=== PATIENT | male | born 1945 | race Caucasian/White ===

== ENCOUNTER 2023-03-17 18:04 | Outpatient (RCR) | payer MEDICARE, OTHER, SELFPAY | END 2023-04-11 23:59 | disposition home or self-care (01) | LOC: MM 18:04 | PROVIDERS: PCP Internal Medicine; Visit Provider Internal Medicine | DX: Z51.81 Encounter for therapeutic drug level monitoring (principal); Z79.01 Long term (current) use of anticoagulants; I48.91 Unspecified atrial fibrillation | CPT/HCPCS: 85610; G0463 ==

== ENCOUNTER 2023-04-17 10:31 | Outpatient (RCR) | payer MEDICARE, OTHER, SELFPAY | END 2023-05-12 16:53 | disposition home or self-care (01) | LOC: MM 10:31 | PROVIDERS: PCP Internal Medicine; Visit Provider Internal Medicine | DX: Z51.81 Encounter for therapeutic drug level monitoring (principal); Z79.01 Long term (current) use of anticoagulants; I48.91 Unspecified atrial fibrillation | CPT/HCPCS: 85610; G0463 ==

== ENCOUNTER 2023-05-13 09:08 | Outpatient (RCR) | payer MEDICARE, OTHER, SELFPAY | END 2023-06-12 17:27 | disposition home or self-care (01) | LOC: MM 09:08 | PROVIDERS: Visit Provider Internal Medicine | DX: Z51.81 Encounter for therapeutic drug level monitoring (principal); Z79.01 Long term (current) use of anticoagulants; I48.91 Unspecified atrial fibrillation | CPT/HCPCS: 85610; G0463 ==

== ENCOUNTER 2023-05-16 08:29 | Outpatient (OUT) | payer MEDICARE, OTHER, SELFPAY ==
--- NOTE | 2023-05-16 08:38 | CT_ITS ---
[address] [address] Patient Name: SIGIFREDO HURTADO MRN: [id number] date: 1945 Sex: M Assigned Patient Location: CT Current Patient Location: CT Accession/Order Number: [id number] Exam Date: 05/16/2023 08:39 Report Date: 05/16/2023 09:42 At the request of: TANI ARGUELLO Procedure: CT abdomen pelvis wo con EXAMINATION: CT abdomen pelvis wo con HISTORY: Aortic Aneurysm Surveillance COMPARISON: CT abdomen pelvis 03/27/2020 TECHNIQUE: Axial, Coronal, and Sagittal images were obtained without and/or with IV contrast as indicated by examination type. Dose reduction techniques were achieved by using automated exposure control and/or adjustment of mA and/or kV according to patient size and/or use of iterative reconstruction technique. FINDINGS: LUNG BASES: No visible pulmonary or pleural disease. LIVER: No enlargement, atrophy, suspicious density, or significant focal lesion. BILIARY: No dilatation or calcification. PANCREAS: No lesion, fluid collection, or abnormal duct dilatation. SPLEEN: No enlargement or focal lesion. ADRENALS: No mass or enlargement. KIDNEYS: Nonobstructing 2 mm stone within right kidney and a few stable small benign-appearing cysts. Moderate atrophy of left kidney. BOWEL/MESENTERY: Numerous diverticula involving descending and sigmoid colon with mild pericolonic inflammatory changes adjacent mid sigmoid colon. AORTA/VASCULAR: Aortobifemoral endovascular stent in stable 4.4 cm fusiform aneurysmal dilation of the aorta just below the renal arteries. Endovascular stents at origins of the right and left renal arteries. RETROPERITONEUM: No mass or adenopathy. LYMPH NODES: No adenopathy. URINARY BLADDER: No visible focal wall thickening, lesion, or calculus. PELVIC ORGANS: No visible mass. Pelvic organs appropriate for patient age. ABDOMINAL WALL: No mass or hernia. BONES: No bony lesion or fracture. OTHER: Negative. CT/CT abdomen pelvis wo con IMPRESSION: 1.Stable 4.4 cm fusiform aneurysmal dilation of the infrarenal aorta with prior aortobifemoral endovascular stenting. 2. Colonic diverticulosis and suspected mild acute diverticulitis of the mid sigmoid colon. 3. Nonobstructing right nephrolithiasis. Electronically authenticated by: YUSUF VAIL Date: 05/16/2023 09:42
== END 2023-05-16 08:30 | disposition home or self-care (01) ==
LOC: CT 08:29
PROVIDERS: PCP Internal Medicine
DX: I71.40 Abdominal aortic aneurysm, without rupture, unspecified (principal); K57.30 Diverticulosis of large intestine without perforation or abscess without bleeding; N20.0 Calculus of kidney
CPT/HCPCS: 74176

== ENCOUNTER 2023-06-13 10:11 | Outpatient (RCR) | payer MEDICARE, OTHER, SELFPAY | END 2023-07-11 16:45 | disposition home or self-care (01) | LOC: MM 10:11 | PROVIDERS: PCP Internal Medicine; Visit Provider Internal Medicine | DX: Z51.81 Encounter for therapeutic drug level monitoring (principal); Z79.01 Long term (current) use of anticoagulants; I48.91 Unspecified atrial fibrillation | CPT/HCPCS: 85610; G0463 ==

== ENCOUNTER 2023-06-25 15:15 | Outpatient (REF) | payer MEDICARE, OTHER, SELFPAY ==
[2023-06-25 16:05] LABS: SARS-CoV-2 Ag NEGATIVE (NEGATIVE)
[2023-06-26 11:42] LABS: SARS-CoV-2 NAA NOT DETECTED (NOT DETECTE)
== END 2023-06-25 15:16 | disposition home or self-care (01) ==
LOC: LAB 15:15
PROVIDERS: PCP Internal Medicine; Visit Provider Internal Medicine
DX: Z20.822 Contact with and (suspected) exposure to COVID-19 (principal)
CPT/HCPCS: 87635; 87811; U0003

== ENCOUNTER 2023-06-25 17:17 | Inpatient (IN) | payer MEDICARE, OTHER, SELFPAY ==
[2023-06-25] VITALS (36 sets, daily range): BP systolic 76–159; BP diastolic 43–81; PULSE 78–126; RESP 16–29; TEMP 37.3–39.4; O2SAT 93–95; BMI 27.3; BMI 27.2
--- NOTE | 2023-06-25 17:37 | ECG_ITS ---
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
--- NOTE | 2023-06-25 17:38 | ED.GENADUL1 ---
HPI - General Adult General Chief complaint: Weakness Stated complaint: General Weakness, Diarrhea, Confusion Time Seen by Provider: 06/25/23 17:33 Source: family Mode of arrival: Wheelchair Limitations: no limitations History of Present Illness HPI narrative: 78-year-old male presents for diarrhea and some weakness. He's been having diarrhea for the past two days, about twice a day. It's been watery but has had no blood in it. He doesn't complain of vomiting and he has not been hospitalized or been on antibiotics recently. He hasn't been around anybody who has been ill. No new medications. His states that he's been slightly slow to answer some questions but he hasn't been confused. Related Data Allergies Allergy/AdvReac Type Severity Reaction Status Date / Time iv contrast Allergy Severe Hives Uncoded 06/25/23 17:32 Review of Systems ROS Narrative A ten point review of systems is negative except as noted above. Exam Narrative Exam Narrative: Nurses note and vital signs reviewed and patient is not hypoxic. General: The patient appears well and in no apparent distress. Patient is resting comfortably on cart. Skin: Warm, dry, no pallor noted. There is no rash noted. Head: Normocephalic, atraumatic Eye: Normal conjunctiva, no drainage Ears, Nose, Mouth, and Throat: oral mucosa is somewhat dry. Nares patent. Cardiovascular: Regular Rate and Rhythm Respiratory: Patient is in no distress, no accessory muscle use, lungs are clear to auscultation, no wheezing, rales or rhonchi Back: non-tender GI: soft and nontender Musculoskeletal: The patient has no evidence of calf tenderness, no pitting edema, symmetrical pulses noted bilaterally Neurological: A&O x4, normal speech Psychiatric: Cooperative Constitutional Vital Signs, click to edit/add: Last Vital Signs Temp 103 F H 06/25/23 17:33 Pulse 112 H 06/25/23 17:33 Resp 24 06/25/23 17:33 BP 159/64 H 06/25/23 17:33 Pulse Ox 95 06/25/23 17:33 Course Vital Signs Vital signs: Vital Signs Temperature 103 F H 06/25/23 17:33 Pulse Rate 112 H 06/25/23 17:33 Respiratory Rate 24 06/25/23 17:33 Blood Pressure 159/64 H 06/25/23 17:33 Pulse Oximetry 95 06/25/23 17:33 Temperature 103 F H 06/25/23 17:33 Pulse Rate 112 H 06/25/23 17:33 Respiratory Rate 24 06/25/23 17:33 Blood Pressure 159/64 H 06/25/23 17:33 Pulse Oximetry 95 06/25/23 17:33 Medical Decision Making MDM Narrative Medical decision making narrative: the patient has had some diarrhea and was noted to have a fever. C. difficile test and stool culture pending as well as blood tests and the patient is signed out to Dr. Castillo at change of shift. Discharge Plan Discharge Chief Complaint: Weakness Clinical Impression: Diarrhea Patient Disposition: Still a Patient Referrals: Cortez Biswas DO [Primary Care Provider] - 1 week
[2023-06-25] MEDS: 0.9 % SODIUM CHLORIDE 500 ML IV (18:15)
[2023-06-25] MEDS: ACETAMINOPHEN 325 MG TABLET 650 MG PO (18:24)
[2023-06-25 18:47] LABS: Hematocrit 34.8 % (42.0-54.0); Hemoglobin 11.3 g/dL (14.0-18.0); Mean Corpuscular HGB Conc 32.5 g/dL (29.9-35.2); Mean Corpuscular Hemoglobin 27.7 pg (25.9-34.0); Mean Corpuscular Volume 85.3 fL (80.0-94.0); Mean Platelet Volume 10.9 fL (9.5-13.5); Platelet Count 88 10^3/uL (150-450); Red Blood Count 4.08 10^6/uL (4.70-6.10); Red Cell Distribution Width 17.1 % (11.0-15.0); White Blood Count 10.2 10^3/uL (4.0-11.0)
[2023-06-25 19:02] LABS: Anion Gap 15.9; BUN Creatinine Ratio 15.4; Calcium 7.8 mg/dL (8.5-10.1); Chloride 103 mmol/L (98-107); Estimated GFR (African America 22 (>=60); Estimated GFR (Non-African Ame 18 (>=60); Glucose 112 mg/dL (74-106); Potassium 3.9 mmol/L (3.5-5.1); Sodium 138 mmol/L (136-145)
--- NOTE | 2023-06-25 19:33 | CT_ITS ---
[address] [address] Patient Name: SIGIFREDO HURTADO MRN: [id number] date: 1945 Sex: M Assigned Patient Location: ER Current Patient Location: ER Accession/Order Number: [id number] Exam Date: 06/25/2023 19:50 Report Date: 06/25/2023 21:04 At the request of: SNOW PAEZ Procedure: CT abdomen pelvis wo con EXAM: CT abdomen pelvis wo con HISTORY: infection and diarrhea COMPARISON: 05/16/2023 TECHNIQUE: CT of abdomen and pelvis without intravenous contrast. Dose reduction techniques were achieved by using automated exposure control and/or adjustment of mA and/or kV according to patient size and/or use of iterative reconstruction technique. FINDINGS: Limited evaluation of the viscera/organs and vasculature without intravenous contrast. TUBES AND IMPLANTS: Aortobiiliac endograft LOWER CHEST: Mild to moderate cardiomegaly. Small hiatal hernia. ABDOMEN and PELVIS ABDOMINAL WALL AND SOFT TISSUES: Unremarkable. BONES: No suspicious lesions. Multilevel degenerative changes of the spine. ARTERIES: Incompletely evaluated. Aortobiiliac endograft in place. Infrarenal aortic aneurysm appears stable in size measuring 4.4 centimeters. VEINS: Incompletely evaluated. LYMPH NODES: Unremarkable. PERITONEUM/ RETROPERITONEUM: Unremarkable. BOWEL: No obstruction. Moderate colonic diverticulosis APPENDIX: Unremarkable LIVER: No suspicious lesions. GALLBLADDER: Unremarkable. BILE DUCTS: Not dilated SPLEEN: Unremarkable. PANCREAS: Unremarkable. ADRENALS: Unremarkable. KIDNEYS/ URETERS: Nonobstructing right renal calculus. Atrophic left kidney. Right renal cysts. REPRODUCTIVE ORGANS: Coarse prostatic calcification without prostatomegaly URINARY BLADDER: Unremarkable. CT/CT abdomen pelvis wo con IMPRESSION: 1. No evidence of acute abdominopelvic process. 2. Nonobstructing right renal calculus. Atrophic left kidney. 3. Moderate diverticulosis. 4. Stable infrarenal aortic aneurysm compared to the 05/16/2023 with aortobiiliac endograft in place. Electronically authenticated by: WILLIS HERRING Date: 06/25/2023 21:04
[2023-06-25] MEDS: 0.9 % SODIUM CHLORIDE 1,000 ML 1000 ML IV (19:40)
[2023-06-25] MEDS: PIPERACILLIN SODIUM/TAZOBACTAM 3.375 GM in 0.9 % SODIUM CHLORIDE 50 ML IV (20:03)
[2023-06-25 20:31] LABS: Lactate/Lactic Acid 0.8 mmol/L (0.4-2.0)
[2023-06-25 20:50] LABS: Lymphocytes Absolute Manual 0.71 10^3/uL (1.20-3.80); Monocytes Absolute Manual 1.02 10^3/uL (0.30-0.80); Segmented Neut Absolute Manual 8.46 10^3/uL (1.4-6.5)
--- NOTE | 2023-06-25 20:50 | XR_ITS ---
The [address] [address] Patient Name: SIGIFREDO HURTADO MRN: [id number] date: 1945 Sex: M Assigned Patient Location: ER Current Patient Location: ER Accession/Order Number: [id number] Exam Date: 06/25/2023 21:00 Report Date: 06/25/2023 22:00 At the request of: SNOW PAEZ Procedure: XR chest 1V ONE-VIEW CHEST RADIOGRAPH, 06/25/2023 9:00 PM EDT COMPARISON: Chest, 12/24/2015. CLINICAL HISTORY: fever/weakness and fatigue with confusion and negative COVID test. Infectious/diarrhea. FINDINGS: No acute pulmonary disease. No pulmonary edema, pneumothorax, or pleural effusion. Mildly enlarged heart size. No acute osseous abnormality. XR/XR chest 1V IMPRESSION: 1. No acute pulmonary disease. 2. Mildly enlarged heart size. Electronically authenticated by: Ralph DORSEY Date: 06/25/2023 22:00
[2023-06-25] MEDS: 0.9 % SODIUM CHLORIDE 2,190 ML 730 ML IV (21:42)
[2023-06-25 21:53] LABS: INR 1.72; Prothrombin Time 17.7 sec (9.0-11.6)
[2023-06-26] VITALS (22 sets, daily range): BP systolic 98–168; BP diastolic 59–73; PULSE 81–120; RESP 16–22; TEMP 36.9–38.8; O2SAT 91–94
[2023-06-26 02:18] LABS: Bilirubin Urine NEGATIVE (NEGATIVE); Blood Urine TRACE-I (NEGATIVE); Clarity Urine CLEAR (CLEAR); Color Urine LT. YELLOW (YELLOW); Glucose Urine UA NEGATIVE (NEGATIVE); Ketones Urine NEGATIVE (NEGATIVE); Leukocyte Esterase Urine NEGATIVE (NEGATIVE); Nitrite Urine NEGATIVE (NEGATIVE); Protein Urine 100 mg/dL (NEG/TRACE); Urobilinogen Urine 0.2 EU/dL (0.2-1.0); pH Urine 5.5 (5.0-9.0)
[2023-06-26] MEDS: LACTATED RINGER'S SOLUTION 1,000 ML 75 ML IV ×2 (02:41→15:41)
[2023-06-26] MEDS: ACETAMINOPHEN 500 MG TABLET 1000 MG PO ×3 (02:41→15:43)
--- NOTE | 2023-06-26 04:13 | W.PM.TELEPN ---
Progress Note: Subjective Subjective Interval history: The patient is a 78-year-old male with a history of atrial fibrillation, hypertension and CAD who presents with 1 week history of diarrhea, and some low-grade fevers. He has had some generalized weakness. His noted him to be a little more confused today. He has been having 4-5 episodes of diarrhea daily. Today he had worsening dizziness and that prompted him to come to the ER. He denies any new medications or any sick contacts. He denies any unusual food intake. When he initially arrived his BP was 76/49. He received 2200 mL of IV fluids in the ED. He does have a temperature noted of 101.5. Lactic acid was 0.8. COVID was negative. CT abdomen was negative. He was noted to have acute kidney injury with a creatinine of 3.3. He was started on empiric Zosyn. he is being admitted for further evaluation. Exam Narrative Exam Narrative: General : Alert and oriented x1 HEENT : Extraocular movements intact, pupils equal round and reactive to light and accommodation Neck: Supple, no JVD Chest: Clear to auscultation bilaterally, no wheezes Heart: Regular rate and rhythm, S1 and S2 heard Abdomen: Soft nontender nondistended. Extremities: No clubbing cyanosis or edema Neurologically: Moving all 4 extremities Skin: No rashes Constitutional Vital Signs, click to edit/add: Last Vital Signs Temp 99.2 F 06/25/23 23:05 Pulse 87 06/26/23 02:41 Resp 22 06/25/23 23:05 BP 147/74 H 06/25/23 23:05 Pulse Ox 95 06/25/23 23:05 O2 Del Method Room Air 06/25/23 23:05 Progress Note: Objective Labs Labs: Short CBC 06/25/23 Range/Units 18:32 WBC 10.2 (4.0-11.0) 10^3/uL Hgb 11.3 L (14.0-18.0) g/dL Hct 34.8 L (42.0-54.0) % Plt Count 88 L (150-450) 10^3/uL BMP 06/25/23 18:32 Sodium 138 Potassium 3.9 Chloride 103 Carbon Dioxide 23.0 BUN 51.0 H Creatinine 3.32 H Glucose 112 H Calcium 7.8 L Urine 09/14/23 Range/Units 01:40 Urine Color Lt. yellow (YELLOW) Urine Clarity Clear (CLEAR) Urine pH 5.5 (5.0-9.0) Ur Specific [place] 1.020 (1.005-1.025) Urine Protein 100 A (NEG/TRACE) mg/dL Urine Glucose (UA) Negative (NEGATIVE) mg/dL Progress Note: A&P Assessment and Plan (1) Diarrhea: (2) Acute hypotension: (3) Acute kidney failure: Plan The patient is a 78-year-old male with above medical problems, presenting with generalized weakness, acute kidney injury and mental status changes. Acute kidney injury -Likely from prerenal azotemia from persistent diarrhea -Provide supportive care with IV fluids -Monitor renal function hold Lasix Diarrhea -Hold scheduled laxatives -Awaiting stool cultures -Give 1 dose of Imodium -Could also be related to viral process with fevers -Patient has been started on Zosyn but can certainly be discontinued if no obvious source of infection. Atrial fibrillation -Continue home medications Generalized weakness -Combination of the above -PT evaluation DVT Prophylaxis -Plavix Medication review -Medication reconciliation form completed Goals of care -Full code Communications -Discussed with the emergency room physician -Discussed with the bedside nurse -Patient updated of plan of care, all questions answered to their satisfaction Disposition -Home when medically stable Telemedicine clause -As the provider of this telehealth evaluation, requested by the patient's evaluating physician, I attest that I introduced myself to the patient, provided my credentials and determined that telemedicine via a real-time, two-way interactive audio and video platform is an appropriate and effective means of providing this service. -I reviewed the patient's chart and had a discussion with the member of the patient's treatment team. -The patient and I mutually agreed with continuation of this evaluation via telemedicine. The patient consented for the telemedicine evaluation. -This virtual encounter was taken place from [place], [place]. The encounter was approximately 35 minutes. The nurse was present during the entire time of the encounter and was able to remove the stethoscope and appropriate directions. The patient was evaluated at [facility] Telemedicine Attestation Telemedicine Attestation I conducted this encounter from [] via secure live, [id number] video conference with the patient, located at [facility] with []. Prior to the interview, the risks and benefits of telemedicine were discussed with the patient and verbal consent was obtained.
[2023-06-26] MEDS: PIPERACILLIN SODIUM/TAZOBACTAM 3.375 GM in 0.9 % SODIUM CHLORIDE 50 ML IV ×2 (06:15→14:39)
[2023-06-26] MEDS: LOPERAMIDE HCL 2 MG CAPSULE 4 MG PO (06:15)
--- NOTE | 2023-06-26 08:29 | CM.NOTE ---
Rounds made with Dr. Rashid, will send stool sample today for testing. Discussed viral illness with pt.
--- NOTE | 2023-06-26 08:31 | P.HP_ITS ---
H&P: HPI History of Present Illness Chief complaint: General Weakness, Diarrhea, Confusion acute kidney Narrative: Patient not the greatest historian presented to the emergency room with increasing diarrhea over the last several days. Also had a fever up to 103. Denies any unusual foods or travel. In ER found to have significant dehydration and tachycardia with significant hypotension. Patient was admitted for work-up and treatment of same. Review of Systems ROS Status of ROS 10 or more systems reviewed and unremarkable except as noted in history and below [facility] Medical History (Updated 06/26/23 @ 01:21 by Miller Moise) Family History (Updated 06/26/23 @ 03:17 by Miller Moise) Father Family history of diabetes mellitus Meds Home Medications and Allergies Home Medications Medication Instructions Recorded Confirmed Type allopurinol 100 mg tablet 100 mg PO BID 06/25/23 06/25/23 History amlodipine 5 mg tablet 5 mg PO DAILY 06/25/23 06/25/23 History clonazepam 0.5 mg tablet 1 mg PO DAILY 06/25/23 06/25/23 History clopidogrel 75 mg tablet 75 mg PO DAILY 06/25/23 06/25/23 History famotidine 20 mg tablet 20 mg PO BID PRN indigestion 06/25/23 06/25/23 History furosemide 40 mg tablet 40 mg PO DAILY 06/25/23 06/25/23 History hydralazine 100 mg tablet 100 mg PO DAILY 06/25/23 06/25/23 History metoprolol tartrate 100 mg tablet 100 mg PO BID 06/25/23 06/25/23 History polysaccharide iron complex 150 mg 150 mg PO DAILY 06/25/23 06/25/23 History iron capsule potassium chloride 10 mEq 10 meq PO DAILY 06/25/23 06/25/23 History tablet,extended release(part/cryst) pravastatin 80 mg tablet 80 mg PO DAILY 06/25/23 06/25/23 History sennosides 8.6 mg-docusate sodium 1 tab-cap PO DAILY 06/25/23 06/25/23 History 50 mg tablet (Senna Plus) tamsulosin 0.4 mg capsule 0.4 mg PO DAILY 06/25/23 06/25/23 History warfarin 4 mg tablet 6 mg PO .mon,thur 06/25/23 06/26/23 History warfarin See Rx Instructions .Route .COMPLEX 06/26/23 06/26/23 History Allergies Allergy/AdvReac Type Severity Reaction Status Date / Time iv contrast Allergy Severe Hives Uncoded 06/25/23 22:54 Exam Constitutional Vital Signs, click to edit/add: Last Vital Signs Temp 99.6 F 06/26/23 06:00 Pulse 120 H 06/26/23 08:06 Resp 22 06/26/23 06:00 BP 154/71 H 06/26/23 06:00 Pulse Ox 94 L 06/26/23 06:00 O2 Del Method Room Air 06/26/23 06:00 Documenting provider has reviewed patient's vital signs: yes Common normals: no apparent distress (A little slow to answer questions but seems appropriate) Chest Common normals: inspection of chest normal and palpation of chest normal Respiratory Common normals: normal respiratory effort and no retractions Cardio Common normals: regular rate and no murmurs; irregular rhythm Rhythm: abnormal rhythm GI Common normals: Normal to inspection, nondistended, normoactive bowel sounds present and soft to palpation Palpation: tender (Mild diffuse tenderness, no rebound tenderness) Results Labs Labs: Short CBC 06/25/23 Range/Units 18:32 WBC 10.2 (4.0-11.0) 10^3/uL Hgb 11.3 L (14.0-18.0) g/dL Hct 34.8 L (42.0-54.0) % Plt Count 88 L (150-450) 10^3/uL BMP 06/25/23 18:32 Sodium 138 Potassium 3.9 Chloride 103 Carbon Dioxide 23.0 BUN 51.0 H Creatinine 3.32 H Glucose 112 H Calcium 7.8 L Urine 06/26/23 Range/Units 01:40 Urine Color Lt. yellow (YELLOW) Urine Clarity Clear (CLEAR) Urine pH 5.5 (5.0-9.0) Ur Specific [place] 1.020 (1.005-1.025) Urine Protein 100 A (NEG/TRACE) mg/dL Urine Glucose (UA) Negative (NEGATIVE) mg/dL Assessment and Plan Assessment and Plan (1) Diarrhea: (2) Acute hypotension: (3) Acute kidney failure: Plan Fever, tachycardia, respiratory distress, significant hypotension, thrombocytopenia resulting in sepsis with multisystem organ dysfunction, lung, heart, kidney-secondary to colitis-IV antibiotics, continue with fluid resuscitation, serial labs, check stool culture we will add oral vancomycin for possible C. difficile colitis Atrial fibrillation with rapid ventricular response-secondary to above-maintain Coumadin, INR somewhat subtherapeutic Anemia-possible acute blood loss anemia we will check stool sample Thrombocytopenia-possibly secondary to above versus chronic, will try to obtain history Acute elevation in BUN and creatinine consistent with acute kidney injury, history of chronic kidney disease but this would appear to be deterioration from that. We will maintain patient as observation, if not improving significantly today we will change to inpatient status starting tomorrow. If sepsis related to viral etiology could resolve quickly otherwise may be here 2 to 3 days
[2023-06-26] MEDS: CLONAZEPAM 0.5 MG TABLET 1 MG PO (09:25)
[2023-06-26] MEDS: ATORVASTATIN CALCIUM 20 MG TABLET PO (09:25)
[2023-06-26] MEDS: ALLOPURINOL 100 MG TABLET PO ×2 (09:26→21:07)
[2023-06-26] MEDS: POTASSIUM CHLORIDE 10 MEQ ER TABLET PO (09:26)
[2023-06-26] MEDS: CLOPIDOGREL BISULFATE 75 MG TABLET PO (09:26)
[2023-06-26] MEDS: METOPROLOL TARTRATE 100 MG TABLET PO ×2 (09:26→21:07)
[2023-06-26] MEDS: TAMSULOSIN HCL 0.4 MG CAPSULE PO (09:26)
[2023-06-26] MEDS: IRON POLYSACCHARIDE COMPLEX 150 MG CAPSULE PO (09:26)
[2023-06-26 10:08] LABS: Anion Gap 12.6; BUN Creatinine Ratio 15.9; Calcium 7.5 mg/dL (8.5-10.1); Carbon Dioxide 23.3 mmol/L (21.0-32.0); Chloride 104 mmol/L (98-107); Estimated GFR (African America 25 (>=60); Estimated GFR (Non-African Ame 20 (>=60); Glucose 151 mg/dL (74-106); Potassium 3.9 mmol/L (3.5-5.1); Sodium 136 mmol/L (136-145)
[2023-06-26 10:20] LABS: Basophils Percent Auto 0.2 % (0.2-2.0); Eosinophils Percent Auto 0.3 % (0.9-7.0); Hematocrit 32.3 % (42.0-54.0); Hemoglobin 10.1 g/dL (14.0-18.0); Immature Granulocytes Abs Auto 0.02 10^3/uL (0.00-0.03); Immature Granulocytes Pct Auto 0.2 % (0.0-0.5); Lymphocytes Absolute Auto 0.8 10^3/uL (1.2-3.8); Lymphocytes Percent Auto 8.4 % (20.5-60.0); Mean Corpuscular HGB Conc 31.3 g/dL (29.9-35.2); Mean Corpuscular Hemoglobin 27.7 pg (25.9-34.0); Mean Corpuscular Volume 88.7 fL (80.0-94.0); Mean Platelet Volume 12.2 fL (9.5-13.5); Monocytes Absolute Auto 0.6 10^3/uL (0.3-0.8); Monocytes Percent Auto 5.8 % (1.7-12.0); Neutrophils Absolute Auto 8.4 10^3/uL (1.4-6.5); Neutrophils Percent Auto 85.1 % (43.0-75.0); Platelet Count 68 10^3/uL (150-450); Red Blood Count 3.64 10^6/uL (4.70-6.10); Red Cell Distribution Width 17.1 % (11.0-15.0); White Blood Count 9.9 10^3/uL (4.0-11.0)
[2023-06-26 10:42] LABS: INR 1.73; Prothrombin Time 17.8 sec (9.0-11.6)
--- NOTE | 2023-06-26 11:35 | SWNOTE1 ---
SW met with pt and in room. Pt is independent at home and does not use any DME. Pt has no concerns about discharge at this time. SW to follow as needed.
[2023-06-26] MEDS: WARFARIN SODIUM 4 MG TABLET 6 MG PO (17:54)
[2023-06-26] MEDS: 0.9 % SODIUM CHLORIDE 1,000 ML 250 ML IV (18:53)
[2023-06-26] MEDS: METRONIDAZOLE/SODIUM CHLORIDE 500 MG/100 ML PREMIX 100 MG IV (21:56)
[2023-06-27] VITALS (14 sets, daily range): BP systolic 123–126; BP diastolic 71–82; PULSE 79–107; RESP 18–181; TEMP 36.5–37.8; O2SAT 92–94
[2023-06-27] MEDS: METRONIDAZOLE/SODIUM CHLORIDE 500 MG/100 ML PREMIX 100 MG IV ×3 (02:40→21:24)
[2023-06-27] MEDS: LORAZEPAM 2 MG/ML 1 ML VIAL 1 MG IV (02:40)
--- NOTE | 2023-06-27 02:49 | PC.NURSE ---
patient has some confusion tonight. He was trying to climb out of bed multiple times. Patient was then moved from room 210 to 216 so he was closer to the nurses station. His efforts to get out of bed were becoming more frequent. Tele-hospitalist was notified and an order of ativan was received. Toileting and fluids offered to the patient. Linens were changed earlier in the shift. Patient is in bed with the bed alarm set, and call light in reach.
[2023-06-27 05:24] LABS: Basophils Percent Auto 0.2 % (0.2-2.0); Eosinophils Absolute Auto 0.1 10^3/uL (0.0-0.7); Eosinophils Percent Auto 0.7 % (0.9-7.0); Hematocrit 30.7 % (42.0-54.0); Hemoglobin 9.1 g/dL (14.0-18.0); Immature Granulocytes Abs Auto 0.02 10^3/uL (0.00-0.03); Immature Granulocytes Pct Auto 0.2 % (0.0-0.5); Lymphocytes Absolute Auto 0.7 10^3/uL (1.2-3.8); Lymphocytes Percent Auto 8.7 % (20.5-60.0); Mean Corpuscular HGB Conc 29.6 g/dL (29.9-35.2); Mean Corpuscular Hemoglobin 26.8 pg (25.9-34.0); Mean Corpuscular Volume 90.6 fL (80.0-94.0); Monocytes Absolute Auto 0.7 10^3/uL (0.3-0.8); Monocytes Percent Auto 7.9 % (1.7-12.0); Neutrophils Absolute Auto 6.9 10^3/uL (1.4-6.5); Neutrophils Percent Auto 82.3 % (43.0-75.0); Platelet Count 75 10^3/uL (150-450); Red Blood Count 3.39 10^6/uL (4.70-6.10); Red Cell Distribution Width 17.1 % (11.0-15.0); White Blood Count 8.4 10^3/uL (4.0-11.0)
[2023-06-27 05:42] LABS: Anion Gap 13.5; Calcium 7.4 mg/dL (8.5-10.1); Carbon Dioxide 21.3 mmol/L (21.0-32.0); Chloride 108 mmol/L (98-107); Estimated GFR (African America 28 (>=60); Estimated GFR (Non-African Ame 23 (>=60); Glucose 100 mg/dL (74-106); Potassium 3.8 mmol/L (3.5-5.1); Sodium 139 mmol/L (136-145)
[2023-06-27 05:44] LABS: INR 1.95; Prothrombin Time 19.9 sec (9.0-11.6)
[2023-06-27] MEDS: LACTATED RINGER'S SOLUTION 1,000 ML 75 ML IV (05:49)
[2023-06-27] MEDS: POTASSIUM CHLORIDE 10 MEQ ER TABLET PO (08:44)
[2023-06-27] MEDS: TAMSULOSIN HCL 0.4 MG CAPSULE PO (08:44)
[2023-06-27] MEDS: CLOPIDOGREL BISULFATE 75 MG TABLET PO (08:44)
[2023-06-27] MEDS: ATORVASTATIN CALCIUM 20 MG TABLET PO (08:45)
[2023-06-27] MEDS: CLONAZEPAM 0.5 MG TABLET 1 MG PO (08:45)
[2023-06-27] MEDS: ALLOPURINOL 100 MG TABLET PO ×2 (08:45→20:37)
[2023-06-27] MEDS: IRON POLYSACCHARIDE COMPLEX 150 MG CAPSULE PO (08:52)
--- NOTE | 2023-06-27 09:21 | CM.NOTE ---
Rounds made with Dr. Rashid, no discharge today. Pt continues to have fevers and some underlying confusion.
--- NOTE | 2023-06-27 10:03 | P.PN_ITS ---
Progress Note: Subjective Subjective Interval history: Patient had some increasing confusion overnight. He does appear to be oriented but he is very hard to redirect. He is disoriented to place. Lack of insight into current condition. Exam Constitutional Vital Signs, click to edit/add: Last Vital Signs Temp 98.6 F 06/27/23 08:44 Pulse 93 H 06/27/23 08:57 Resp 18 06/27/23 08:57 BP 126/74 06/27/23 05:45 Pulse Ox 92 L 06/27/23 05:45 O2 Del Method Room Air 06/27/23 05:45 Documenting provider has reviewed patient's vital signs: yes Common normals: no apparent distress (A little slow to answer questions but seems appropriate) Chest Common normals: inspection of chest normal and palpation of chest normal Respiratory Common normals: normal respiratory effort and no retractions Cardio Common normals: regular rate and no murmurs; irregular rhythm Rhythm: abnormal rhythm GI Common normals: Normal to inspection, nondistended, normoactive bowel sounds present and soft to palpation Palpation: tender (minimal diffuse tenderness, no rebound tenderness) Progress Note: Objective Labs Labs: Short CBC 06/26/23 06/27/23 Range/Units 09:45 04:40 WBC 9.9 8.4 (4.0-11.0) 10^3/uL Hgb 10.1 L 9.1 L (14.0-18.0) g/dL Hct 32.3 L 30.7 L (42.0-54.0) % Plt Count 68 L 75 L (150-450) 10^3/uL BMP 06/26/23 06/27/23 09:45 04:40 Sodium 136 139 Potassium 3.9 3.8 Chloride 104 108 H Carbon Dioxide 23.3 21.3 BUN 48.0 H 41.0 H Creatinine 3.02 H 2.74 H Glucose 151 H 100 Calcium 7.5 L 7.4 L Progress Note: A&P Assessment and Plan (1) Diarrhea: (2) Acute hypotension: (3) Acute kidney failure: Plan Fever, tachycardia, respiratory distress, altered mental status, significant hypotension, thrombocytopenia resulting in sepsis with multisystem organ dysfunction, lung, heart, kidney-secondary to colitis-the fevers persisting last night, antibiotics were changed, held off on treating C. difficile as his diarrhea has improved. Still try to obtain sample if possible. Acute renal failure-baseline creatinine is about 1.8. This significant change from baseline. Continue with fluid resuscitation Atrial fibrillation with rapid ventricular response-secondary to above-maintain Coumadin, INR somewhat subtherapeutic-improved Anemia-possible acute blood loss anemia we will check stool sample Thrombocytopenia-possibly secondary to above versus chronic, appears to be more chronic than thrombocytopenia is improved today. Acute elevation in BUN and creatinine consistent with acute kidney injury, history of chronic kidney disease but this would appear to be deterioration from that. The persistence of his altered mental status, persistence and fever, just change antibiotics yesterday, cultures are still pending, will change patient to inpatient status due to need for prolonged medical therapies ?
--- NOTE | 2023-06-27 10:57 | PT.DAILY ---
Physical Therapy Daily Note PT Daily Note/Assess Start: 06/27/23 10:44 Freq: Status: Active Protocol: Document 06/27/23 10:44 CHELSEA (Rec: 06/27/23 10:57 CHELSEA [id number]) Physical Therapy Daily Note/Assessment Time In/Time Out Time In 09:50 Time Out 10:15 Pain In Pain N/A Pain Out Pain N/A Subjective Subjective Pt supine upon arrival. Agrees to PT at this time. present. Seems confused today - slow to answer simple questions. Therapeutic Exercise Time Therapeutic Exercise Minutes (minutes) 8 Therapeutic Exercise Units 1 Therapeutic Exercise Treatment Therapeutic Exercise Treatment Pt performs standing ther ex performs at sink 10x ea with bilat UE support. HR, marches, hip abd, hip flexion, hip extension and mini squats with short standing rest break between ex. Therapeutic Activity Time Therapeutic Activity Minutes (minutes) 15 Therapeutic Activity Units 1 Therapeutic Activity Treatment Bed Mobility Ability Standby Assistance Therapeutic Activity Comments Pt performs supine>sit transfer SBA with increased time needed. Sits EOB unsupported without LOB. Sit> stand CGA. Amb 10' to sink in room for standing ex. Dynamic standing balance Fair- requiring CGA. Performs standing ex then walks into restroom CGA without AD. Pt stands at sink with mirror to shave face with electric razor without LOB. Pt amb short distance to toilet to urinate - again without LOB. Short/ choppy step length is noticed with gait when returning to bed. Sit>supine IND with increased time needed. Remains supine with call light in reach and needs met. Total Physical Therapy Time Total Therapy Minutes 23 Total Physical Therapy Units 2 Summary Daily Note Summary Increased confusion today. Very slow with transfers and requires CGA for gait though he does not need AD. Pt's cognition is not at baseline- would recommend SNF vs Home if this does not resolve throughout course of stay as it is affecting his physical abilities as well.
--- NOTE | 2023-06-27 14:30 | CM.NOTE ---
Important Message From Medicare discussed with pt, pt verbalizes understanding and signs paper. Original given to pt and copy placed on pt's chart.
--- NOTE | 2023-06-27 14:34 | SWNOTE1 ---
SW to re-assess Friday if pt is still here.
[2023-06-27] MEDS: ACETAMINOPHEN 500 MG TABLET 1000 MG PO (17:56)
[2023-06-27] MEDS: WARFARIN SODIUM 4 MG TABLET PO (17:57)
[2023-06-27] MEDS: CEFTAZIDIME 2,000 MG in 0.9 % SODIUM CHLORIDE 100 ML 200 MG IV (20:37)
[2023-06-28] VITALS (11 sets, daily range): BP systolic 146–165; BP diastolic 67–75; PULSE 85–108; RESP 18; TEMP 36.7–36.9; O2SAT 94–96
[2023-06-28] MEDS: LACTATED RINGER'S SOLUTION 1,000 ML 75 ML IV (01:55)
[2023-06-28] MEDS: METRONIDAZOLE/SODIUM CHLORIDE 500 MG/100 ML PREMIX 100 MG IV ×3 (02:00→14:11)
[2023-06-28 04:34] LABS: Basophils Percent Auto 0.3 % (0.2-2.0); Eosinophils Absolute Auto 0.1 10^3/uL (0.0-0.7); Eosinophils Percent Auto 1.9 % (0.9-7.0); Immature Granulocytes Abs Auto 0.03 10^3/uL (0.00-0.03); Immature Granulocytes Pct Auto 0.4 % (0.0-0.5); Lymphocytes Absolute Auto 0.6 10^3/uL (1.2-3.8); Lymphocytes Percent Auto 8.1 % (20.5-60.0); Mean Corpuscular Hemoglobin 27.4 pg (25.9-34.0); Mean Corpuscular Volume 88.4 fL (80.0-94.0); Mean Platelet Volume 11.5 fL (9.5-13.5); Monocytes Absolute Auto 0.5 10^3/uL (0.3-0.8); Monocytes Percent Auto 7.9 % (1.7-12.0); Neutrophils Absolute Auto 5.5 10^3/uL (1.4-6.5); Neutrophils Percent Auto 81.4 % (43.0-75.0); Platelet Count 65 10^3/uL (150-450); Red Blood Count 3.28 10^6/uL (4.70-6.10); White Blood Count 6.8 10^3/uL (4.0-11.0)
[2023-06-28 04:53] LABS: INR 2.16; Prothrombin Time 21.9 sec (9.0-11.6)
[2023-06-28 04:56] LABS: Anion Gap 9.2; BUN Creatinine Ratio 16.4; Calcium 7.3 mg/dL (8.5-10.1); Carbon Dioxide 25.2 mmol/L (21.0-32.0); Chloride 107 mmol/L (98-107); Estimated GFR (African America 41 (>=60); Estimated GFR (Non-African Ame 34 (>=60); Glucose 112 mg/dL (74-106); Potassium 3.4 mmol/L (3.5-5.1); Sodium 138 mmol/L (136-145)
[2023-06-28] MEDS: CLONAZEPAM 0.5 MG TABLET 1 MG PO (10:00)
[2023-06-28] MEDS: CLOPIDOGREL BISULFATE 75 MG TABLET PO (10:00)
[2023-06-28] MEDS: ATORVASTATIN CALCIUM 20 MG TABLET PO (10:00)
[2023-06-28] MEDS: POTASSIUM CHLORIDE 10 MEQ ER TABLET PO (10:00)
[2023-06-28] MEDS: IRON POLYSACCHARIDE COMPLEX 150 MG CAPSULE PO (10:00)
[2023-06-28] MEDS: TAMSULOSIN HCL 0.4 MG CAPSULE PO (10:00)
[2023-06-28] MEDS: ALLOPURINOL 100 MG TABLET PO (10:00)
--- NOTE | 2023-06-28 11:25 | P.DS_ITS ---
DS: Providers Provider Date of admission: 06/27/23 06:55 Primary care physician: Cortez Sauceda DO Consults: 06/26/23 04:06 Physical Therapy Eval and Treat Routine Reason for consultation: weakness DS: Diagnosis Discharge Diagnosis (1) Diarrhea: (2) Acute hypotension: (3) Acute kidney failure: Plan Fever, tachycardia, respiratory distress, altered mental status, significant hypotension, thrombocytopenia resulting in sepsis with multisystem organ dysfunction, lung, heart, kidney-secondary to colitis Acute renal failure-baseline creatinine is about 1.8. Atrial fibrillation with rapid ventricular response-secondary to above Anemia-possible acute blood loss anemia Thrombocytopenia-possibly secondary to above versus chronic, Acute elevation in BUN and creatinine consistent with acute kidney injury, history of chronic kidney disease but this would appear to be deterioration from that. DS: Summary Hospital Course Hospital Course: Patient was admitted to the hospital with altered mental status, significant fever up to over 103, diarrhea prior to admission, mild to moderate abdominal pain. Once here in the first 24 hours his fevers persisted. Antibiotics were changed and he defervesced. Cultures alternatives negative. CT scan did not show colitis but based on initial exam and laboratory findings and the fever be consistent with colitis. He been fever free now for over 24 hours since the change in antibiotics, his altered mental status is resolved and he is at baseline. He is ambulating well, discussed with family and they also feel that he is back to baseline. Patient will be discharged home in improving condition. Medications see list. Follow-up with his PCP at discharge Time Spent with Patient Time attestation: Total time spent providing and/or coordinating discharge services: Exam Constitutional Vital Signs, click to edit/add: Last Vital Signs Temp 98.1 F 06/28/23 04:54 Pulse 104 H 06/28/23 09:55 Resp 18 06/28/23 04:54 BP 154/67 H 06/28/23 05:08 Pulse Ox 96 06/28/23 04:54 O2 Del Method Room Air 06/28/23 04:54 Documenting provider has reviewed patient's vital signs: yes Common normals: no apparent distress (A little slow to answer questions but seems appropriate) Chest Common normals: inspection of chest normal and palpation of chest normal Respiratory Common normals: normal respiratory effort and no retractions Cardio Common normals: regular rate and no murmurs; irregular rhythm Rhythm: abnormal rhythm GI Common normals: Normal to inspection, nondistended, normoactive bowel sounds present and soft to palpation Palpation: tender (minimal diffuse tenderness, no rebound tenderness) DS: Data Data Completed and Pending Labs on day of discharge: Labs from last 24 hours 06/28/23 04:00 WBC 6.8 RBC 3.28 L Hgb 9.0 L Hct 29.0 L MCV 88.4 MCH 27.4 MCHC 31.0 RDW 17.0 H Plt Count 65 L MPV 11.5 Neut % (Auto) 81.4 H Lymph % (Auto) 8.1 L [place] % (Auto) 7.9 Eos % (Auto) 1.9 Baso % (Auto) 0.3 Neut # (Auto) 5.5 Lymph # (Auto) 0.6 L [place] # (Auto) 0.5 Eos # (Auto) 0.1 Baso # (Auto) 0.0 Abs Immat Gran (auto) 0.03 Imm/Tot Granulo (auto) 0.4 PT 21.9 H INR 2.16 Sodium 138 Potassium 3.4 L Chloride 107 Carbon Dioxide 25.2 Anion Gap 9.2 BUN 32.0 H Creatinine 1.95 H Est GFR ( Amer) 41 L Est GFR (Non-Af Amer) 34 L BUN/Creatinine Ratio 16.4 Glucose 112 H Calcium 7.3 L Preliminary micro results at discharge 06/25/23 19:38 - Preliminary Blood NO GROWTH AT 36-48 HOURS. FINAL TO FOLLOW. 06/25/23 19:30 Blood Culture Result 1 - Preliminary Blood NO GROWTH AT 36-48 HOURS. FINAL TO FOLLOW. Discharge Plan Discharge Disposition: Home, Self-Care Condition: Good Discharge Medications: New ciprofloxacin HCl [Cipro] 500 mg tablet 500 mg PO Q12H Qty: 14 0RF metronidazole 500 mg tablet 500 mg PO Q8H 7 Days Qty: 21 0RF Continued furosemide 40 mg tablet 40 mg PO DAILY metoprolol tartrate 100 mg tablet 100 mg PO BID polysaccharide iron complex 150 mg iron capsule 150 mg PO DAILY clonazepam 0.5 mg tablet 1 mg PO DAILY sennosides-docusate sodium [Senna Plus] 8.6-50 mg tablet 1 tab-cap PO DAILY clopidogrel 75 mg tablet 75 mg PO DAILY amlodipine 5 mg tablet 5 mg PO DAILY allopurinol 100 mg tablet 100 mg PO BID warfarin 4 mg tablet 6 mg PO .fri, Rx Instructions: 6 mg orally 6mg Mon, ; famotidine 20 mg tablet 20 mg PO BID PRN (Reason: indigestion) pravastatin 80 mg tablet 80 mg PO DAILY tamsulosin 0.4 mg capsule 0.4 mg PO DAILY hydralazine 100 mg tablet 100 mg PO DAILY potassium chloride 10 mEq tablet,ER particles/crystals 10 meq PO DAILY warfarin 4 mg tablet See Rx Instructions .ROUTE .COMPLEX Rx Instructions: 4mg every day except Fri and ; Activity: ambulate only with your walker Diet: advance to your usual diet Patient Instructions: Ciprofloxacin (By mouth), Metronidazole (By mouth), Acute Kidney Injury (DC) Forms: Portal Instructions Follow Up Appointments: please schedule follow ups with dr sauceda [phone], and dr lutz industrial specialist [phone] on friday for within one week
--- NOTE | 2023-06-30 14:05 | CM.DCFOLLOWU ---
Person spoke with: patient and pt's How are you feeling? alright, trying to build himself back up. How is your pain? no pain Did you understand your discharge instructions? yes Do you have any questions about your discharge instructions? no Were you given any prescriptions at discharge? yes Were you able to get your prescriptions filled? yes Do you understand how to take your medications as ordered? yes Do you have any questions about your follow up appointment and do you plan to keep your follow up appointment? no questions, has appointment with Dr. Biswas today Is there anything else that you would like to discuss? no Questions/Comments/Concerns/Other:
== END 2023-06-28 16:25 | disposition home or self-care (01) | DRG 872 ==
LOC: ER 21:19 → MS 06-26 03:56
PROVIDERS: Emergency Medicine; Admitting Provider Internal Medicine; Emergency Provider Emergency Medicine; PCP Internal Medicine; Visit Provider Family Medicine
DX: A41.9 Sepsis, unspecified organism (principal); N17.9 Acute kidney failure, unspecified; D62 Acute posthemorrhagic anemia; K52.9 Noninfective gastroenteritis and colitis, unspecified; R65.20 Severe sepsis without septic shock; I12.9 Hypertensive chronic kidney disease with stage 1 through stage 4 chronic kidney disease, or unspecified chronic kidney disease; N18.9 Chronic kidney disease, unspecified; D69.6 Thrombocytopenia, unspecified; E86.0 Dehydration; I48.91 Unspecified atrial fibrillation; I25.10 Atherosclerotic heart disease of native coronary artery without angina pectoris; Z20.822 Contact with and (suspected) exposure to COVID-19; Z83.3 Family history of diabetes mellitus; Z79.01 Long term (current) use of anticoagulants; Z79.899 Other long term (current) drug therapy
CPT/HCPCS: 36415; 36569; 36592; 71045; 74176; 80048; 81003; 83605; 85025; 85027; 85610; 87040; 87045; 87493; 87507; 87635; 87811; 93005; 96361; 96365; 96366; 96367; 96375; 97110; 97161; 97530; 99285; C1887; G0328; G0378; Q3014; U0003

== ENCOUNTER 2023-07-01 10:31 | Outpatient (OUT) | payer MEDICARE, OTHER, SELFPAY ==
--- NOTE | 2023-07-01 10:58 | XR_ITS ---
The [address] [address] Patient Name: SIGIFREDO HURTADO MRN: [id number] date: 1945 Sex: M Assigned Patient Location: LAB Current Patient Location: LAB Accession/Order Number: [id number] Exam Date: 07/01/2023 11:38 Report Date: 07/01/2023 12:02 At the request of: SHAN LUGO Procedure: XR chest 2V EXAM: XR chest 2V HISTORY: Severe Sepsis Without Septic Shock R65.20 COMPARISON: None. TECHNIQUE: PA and lateral views of the chest. FINDINGS: The cardiomediastinal silhouette is normal. Lingula airspace disease. There is no pneumothorax. No pleural effusion is noted. The osseous structures are intact. XR/XR chest 2V IMPRESSION: Lingula airspace disease. Electronically authenticated by: LIGIA RODRIGUEZ Date: 07/01/2023 12:02
[2023-07-01 11:20] LABS: Basophils Percent Auto 0.4 % (0.2-2.0); Eosinophils Absolute Auto 0.1 10^3/uL (0.0-0.7); Eosinophils Percent Auto 1.4 % (0.9-7.0); Hematocrit 30.3 % (42.0-54.0); Hemoglobin 9.6 g/dL (14.0-18.0); INR 2.55; Immature Granulocytes Abs Auto 0.04 10^3/uL (0.00-0.03); Immature Granulocytes Pct Auto 0.7 % (0.0-0.5); Lymphocytes Absolute Auto 0.4 10^3/uL (1.2-3.8); Lymphocytes Percent Auto 6.8 % (20.5-60.0); Mean Corpuscular HGB Conc 31.7 g/dL (29.9-35.2); Mean Corpuscular Hemoglobin 27.6 pg (25.9-34.0); Mean Corpuscular Volume 87.1 fL (80.0-94.0); Mean Platelet Volume 11.2 fL (9.5-13.5); Monocytes Absolute Auto 0.6 10^3/uL (0.3-0.8); Monocytes Percent Auto 10.3 % (1.7-12.0); Neutrophils Absolute Auto 4.5 10^3/uL (1.4-6.5); Neutrophils Percent Auto 80.4 % (43.0-75.0); Platelet Count 123 10^3/uL (150-450); Prothrombin Time 25.6 sec (9.0-11.6); Red Blood Count 3.48 10^6/uL (4.70-6.10); Red Cell Distribution Width 17.3 % (11.0-15.0); White Blood Count 5.6 10^3/uL (4.0-11.0)
[2023-07-01 11:32] LABS: Alanine Aminotransferase 34 U/L (16-63); Albumin Globulin Ratio 0.7; Albumin Level 2.5 g/dL (3.4-5.0); Alkaline Phosphatase 57 U/L (46-116); Aspartate Amino Transferase 35 U/L (15-37); BUN Creatinine Ratio 15.3; Bilirubin Total 0.3 mg/dL (0.2-1.0); Calcium 8.1 mg/dL (8.5-10.1); Chloride 104 mmol/L (98-107); Estimated GFR (African America 39 (>=60); Estimated GFR (Non-African Ame 32 (>=60); Globulin 3.6 g/dL; Glucose 110 mg/dL (74-106); Magnesium 1.8 mg/dL (1.8-2.4); Sodium 137 mmol/L (136-145); Thyroid Stimulating Hormone 1.904 uIU/mL (0.358-3.740); Total Protein 6.1 g/dL (6.4-8.2)
[2023-07-01 11:34] LABS: C Reactive Protein <0.2 mg/dL (<=1.0)
== END 2023-07-01 10:32 | disposition home or self-care (01) ==
LOC: LAB 10:35
PROVIDERS: PCP Internal Medicine; Visit Provider Internal Medicine
DX: I12.9 Hypertensive chronic kidney disease with stage 1 through stage 4 chronic kidney disease, or unspecified chronic kidney disease (principal); R65.20 Severe sepsis without septic shock; N18.4 Chronic kidney disease, stage 4 (severe); I48.0 Paroxysmal atrial fibrillation; R53.83 Other fatigue
CPT/HCPCS: 36415; 71046; 80053; 83735; 84443; 85025; 85610; 86140

== ENCOUNTER 2023-07-14 01:43 | Outpatient (RCR) | payer MEDICARE, OTHER, SELFPAY | END 2023-08-12 17:19 | disposition home or self-care (01) | LOC: MM 01:43 | PROVIDERS: PCP Internal Medicine; Visit Provider Internal Medicine | DX: Z51.81 Encounter for therapeutic drug level monitoring (principal); Z79.01 Long term (current) use of anticoagulants; I48.91 Unspecified atrial fibrillation | CPT/HCPCS: 85610; G0463 ==

== ENCOUNTER 2023-08-13 00:43 | Outpatient (RCR) | payer MEDICARE, OTHER, SELFPAY | END 2023-09-11 16:38 | disposition home or self-care (01) | LOC: MM 00:43 | PROVIDERS: PCP Internal Medicine; Visit Provider Internal Medicine | DX: Z51.81 Encounter for therapeutic drug level monitoring (principal); Z79.01 Long term (current) use of anticoagulants; I48.91 Unspecified atrial fibrillation | CPT/HCPCS: 85610; G0463 ==

== ENCOUNTER 2023-09-12 09:52 | Outpatient (RCR) | payer MEDICARE, OTHER, SELFPAY | END 2023-10-10 15:38 | disposition home or self-care (01) | LOC: MM 09:52 | PROVIDERS: PCP Internal Medicine; Visit Provider Internal Medicine | DX: Z51.81 Encounter for therapeutic drug level monitoring (principal); Z79.01 Long term (current) use of anticoagulants; I48.91 Unspecified atrial fibrillation | CPT/HCPCS: 85610; G0463 ==

== ENCOUNTER 2023-10-13 01:11 | Outpatient (RCR) | payer MEDICARE, SELFPAY | END 2023-11-12 17:10 | disposition home or self-care (01) | LOC: MM 01:11 | PROVIDERS: PCP Internal Medicine; Visit Provider Internal Medicine | DX: Z51.81 Encounter for therapeutic drug level monitoring (principal); Z79.01 Long term (current) use of anticoagulants | CPT/HCPCS: 85610; G0463 ==

== ENCOUNTER 2023-11-13 01:46 | Outpatient (RCR) | payer MEDICARE, SELFPAY | END 2023-12-11 17:18 | disposition home or self-care (01) | LOC: MM 01:46 | PROVIDERS: PCP Internal Medicine; Visit Provider Internal Medicine | DX: Z51.81 Encounter for therapeutic drug level monitoring (principal); Z79.01 Long term (current) use of anticoagulants | CPT/HCPCS: 85610; G0463 ==

== ENCOUNTER 2023-12-12 01:12 | Outpatient (RCR) | payer MEDICARE, SELFPAY | END 2024-01-09 13:16 | disposition home or self-care (01) | LOC: MM 01:12 | PROVIDERS: PCP Internal Medicine; Visit Provider Internal Medicine | DX: Z51.81 Encounter for therapeutic drug level monitoring (principal); Z79.01 Long term (current) use of anticoagulants | CPT/HCPCS: 85610; G0463 ==

== ENCOUNTER 2024-01-12 00:08 | Outpatient (RCR) | payer MEDICARE, SELFPAY | END 2024-02-10 17:52 | disposition home or self-care (01) | LOC: MM 00:08 | PROVIDERS: PCP Internal Medicine; Visit Provider Internal Medicine | DX: Z51.81 Encounter for therapeutic drug level monitoring (principal); Z79.01 Long term (current) use of anticoagulants | CPT/HCPCS: 85610; G0463 ==

== ENCOUNTER 2024-02-11 00:18 | Outpatient (RCR) | payer MEDICARE, SELFPAY | END 2024-03-12 11:14 | disposition home or self-care (01) | LOC: MM 00:18 | PROVIDERS: PCP Internal Medicine; Visit Provider Internal Medicine | DX: Z51.81 Encounter for therapeutic drug level monitoring (principal); Z79.01 Long term (current) use of anticoagulants | CPT/HCPCS: 85610; G0463 ==

== ENCOUNTER 2024-03-15 00:26 | Outpatient (RCR) | payer MEDICARE, SELFPAY | END 2024-04-09 09:59 | disposition home or self-care (01) | LOC: MM 00:26 | PROVIDERS: PCP Internal Medicine; Visit Provider Internal Medicine | DX: Z51.81 Encounter for therapeutic drug level monitoring (principal); Z79.01 Long term (current) use of anticoagulants | CPT/HCPCS: 85610; G0463 ==

== ENCOUNTER 2024-04-12 00:51 | Outpatient (RCR) | payer MEDICARE, SELFPAY | END 2024-05-12 09:45 | disposition home or self-care (01) | LOC: MM 00:51 | PROVIDERS: PCP Internal Medicine; Visit Provider Internal Medicine | DX: Z51.81 Encounter for therapeutic drug level monitoring (principal); Z79.01 Long term (current) use of anticoagulants | CPT/HCPCS: 85610; G0463 ==

== ENCOUNTER 2024-04-14 08:29 | Outpatient (OUT) | payer MEDICARE, SELFPAY ==
--- NOTE | 2024-04-14 | PCN_ITS ---
CARDIAC STRESS TEST Requesting Physician: Procedure Date: 04/14/2024 DIAGNOSIS: Atrial fibrillation. METHOD: After risks, benefits and alternatives were explained, the patient was brought to the stress lab in a resting and fasting state. He was connected to the appropriate electrocardiographic and hemodynamic monitoring. He underwent a Lexiscan pharmacological stress test. At the conclusion of the test, he was transferred to the Radiology Department for nuclear imaging. He tolerated the procedure well. There were no complications. STRESS TEST INFORMATION: 0.4 mg of IV Lexiscan was administered. The patient received Technetium Cardiolite for rest and stress imaging on 04/14/2024. His rest heart rate was 54 beats per minute, increasing to a maximum of 79 beats per minute. Resting blood pressure was 122/68, increasing to a maximum of 132/54. ELECTROCARDIOGRAPHY: Rest EKG: Sinus bradycardia, 54 beats per minute, poor R-wave progression, abnormal resting EKG. During infection and recovery: No significant ST-T wave changes noted, no significant arrhythmia seen. Infrequent premature atrial contractions are noted. FINAL IMPRESSIONS: 1. No ischemic EKG changes seen on Lexiscan pharmacological stress test. 2. Nuclear images are to be read, interpreted, and reported in a separate dictation. [facility]
--- NOTE | 2024-04-14 08:05 | NM_ITS ---
Patient Name: SIGIFREDO HURTADO MR#: [id number] : 1945 Exam Date: 04/14/2024 Ordering Doctor: DR Eyad Christine M.D. RADIOLOGY REPORT PROCEDURE: NM JERMAN PERF SPECT REST STR COMPARISON: None. INDICATIONS: ATRIAL FIBRILLATION TECHNIQUE: Exam Description: Stress/Rest one day protocol gated SPECT Rest Imagin.2 mCi Tc-99m Cardiolite IV on 04/14/2024 Stress Imaging 30.4 mCi Tc-99m Cardiolite IV on 04/14/2024 Exercise Protocol: 0.4 mg Lexiscan given IV Heart Rate (bpm): Rest: 54 Max: 69 PMHR: 48 Blood Pressure: Rest: 122/68 Max: 132/54 Symptoms: Rest and peak stress ECG findings were pending and the exercise portion of the study was pending per attending physician Dr. ALEXANDER . For more details please see separate cardiac stress test report. FINDINGS: QUALITY OF STUDY: Excellent. PERFUSION DEFECT: LOCATION: Basal inferior. Mid-inferior. Apical inferior. [place]. SIZE: Medium (3-4 segments). SEVERITY: Mild to moderate. TYPE: Persistent. WALL MOTION: Normal. LV SIZE: Enlarged; EDV 143 mL. TID / TCD: None; 0.9 LVEF: Normal. Calculated EF 63%. SUMMARY: Myocardial perfusion imaging study has ABNORMAL findings. CONCLUSION: 1. No acute or reversible ischemia 2. [id number] fixed ischemia versus diaphragm attenuation artifact involving the inferior wall and apex. Fixed ischemia is favored. 3. Mild ventriculomegaly. 4. Normal wall motion and ejection fraction. Dictated by: Timoteo Crocker M.D. on 04/14/2024 at 14:48 Approved by: Timoteo Crocker M.D. on 04/14/2024 at 14:52
--- OUTSIDE RECORDS SUMMARY | 2024-04-14 08:37 | XMS_ITS | CCD ---
Author Organization [facility] Care Team Providers Care Drapery Head Former Name Role Phone Cotrez Biswas Unavailable FAWWAD, KAISER H Attending Unavailable FAWWAD, KAISER H Admitting Unavailable BALL, DR TORREZ Primary Care Unavailable FAWWAD, KAISER H Attending Unavailable FAWWAD, KAISER H Admitting Unavailable BALL, DR TORREZ Primary Care Unavailable FAWWAD, KAISER H Attending Unavailable FAWWAD, KAISER H Admitting Unavailable BALL, DR TORREZ Primary Care Unavailable FAWWAD, KAISER H Attending Unavailable FAWWAD, KAISER H Admitting Unavailable BALL, DR TORREZ Primary Care Unavailable FAWWAD, KAISER H Attending Unavailable FAWWAD, KAISER H Admitting Unavailable BALL, DR TORREZ Primary Care Unavailable FAWWAD, KAISER H Attending Unavailable FAWWAD, KAISER H Admitting Unavailable BALL, DR TORREZ Primary Care Unavailable FAWWAD, KAISER H Attending Unavailable FAWWAD, KAISER H Admitting Unavailable BALL, DR TORREZ Primary Care Unavailable FAWWAD, KAISER H Attending Unavailable FAWWAD, KAISER H Admitting Unavailable BALL, DR TORREZ Primary Care Unavailable BALL, DR TORREZ Primary Care Unavailable BALL, DR TORREZ Consulting Unavailable BALL, DR TORREZ Attending Unavailable BALL, DR TORREZ Admitting Unavailable BALL, DR TORREZ Primary Care Unavailable BALL, DR TORREZ Consulting Unavailable BALL, DR TORREZ Attending Unavailable BALL, DR TORREZ Admitting Unavailable SUKHDEEP REYES MD Consulting Unavailab Yefri MORAN, SUKHDEEP Mendieta Attending Unavailab le TRUE, DR TORREZ Primary Care Unavailable SUKHDEEP REYES MD Admitting Unavailab christina ARGUELLO, DR FREIRE Consulting Unavailable SAUNDRA, DR FREIRE Attending Unavailable TRUE, DR TORREZ Primary Care Unavailable ABBSHERYL, DR FREIRE Admitting Unavailable WEST, DR SHANNAN Mckeon Consulting Unavailable FAWWAD, KAISER H Attending Unavailable DR CORTEZ BISWAS Primary Care Unavailable FAWWAD, KAISER H Admitting Unavailable FAWWAD, KAISER H Attending Unavailable FAWWAD, KAISER H Admitting Unavailable BALL, DR TORREZ Primary Care Unavailable FAWWAD, H Attending Unavailable FAWWAD, KAISER H Admitting Unavailable BALL, DR TORREZ Primary Care Unavailable Supriya Gardner Unavailable [phone] Cortez Biswas DO Primary Care Provider HERMELINDA HERNANDEZ Attending Unavailable SKYLER AGUILAR Attending Unavailable CORTEZ BISWAS Referring Unavailable TRUE, CORTEZ Erickson Primary Care Unavailable HERMELINDA HERNANDEZ A Referring Unavailable CORTEZ BISWAS Primary Care Unavailable YUSUF ENGLE Attending Unavailable RUSHER, YUSUF A Attending Unavailable PETITTI, PIEDAD A Attending Unavailable PETITTI, PIEDAD A Attending Unavailable Allergies Allergy Classification Reported Allergen(s) Allergy Type Date of Onset Reaction(s) Facility (20 sources) cefdinir; Translations: [CEFDINIR] Drug Allergy 01-26-20 22 Unknown, Unknown Reaction [facility] (20 sources) Ciprofloxacin Drug Allergy 04-09-20 24 Unknown, Unknown Reaction [facility] (11 sources) Contrast media Propensity to adverse reactions Unknown [facility] Other (11 sources) Sulfonamides (Antibiotic) Propensity to adverse reactions Unknown [facility] Other (1 source) Iodine (And Iodine Containting Drugs) Drug allergy (disorder) 04-05-20 13 [facility] Repository (20 sources) Substance with sulfonamide structure and antibacterial mechanism of action (substance) Drug allergy 09-30-20 14 Rash [facility] (1 source) patient allergy list reviewed by nurse or physicia Propensity to adverse reactions 01-28-20 18 Comment:Done [facility] Other (19 sources) Dye [facility] ([place] [facility]) *PHARMACEUTICAL ADJUV Propensity to adverse reactions Comment:IVP Dye [facility] Other (3 sources) Iodinated Contrast Media; Translations: [IODINATED CONTRAST MEDIA] Propensity to adverse reactions to drug 09-30-20 14 [facility] (3 sources) Ragweed; Translations: [RAGWEED] Propensity to adverse reactions to drug 03-04-20 22 [email or web address] (1 source) Contrast media; Translations: [DYE] Propensity to adverse reactions to drug (disorder) 08-26-20 16 [facility] Repository (3 sources) Sulfonamides (Antibiotic); Translations: [SULFA (SULFONAMIDE ANTIBIOTICS)] Propensity to adverse reactions to drug (disorder) 09-30-20 14 Unknown Reaction [facility] Repository (1 source) Contrast media Allergy to substance 04-09-20 24 Comment:IVP Dye [facility] Medications Current Medications Medication Drug Class(es) Dates Sig (Normalized) Sig (Original) acetaminophen 325 mg oral tablet (1 source) take 2 tablets by mouth every six hours as needed for pain acetaminophen (TYLENOL) 325 mg tablet Take 2 tablets (650 mg total) by mouth every 6 (six) hours as needed for pain. 0 Active allopurinol 100 mg oral tablet (20 sources) Xanthine Oxidase Inhibitor Start: 12-09-2023 take 200 mg by mouth once daily Allopurinol Active 200 MG PO Daily December 09, 2023 1:00am Start: 02-18-2022 take 2 tablets by mo uth in the morning allopurinoL (ZYLOPRIM) 100 mg tablet Take 2 tablets (200 mg total) by mouth in the morning. 0 02/18/2022 Active take 1 tablet by fransico th every twenty-four hours Allopurinol 100 MG 1 tablet Orally Once a day Active amLODIPine 5 mg oral tablet (20 sources) Dihydropyridine Calcium Channel Viktor Start: 01-05-2024 Amlodipine Active 0 .ROUTE .COMPLEX 90 January 05, 2024 1:38pm TAKE 1 TABLET DAILY Start: 11-07-2017 End: 01-05-2024 take 5 mg by mouth once daily Amlodipine Discontinued 5 MG PO Daily December 09, 2023 1:00am January 05, 2024 1:39pm clonazePAM 0.5 mg oral tablet (20 sources) Benzodiazepine Start: 12-09-2023 take 0.5 mg by mouth twice daily Clonazepam Active 0.5 MG PO Twice daily December 09, 2023 1:00am Start: 10-27-2023 take 1 tablet by fransico th twice daily clonazePAM 0.5 MG 1 tablet Orally Twice daily for 90 days Oct, Active Start: 11-19-2022 take 1 tablet by fransico th twice daily clonazePAM 0.5 MG 1 tablet Orally Twice daily for 90 days Jul, Active clopidogrel 75 mg oral tablet (20 sources) P2Y12 Platelet Inhibitor Start: 12-09-2023 take 75 mg by mouth once daily Clopidogrel Active 75 MG PO Daily December 09, 2023 1:00am docusate sodium 50 mg / sennosides, fci 8.6 mg oral tablet (20 sources) Start: 12-09-2023 take 1 tablet by mouth once daily Sennosides-Docusat e Sodium Active 1 TAB-CAP PO Daily December 09, 2023 1:00am take 1 tablet by fransico th every twenty-four hours Senna Plus 8.6-50 MG 1 tablet as needed Orally Once a day for 90 days Active take 1 tablet by mouth every twe lve hours Senna Plus 8.6-50 MG 1 tablet as needed Orally Twice a day Active famotidine 20 mg oral tablet (20 sources) Histamine-2 Receptor Antagonist Start: 12-09-2023 take 20 mg by mouth twice daily Famotidine Active 20 MG PO Twice daily December 09, 2023 1:00am take 1 tablet by fransico th every twenty-four hours Famotidine 20 MG 1 tablet at bedtime as needed Orally Once a day for 90 days Active furosemide 40 mg oral tablet (20 sources) Loop Diuretic Start: 03-01-2024 take 1 tablet by mouth once daily Furosemide Active 0 .ROUTE .COMPLEX 90 March 01, 2024 1:03pm TAKE 1 TABLET BY MOUTH EVERY DAY Start: 12-21-2021 End: 03-01-2024 take 40 mg by mouth once daily Furosemide Discontinued 40 MG PO Daily December 09, 2023 1:00am March 01, 2024 1:03pm hydrALAZINE hydrochloride 100 mg oral tablet (20 sources) Arteriolar Vasodilator Start: 12-09-2023 take 100 mg by mouth four times daily Hydralazine Active 100 MG PO Four times daily December 09, 2023 1:00am hydrALAZINE (APR ESOLINE) 50 mg tablet Take 1 tablet (50 mg total) by mouth in the morning and 1 tablet (50 mg total) at noon and 1 tablet (50 mg total) in the evening and 1 tablet (50 mg total) before bedtime. 0 Active take 1 tablet by mouth every six hours hydrALAZINE HCl 100 MG 1 tablet Orally qid for 90 days Active metoprolol tartrate 50 mg oral tablet (20 sources) beta-Adrenergic Viktor Start: 03-22-2024 End: 03-22-2024 take 100 mg by mouth once daily Metoprolol Tartrate Discontinued 100 MG PO Daily 90 March 22, 2024 12:00am March 22, 2024 12:24pm Start: 12-09-2023 End: 03-22-2024 take 50 mg by mouth twice daily Metoprolol Tartrate Ac tive 50 MG PO Twice daily 180 March 22, 2024 2:25pm Start: 02-05-2022 take 1 tablet by fransico th at bedtime metoprolol tartrate (LOPRESSOR) 100 mg tablet Take 1 tablet (100 mg total) by mouth in the morning and at bedtime. 0 02/05/2022 Active take 1 tablet by fransico th every twelve hours Metoprolol Tartrate 50 MG 1 tablet with food Orally Twice a day for 90 days Active Polyethylene Glycols (1 source) take 17 g by mouth once daily as needed polyethylene glycol 3350 (MIRALAX ORAL) Take 17 g by mouth daily as needed. 0 Active polysaccharide iron complex 150 mg oral capsule (20 sources) Start: 12-09-19 End: 02-05-20 take 150 mg by mouth once daily Polysaccharide Iron Complex Active 150 MG PO Daily February 05, 2024 3:45pm Pravastatin (20 sources) HMG-CoA Reductase Inhibitor Start: 01-05-20 Pravastatin Active 0 .ROUTE .COMPLEX January 05, 2024 1:38pm TAKE 1 TABLET DAILY Start: 12-09-2023 End: 01-05-2024 take 80 mg by mouth once daily Pravastatin Discontinue d 80 MG PO Daily December 09, 2023 1:00am January 05, 2024 1:39pm sennosides (SENNA ORAL) (1 source) take 1 tablet by mouth once daily sennosides (SENNA ORAL) Take 1 tablet by mouth nightly. 0 Active tamsulosin hydrochloride 0.4 mg oral capsule (20 sources) alpha-Adrenergic Viktor Start: 03-31-2024 Tamsulosin Active 0 .ROUTE .COMPLEX March 31, 2024 6:06pm TAKE 1 CAPSULE DAILY Start: 12-09-2023 End: 03-31-2024 take 0.4 mg by mouth once daily Tamsulosin Discontinued 0.4 MG PO Daily December 09, 2023 1:00am March 31, 2024 6:06pm warfarin sodium 4 mg oral tablet (20 sources) Vitamin K Antagonist Start: 12-09-2023 End: 02-02-2024 take 6 mg by mouth once daily Warfarin Active 6 MG PO Daily 135 90 February 02, 2024 1:45pm take 4 mg by mouth in the evenin g warfarin (COUMADIN) 5 mg tablet Take 4 mg by mouth in the evening. Dose is adjusted due to PT/INR . 0 Active take 1 tablet by mouth once mikel y Warfarin Sodium 4 MG 1 1/2 tablets Orally Once a day Active Completed/Discontinued Medications Medication Drug Class(es) Dates Sig (Normalized) Sig (Original) doxycycline hyclate 100 mg oral capsule (14 sources) Tetracycline-cla ss Drug Start: 12-09-2023 End: 12-15-2023 take 100 mg by mouth twice daily Doxycycline Hyclate Discontinued 100 MG PO Twice daily 10 5 December 09, 2023 1:00am December 15, 2023 3:02pm Start: 07-01-2023 take 1 capsule by [facility] twice daily Doxycycline Hyclate 100 MG 1 capsule Orally twice daily for 5 days Jun, Active microencapsulated potassium chloride 10 meq extended release oral tablet (20 sources) Start: 12-09-2023 End: 04-09-2024 take 10 mEq by mouth once daily Potassium Chloride Discontinued 10 MEQ PO Daily December 09, 2023 1:00am April 09, 2024 2:41pm take 1 tablet by mouth every twe lve hours Klor-Con M10 10 MEQ 1 tablet with food Orally Twice a day Active Suprep Bowel Prep . (12 sources) Start: 11-30-2014 Suprep Bowel P rep . as directed Orally as directed for 1 dose(s) Nov, Not-Taking Problems Active Problems Problem Classification Problem Date Documented Da te Episodic/Chronic Acute and unspecified renal failure (1 source) Acute kidney failure, unspecified Episodic Acute bronchitis (20 sources) Acute bronchitis; Translations: [Acute bronchitis due to other specified organisms] Onset: 10-12-2014 Episodic Anxiety disorders (20 sources) Generalized anxiety disorder; Translations: [Generalized anxiety disorder] Chronic Cardiac dysrhythmias (20 sources) Paroxysmal atrial fibrillation; Translations: [Paroxysmal atrial fibrillation] Onset: 06-29-2014 Chronic Cardiac dysrhythmias (20 sources) Palpitations; Translations: [Palpitations] Resolved: 09-14-2021 Episodic Chronic kidney disease (20 sources) Chronic kidney disease stage 4; Translations: [Chronic kidney disease, stage 4 (severe)] Onset: 10-13-1959 Chronic Chronic kidney disease (5 sources) Chronic kidney disease; Translations: [CHRONIC KIDNEY DISEASE STAGE 3B] Onset: 01-24-2023 Conditions associated with dizziness or vertigo (1 source) Dizziness and giddiness Episodic Coronary atherosclerosis and other heart disease (20 sources) Coronary arteriosclerosis; Translations: [Atherosclerotic heart disease of lummi coronary artery without angina pectoris] Onset: 04-07-2023 Chronic Deficiency and other anemia (10 sources) Chronic anemia; Translations: [Anemia in other chronic diseases classified elsewhere] Onset: 01-15-2016 Chronic Deficiency and other anemia (9 sources) Iron deficiency anemia due to blood loss; Translations: [Iron deficiency anemia secondary to blood loss (chronic)] Chronic Deficiency and other anemia (2 sources) 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 Disorders of lipid metabolism (20 sources) Pure hypercholesterolemia; Translations: [Familial hypercholesterolemia] Onset: 11-09-2014 Chronic Diverticulosis and diverticulitis (11 sources) Diverticulosis of sigmoid colon; Translations: [Sigmoid diverticulosis] Chronic Esophageal disorders (10 sources) Gastro-esophageal reflux disease with esophagitis; Translations: [Gastroesophageal reflux disease with esophagitis without hemorrhage] 12-09-2023 Chronic Esophageal disorders (20 sources) Esophageal disorders; Translations: [Gastroesophageal reflux disease with esophagitis without hemorrhage] Essential hypertension (20 sources) Hypertensive disorder; Translations: [Essential (primary) hypertension] Chronic Fluid and electrolyte disorders (1 source) Hypokalemia Episodic Genitourinary symptoms and ill-defined conditions (10 sources) Dysuria; Translations: [Dysuria] Episodic Gout and other crystal arthropathies (20 sources) Chronic gouty nephropathy; Translations: [Gout due to renal impairment, left wrist] Onset: 08-28-2015 12-09-2023 Chronic Hyperplasia of prostate (20 sources) Benign prostatic hypertrophy without outflow obstruction; Translations: [Benign prostatic hyperplasia without lower urinary tract symptoms] Onset: 05-18-2015 Resolved: 04-30-2021 Chronic Hypertension with complications and secondary hypertension (20 sources) Chronic kidney disease due to hypertension; Translations: [Hypertensive chronic kidney disease with stage 1 through stage 4 chronic kidney disease, or unspecified chronic kidney disease] Onset: 10-13-1959 12-09-2023 Chronic Immunizations and screening for infectious disease (20 sources) Contact with and (suspected) exposure to other viral communicable diseases; Translations: [Vaccination given] Episodic Malaise and fatigue (1 source) Other fatigue Episodic Occlusion or stenosis of precerebral arteries (10 sources) Left carotid artery stenosis; Translations: [Occlusion and stenosis of left carotid artery] Onset: 08-25-2022 Chronic Other aftercare (5 sources) Encounter for therapeutic drug level monitoring; Translations: [ENC THERAPEUTC DRUG LEVL MONITORING] Onset: 02-08-2023 Episodic Other aftercare (1 source) terminal carman (current) use of anticoagulants; Translations: [LONGTERM CURRNT USE ANTICOAGULANTS] Onset: 03-12-2023 Episodic Other circulatory disease (20 sources) Cardiovascular symptoms; Translations: [Other specified symptoms and signs involving the circulatory and respiratory systems] Onset: 03-24-2019 Episodic Other diseases of veins and lymphatics (20 sources) Peripheral venous insufficiency; Translations: [Venous insufficiency (chronic) (peripheral)] Onset: 05-22-2016 12-09-2023 Episodic Other diseases of veins and lymphatics (3 sources) Venous insufficiency (chronic) (peripheral) Episodic Other diseases of veins and lymphatics (1 source) Venous insufficiency of leg; Translations: [Venous insufficiency (chronic) (peripheral)] 12-15-2023 Episodic Other endocrine disorders (1 source) Secondary hyperparathyroidism; Translations: [Secondary hyperparathyroidism] Onset: 01-06-2018 Chronic Other gastrointestinal disorders (20 sources) Irritable bowel syndrome characterized by constipation; Translations: [Irritable bowel syndrome with constipation] 12-09-2023 Chronic Other gastrointestinal disorders (11 sources) Occult blood in stools; Translations: [Occult blood positive stool] Episodic Other gastrointestinal disorders (1 source) Diarrhea, unspecified Episodic Other injuries and conditions due to external causes (10 sources) History of fall; Translations: [History of falling] Episodic Other nervous system disorders (16 sources) Abnormal gait; Translations: [Unspecified abnormalities of gait and mobility] Episodic Other nervous system disorders (1 source) Unspecified abnormalities of gait and mobility Episodic Other nutritional; endocrine; and metabolic disorders (1 source) Abnormal weight loss Episodic Other upper respiratory disease (10 sources) Allergic rhinitis; Translations: [Allergic rhinitis, unspecified] Chronic Other upper respiratory infections (20 sources) Acute maxillary sinusitis; Translations: [Acute maxillary sinusitis, unspecified] Episodic Peripheral and visceral atherosclerosis (10 sources) Atherosclerosis of renal artery; Translations: [Atherosclerosis of renal artery] Chronic Pneumonia (except that caused by tuberculosis or sexually transmitted disease) (3 sources) Pneumonia, unspecified organism Episodic Residual codes; unclassified (10 sources) Postprocedural state finding; Translations: [Other specified postprocedural states] Episodic Residual codes; unclassified (1 source) Disorientation, unspecified Episodic Residual codes; unclassified (1 source) Other general symptoms and signs; Translations: [Other general symptoms and signs] Onset: 03-26-2024 Episodic Respiratory failure; insufficiency; arrest (adult) (1 source) Respiratory failure; insufficiency; arrest (adult); Translations: [Chronic ulcer of other specified site] Onset: 05-22-2016 Rheumatoid arthritis and related disease (9 sources) Inflammatory polyarthropathy; Translations: [Inflammatory polyarthropathy] 12-09-2023 Chronic Septicemia (except in labor) (2 sources) Severe sepsis without septic shock; Translations: [Sepsis, unspecified organism] Episodic Spondylosis; intervertebral disc disorders; other back problems (10 sources) Cervical spondylosis without myelopathy; Translations: [Spondylosis without myelopathy or radiculopathy, cervical region] Onset: 05-13-2017 Chronic Unclassified (2 sources) CONTACT W/AND (SUSP) EXPOS COVID-19; Translations: [CONTACT W/AND (SUSP) EXPOS COVID-19] Onset: 09-21-2022 Unclassified (1 source) Long-term current use of drug therapy; Translations: [Long-term (current) use of other medications] Onset: 02-20-2017 Unclassified (1 source) Other and unspecified superficial injury of hip, thigh, leg, and ankle, infected; Translations: [Other and unspecified superficial injury of hip, thigh, leg, and ankle, infected] Onset: 03-15-2016 Viral infection (1 source) COVID-19; Translations: [COVID-19] Onset: 09-21-2022 Past or Other Problems Problem Classification Problem Date Documented Da te Episodic/Chronic Abdominal pain (20 sources) Epigastric pain; Translations: [Epigastric pain] Onset: 10-19-2014 Episodic Bacterial infection; unspecified site (1 source) Bacterial infectious disease; Translations: [Bacterial infection, unspecified, in conditions classified elsewhere and of unspecified site] Onset: 12-05-2016 Episodic Deficiency and other anemia (20 sources) Iron deficiency anemia; Translations: [Iron deficiency anemia] Onset: 01-22-2016 Episodic Deficiency and other anemia (18 sources) Anemia; Translations: [Anemia, unspecified] Onset: 01-15-2016 Episodic Intestinal infection (10 sources) Clostridial gastroenteritis; Translations: [Enterocolitis due to Clostridium difficile, not specified as recurrent] Onset: 05-08-2018 Episodic Nausea and vomiting (10 sources) Nausea; Translations: [Nausea] Onset: 06-21-2014 Episodic Nonspecific chest pain (11 sources) Chest pain; Translations: [Chest pain, unspecified] Onset: 06-02-2014 Episodic Other circulatory disease (7 sources) Other specified symptoms and signs involving the circulatory and respiratory systems; Translations: [OTH SPEC SX SIGNS INVLV CIRC RS] Onset: 08-20-2022 Episodic Other connective tissue disease (1 source) Spasm; Translations: [Spasm of muscle] Onset: 05-13-2017 Episodic Other connective tissue disease (1 source) Olecranon bursitis; Translations: [Olecranon bursitis] Onset: 03-05-2018 Episodic Other connective tissue disease (1 source) Bursitis; Translations: [Other bursitis disorders] Onset: 03-06-2018 Episodic Other ear and sense organ disorders (1 source) Disorder of both middle ear and mastoid; Translations: [Other disorders of middle ear and mastoid] Onset: 08-28-2015 Episodic Other gastrointestinal disorders (10 sources) Irritable bowel syndrome with diarrhea; Translations: [Irritable bowel syndrome with diarrhea] Resolved: 04-27-2020 Chronic Other gastrointestinal disorders (1 source) Diarrhea; Translations: [Diarrhea] Onset: 05-06-2018 Episodic Other gastrointestinal disorders (10 sources) Flatulence, eructation and gas pain; Translations: [Abdominal distension (gaseous)] Onset: 11-20-2015 Episodic Other injuries and conditions due to external causes (1 source) Open wound without complication; Translations: [Open wound(s) (multiple) of unspecified site(s), without mention of complication] Onset: 05-22-2016 Episodic Other injuries and conditions due to external causes (10 sources) Traumatic AND/OR non-traumatic injury; Translations: [Other injury of unspecified body region, initial encounter] Onset: 06-12-2015 Episodic Other liver diseases (10 sources) Elevated levels of transaminase & lactic acid dehydrogenase; Translations: [Nonspecific elevation of levels of transaminase and lactic acid dehydrogenase [LDH]] Resolved: 05-07-2022 Episodic Other lower respiratory disease (10 sources) Cough; Translations: [Cough] Onset: 12-25-2015 Episodic Other nervous system disorders (10 sources) Paresthesia; Translations: [Paresthesia of skin] Onset: 03-27-2015 Episodic Other nutritional; endocrine; and metabolic disorders (10 sources) Disorder of lipoprotein storage and metabolism; Translations: [Disorder of lipoprotein metabolism, unspecified] Resolved: 05-07-2022 Chronic Other nutritional; endocrine; and metabolic disorders (10 sources) Overweight; Translations: [Overweight] Onset: 08-08-2022 Episodic Other nutritional; endocrine; and metabolic disorders (2 sources) Body mass index 25-29 - overweight; Translations: [Body mass index 28.0-28.9, adult] Onset: 05-13-2017 Episodic Other screening for suspected conditions (not mental disorders or infectious disease) (1 source) Encounter for screening for malignant neoplasm of prostate; Translations: [ENC SCREEN MALIG NEOPLASM PROSTATE] Onset: 05-16-2022 Episodic Other skin disorders (1 source) Disorder of skin and/or subcutaneous tissue; Translations: [Unspecified disorder of skin and subcutaneous tissue] Onset: 04-18-2015 Episodic Other skin disorders (1 source) Actinic keratosis; Translations: [Actinic keratosis] Onset: 02-06-2016 Episodic Other skin disorders (1 source) Blister; Translations: [Other, multiple, and unspecified sites, blister, without mention of infection] Onset: 07-03-2016 Episodic Other upper respiratory disease (10 sources) Hypertrophy of nasal turbinates; Translations: [Hypertrophy of nasal turbinates] Onset: 11-17-2014 Episodic Other upper respiratory disease (10 sources) Bleeding from nose; Translations: [Epistaxis] Onset: 11-17-2014 Episodic Otitis media and related conditions (20 sources) Acute eustachian tube salpingitis; Translations: [Acute Eustachian salpingitis, unspecified ear] Onset: 09-06-2014 Episodic Residual codes; unclassified (1 source) Edema; Translations: [Edema] Onset: 11-17-2014 Episodic Residual codes; unclassified (1 source) Requires influenza virus vaccination; Translations: [Need for prophylactic vaccination and inoculation, Influenza] Onset: 07-03-2017 Episodic Residual codes; unclassified (10 sources) Localized edema; Translations: [Localized edema] Resolved: 05-07-2022 Episodic Screening and history of mental health and substance abuse codes (1 source) History of tobacco use; Translations: [Personal history of tobacco use, presenting hazards to health] Onset: 09-26-2016 Episodic Skin and subcutaneous tissue infections (2 sources) Cellulitis and abscess of lower leg; Translations: [Cellulitis and abscess of leg, except foot] Onset: 08-28-2015 Episodic Superficial injury; contusion (20 sources) Contusion of lower leg; Translations: [Contusion of right lower leg, initial encounter] Onset: 05-02-2016 Episodic Unclassified (1 source) CONTACT W/AND (SUSP) EXPOS COVID-19; Translations: [CONTACT W/AND (SUSP) EXPOS COVID-19] Onset: 09-16-2022 Unclassified (10 sources) Elevation of levels of liver transaminase levels; Translations: [Elevation of levels of liver transaminase levels] Resolved: 05-07-2022 Unclassified (10 sources) Post-acute COVID-19 (disorder); Translations: [Post COVID-19 condition, unspecified] Resolved: 05-07-2022 Results Test Name Value Interpretation Reference Range Facility Office Visiton 03-15-2024 Follow-up visit [id number] Nicolas Kelly 1945 M Date Provider Department Center 03/15/2024 Ramírez-HERMELINDA HERNANDEZ CARD [facility] No family history on file Level of Service:24775 SD OFFICE/OUTPATIENT ESTABLISHED MOD MDM 30 MIN Normal [facility] BASIC METABOLIC PANLon 03-09 Anion gap [Moles/Vol] 12 mmol/L Normal 5-15 [facility] Comment on above: Performed By: #### U PCR, BMP, 63339-6, 2777-1, 2731-8, 31989- 6, CBC #### [facility] ([id number]) [address], [address] [place] [address] Calcium [Mass/Vol] 8.6 mg/dL Normal 8.5-10.5 [facility] Comment on above: Performed By: #### U PCR, BMP, 00885-6, 2777-1, 2731-8, 74801- 6, CBC #### [facility] ([id number]) [address], [address] [place] [address] Chloride [Moles/Vol] 108 mmol/L Normal 98-109 [facility] Comment on above: Performed By: #### U PCR, BMP, 54429-4, 2777-1, 2731-8, 95688- 6, CBC #### [facility] ([id number]) [address], [address] [place] [address] CO2 [Moles/Vol] 22 mmol/L Normal 22-32 [facility] Comment on above: Performed By: #### U PCR, BMP, 35435-1, 2777-1, 2731-8, 18581- 6, CBC #### [facility] ([id number]) [address], [address] [place] [address] Creatinine [Mass/Vol] 2.35 mg/dL High 0.60-1.30 [facility] Comment on above: Result Comment: METH OD TRACEABLE TO IDMS STANDARD Performed By: #### U PCR, BMP, 24645-3, 2777-1, 2731-8, 94818-8, CBC #### [facility] ([id number]) [address], [address] [place] [address] GFR/1.73 sq M.predicted among non-blacks MDRD (S/P/Bld) [Vol rate/Area] 28 mL/min/{1.73_m2} Low >59 [facility] Comment on above: Result Comment: Reported eGFR is based on the CKD-EPI 2020 equation that does not use a race coefficient. Performed By: #### U PCR, BMP, 83430-8, 2777-1, 2731-8, 90911-0, CBC #### [facility] ([id number]) [address], [address] [place] [address] Glucose [Mass/Vol] 110 mg/dL High 65-99 [facility] Comment on above: Performed By: #### U PCR, BMP, 03470-6, 2777-1, 2731-8, 57816- 6, CBC #### [facility] ([id number]) [address], [address] [place] [address] Potassium [Moles/Vol] 5.0 mmol/L Normal 3.5-5.0 [facility] Comment on above: Result Comment: SPEC IMEN HEMOLYZED, RESULTS INCREASED MODERATELY HEMOLYZED Performed By: #### U PCR, BMP, 89449-3, 2777-1, 2731-8, 95959-4, CBC #### [facility] ([id number]) [address] [place] [address] Sodium [Moles/Vol] 142 mmol/L Normal 134-146 [facility] Comment on above: Performed By: #### U PCR, BMP, 81308-6, 2777-1, 2731-8, 63072- 6, CBC #### [facility] ([id number]) [address], [address] [place] [address] Urea nitrogen [Mass/Vol] 43 mg/dL High 5-27 [facility] Comment on above: Performed By: #### U PCR, BMP, 80192-7, 2777-1, 2731-8, 54579- 6, CBC #### [facility] ([id number]) [address], [address] [place] [address] COMPLETE BLOOD COUNTon 03-09 Erythrocyte distribution width (RBC) [Ratio] 18.3 % High 11.5-15.0 [facility] Comment on above: Performed By: #### U PCR, BMP, 29332-1, 2777-1, 2731-8, 70240- 6, CBC #### [facility] ([id number]) [address], [address] [place] [address] Hematocrit (Bld) [Volume fraction] 35.2 % Low 39-49 [facility] Comment on above: Performed By: #### U PCR, BMP, 19558-1, 2777-1, 2731-8, 96063- 6, CBC #### [facility] ([id number]) [address], [address] [place] [address] Hemoglobin (Bld) [Mass/Vol] 11.7 g/dL Low 13.0-17.0 [facility] Comment on above: Performed By: #### U PCR, BMP, 31778-7, 2777-1, 2731-8, 08234- 6, CBC #### [facility] ([id number]) [address], [address] [place] [address] MCH (RBC) [Entitic mass] 28.6 pg Normal 27-34 [facility] Comment on above: Performed By: #### U PCR, BMP, 48580-4, 2777-1, 2731-8, 17329- 6, CBC #### [facility] ([id number]) [address], [address] [place] [address] MCHC (RBC) [Mass/Vol] 33.4 g/dL Normal 32-36 [facility] Comment on above: Performed By: #### U PCR, BMP, 26056-5, 2777-1, 2731-8, 04385- 6, CBC #### [facility] ([id number]) [address], [address] [place] [address] MCV (RBC) [Entitic vol] 86 fL Normal 80-100 [facility] Comment on above: Performed By: #### U PCR, BMP, 90710-7, 2777-1, 2731-8, 26433- 6, CBC #### [facility] ([id number]) [address], [address] [place] [address] Platelet mean volume (Bld) [Entitic vol] 8.1 fL Normal 7-12 [facility] Comment on above: Performed By: #### U PCR, BMP, 98163-9, 2777-1, 2731-8, 50453- 6, CBC #### [facility] ([id number]) [address], [address] [place] [address] Platelets (Bld) [#/Vol] 122 10*3/uL Low 150-450 [facility] Comment on above: Performed By: #### U PCR, BMP, 56866-2, 2777-1, 2731-8, 85017- 6, CBC #### [facility] ([id number]) [address], [facility] [address] [place] [address] RBC COUNT 4.10 X10E12/L Normal 4.10-5.70 [facility] Comment on above: Performed By: #### U PCR, BMP, 62193-5, 2777-1, 2731-8, 43555- 6, CBC #### [facility] ([id number]) [address], [address] [place] [address] WBC (Bld) [#/Vol] 7.1 10*3/uL Normal 4.0-11.0 [facility] Comment on above: Performed By: #### U PCR, BMP, 97507-0, 2777-1, 2731-8, 31409- 6, CBC #### [facility] ([id number]) [address], [address] [place] [address] MAGNESIUMon 03-09-2024 Magnesium [Mass/Vol] 2.3 mg/dL Normal 1.8-2.6 [facility] Comment on above: Performed By: #### U PCR, BMP, 25727-8, 2777-1, 2731-8, 97050- 6, CBC #### [facility] ([id number]) [address], [address] [place] [address] PHOSPHORUSon 03-09-2024 Phosphate [Mass/Vol] 3.4 mg/dL Normal 2.4-4.9 [facility] Comment on above: Result Comment: SPEC IMEN HEMOLYZED, RESULTS INCREASED MODERATELY HEMOLYZED Performed By: #### U PCR, BMP, 38379-5, 2777-1, 2731-8, 27041-2, CBC #### [facility] ([id number]) [address], [address] [place] [address] PROTEIN CREAT RATIOon 2023 RANDOM URINE PROTEIN 270 mg/L High <120 [facility] Comment on above: Performed By: #### U PCR, BMP, 34304-4, 2777-1, 2731-8, 81035- 6, CBC #### [facility] ([id number]) [address] [place] [address] U/PRO/MIXING AND MOLDING MACHINE OPERATOR RATIO CALC 0.88 High <0.2 [facility] Comment on above: Result Comment: Neph rotic Syndrome is associated with ratios >3.5 Performed By: #### U PCR, BMP, 88789-5, 2777-1, 2731-8, 18571-7, CBC #### [facility] ([id number]) [address], [address] [place] [address] URINE CREATININE,RDM 30.55 mg/dL Normal [facility] Comment on above: Performed By: #### U PCR, BMP, 20708-7, 2777-1, 2731-8, 44014- 6, CBC #### [facility] ([id number]) [address] [facility], [address] [place] [address] Parathyrin.intact [Mass/Vol] on 03-09-2024 PTH INTACT 241 pg/mL High 12-88 [facility] Comment on above: Performed By: #### U PCR, BMP, 78989-5, 2777-1, 2731-8, 81157- 6, CBC #### [facility] ([id number]) [address] [facility], [address] [place] [address] Vitamin D+Metabolites [Mass/ Vol]on 03-09-2024 VITAMIN D 25 HYD TOT 24.5 ng/mL Low 30-100 [facility] Comment on above: Result Comment: Vitamin D status 25 [place] Vitamin D Deficiency <20 ng/mL Insufficiency 20-29 ng/mL Sufficiency 30-100 ng/mL Toxicity >100 ng/mL NOTE: A pediatric reference range has not been established by the thread machine operator of this kit. The [place] [employer] recommends a Vitamin D level of = or >20ng/mL in infants and children. Performed By: #### U PCR, BMP, 91678-3, 2777-1, 2731-8, 60723-6, CBC #### [facility] ([id number]) [address] [facility], [address] [place] [address] Office Visiton 04-07-2023 Follow-up visit [id number] RobinNicolas Maya 1945 M Date Provider Department Center 04/07/[address] [facility] No family history on file Level of Service:64880 SD OFFICE/OUTPATIENT ESTABLISHED LOW MDM 20-29 MIN Normal [facility] PTH INTACTon 01-25-2023 PTH, Intact 151 pg/mL Critically high 15-65 [facility] Comment on above: Performed By: #### P THINT ####[facility] [address] [place], [place] [address]LpDr. Jessica Delgadillo HEMOGRAM AND PLATELon 2022 Hematocrit (Bld) [Volume fraction] 32.2 % Critically low 42.0-54.0 [facility] Comment on above: Performed By: #### H H #### [facility] [address] [address] [address] Jessica Delgadillo Hemoglobin (Bld) [Mass/Vol] 10.2 g/dL Critically low 14.0-18.0 [facility] Comment on above: Performed By: #### H H #### [facility] [address] [address] [address] Jessica Delgadillo MCH (RBC) [Entitic mass] 27.7 pg Normal 25.9-34.0 [facility] Comment on above: Performed By: #### H H #### [facility] [address] [place] [address] Dr. Jessica Delgadillo MCHC (RBC) [Mass/Vol] 31.7 g/dL Normal 29.9-35.2 [facility] Comment on above: Performed By: #### H H #### [facility] [address] [address] [address] Jessica Delgadillo MCV (RBC) [Entitic vol] 87.5 fL Normal 80.0-94.0 [facility] Comment on above: Performed By: #### H H #### [facility] [address] [address] [address] Jessica Delgadillo PLT 121 103/ul Critically low 150-450 [facility] Comment on above: Performed By: #### H H #### [facility] [address] [address] [address] Jessica Delgadillo RBC 3.68 106/ul Critically low 4.70-6.10 [facility] Comment on above: Performed By: #### H H #### [facility] [address] [address] [address] Jessica Delgadillo WBC 5.2 103/ul Normal 4.0-11.0 [facility] Comment on above: Performed By: #### H H #### [facility] [address] [address] [address] Jessica Delgadillo MAGNESIUMon 01-24-2023 Magnesium [Mass/Vol] 2.1 mg/dL Normal 1.8-2.4 [facility] Comment on above: Performed By: #### B MP, PHOS, MG #### [facility] [address] [address] [address] Jessica Delgadillo PHOSPHORUSon 01-24-2023 Phosphate [Mass/Vol] 3.3 mg/dL Normal 2.6-4.7 [facility] Comment on above: Performed By: #### B MP, PHOS, MG #### [facility] [address] [address] [address] Jessica Delgadillo PROF CHEM 8 (BAS METB)on Anion gap [Moles/Vol] 13.1 mmol/L Normal [facility] Comment on above: Performed By: #### B MP, PHOS, MG ####[facility] [address] [address]Dr. Jessica Delgadillo Calcium [Mass/Vol] 8.3 mg/dL Critically low 8.5-10.1 [facility] Comment on above: Performed By: #### B MP, PHOS, MG ####[facility] [address] [address]Dr. Jessica Delgadillo Chloride [Moles/Vol] 106 mmol/L Normal 98-107 [facility] Comment on above: Performed By: #### B MP, PHOS, MG ####[facility] [address] [address]Dr. Jessica Delgadillo CO2 [Moles/Vol] 25.1 mmol/L Normal 21.0-32.0 [facility] Comment on above: Performed By: #### B MP, PHOS, MG ####[facility] [address] [address]Dr. Jessica Delgadillo Creatinine [Mass/Vol] 2.25 mg/dL Critically high 0.70-1.30 [facility] Comment on above: Performed By: #### B MP, PHOS, MG ####[facility] [address] [address]Dr. Jessica Delgadillo EGFR-AF CYMRO 35 mL/min/1.73m2 Critically low >=60 [facility] Comment on above: Performed By: #### B MP, PHOS, MG ####[facility] [address] [address]Dr. Jessica Delgadillo EGFR-NON AF CYMRO 29 mL/min/1.73m2 Critically low >=60 [facility] Comment on above: Performed By: #### B MP, PHOS, MG ####[facility] [address] [address]Dr. Jessica Delgadillo Glucose [Mass/Vol] 111 mg/dL Critically high 74-106 [facility] Comment on above: Performed By: #### B MP, PHOS, MG ####[facility] [address] [address]Dr. Chandrikabrendan Delgadillo Potassium [Moles/Vol] 4.2 mmol/L Normal 3.5-5.1 [facility] Comment on above: Performed By: #### B MP, PHOS, MG ####[facility] [address] [place], [place] [address]Dr. Jessica Delgadillo Sodium [Moles/Vol] 140 mmol/L Normal 136-145 [facility] Comment on above: Performed By: #### B MP, PHOS, MG ####[facility] [address] [address]Dr. Chandrikabrendan Delgadillo Urea nitrogen [Mass/Vol] 47.0 mg/dL Critically high 7.0-18.0 [facility] Comment on above: Performed By: #### B MP, PHOS, MG ####[facility] [address] [place], [place] [address]Dr. Chandrikabrendan Delgadillo Urea nitrogen/Creatini ne [Mass ratio] 20.9 mg/mg Normal [facility] Comment on above: Performed By: #### B MP, PHOS, MG ####[facility] [address] [address]Dr. Jessica Delgadillo URINE T PROTEIN CREAT RATIOo n 01-24-2023 Protein (U) [Mass/Vol] 10.2 mg/dL Normal <=12.0 [facility] Comment on above: Performed By: #### U RTPCR #### [facility] [address] [place] [address] Dr. Jessica Delgadillo UR PROT CREAT RAT 0.49 Normal [facility] Comment on above: Performed By: #### U RTPCR #### [facility] [address] [address] [address] Jessica Delgadillo URINE CREAT 20.93 mg/dL Normal 20.00-300.00 [facility] Comment on above: Performed By: #### U RTPCR #### [facility] [address] [place] [address] Dr. Jessica Delgadillo VITAMIN D 25 OHon 01-24-2023 VIT D 25-OH 34.8 ng/mL Normal [facility] Comment on above: Performed By: #### V ITAD #### [facility] [address] [place] [address] Dr. Jessica Delgadillo VIT D RANGES SEE BELOW Normal [facility] Comment on above: Result Comment: <20 ng/mL Vit D deficient 20 - <30 ng/mL Vit D insufficient 30 - 100 ng/mL Vit D sufficient >100 ng/mL Potential Toxicity Performed By: #### V ITAD #### [facility] [address] [place] [address] Dr. Jessica Delgadillo [facility]on SARS-CoV-2 (COVID-19) RNA VANESSA+probe Ql (Unsp spec) Detected Critically abnormal NOT DETECTED [facility] Comment on above: Result Comment: This test is not yet approved or cleared by the [place] FDA. When there are no FDA-approved or cleared tests available, and other criteria are met, FDA can make tests available under an emergency access mechanism called an Emergency Use Authorization (EUA). The EUA for this test is supported by the [place] of Health and Human Service's declaration that circumstances exist to justify the emergency use of in vitro diagnostics for the detection and/or diagnosis of the virus that causes COVID-19. This EUA will remain in effect for the duration of the COVID-19 declaration justifying emergency of IVDs, unless it is terminated or revoked by the FDA (after which the test may no longer be used). Performed By: #### C VDTB #### [facility] [address] [address] [address] Jessica Delgadillo CAROTID ART BILon 08-20- 022 CAROTID ART MOODY EXAMINATION: US CAROTID ART MOODY HISTORY: Bilateral stenosis of carotid arteries COMPARISON: No relevant comparison available. TECHNIQUE: Duplex Doppler ultrasound analysis of carotid and vertebral arteries. . Bilateral carotid arterial duplex examination was performed using B-mode, color flow and spectral analysis. Carotid stenosis is reported according to validated velocity parameters, similar to NASCET criteria. FINDINGS: RIGHT CAROTID ARTERY Moderate atherosclerotic plaque. 78% area narrowing in the proximal ECA Subclavian: PSV: 181.0 cm/s cm/s EDV: 0.0 cm/s cm/s CCA: Prox: PSV: 120.5 cm/s cm/s EDV: 25.3 cm/s cm/s Mid: PSV: 94.9 cm/s cm/s EDV: 18.3 cm/s cm/s Distal: PSV: 78.7 cm/s cm/s EDV: 13.7 cm/s cm/s BULB: PSV: 81.0 cm/s cm/s EDV: 16.0 cm/s cm/s ICA: Prox: PSV: 97.2 cm/s cm/s EDV: 20.7 cm/s cm/s Mid: PSV: 127.3 cm/s cm/s EDV: 27.6 cm/s cm/s Distal: PSV: 113.4 cm/s cm/s EDV: 32.2 cm/s cm/s ECA: PSV: 231.1 cm/s cm/s EDV: 17.7 cm/s cm/s VERTEBRAL: PSV: 69.5 cm/s cm/s EDV: 13.7 cm/s cm/s ICA/CCA ratio: PSV: 1.1 EDV: 1.1 LEFT CAROTID ARTERY Moderate atherosclerotic plaque. 78% area narrowing proximal ICA Subclavian: PSV: 219.9 cm/s cm/s EDV: 10.9 cm/s CCA: Prox: PSV: 105.6 cm/s cm/s EDV: 22.0 cm/s Mid: PSV: 97.4 cm/s cm/s EDV: 20.7 cm/s Distal: PSV: 88.1 cm/s cm/s EDV: 13.7 cm/s BULB: PSV: 90.4 cm/s cm/s EDV: 13.7 cm/s ICA: Prox: PSV: 118.3 cm/s cm/s EDV: 30.0 cm/s Mid: PSV: 118.3 cm/s cm/s EDV: 27.6 cm/s Distal: PSV: 92.7 cm/s cm/s EDV: 27.6 cm/s ECA: PSV: 182.9 cm/s cm/s EDV: 0.0 cm/s VERTEBRAL: PSV: 82.5 cm/s cm/s EDV: 21.2 cm/s ICA/CCA ratio: PSV: 1.1 EDV: 1.4 IMPRESSION: 0-49% flow stenosis bilateral internal carotid arteries but flow velocities 78% narrowing observed in the left proximal internal carotid artery Spectral Doppler US Thresholds (Reference: Taz EG, et al. Radiology 2000; 214:247-252) Stenosis (%) PSV (cm/sec) VICA/VCCA 0-49 <150 <2.5 50-69 150-225 2.5-4.0 >70 >225 >4.0 Electronically authenticated by: SHANNAN SUAREZ Date: 2022-08-20 19:17 Normal [facility] LIPID PROFILEon 05-09-2022 CHOL-HDL RATIO NORM SEE BELOW Normal [facility] Comment on above: Result Comment: 3.3 - 4.4 LOW RISK 4.4 - 7.1 AVERAGE RISK 7.1 - 11.0 MODERATE RISK >11.0 HIGH RISK Performed By: #### A LT, LIPID #### [facility] [address] [place] [address] Dr. Jessica Delgadillo Cholesterol [Mass/Vol] 135 mg/dL Normal <=200 [facility] Comment on above: Performed By: #### A LT, LIPID #### [facility] [address] [address] [address] Jsesica Delgadillo Cholesterol in HDL [Mass/Vol] 47 mg/dL Normal 40-60 [facility] Comment on above: Performed By: #### A LT, LIPID #### [facility] [address] [address] [address] Jessica Delgadillo Cholesterol in LDL [Mass/Vol] 69.8 mg/dL Normal [facility] Comment on above: Performed By: #### A LT, LIPID #### [facility] [address] [place] [address] Dr. Jessica Delgadillo Cholesterol.total /Cholesterol in HDL [Mass ratio] 2.9 {ratio} Normal [facility] Comment on above: Performed By: #### A LT, LIPID #### [facility] [address] [place] [address] Dr. Jessica Delgadillo HDL NORMAL > or = 60 mg/dl - LOW CARDIOVASCULAR RISK <40 mg/dl - HIGH CARDIOVASCULAR RISK Normal [facility] Comment on above: Performed By: #### A LT, LIPID #### [facility] [address] [address] [address] Jessica Delgadillo LDL CALC NORMAL SEE BELOW Normal [facility] Comment on above: Result Comment: <100 mg/dl OPTIMAL 100 - 129 mg/dl NEAR OR ABOVE OPTIMAL 130 - 159 mg/dl BORDERLINE HIGH 160 - 189 mg/dl HIGH >190 mg/dl VERY HIGH Performed By: #### A LT, LIPID #### [facility] [address] [address] [address] Jessica Delgadillo Triglyceride [Mass/Vol] 91 mg/dL Normal <=150 [facility] Comment on above: Performed By: #### A LT, LIPID #### [facility] [address] [address] [address] Jessica Delgadillo VLDL CALC 18.2 mg/dL Normal [facility] Comment on above: Performed By: #### A LT, LIPID #### [facility] [address] [place] [address] Dr. Jessica Delgadillo [facility] 05-09-2022 ALT [Catalytic activity/Vol] 9 U/L Critically low 16-63 [facility] Comment on above: Performed By: #### A LT, LIPID #### [facility] [address] [address] [address] Jessica Delgadillo Vital Signs Date Time Vital Sign Value Performing Clinician Facility 04-09-2024 14:01-0400 Body height 180.[address] [facility] 04-09-2024 14:01-0400 Body mass index (BMI) [Ratio] 26.2 kg/m2 [facility] 04-09-2024 14:01-0400 Body weight 85.[address] [facility] 04-09-2024 14:01-0400 Diastolic blood pressure 64 mm[Hg] [facility] 04-09-2024 14:01-0400 Heart rate 98 /min [facility] 04-09-2024 14:01-0400 Respiratory rate 12 /min [facility] 04-09-2024 14:01-0400 Systolic blood pressure 130 mm[Hg] [facility] 08-11-2023 11:30-0400 Body height 180.34 cm Cortez Ball Other [facility] Other 08-11-2023 11:30-0400 Body mass index (BMI) [Ratio] 25.46 kg/m2 Cortez Ball Other [facility] Other 08-11-2023 11:30-0400 Body weight 82.83 kg Cortez Ball Other [facility] Other 08-11-2023 11:30-0400 Diastolic blood pressure 78 mm[Hg] Cortez Ball Other [facility] Other 08-11-2023 11:30-0400 Respiratory rate 12 /min Cortez Ball Other [facility] Other 08-11-2023 11:30-0400 Systolic blood pressure 156 mm[Hg] Cortez Ball Other [facility] Other 07-11-2023 11:00-0400 Body height 180.34 cm Cortez Ball Other [facility] Other 07-11-2023 11:00-0400 Body mass index (BMI) [Ratio] 24.66 kg/m2 Cortez Ball Other [facility] Other 07-11-2023 11:00-0400 Body weight 80.2 kg Cortez Ball Other [facility] Other 07-11-2023 11:00-0400 Diastolic blood pressure 72 mm[Hg] Cortez Ball Other [facility] Other 07-11-2023 11:00-0400 Respiratory rate 12 /min Cortez Ball Other [facility] Other 07-11-2023 11:00-0400 Systolic blood pressure 123 mm[Hg] Cortez Ball Other [facility] Other 06-30-2023 14:30-0400 Body height 180.34 cm Cortez Ball Other [facility] Other 06-30-2023 14:30-0400 Body mass index (BMI) [Ratio] 27.7 kg/m2 Cortez Ball Other [facility] Other 06-30-2023 14:30-0400 Body weight 90.08 kg Cortez Ball Other [facility] Other 06-30-2023 14:30-0400 Diastolic blood pressure 69 mm[Hg] Cortez Ball Other [facility] Other 06-30-2023 14:30-0400 Respiratory rate 12 /min Cortez Ball Other [facility] Other 06-30-2023 14:30-0400 Systolic blood pressure 129 mm[Hg] Cortez Ball Other [facility] Other 06-25-2023 14:30-0400 Body height 180.34 cm Supriya Kendra Other [facility] Other 06-25-2023 14:30-0400 Body mass index (BMI) [Ratio] 27.05 kg/m2 Supriya Kendra Other [facility] Other 06-25-2023 14:30-0400 Body weight 88 kg Supriya Kendra Other [facility] Other 06-25-2023 14:30-0400 Diastolic blood pressure 62 mm[Hg] Supriya Gardner Other [facility] Other 06-25-2023 14:30-0400 SaO2% (BldA) [Mass fraction] 97 % Supriya Kendra Other [facility] Other 06-25-2023 14:30-0400 Systolic blood pressure 98 mm[Hg] Supriya Gardner Other [facility] Other 11-19-2022 10:00-0500 Body height 180.34 cm Cortez Ball Other [facility] Other 11-19-2022 10:00-0500 Body mass index (BMI) [Ratio] 27.89 kg/m2 Cortez Ball Other [facility] Other 11-19-2022 10:00-0500 Body weight 90.72 kg Cortez Ball Other [facility] Other 11-19-2022 10:00-0500 Diastolic blood pressure 70 mm[Hg] Cortez Biswas Other [facility] Other 11-19-2022 10:00-0500 Respiratory rate 12 /min Cortez Biswas Other [facility] Other 11-19-2022 10:00-0500 Systolic blood pressure 124 mm[Hg] Cortez Biswas Other [facility] Other Encounters Encounter Date Encounter Type Care Provider Facility Start: 04-09-2024 End: 04-09-2024 ambulatory [facility] Work Phone: Start: 04-09-2024 End: 04-09-2024 Patient encounter procedure [facility] Work Phone: Start: 04-01-2024 End: 04-01-2024 ambulatory PIEDAD Adela LOWE Not Available Start: 03-26-2024 End: 03-26-2024 ambulatory [facility] Start: 03-15-2024 End: 03-15-2024 ambulatory [facility] Start: 03-09-2024 End: 03-09-2024 ambulatory CORTEZ BISW[facility] Start: 02-02-2024 Non-patient / Non-visit [facility]ician [facility] Work Phone: Start: 12-30-2023 Telephone encounter Ta Escalante CMA [facility] Start: 12-30-2023 End: 12-30-2023 ambulatory YUSUF ENGLE Not Available Start: 11-17-2023 End: 11-17-2023 ambulatory Cortez Biswas Other [facility] Other Start: 11-17-2023 Telephone encounter Cortez Ball [facility] Start: 11-10-2023 End: 11-10-2023 ambulatory Cortez Ball Other [facility] Other Start: 11-10-2023 Telephone encounter Cortez Biswas [facility] Start: 10-27-2023 End: 10-27-2023 ambulatory Cortez Ball Other [facility] Other Start: 10-27-2023 Telephone encounter Cortez Biswas [facility] Start: 09-23-2023 End: 09-23-2023 ambulatory PIEDAD LOWE Not Available Start: 09-11-2023 End: 09-11-2023 ambulatory YUSUF ENLGE Not Available Start: 08-25-2023 End: 08-25-2023 ambulatory Cortez Biswas Other [facility] Other Start: 08-25-2023 Telephone encounter Cortez Biswas [facility] Start: 08-11-2023 End: 08-11-2023 ambulatory Cortez True Other [facility] Other Start: 08-11-2023 Office outpatient vi sit 25 minutes Cortez Ball [facility] Start: 07-31-2023 End: 07-31-2023 ambulatory Cortez Ball Other [facility] Other Start: 07-31-2023 Telephone encounter Cortez Biswas [facility] Start: 07-21-2023 End: 07-21-2023 ambulatory Cortez Ball Other [facility] Other Start: 07-21-2023 Telephone encounter Cortez Biswas [facility] Start: 07-11-2023 End: 07-11-2023 ambulatory Cortez Ball Other [facility] Other Start: 07-11-2023 Office outpatient vi sit 25 minutes Cortez Ball [facility] Start: 07-01-2023 End: 07-01-2023 ambulatory Cortez Ball Other [facility] Other Start: 07-01-2023 Telephone encounter Cortez Ball [facility] Start: 06-30-2023 End: 06-30-2023 ambulatory Cortez Ball Other [facility] Other Start: 06-30-2023 Telephone encounter Cortez Ball [facility] Start: 06-30-2023 Transitional care manage srvc 7 day discharge Cortez Ball [facility] Start: 06-25-2023 End: 06-25-2023 ambulatory Cortez Ball Other [facility] Other Start: 06-25-2023 Office outpatient vi sit 15 minutes Supriya Gardner [facility] Start: 06-25-2023 Telephone encounter Cortez Ball [facility] Start: 06-09-2023 End: 06-09-2023 ambulatory Cortez Ball Other [facility] Other Start: 06-09-2023 Telephone encounter Cortez Ball [facility] Start: 05-16-2023 End: 05-16-2023 ambulatory Cortez Biswas Other [facility] Other Start: 05-16-2023 Telephone encounter Cortez Ball [facility] Start: 04-21-2023 End: 04-21-2023 ambulatory Cortez Ball Other [facility] Other Start: 04-21-2023 Telephone encounter Cortez Ball [facility] Start: 04-07-2023 End: 04-07-2023 ambulatory [facility] Start: 03-18-2023 End: 03-18-2023 ambulatory Cortez Ball Other [facility] Other Start: 03-18-2023 Telephone encounter Cortez Ball [facility] Start: 02-10-2023 End: 03-12-2023 ambulatory [facility] H FAWWAD Facility:[facility] Start: 02-05-2023 End: 02-05-2023 ambulatory Cortez Ball Other [facility] Other Start: 02-05-2023 Telephone encounter Cortez Ball [facility] Start: 01-27-2023 End: 01-27-2023 ambulatory Cortez Ball Other [facility] Other Start: 01-27-2023 Telephone encounter Cortez Ball [facility] Start: 01-24-2023 End: 01-25-2023 ambulatory SUKHDEEP REYES MD Facility:[facility] Start: 01-13-2023 End: 02-07-2023 ambulatory SHAIKH Maury GRAYSON Facility:[facility] Start: 12-11-2022 End: 01-10-2023 ambulatory [facility] H ROBWAD Facility:[facility] Start: 12-09-2022 End: 12-09-2022 ambulatory Cortez Ball Other [facility] Other Start: 12-09-2022 Telephone encounter Cortez Ball [facility] Start: 11-22-2022 End: 11-22-2022 ambulatory Cortez Ball Other [facility] Other Start: 11-22-2022 Telephone encounter Cortez Ball [facility] Start: 11-19-2022 End: 11-19-2022 ambulatory Cortez Ball Other [facility] Other Start: 11-19-2022 Office outpatient vi sit 25 minutes Cortez Ball [facility] Start: 11-13-2022 End: 12-11-2022 ambulatory KASIER H FAWWAD Facility:[facility] Start: 10-21-2022 End: 10-21-2022 ambulatory Cortez Ball Other [facility] Other Start: 10-21-2022 Telephone encounter Cortez Ball [facility] Start: 10-14-2022 End: 11-13-2022 ambulatory K[facility]ISER H NELSOND Facility:[facility] Start: 09-16-2022 End: 09-16-[address] CORTEZ BISWAS Facility:[facility] Start: 09-12-2022 End: 10-13-2022 ambulatory SHAIKH Maury GRAYSON Facility:[facility] Start: 08-20-2022 End: 08-21-[address] TANI ARGUELLO Facility:[facility] Start: 08-13-2022 End: 09-11-2022 ambulatory SHAIKH Maury GRAYSON Facility:[facility] Start: 07-15-2022 End: 08-12-2022 ambulatory SHAIKH Maury GRAYSON Facility:[facility] Start: 06-13-2022 End: 07-13-2022 ambulatory SHAIKH Maury GRAYSON Facility:[facility] Start: 05-13-2022 End: 06-12-2022 ambulatory SHAIKH Maury GRAYSON Facility:[facility] Start: 05-09-2022 End: 05-10-[address] CORTEZ BISWAS Facility:[facility] Start: 05-05-2022 Adult health examination Cortez Biswas Other [facility] Other Start: 04-12-2022 End: 05-10-2022 ambulatory SHAIKH Maury GRAYSON Facility:[facility] Procedures Date Procedure Procedure Detail Performing Clinician Start: 05-09-2022 PSA screening SHAIKH LETY WEST Comment on above: Performed By: #### P [facility] #### [facility] [address] [place] [address] Dr. Jessica Delgadillo Start: 05-05-2022 Depression screening Be gay True Other Start: 02-20-2017 Screening for malign ant neoplasm of colon Cortez Biswas Other Start: 02-20-2017 Screening for malign ant neoplasm of prostate Cortez Biswas Other Screening for malign ant neoplasm of prostate Cortez Biswas Other Plan of Treatment Date Care Activity Detail Author Start: 07-31-2024 Adult BMI Screening Adult BMI Screening [facility] Start: 06-03-2024 End: 06-03-2024 Patient encounter procedure 06/03/2024 11:10 AM EDT Office Visit [facility] [address] [place] [address] Sara Renteria MD [address] [place] [address] [facility] Start: 05-20-2024 End: 05-20-2024 Patient encounter procedure [facility] Start: 03-18-2024 End: 03-18-2024 Patient encounter procedure 03/18/2024 10:00 AM EDT Office Visit [facility] [address] [place] [address] Sukhdeep Reyes MD [address] [facility] [address] [place] [id number] N [facility] Start: 11-21-2023 Tobacco Screening Tobacco Screening [facility] Start: 06-13-2023 COVID-19 Vaccine ( season) COVID-19 Vaccine ( season) [facility] Start: 06-13-2023 Influenza vaccination Influenza Vaccine [facility] Start: 10-09-2019 DTaP,Tdap and Td Vaccines (2 - Td or Tdap) DTaP,Tdap and Td Vaccines (2 - Td or Tdap) [facility] Start: 2012 Fall Risk Screening Fall Risk Screening [facility] Start: 10-26-2008 Administration of varicella zoster vaccine Zoster (Shingles) Vaccine (2 of 3) [facility] Start: 1965 Adult BMI Follow Up Plan Adult BMI Follow Up Plan [facility] Start: 1959 Depression Screening Depression Screening [facility] Start: 1945 Medicare Annual Wellness Visit Medicare Annual Wellness Visit [facility] Immunizations Immunization Date Immunization Notes Care Provider Fa cility 08-11-2023 influenza virus vaccine, unspecified formulation [facility] 08-11-2023 influenza, high dose seasonal, preservative-free Cortez Ball Other [facility] Other 08-11-2023 Prevnar 20 Cortez Biswas Other [facility] 08-26-2022 COVID-19 Pfizer (Pediatric) Cortez Biswas Other [facility] 08-08-2022 influenza virus vaccine, split virus (incl. purified surface antigen) Cortez Biswas Other [facility] Other 08-08-2022 influenza virus vaccine, unspecified formulation [facility] 08-27-2021 COVID-19 Vaccine Pfi zer - Documentation Purposes Only Cortez Biswas Other [facility] 08-02-2021 influenza virus vaccine, split virus (incl. purified surface antigen) Cortez Biswas Other [facility] Other 08-02-2021 influenza virus vaccine, unspecified formulation [facility] 07-09-2021 influenza virus vaccine, unspecified formulation Tamaciej Antonioalexandria [facility] 12-14-2020 COVID-19 Vaccine Pfi zer - Documentation Purposes Only Cortez Biswas Other [facility] 11-23-2020 COVID-19 Vaccine Pfi zer - Documentation Purposes Only Cortez Biswas Other [facility] 07-11-2020 influenza virus vaccine, split virus (incl. purified surface antigen) Cortez Biswas Other [facility] Other 07-11-2020 influenza virus vaccine, unspecified formulation [facility] 07-27-2019 influenza virus vaccine, split virus (incl. purified surface antigen) Cortez Biswas Other [facility] Other 07-27-2019 influenza virus vaccine, unspecified formulation [facility] 07-24-2018 influenza virus vaccine, split virus (incl. purified surface antigen) Cortez Biswas Other [facility] Other 07-24-2018 influenza virus vaccine, unspecified formulation [facility] 07-03-2017 influenza virus vaccine, split virus (incl. purified surface antigen) Cortez True Other [facility] Other 07-03-2017 influenza virus vaccine, unspecified formulation [facility] 07-09-2016 influenza virus vaccine, split virus (incl. purified surface antigen) Cortez Biswas Other [facility] Other 07-09-2016 influenza virus vaccine, unspecified formulation [facility] 08-18-2015 pneumococcal conjuga te vaccine, 13 valent Cortez Biswas Other [facility] 06-02-2014 pneumococcal Conjuga te, unspecified formulation; Translations: [Need for prophylactic vaccination against Streptococcus pneumoniae (pneumococcus)] Cortez Biswas Other [facility] Other 06-02-2014 pneumococcal polysaccharide vaccine, 23 valent Cortez Biswas Other [facility] 07-21-2013 tetanus and diphther ia toxoids, adsorbed, preservative free, for adult use (5 Lf of tetanus toxoid and 2 Lf of diphtheria toxoid) Cortez Biswas Other [facility] 08-31-2008 zoster vaccine, unspecified formulation Ta Escalante [facility] Payers Date Payer Category Payer Medicare [id number] 2016 Unknown [employer] [id number] 2016-Present [phone] [address] [place] [address] [id number] 2012 Medicare MEDICARE MEDICAR E PART A & B [id number] 2012-Present [phone] [address] [place] [address] [id number] 1959 Medicare [id number] 1959 Unknown [id number] [id number] 1947 Unknown [id number] 2.16.840.1.639504.3.579.2.59 1947 Unknown [id number] 2.16.840.1.515264.3.579.2.59 1947 Unknown [id number] 2.16.840.1.198551.3.579.2.59 1947 Unknown [id number] 2.16.840.1.737444.3.579.2.59 1947 Unknown [id number] 2.16.840.1.054845.3.579.2.59 1947 Unknown [id number] 2.16.840.1.788852.3.579.2.593 1947 Unknown [id number] 2.16.840.1.818140.3.579.2.59 1947 Unknown [id number] 2.16.840.1.067268.3.579.2.593 1947 Unknown [id number] 2.16.840.1.873820.3.579.2.59 1947 Unknown [id number] 2.16.840.1.150281.3.579.2.593 1947 Unknown [id number] 2.16.840.1.525497.3.579.2.593 1947 Unknown [id number] 2.16.840.1.265035.3.579.2.593 1947 Unknown [id number] 2.16.840.1.817818.3.579.2.59 1947 Unknown [id number] 2.16.840.1.558300.3.579.2.593 1947 Unknown [id number] 2.16.840.1.205948.3.579.2.593 1947 Unknown [id number] 2.16.840.1.084839.3.579.2.1286 1947 Unknown [id number] 2.16.840.1.745648.3.579.2.1286 1947 Unknown [id number] 2.16.840.1.450584.3.579.2.1259 1947 Unknown [id number] 2.16.840.1.240965.3.579.2.1259 1947 Unknown [id number] 2.16.840.1.400391.3.579.2.1259 1947 Unknown [id number] 2.16.840.1.596448.3.579.2.1259 Social History Date Type Detail Facility Start: 11-23-2020 End: 01-30-2023 Sex Assigned At [facility] Other Start: 08-28-2022 Tobacco smoking stat [facility] Ex-smoker [facility] History of tobacco use Current smoker [facility] Start: 08-28-2022 Tobacco use and exposure Smokeless tobacco non-user [facility] Start: 07-31-2023 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) [facility] Start: 11-23-2020 End: 01-30-2023 History of Social function [facility] Childcare Unknown [facility] Start: 1945 Sex Assigned At Not on file P [facility] Start: 1945 Sex Assigned At Male F [facility] Clinical Notes 11-19-2022 to 03-15-2024 Telephone Encounter - Ta Escalante [facility] - 12/30/2023 8:53 AM EDTTelephone Encounter - Ta Escalante [facility] - 12/30/2023 8:53 AM EDT Note Date & Type Note Facility 03-15-2024 Note [facility] Card[facility] Clinic Note Chief Complaint: Patient here for 1 year follow up CAD, PAF, and hypertension. He was admitted to [facility] in Jun 2023 for KIKE. Sometimes feels palpitations, usually with anxiety. He states it does not last long and doesn't bother him. Denies chest pain, SOB, and LE edema. Denies lightheadedness/syncope and bleeding on warfarin. HPI: Nicolas Kelly is a 79 y.o. male with history of coronary artery disease, abdominal aortic aneurysm following up with vascular surgery, hypertension, dyslipidemia, paroxysmal atrial fibrillation, kidney disease and carotid stenosis Cardiac catheterization in 2012 showed severe multivessel disease which has been managed medically He has been doing fairly well from a cardiac standpoint. He has infrequent palpitations without significant shortness of breath or lightheadedness or dizziness He denies chest pain No new cardiovascular symptoms Cardiology ROS: Review of Systems Cardiovascular: Positive for palpitations (intermittent). All other systems reviewed and are negative. Past Medical History He has no past medical history on file. Surgical History He has no past surgical history on file. Social History He reports that he quit smoking about 31 years ago. His smoking use included cigarettes. He has never used smokeless tobacco. He reports that he does not drink alcohol. No history on file for drug use. Family History No family history on file. Allergies Cefdinir, Dye, Iodinated contrast media, Ragweed, and Sulfa (sulfonamide antibiotics) Medications Current Outpatient Medications: allopurinol (Zyloprim) 100 mg tablet, allopurinol 100 mg tablet TAKE 2 TABLETS BY MOUTH EVERY DAY, Disp: , Rfl: amLODIPine (Norvasc) 5 mg tablet, amlodipine 5 mg tablet, Disp: , Rfl: clonazePAM (KlonoPIN) 0.5 mg tablet, clonazepam 0.5 mg tablet, Disp: , Rfl: clopidogrel (Plavix) 75 mg tablet, clopidogrel 75 mg tablet, Disp: , Rfl: famotidine (Pepcid) 20 mg tablet, famotidine 20 mg tablet, Disp: , Rfl: furosemide (Lasix) 40 mg tablet, furosemide 40 mg tablet TAKE 1 TABLET BY MOUTH EVERY DAY, Disp: , Rfl: hydrALAZINE (Apresoline) 100 mg tablet, hydralazine 100 mg tablet, Disp: , Rfl: iron polysaccharides (Nu-Iron,Niferex) 150 mg iron capsule, Take 150 mg by mouth in the morning., Disp: , Rfl: metoprolol tartrate (Lopressor) 100 mg tablet, metoprolol tartrate 100 mg tablet, Disp: , Rfl: potassium chloride ER (Micro-K) 10 mEq ER capsule, Take 1 capsule every day by oral route for 90 days., Disp: , Rfl: pravastatin (Pravachol) 80 mg tablet, pravastatin 80 mg tablet, Disp: , Rfl: tamsulosin (Flomax) 0.4 mg 24 hr capsule, tamsulosin 0.4 mg capsule, Disp: , Rfl: warfarin (Coumadin) 4 mg tablet, warfarin 4 mg tablet, Disp: , Rfl: Last Recorded Vitals BP 164/82 (BP Location: Left arm, Patient Position: Sitting) Pulse 51 Ht 1.778 m (5' 10 ) Wt 84.4 kg (186 lb) SpO2 99% BMI 26.69 kg/m??? Physical Examination: GENERAL: alert and oriented x3, well developed, in no acute distress. HEAD: atraumatic, normocephalic. EYES: PRACHI, EOMI. NECK: trachea midline, no JVD present, no carotid bruits present. CARDIAC: S1, S2 present. RRR. No murmur, rubs, or gallops. RESPIRATORY: CTAB, no increased effort of breathing, no rales, rhonchi, or wheezing. ABDOMEN: soft, nontender, nondistended. EXTREMITIES: no lower extremity edema, peripheral pulses are 2+ bilaterally. No rash/skin discoloration present. NEURO: strength/sensation equal and symmetric in bilateral upper and lower extremities. PSYCH: appropriate mood, affect, and judgement. INVESTIGATIONS: LABS: s.cr 203 CV Testing: Physician: Jarett Figueroa, Department of M.D. Medicine Service Date: 12/03/2012 Cardiovascular Laboratory Report Final Impression: 1. Severe 3 vessel coronary artery disease. 2. Severe bilateral renal artery stenosis successfully treated with 6 mm stents. Procedure: Coronary arteriography, bilateral renal artery angiography, angioplasty and stent placement. Angiography/Coronary Arteriography: 1. Left main coronary artery: This segment was normal. 2. Left anterior descending coronary artery: This vessel was diffusely diseased including a 60% proximal stenosis, a 99% second diagonal stenosis and 50% stenosis in the distal vessel. 3. Circumflex coronary artery: This vessel also had diffuse disease including a 60% proximal stenosis and a 90% stenosis at the origin of an obtuse marginal branch. A previously placed stent was patent. 4. Right coronary artery: This vessel was dominant. There were multiple 60% stenoses throughout its course. A previously placed stent was patent. 5. Left renal artery: This vessel had a 95% stenosis at the onset of the procedure and a 0% residual with no pressure gradient at the conclusion. 6. Right renal artery: This vessel had a 90% ostial stenosis at the onset of the procedure, associat (more content not included)... [facility] 12-30-2023 Miscellaneous Notes Pt called requesting to schedule an established patient appt with our office. Patient stated they prefer to see Dr. Reeys. After reviewing the pt's last progress note with our office, the pt was scheduled for 03/18/24 @ 10:00 with Sukhdeep Reyes MD [email or web address] Telephone encounter Note Pt called requesting to schedule an established patient appt with our office. Patient stated they prefer to see Dr. Reyes. After reviewing the pt's last progress note with our office, the pt was scheduled for 03/18/24 @ 10:00 with [facility]hdeep [facility] 11-17-2023 Evaluation note Encounter Date Diagnosis Assessment Notes Nov, Primary hypertension (ICD-10 - I10) [facility] Other 01-15-2024 Evaluation note* Encounter Date Diagnosis Assessment Notes Treatment Notes Treatment Clinical Notes Oct, MARY (generalized anxiety disorder) (ICD-10 - F41.1) [facility] Other 10-30-2023 Evaluation note* Encounter Date Diagnosis Assessment Notes Treatment Notes Treatment Clinical Notes Jul, ASHD (arteriosclerotic heart disease) (ICD-10 - I25.10) This patient is stable without activity related CP, dyspnea or lightheadedness. They are instructed to continue exercise and AHA diet plan. Continue secondary prevention measures. Jul, Stage 4 chronic kidney disease (ICD-10 - N18.4) The patient is instructed on adequate control of hypertension and diabetes, if appropriate. They are also educated on the associated risks of NSAIDs and PPI use with kidney disease. They were instructed on adequate fluid balance and to avoid dehydration. Jul, Paroxysmal atrial fibrillation (ICD-10 - I48.0) This patient is in NSR or rate controlled. This patient is anticoagulated to prevent thromboembolic events. They are maintaining regular scheduled appts with their ophthalmic tech. No bleeding complications Jul, Primary hypertension (ICD-10 - I10) This patient is instructed to consume a healthy, low-fat, low-salt diet. They are also encouraged to continue exercise to achieve/maintain a normal BMI. Patient is instructed on home BP measurements: - rest for 5 minutes w/o talking- positioned w/ feet on floor and arm supported- average best 2/3 readings w/ goal < 135/85 Jul, Pneumonia of left lower lobe due to infectious organism (ICD-10 - J18.9) Completed antibiotics He denies persistent cough or dyspnea. No further treatment or imaging necessary Jul, Iron deficiency anemia due to chronic blood loss (ICD-10 - D50.0) Hgb increased to 12.6gm, which is above his baseline due to CKD. No further testing necessary [facility] Other 10-09-2023 Evaluation note* Encounter Date Diagnosis Assessment Notes Treatment Notes Treatment Clinical Notes Jul, MARY (generalized anxiety disorder) (ICD-10 - F41.1) Jul, ASHD (arteriosclerotic heart disease) (ICD-10 - I25.10) [facility] Other 09-29-2023 Evaluation note* Encounter Date Diagnosis Assessment Notes Treatment Notes Treatment Clinical Notes Jun, ASHD (arteriosclerotic heart disease) (ICD-10 - I25.10) This patient is stable without activity related CP, dyspnea or lightheadedness. They are instructed to continue exercise and AHA diet plan. Continue secondary prevention measures. Jun, Stage 4 chronic kidney disease (ICD-10 - N18.4) The patient is instructed on adequate control of hypertension and diabetes, if appropriate. They are also educated on the associated risks of NSAIDs and PPI use with kidney disease. They were instructed on adequate fluid balance and to avoid dehydration. Jun, Paroxysmal atrial fibrillation (ICD-10 - I48.0) This patient is in NSR or rate controlled. This patient is anticoagulated to prevent thromboembolic events. They are maintaining regular scheduled appts with their ophthalmic tech. No obvious bleeding complication Jun, Pneumonia of left lower lobe due to infectious organism (ICD-10 - J18.9) Completed course of Doxycycline for CAP Denies cough or dyspnea Denies fever or chills CXR in month to confirm resolution of infiltrate Jun, Primary hypertension (ICD-10 - I10) This patient is instructed to consume a healthy, low-fat, low-salt diet. They are also encouraged to continue exercise to achieve/maintain a normal BMI. Jun, Chronic venous insufficiency (ICD-10 - I87.2) Avoid salt and elevate lower extremities, support stockings, inspect legs and feet daily for blisters and ulcerations. Jun, Weight loss, abnormal (ICD-10 - R63.4) Encouraged smaller, more frequent feedings. Need weight gain over next couple weeks. Recovering from pneumonia, sepsis and episode of delerium Jun, Iron deficiency anemia due to chronic blood loss (ICD-10 - D50.0) No obvious s/s bleeding. Continue Fe supplement. Await Dr. Reyes's labs: - check Fe, Ferritin, B12, FA, TIBC [facility] Other 09-19-2023 Evaluation note* Encounter Date Diagnosis Assessment Notes Treatment Notes Treatment Clinical Notes Jun, Pneumonia of left upper lobe due to infectious organism (ICD-10 - J18.9) [facility] Other 09-18-2023 Evaluation note* Encounter Date Diagnosis Assessment Notes Treatment Notes Treatment Clinical Notes Jun, Severe sepsis without septic shock (ICD-10 - R65.20) Push fluids, healthy diet. Up walking in home every hour. Call w/ N/V/D, sedation, confusion, weakness. d/c Antibiotic coverage as no bacterial etiology was identified. Jun, ASHD (arteriosclerotic heart disease) (ICD-10 - I25.10) This patient is stable without activity related CP, dyspnea or lightheadedness. They are instructed to continue exercise and AHA diet plan. Continue secondary prevention measures. Jun, Stage 4 chronic kidney disease (ICD-10 - N18.4) The patient is instructed on adequate control of hypertension and diabetes, if appropriate. They are also educated on the associated risks of NSAIDs and PPI use with kidney disease. They were instructed on adequate fluid balance and to avoid dehydration. Superimposed KIKE resolved w/ IV fluids and rest Jun, Paroxysmal atrial fibrillation (ICD-10 - I48.0) Spontaneously converted to NSR. This patient is in NSR or rate controlled. This patient is anticoagulated to prevent thromboembolic events. They are maintaining regular scheduled appts with their ophthalmic tech. No obvious bleeding Jun, Primary hypertension (ICD-10 - I10) This patient is instructed to consume a healthy, low-fat, low-salt diet. They are also encouraged to continue exercise to achieve/maintain a normal BMI. Jun, Chronic venous insufficiency (ICD-10 - I87.2) Avoid salt and elevate lower extremities, support stockings, inspect legs and feet daily for blisters and ulcerations. Jun, Hypokalemia (ICD-10 - E87.6) Replace potassium Jun, Sepsis, unspecified organism (ICD-10 - A41.9) Fever, hypotension, tachycardia, KIKE and dyspnea resulted in admission to [facility]. IV fluids resulted in improved perfusion and resolution end organ dysfunction. Continue to monitor Jun, Acute kidney failure, unspecified (ICD-10 - N17.9) Acute on Chronic kidney disease. Hydrate, Avoid NSIADs and monitor GFR. Jun, Fatigue, unspecified type (ICD-10 - R53.83) [facility] Other 09-13-2023 Evaluation note* Encounter Date Diagnosis Assessment Notes Treatment Notes Treatment Clinical Notes Jun, Dizziness (ICD-10 - R42) Discussed symptoms with pt and regarding symptoms will test for COVID to rule this out. Discussed that if this was not COVID that would send him to the ER for further evaluation of his symptoms. and pt agree to this and will call with results and further recommendations. COVID test did come back negative and pt and his was called for them to immediately go to the ER for evalaution due to concerning symptoms. stated that she would take him to the ER for complete work-up. Jun, Abnormal gait (ICD-10 - R26.9) Jun, Confusion (ICD-10 - R41.0) Jun, Diarrhea, unspecified type (ICD-10 - R19.7) [facility] Other 08-28-2023 Evaluation note* Encounter Date Diagnosis Assessment Notes Treatment Notes Treatment Clinical Notes May, Gastroesophageal ref lux disease with esophagitis without hemorrhage (ICD-10 - K21.00) [facility] Other 06-26-2023 NoteContinue pravastatin [facility] Note Hypertension is elevated in office- most likely r/t white coat syndrome. Pt will take b/p 1-2 times a week at home and to call office if > 130/80 and he voiced understanding [facility]23 NoteContinue warfarin anticoagulation and metoprolol tartrate.[facility]06-26-2023 NoteCoronary artery disease is stable Continue GDMT- plavix, pravastatin, and metoprolol continue risk factor modifications- heart healthy diet, regular exercise as tolerated and continue all medications.[facility] 04-07-2023 NoteUTP CARDIOLOGY PROGRESS NOTE HPI: Nicolas Kelly is a 78 y.o. male here for CAD, AAA- f/U with vascular surgery, HTN, HPL, paroxysmal a fib, CKD, carotid stenosis Overall pt is doing quite well, no concerning symptoms. Denied chest pain, shortness of breath, orthopnea. Reports occasional palpitations and states stress/anxiety precipitates paroxysmal a fib- and says he feels it and it only lasts a short amount of time. Denied any bleeding tendencies. s/p PCI/stents to RCA and LCx; noted severe MVD on cardiac cath in 2012 which has been managed with medical therapy Repeat b/p 153/72 Review of Systems Constitutional: Negative. Respiratory: Negative. Cardiovascular: Negative. Neurological: Negative. All other systems reviewed and are negative. Visit Vitals BP (!) 183/65 (BP Location: Left arm, Patient Position: Sitting, BP Cuff Size: Adult) Pulse (!) 47 Wt 88.3 kg (194 lb 9.6 oz) SpO2 98% BMI 27.92 kg/m??? Smoking Status Former BSA 2.09 m??? Allergies Allergen Reactions Cefdinir Dye Hives Iodinated Contrast Media Other Other reaction(s): Unknown Ragweed Other reaction(s): Unknown Sulfa (Sulfonamide Antibiotics) Rash Medications: Current Outpatient Medications on File Prior to Visit Medication Sig Dispense Refill allopurinol (Zyloprim) 100 mg tablet allopurinol 100 mg tablet TAKE 2 TABLETS BY MOUTH EVERY DAY amLODIPine (Norvasc) 5 mg tablet amlodipine 5 mg tablet furosemide (Lasix) 40 mg tablet furosemide 40 mg tablet TAKE 1 TABLET BY MOUTH EVERY DAY metoprolol tartrate (Lopressor) 100 mg tablet metoprolol tartrate 100 mg tablet clonazePAM (KlonoPIN) 0.5 mg tablet clonazepam 0.5 mg tablet clopidogrel (Plavix) 75 mg tablet clopidogrel 75 mg tablet famotidine (Pepcid) 20 mg tablet famotidine 20 mg tablet hydrALAZINE (Apresoline) 100 mg tablet hydralazine 100 mg tablet iron polysaccharides (Nu-Iron,Niferex) 150 mg iron capsule Take 150 mg by mouth in the morning. potassium chloride ER (Micro-K) 10 mEq ER capsule Take 1 capsule every day by oral route for 90 days. pravastatin (Pravachol) 80 mg tablet pravastatin 80 mg tablet tamsulosin (Flomax) 0.4 mg 24 hr capsule tamsulosin 0.4 mg capsule warfarin (Coumadin) 4 mg tablet warfarin 4 mg tablet No current facility-administered medications on file prior to visit. Physical Exam: Constitutional: Appearance: Normal appearance. Without apparent distress HENT: Head: Normocephalic and atraumatic. Nose: Nose normal. Mouth/Throat: Mouth: Mucous membranes are moist. Eyes: Extraocular Movements: Extraocular movements intact. Conjunctiva/sclera: Conjunctivae normal. Neck: Vascular: No JVD. Cardiovascular: Rate and Rhythm: Normal rate and regular rhythm. Pulses: Dorsalis pedis pulses are 3 on the right side and 3on the left side. Posterior tibial pulses are 3 on the right side and 3 on the left side. Heart sounds: Normal heart sounds, S1 normal and S2 normal. Pulmonary: Effort: Pulmonary effort is normal. Breath sounds: Normal breath sounds. Abdominal: General: Bowel sounds are normal. Palpations: Abdomen is soft. Musculoskeletal: General: Normal range of motion. Cervical back: Normal range of motion. Right lower leg: No edema. Left lower leg: No edema. Skin: General: Skin is warm and dry. Capillary Refill: Capillary refill takes less than 2 seconds. Neurological: General: No focal deficit present. Mental Status: alert and oriented to person, place, and time. Psychiatric: Mood and Affect: Mood normal. Behavior: Behavior normal. Thought Content: Thought content normal. Judgment: Judgment normal. Labs: CBC stable Renal function elevated Lipids well controlled Last lab values have been reviewed CV Testing: Echo 11/11/2019 Global left ventricular systolic function is normal (Visually estimated EF 60-65%). The left ventricle is normal size. Left ventricular wall thickness is mildly increased. No regional wall motion abnormality. Grade 1, mild diastolic dysfunction (abnormal relaxation). Normal right ventricular systolic function. The right ventricle is normal in size. The left atrium is severely enlarged. The right atrium is severely enlarged. Doppler studies suggest normal right sided pressures. No echocardiogram results found for the past 12 months Assessment/Plan: Coronary artery disease involving lummi coronary artery of lummi heart without angina pectoris Coronary artery disease is stable Continue GDMT- plavix, pravastatin, and metoprolol continue risk factor modifications- heart healthy diet, regular exercise as tolerated and continue all medications. Paroxysmal atrial fibrillation (CMS/HCC) Continue warfarin anticoagulation and metoprolol tartrate. Benign essential HTN Hypertension is elevated in office- most likely r/t white coat syndrome. Pt will take b/p 1-2 times a week at home and to call office if > 130/80 and he voiced und (more content not included)...[facility] 03-18-2023 Evaluation note* Encounter Date Diagnosis Assessment Notes Treatment Notes Treatment Clinical Notes Mar, Gastroesophageal ref lux disease with esophagitis without hemorrhage (ICD-10 - K21.00) [facility] Other 04-17-2023 Evaluation note* Encounter Date Diagnosis Assessment Notes Treatment Notes Treatment Clinical Notes Jan, Hypertension (ICD-10 - I10) Jan, Hyperlipidemia type II (ICD-10 - E78.01) Jan, ASHD (arteriosclerotic heart disease) (ICD-10 - I25.10) [facility] Other 04-17-2023 Evaluation note* Encounter Date Diagnosis Assessment Notes Treatment Notes Treatment Clinical Notes Jan, Paroxysmal atrial fibrillation (ICD-10 - I48.0) [facility] Other 02-27-2023 Evaluation note* Encounter Date Diagnosis Assessment Notes Treatment Notes Treatment Clinical Notes Nov, Left carotid bruit (ICD-10 - R09.89) Carotid US: < 50% B/L - 11/2022 [facility] Other 02-10-2023 Evaluation note* Encounter Date Diagnosis Assessment Notes Treatment Notes Treatment Clinical Notes Nov, Left carotid bruit (ICD-10 - R09.89) Carotid US: < 50% B/L - 11/2022 [facility] Other 02-07-2023 Evaluation note* Encounter Date Diagnosis Assessment Notes Treatment Notes Treatment Clinical Notes Nov, Paroxysmal atrial fibrillation (ICD-10 - I48.0) This patient is in NSR or rate controlled. This patient is anticoagulated to prevent thromboembolic events. They are maintaining regular scheduled appts with their ophthalmic tech. Nov, ASHD (arteriosclerot ic heart disease) (ICD-10 - I25.10) This patient is stable without activity related CP, dyspnea or lightheadedness. They are instructed to continue exercise and AHA diet plan. Nov, Hypertension (ICD-10 - I10) This patient is instructed to consume a healthy, low-fat, low-salt diet. They are also encouraged to continue exercise to achieve/maintain a normal BMI. Nov, Stage 4 chronic kidn ey disease (ICD-10 - N18.4) Nov, Chronic venous insufficiency (ICD-10 - I87.2) Avoid salt and elevate lower extremities, support stockings, inspect legs and feet daily for blisters and ulcerations. Nov, Hyperlipidemia type II (ICD-10 - E78.01) Diet and exercise with continued statin therapy. Nov, Gastroesophageal reflux disease with esophagitis without hemorrhage (ICD-10 - K21.00) Diet instructions: Smaller portions, avoid eating and laying flat, avoid eating or drinking prior to bedtime. Weight loss. PPI continue Nov, MARY (generalized anxiety disorder) (ICD-10 - F41.1) Healthy diet and exercise. No change in medication. Nov, Stenosis of left carotid artery (ICD-10 - I65.22) Continue yearly surveillance US. Continue primary prevention w/ AC, antiplatelet and statin therapy. f/u Vascular surgery Nov, Other Diet instructio ns reviewed. Continue Bentyl as needed Multifactorial - CKD - vitamin deficiency - monitor for now, trending down may require additional labs and endoscopy [facility] Other Evaluation noteNo InformationNort Apptera Other Evaluation noteNo assessment information available [facility] Work Phone: History general Narrative - Reported* Type Description Date Medical History ASHD (arteriosclerotic heart dis ease) Medical History Acute maxillary sinusitis Medical History Inflammatory polyarthropathy Medical History Benign hypertension with chronic kidney disease Medical History Benign localized pro static hyperplasia without lower urinary tract symptoms (LUTS) Medical History Hypertension Medical History Gout due to renal impairment, le ft wrist Medical History MARY (generalized anxiety disorde r) Medical History Gastroesophageal ref lux disease with esophagitis without hemorrhage Medical History Irritable bowel syndrome with co nstipation Medical History Left carotid bruit Medical History Paroxysmal atrial fibrillation Medical History Hyperlipidemia type II Medical History Chronic gout due to renal impairment, left wrist, without tophus (tophi) Medical History Chronic venous insufficiency Surgical History REPAIR AAA 2008 Surgical History RENAL ARTERY STENT 2012 Surgical History LHC 2013 Surgical History RCA 2008 Surgical History [facility] PTCA STNT Hospitalization History SEE SURGICAL HX [facility]NG Other InstructionsNot on filedocumented in this encounter [facility] [employer] Summary Purpose Family History Relationship Condition Age at Onset Recorded Date/T gely father Diabetes mellitus Unknown mother Family history of mental disorder Unknown Advance Directives Advance Directive Response Recorded Date/ Time Advance Directives No November 01, 2023 5:31pm Chief Complaint and Reason for Visit Chief Complaint Amb Documentation Afib Additional Source Comments REASON FOR VISIT (unrecogniz ed section and content) prescription refill3 month F yuridia upNo InformationNo InformationNo InformationrefillsrefillrefillrefillrefillCT resultsrefillCOVID resultsnot feeling wellWants in TodayTBHNo InformationNo InformationLab ResultsVitamin K1 week follow uprefillLab resultsMedication Clarification1 month Follow uprefillrefillrefillrefill (unrecognized sect ion and content) No Status Records FoundNo Status Records FoundNo Status Records FoundNo Status Records Found INFORMATION SOURCE (unrecogn ized section and content) DATE CREATED AUTHOR 03/21/2023 [facility] DATE CREATED AUTHOR AUTHOR'S ORGANIZ ATION 03/15/2024 [facility] DATE CREATED AUTHOR AUTHOR'S ORGANIZ ATION 03/27/2024 [facility] DATE CREATED AUTHOR AUTHOR'S ORGANIZ ATION 04/03/2024 [facility] [employer] Care Teams (unrecognized sec tion and content) Drapery Head Former Relationship Specialty [place] [address] [place] [id number] PCP - General 03/06/17 Team Status: Active Member Role Status Dates Cortez Biswas DO Primary Care Provider Active Team Status: Active Member Role Status Dates Cortez Biswas DO Primary Care Provider Active Start: February 02, 2024 JESS Corbin Attending Provider Active Start : February 02, 2024 Team Status: Inactive Member Role Status Dates Cortez Biswas DO Primary Care Provide r, Attending Provider Active Start: April 09, 2024 End: April 09, 2024 Goals (unrecognized section and content) Goals may be documented in a n alternate section FOR RECORDS PERTAINING TO PATIENTS WHO ARE OR HAVE BEEN ENROLLED IN A CHEMICAL DEPENDENCY/SUBSTANCEABUSE PROGRAM, SOME INFORMATION MAY BE OMITTED. This clinical summary was aggregated from multiple sources. Caution should be exercised in using it in the provision of clinical care. This summary normalizes information from multiple sources, and as a consequence, information in this document may materially change the coding, format and clinical context of patient data. In addition, data may be omitted in some cases. CLINICAL DECISIONS SHOULD BE BASED ON THE PRIMARY CLINICAL RECORDS. [facility] [employer] [facility] provides no warranty or guarantee of the accuracy or completeness of information in this document.
[2024-04-14] MEDS: REGADENOSON 0.4 MG/5 ML SYRINGE 0.400000000000000022 MG IV (14:08)
== END 2024-04-14 08:30 | disposition home or self-care (01) ==
LOC: NM 08:29
PROVIDERS: PCP Internal Medicine; Visit Provider Internal Medicine Interventional Cardiology
DX: R93.1 Abnormal findings on diagnostic imaging of heart and coronary circulation (principal); I50.22 Chronic systolic (congestive) heart failure
CPT/HCPCS: 78452; 93017; A9500; J2785

== ENCOUNTER 2024-05-13 00:18 | Outpatient (RCR) | payer MEDICARE, SELFPAY | END 2024-06-11 09:36 | disposition home or self-care (01) | LOC: MM 00:18 | PROVIDERS: PCP Internal Medicine; Visit Provider Internal Medicine | DX: Z51.81 Encounter for therapeutic drug level monitoring (principal); Z79.01 Long term (current) use of anticoagulants | CPT/HCPCS: 85610; G0463 ==

== ENCOUNTER 2024-06-03 09:44 | Outpatient (OUT) | payer MEDICARE, SELFPAY ==
--- NOTE | 2024-06-03 09:51 | US_ITS ---
The [address] [address] Patient Name: SIGIFREDO HURTADO MRN: [id number] date: 1945 Sex: M Assigned Patient Location: [place] Current Patient Location: Accession/Order Number: [id number] Exam Date: 06/03/2024 09:52 Report Date: 06/04/2024 07:31 At the request of: AMINA LOAIZA Procedure: US carotid duplex BI DUPLEX ULTRASOUND EXAMINATION OF THE CAROTID ARTERIES. COMPARISON: 08/20/2022. HISTORY / INDICATIONS: Evaluate carotid stenosis. Follow up. TECHNIQUE: Bilateral common carotid arteries, extracranial internal and external carotid arteries are evaluated with negrete-scale imaging, color Doppler, and spectral analysis according to a standard protocol. ICA/CCA ratios are calculated with outside medical sales representative peak-systolic velocities and recorded. Vertebral arteries are evaluated in one segment to evaluate for patency and character of flow. Comparison with previous evaluation is performed when available. Unless otherwise specified, all velocities are measured in cm/sec. Carotid stenosis is reported according to validated velocity parameters, similar to NASCET criteria. FINDINGS: Right Carotid: Plaque was noted. Velocity measurements as follows: Internal Carotid Artery 85/23, 101/24, 93/21. ICA/CCA ratio: 1.8. Left Carotid: Plaque was noted. Velocity measurements as follows: Internal Carotid Artery 114/27, 109/28, and 95/22. ICA/CCA ratio: 1.6. Antegrade flow was seen in both vertebral arteries. CONCLUSION: 1. Less than 50% stenosis of the right ICA. 2. Less than 50% stenosis of the left ICA. 3. Vertebral arteries are patent and demonstrate antegrade flow. Electronically authenticated by: Terrell PENA Date: 06/04/2024 07:31
--- OUTSIDE RECORDS SUMMARY | 2024-06-03 10:06 | XMS_ITS | CCD ---
Author Organization [facility] Care Team Providers Care Senior User Experience Architect Name Role Phone Cortez Biswas Unavailable FAWWAD, KAISER H Attending Unavailable [...] Attending Unavailable BALL, DR TORREZ Admitting Unavailable AMY MORAN, SUKHDEEP Mendieta Consulting Unavailab Yefri MORAN, SUKHDEEP Mendieta Attending Unavailab le TRUE, DR TORREZ Primary Care Unavailable AMY MORAN, SUKHDEEP Mendieta Admitting Unavailab christina ARGUELLO, DR FREIRE Consulting Unavailable SAUNDRA, DR FREIRE Attending Unavailable TRUE, DR TORREZ Primary Care Unavailable SAUNDRA, DR FREIRE Admitting Unavailable WEST, DR SHANNAN Mckeon Consulting Unavailable FAWWAD, KAISER H Attending Unavailable BALL, DR TORREZ Primary Care Unavailable FAWWAD, KAISER H Admitting Unavailable FAWWAD, KAISER H Attending Unavailable FAWWAD, KAISER H Admitting Unavailable BALL, DR TORREZ Primary Care Unavailable FAWWAD, KAISER H Attending Unavailable FAWWAD, KAISER H Admitting Unavailable BALL, DR TORREZ Primary Care Unavailable Supriya Gardner Unavailable True DOCortez Primary Care Provider HERMELINDA CHRISTINE Attending Unavailable RUSHER, YUSUF Chapman Attending Unavailable RUSHER, YUSUF A Attending Unavailable PETITTI, PIEDAD A Attending Unavailable RUSHER, YUSUF A Attending Unavailable PETITTI, PIEDAD A Attending Unavailable CORTEZ BISWAS Referring Unavailable TRUE, CORTEZ Erickson Primary Care Unavailable JOSE CHRISTINEAB A Referring Unavailable CORTEZ BISWAS Primary Care Unavailable ABBAS, JIHAD T Referring Unavailable TRUE, CORTEZ Erickson Primary Care Unavailable ABBAS, JIHAD T Referring Unavailable CORTEZ BISWAS Primary Care Unavailable Allergies Allergy Classification Reported Allergen(s) Allergy Type Date of Onset Reaction(s) Facility (20 sources) cefdinir; Translations: [CEFDINIR] Drug Allergy 01-26-20 22 Unknown, Unknown Reaction [facility] (20 sources) Ciprofloxacin Drug Allergy 04-09-20 24 Unknown, Unknown Reaction [facility] (11 sources) Contrast media Propensity to adverse reactions Unknown [email or web address] Other (11 sources) Sulfonamides (Antibiotic) Propensity to adverse reactions Unknown [email or web address] Other (1 source) Iodine (And Iodine Containting Drugs) Drug allergy (disorder) 04-05-20 13 [facility] Repository (20 sources) Substance with sulfonamide structure and antibacterial mechanism of action (substance) Drug allergy 09-30-20 14 Rash [facility] (1 source) patient allergy list reviewed by nurse or physicia Propensity to adverse reactions 01-28-20 18 Comment:Done [email or web address] Other (19 sources) Dye INTERMEDIATE Red 40 ([place] Red) *PHARMACEUTICAL ADJUV Propensity to adverse reactions Comment:IVP Dye [email or web address] Other (3 sources) Iodinated [facility]; Translations: [IODINATED CONTRAST MEDIA] Propensity to adverse reactions to drug 09-30-20 14 [facility] (3 sources) Ragweed; Translations: [RAGWEED] Propensity to adverse reactions to drug 03-04-20 22 [facility] (1 source) Contrast media Allergy to substance 04-09-20 24 Comment:IVP Dye [facility] (3 sources) Sulfonamides (Antibiotic); Translations: [SULFA (SULFONAMIDE ANTIBIOTICS)] Allergy to substance 09-30-20 14 Unknown Reaction [facility] (1 source) Contrast media; Translations: [DYE] Propensity to adverse reactions to drug (disorder) 08-26-20 16 [facility] Repository Medications Current Medications Medication Drug Class(es) Dates [...] Start: 02-18-2022 take 2 tablets by mo [facility]ett in the morning allopurinoL (ZYLOPRIM) 100 mg tablet Take 2 tablets (200 mg total) by mouth in the morning. 0 02/18/2022 Active take 1 tablet by fransico every twenty-four hours Allopurinol 100 MG 1 [...] Start: 10-27-2023 take 1 tablet by fransico twice daily clonazePAM 0.5 MG 1 tablet Orally Twice daily for 90 days Oct, Active Start: 11-19-2022 take 1 tablet by fransico twice daily clonazePAM 0.5 MG 1 tablet Orally Twice daily for 90 days Jul, Active clopidogrel 75 mg oral tablet (20 sources) P2Y12 Platelet Inhibitor Start: 12-09-2023 take 75 mg by mouth once daily Clopidogrel Active 75 MG PO Daily December 09, 2023 1:00am docusate sodium 50 mg / sennosides, long-term 8.6 mg oral tablet (20 sources) Start: 12-09-2023 take 1 tablet by mouth once daily Sennosides-Docusat e Sodium Active 1 TAB-CAP PO Daily December 09, 2023 1:00am take 1 tablet by fransico every twenty-four hours Senna Plus 8.6-50 MG [...] 2023 1:00am take 1 tablet by fransico every twenty-four hours Famotidine 20 MG 1 [...] Metoprolol Tartrate Discontinued 100 MG PO Daily March 22, 2024 12:00am March 22, 2024 [...] Start: 03-31-2024 Tamsulosin Active 0 .ROUTE .COMPLEX 90 March 31, 2024 6:06pm TAKE 1 CAPSULE [...] 3:02pm Start: 07-01-2023 take 1 capsule by [facility] twice daily Doxycycline Hyclate 100 MG 1 [...] Coronary arteriosclerosis; Translations: [Atherosclerotic heart disease of mechoopda coronary artery without angina pectoris] Onset: 04-07-2023 [...] Episodic Occlusion or stenosis of precerebral arteries (11 sources) Left carotid artery stenosis; Translations: [Occlusion and stenosis of left carotid artery] Onset: 08-25-2022 Chronic Other aftercare (5 sources) Encounter for therapeutic drug level monitoring; Translations: [ENC THERAPEUTC DRUG LEVL MONITORING] Onset: 02-08-2023 Episodic Other aftercare (1 source) [employer] (current) use of anticoagulants; Translations: [SENIOR CARE CURRNT USE ANTICOAGULANTS] Onset: 03-12-2023 Episodic Other circulatory disease (20 sources) Cardiovascular symptoms; Translations: [Other specified symptoms and signs involving the circulatory and respiratory systems] Onset: 03-24-2019 Episodic Other circulatory disease (8 sources) Other specified symptoms and signs involving the circulatory and respiratory systems; Translations: [OTH SPEC SX SIGNS INVLV CIRC RS] Onset: 08-20-2022 Episodic Other diseases of veins and lymphatics [...] thigh, leg, and ankle, infected] Onset: 03-15-2016 Unclassified (1 source) Infrarenal abdominal aortic aneurysm, without rupture; Translations: [Infrarenal abdominal aortic aneurysm, without rupture] Onset: 05-20-2024 Unclassified (1 source) Abdominal aortic aneurysm, without rupture, unspecified; Translations: [Abdominal aortic aneurysm, without rupture, unspecified] Onset: 05-20-2024 Viral infection (1 source) COVID-19; Translations: [COVID-19] [...] [Chest pain, unspecified] Onset: 06-02-2014 Episodic Other connective tissue disease (1 source) [...] Test Name Value Interpretation Reference Range Facility CT ABDOMEN AND PELVIS WO CON Ton 05-22-2024 CT ABDOMEN AND PELVIS WO CONT CT ABDOMEN AND PELVIS WO CONT CLINICAL INFORMATION: Abdominal aortic aneurysm (AAA) without rupture, unspecified part (CMS-HCC). TECHNIQUE: CT Abdomen and Pelvis without intravenous contrast. All CT scans at this facility use dose modulation, iterative reconstruction, and/or weight based dosing when appropriate to reduce radiation dose to as low as reasonably achievable. COMPARISON: No relevant prior studies available. FINDINGS: Visualized lung bases are unremarkable. Cardiomegaly. The liver, adrenal glands, pancreas, gallbladder, and spleen are unremarkable. Atrophic kidneys, left worse than right. Small right renal cysts. Punctate nonobstructing right renal stone. Status post endograft repair of abdominal aortic aneurysm. Excluded aneurysm sac measures 3.2 x 3.5 cm in greatest diameter (axial image 50). No enlarged abdominal or pelvic lymph nodes. The bladder is unremarkable. The small and large bowel are of normal caliber with no evidence of bowel wall thickening. Colonic diverticulosis without acute inflammation. Normal appendix. No free fluid in the abdomen or pelvis. No free intraperitoneal air. No acute osseous abnormalities or aggressive osseous lesions. IMPRESSION: * Status post endograft repair of abdominal aortic aneurysm. Excluded aneurysm sac measures 3.2 x 3.5 cm. * Punctate right renal stone. Atrophic kidneys, left worse than right. Finalized by Francisco Chopra MD on 05/22/2024 7:29 AM [facility] 36on 04-22-2024 36 LM on patient's VM letting him know results of stress test and echo. Normal [facility] 36on 04-21-2024 36 Regarding stress test performed on 04/14/2024: MD Karmen Logan MA Please let the patient know that his stress test shows no ischemia. Dr. Christine, were you able to review his echo that was done at [facility]? Normal [facility] Office Visiton 03-15-2024 Follow-up visit [id number] Sigifredo Kelly 1945 M Date Provider Department Center 03/15/2024 Ramírez-HERMELINDA CHRISTINE CARD [facility] No family history on file Level of Service:21728 [facility] OFFICE/OUTPATIENT ESTABLISHED MOD MDM 30 MIN Normal [facility] BASIC METABOLIC PANLon 03-09 Anion gap [Moles/Vol] 12 mmol/L Normal 5-15 [facility] Comment on above: Performed By: #### U PCR, BMP, 37419-8, 2777-1, 2731-8, 58138- 6, CBC #### [facility] ([id number]) [address], [address] [place] [address] Calcium [Mass/Vol] 8.6 mg/dL Normal 8.5-10.5 [facility] Comment on above: Performed By: #### U PCR, BMP, 59685-7, 2777-1, 2731-8, 34768- 6, CBC #### [facility] ([id number]) [address], [address] [place] [address] Chloride [Moles/Vol] 108 mmol/L Normal 98-109 [facility] Comment on above: Performed By: #### U PCR, BMP, 14149-3, 2777-1, 2731-8, 85640- 6, CBC #### [facility] ([id number]) [address], [address] [place] [address] CO2 [Moles/Vol] 22 mmol/L Normal 22-32 [facility] Comment on above: Performed By: #### U PCR, BMP, 42731-8, 2777-1, 2731-8, 28755- 6, CBC #### [facility] ([id number]) [address], [address] [place] [address] Creatinine [Mass/Vol] 2.35 mg/dL High 0.60-1.30 [facility] Comment on above: Result Comment: METH OD TRACEABLE TO IDMS STANDARD Performed By: #### U PCR, BMP, 88535-4, 2777-1, 2731-8, 52922-3, CBC #### [facility] ([id number]) [address], [address] [place] [address] GFR/1.73 sq M.predicted among non-blacks MDRD (S/P/Bld) [Vol rate/Area] 28 mL/min/{1.73_m2} Low >59 [facility] Comment on above: Result Comment: Reported eGFR is based on the CKD-EPI 2020 equation that does not use a race coefficient. Performed By: #### U PCR, BMP, 96101-9, 7-1, 2731-8, 72509-0, CBC #### [facility] ([id number]) [address], [address] [place] [address] Glucose [Mass/Vol] 110 mg/dL High 65-99 [facility] Comment on above: Performed By: #### U PCR, BMP, 84318-8, 7-1, 2731-8, 67798- 6, CBC #### [facility] ([id number]) [address], [address] [place] [address] Potassium [Moles/Vol] 5.0 mmol/L Normal 3.5-5.0 [facility] Comment on above: Result Comment: SPEC IMEN HEMOLYZED, RESULTS INCREASED MODERATELY HEMOLYZED Performed By: #### U PCR, BMP, 10950-8, 7-1, 2731-8, 77967-1, CBC #### [facility] ([id number]) [address], [address] [place] [address] Sodium [Moles/Vol] 142 mmol/L Normal 134-146 [facility] Comment on above: Performed By: #### U PCR, BMP, 89382-1, 2777-1, 2731-8, 17529- 6, CBC #### [facility] ([id number]) [address], [address] [place] [address] Urea nitrogen [Mass/Vol] 43 mg/dL High 5-27 [facility] Comment on above: Performed By: #### U PCR, BMP, 49045-2, 2777-1, 2731-8, 99961- 6, CBC #### [facility] ([id number]) [address], [address] [place] [address] COMPLETE BLOOD COUNTon 03-09 Erythrocyte distribution width (RBC) [Ratio] 18.3 % High 11.5-15.0 [facility] Comment on above: Performed By: #### U PCR, BMP, 19917-4, 2777-1, 2731-8, 32361- 6, CBC #### [facility] ([id number]) [address], [facility] [address] [place] [address] Hematocrit (Bld) [Volume fraction] 35.2 % Low 39-49 [facility] Comment on above: Performed By: #### U PCR, BMP, 61242-9, 2777-1, 2731-8, 87947- 6, CBC #### [facility] ([id number]) [address], [address] [place] [address] Hemoglobin (Bld) [Mass/Vol] 11.7 g/dL Low 13.0-17.0 [facility] Comment on above: Performed By: #### U PCR, BMP, 34264-7, 2777-1, 2731-8, 85451- 6, CBC #### [facility] ([id number]) [address], [address] [place] [address] MCH (RBC) [Entitic mass] 28.6 pg Normal 27-34 [facility] Comment on above: Performed By: #### U PCR, BMP, 56369-0, 2777-1, 2731-8, 88419- 6, CBC #### [facility] ([id number]) [address], [address] [place] [address] MCHC (RBC) [Mass/Vol] 33.4 g/dL Normal 32-36 [facility] Comment on above: Performed By: #### U PCR, BMP, 25301-8, 2777-1, 2731-8, 34553- 6, CBC #### [facility] ([id number]) [address], [facility] [address] [place] [address] MCV (RBC) [Entitic vol] 86 fL Normal 80-100 [facility] Comment on above: Performed By: #### U PCR, BMP, 58320-1, 2777-1, 2731-8, 45404- 6, CBC #### [facility] ([id number]) [address], [facility] [address] [place] [address] Platelet mean volume (Bld) [Entitic vol] 8.1 fL Normal 7-12 [facility] Comment on above: Performed By: #### U PCR, BMP, 50589-2, 2777-1, 2731-8, 30276- 6, CBC #### [facility] ([id number]) [address], [facility] [address] [place] [address] Platelets (Bld) [#/Vol] 122 10*3/uL Low 150-450 [facility] Comment on above: Performed By: #### U PCR, BMP, 10110-6, 2777-1, 2731-8, 51033- 6, CBC #### [facility] ([id number]) [address], [facility] [address] [place] [address] RBC COUNT 4.10 X10E12/L Normal 4.10-5.70 [facility] Comment on above: Performed By: #### U PCR, BMP, 24196-1, 2777-1, 2731-8, 19898- 6, CBC #### [facility] ([id number]) [address], [facility] [address] [place] [address] WBC (Bld) [#/Vol] 7.1 10*3/uL Normal 4.0-11.0 [facility] Comment on above: Performed By: #### U PCR, BMP, 22205-9, 2777-1, 2731-8, 18348- 6, CBC #### [facility] ([id number]) [address], [address] [place] [address] MAGNESIUMon 03-09-2024 Magnesium [Mass/Vol] 2.3 mg/dL Normal 1.8-2.6 [facility] Comment on above: Performed By: #### U PCR, BMP, 55680-4, 2777-1, 2731-8, 35289- 6, CBC #### [facility] ([id number]) [address], [address] [place] [address] PHOSPHORUSon 03-09-2024 Phosphate [Mass/Vol] 3.4 mg/dL Normal 2.4-4.9 [facility] Comment on above: Result Comment: SPEC IMEN HEMOLYZED, RESULTS INCREASED MODERATELY HEMOLYZED Performed By: #### U PCR, BMP, 53615-4, 7-1, 2731-8, 44969-1, CBC #### [facility] ([id number]) [address], [address] [place] [address] PROTEIN CREAT RATIOon 2023 RANDOM URINE PROTEIN 270 mg/L High <120 [facility] Comment on above: Performed By: #### U PCR, BMP, 50533-8, 2777-1, 2731-8, 13841- 6, CBC #### [facility] ([id number]) [address], [address] [place] [address] U/PRO/BISCUIT PACKER RATIO CALC 0.88 High <0.2 [facility] Comment on above: Result Comment: Neph rotic Syndrome is associated with ratios >3.5 Performed By: #### U PCR, BMP, 90282-9, 2777-1, 2731-8, 67367-1, CBC #### [facility] ([id number]) [address], [address] [place] [address] URINE CREATININE,RDM 30.55 mg/dL Normal [facility] Comment on above: Performed By: #### U PCR, BMP, 35163-7, 2777-1, 2731-8, 87218- 6, CBC #### [facility] ([id number]) [address], [address] [place] [address] Parathyrin.intact [Mass/Vol] on 03-09-2024 PTH INTACT 241 pg/mL High 12-88 [facility] Comment on above: Performed By: #### U PCR, BMP, 00288-2, 2777-1, 2731-8, 46900- 6, CBC #### [facility] ([id number]) [address] [place] [address] Vitamin D+Metabolites [Mass/ Vol]on 03-09-2024 VITAMIN D 25 HYD TOT 24.5 ng/mL Low 30-100 [facility] Comment on above: Result Comment: Vitamin D status 25 [place] Vitamin D Deficiency <20 ng/mL Insufficiency 20-29 ng/mL Sufficiency 30-100 ng/mL Toxicity >100 ng/mL NOTE: A pediatric reference range has not been established by the photographer lithographic of this kit. The [place] [employer] recommends a Vitamin D level of = or >20ng/mL in infants and children. Performed By: #### U PCR, BMP, 20913-9, 7-1, 2731-8, 64906-0, CBC #### [facility] ([id number]) [address], [address] [place] [address] PTH INTACTon 01-25-2023 PTH, Intact 151 pg/mL Critically high 15-65 [facility] Comment on above: Performed By: #### P THINT ####[facility] [address] [place], [place] [address]RgJens Delgadillo HEMOGRAM AND PLATELon 2022 Hematocrit (Bld) [Volume fraction] 32.2 % Critically low 42.0-54.0 [facility] Comment on above: Performed By: #### H H #### [facility] Laboratory [address] [place] [address] Dr. Jessica Delgadillo Hemoglobin (Bld) [Mass/Vol] 10.2 g/dL Critically low 14.0-18.0 [facility] Comment on above: Performed By: #### H H #### [facility] [address] [place] [address] Dr. Jessica Delgadillo MCH (RBC) [Entitic mass] 27.7 pg Normal 25.9-34.0 [facility] Comment on above: Performed By: #### H H #### [facility] [address] [place] [address] Dr. Jessica Delgadillo MCHC (RBC) [Mass/Vol] 31.7 g/dL Normal 29.9-35.2 [facility] Comment on above: Performed By: #### H H #### [facility] [address] [place] [address] Dr. Jessica Delgadillo MCV (RBC) [Entitic vol] 87.5 fL Normal 80.0-94.0 [facility] Comment on above: Performed By: #### H H #### [facility] [address] [place] [address] Dr. Jessica Delgadillo PLT 121 103/ul Critically low 150-450 [facility] Comment on above: Performed By: #### H H #### [facility] [address] [place] [address] Dr. Jessica Delgadillo RBC 3.68 106/ul Critically low 4.70-6.[address] [facility] Comment on above: Performed By: #### H H #### [facility] [address] [place] [address] Dr. Jessica Delgadillo WBC 5.2 103/ul Normal 4.0-11.0 [facility] Comment on above: Performed By: #### H H #### [facility] [address] [place] [address] Dr. Jessica Delgadillo MAGNESIUMon 01-24-2023 Magnesium [Mass/Vol] 2.1 mg/dL Normal 1.8-2.4 [facility] Comment on above: Performed By: #### B MP, PHOS, MG #### [facility] [address] [address] [address] Jessica Delgadillo PHOSPHORUSon 01-24-2023 Phosphate [Mass/Vol] 3.3 mg/dL Normal 2.6-4.7 [facility] Comment on above: Performed By: #### B MP, PHOS, MG #### [facility] [address] [address] [address] Jessica Delgadillo PROF CHEM 8 (BAS METB)on Anion gap [Moles/Vol] 13.1 mmol/L Normal [facility] Comment on above: Performed By: #### B MP, PHOS, MG ####[facility] [address] [address]Dr. Jessica Delgadillo Calcium [Mass/Vol] 8.3 mg/dL Critically low 8.5-10.1 [facility] Comment on above: Performed By: #### B MP, PHOS, MG ####[facility] [address] [address]Dr. Jessica Delgadillo Chloride [Moles/Vol] 106 mmol/L Normal 98-107 [facility] Comment on above: Performed By: #### B MP, PHOS, MG ####[facility] [address] [id number]. Jessica Delgadillo CO2 [Moles/Vol] 25.1 mmol/L Normal 21.0-32.0 [facility] Comment on above: Performed By: #### B MP, PHOS, MG ####[facility] [address] [address]Dr. Jessica Delgadillo Creatinine [Mass/Vol] 2.25 mg/dL Critically high 0.70-1.30 [facility] Comment on above: Performed By: #### B MP, PHOS, MG ####[facility] [address] [address]Dr. Jessica Delgadillo EGFR-AF [place]IZ[place] 35 mL/min/1.73m2 Critically low >=60 [facility] Comment on above: Performed By: #### B MP PHOS, MG ####[facility] [address] [address]Dr. Jessica Delgadillo EGFR-NON AF CITIZEN [place] 29 mL/min/1.73m2 Critically low >=60 [facility] Comment on above: Performed By: #### B MP PHOS, MG ####[facility] [address] [place] [address]Dr. Jessica Delgadillo Glucose [Mass/Vol] 111 mg/dL Critically high 74-106 [facility] Comment on above: Performed By: #### B MP PHOS, MG ####[facility] [address] [address]Dr. Jessica Delgadillo Potassium [Moles/Vol] 4.2 mmol/L Normal 3.5-5.1 [facility] Comment on above: Performed By: #### B BRAD PHOS, MG ####[facility] [id number] [place], [place] [address]Dr. Jessica Delgadillo Sodium [Moles/Vol] 140 mmol/L Normal 136-145 [facility] Comment on above: Performed By: #### B MP PHOS, MG ####[facility] [address] [address]Dr. Jessica Delgadillo Urea nitrogen [Mass/Vol] 47.0 mg/dL Critically high 7.0-18.0 [facility] Comment on above: Performed By: #### B MP PHOS, MG ####[facility] [address] [address]Dr. Jessica Delgadillo Urea nitrogen/Creatini ne [Mass ratio] 20.9 mg/mg Normal [facility] Comment on above: Performed By: #### B MP PHOS, MG ####[facility] [address] [address]Dr. Jessica Delgadillo URINE T PROTEIN CREAT RATIOo n 01-24-2023 Protein (U) [Mass/Vol] 10.2 mg/dL Normal <=12.0 [facility] Comment on above: Performed By: #### U RTPCR #### [facility] Laboratory [address] [place] [address] Dr. Jessica Delgadillo UR PROT CREAT RAT 0.[address] [facility] Comment on above: Performed By: #### U RTPCR #### [facility] [address] [place] [address] Dr. Jessica Delgadillo URINE CREAT 20.93 mg/dL Normal 20.00-300.[address] [facility] Comment on above: Performed By: #### U RTPCR #### [facility] [address] [place] [address] Dr. Jessica Delgadillo VITAMIN D 25 OHon 01-24-2023 VIT D 25-OH 34.8 ng/mL Normal [facility] [facility] Comment on above: Performed By: #### V ITAD #### [facility] [address] [place] [address] Dr. Jessica Delgadillo VIT D RANGES SEE BELOW Normal [facility] Comment on above: Result Comment: <20 ng/mL Vit D deficient 20 - <30 ng/mL Vit D insufficient 30 - 100 ng/mL Vit D sufficient >100 ng/mL Potential Toxicity Performed By: #### V ITAD #### [facility] [address] [place] [address] Dr. Jessica Delgadillo [facility]on SARS-CoV-2 (COVID-19) RNA VANESSA+probe Ql (Unsp spec) Detected Critically abnormal NOT DETECTED The [facility] Comment on above: Result Comment: This test is not yet approved or cleared by the [place] FDA. When there are no FDA-approved or cleared tests available, and other criteria are met, FDA can make tests available under an emergency access mechanism called an Emergency Use Authorization (EUA). The EUA for this test is supported by the [employer] of Health and Human Service's declaration that [...] longer be used). Performed By: #### C VDTBH #### [facility] [address] [place] [address] Dr. Jessica Delgadillo CAROTID ART BILon 022 US CAROTID ART MOODY EXAMINATION: US CAROTID ART [...] SHANNAN SUAREZ Date: 2022-08-20 19:17 Normal The [facility] LIPID PROFILEon 05-09-2022 CHOL-HDL RATIO NORM SEE BELOW Normal [facility] Comment on above: Result Comment: 3.3 - 4.4 LOW RISK 4.4 - 7.1 AVERAGE RISK 7.1 - 11.0 MODERATE RISK >11.0 HIGH RISK Performed By: #### A LT, LIPID #### [facility] [address] [address] [address] Jessica Delgadillo Cholesterol [Mass/Vol] 135 mg/dL Normal <=200 [facility] Comment on above: Performed By: #### A LT, LIPID #### [facility] [address] [place], [place] [address] Dr. Jessica Delgadillo Cholesterol in HDL [Mass/Vol] 47 mg/dL Normal 40-60 [facility] Comment on above: Performed By: #### A LT, LIPID #### [facility] [address] [address] [address] Jessica Delgadillo Cholesterol in LDL [Mass/Vol] 69.8 mg/dL Normal [facility] Comment on above: Performed By: #### A LT, LIPID #### [facility] [address] [address] [address] Jessica Delgadillo Cholesterol.total /Cholesterol in HDL [Mass ratio] 2.9 {ratio} Normal [facility] Comment on above: Performed By: #### A LT, LIPID #### [facility] [address] [place] [address] Dr. Jessica Delgadillo HDL NORMAL > or = 60 mg/dl - LOW CARDIOVASCULAR RISK <40 mg/dl - HIGH CARDIOVASCULAR RISK Normal [facility] Comment on above: Performed By: #### A LT, LIPID #### [facility] [address] [place] [address] Dr. Jessica Delgadillo LDL CALC NORMAL SEE BELOW Normal [facility] Comment on above: Result Comment: <100 mg/dl OPTIMAL 100 - 129 mg/dl NEAR OR ABOVE OPTIMAL 130 - 159 mg/dl BORDERLINE HIGH 160 - 189 mg/dl HIGH >190 mg/dl VERY HIGH Performed By: #### A LT, LIPID #### [facility] [address] [place] [address] Dr. Jessica Delgadillo Triglyceride [Mass/Vol] 91 mg/dL Normal <=150 [facility] Comment on above: Performed By: #### A LT, LIPID #### [facility] [address] [place] [address] Dr. Jessica Delgadillo VLDL CALC 18.2 mg/dL Normal [facility] Comment on above: Performed By: #### A LT, LIPID #### [facility] [address] [place] [address] Dr. Jessica Delgadillo SGPTon 05-09-2022 ALT [Catalytic activity/Vol] 9 U/L Critically low 16-63 [facility] Comment on above: Performed By: #### A LT, LIPID #### [facility] [address] [place] [address] Dr. Jessica Delgadillo Vital Signs Date Time Vital Sign Value Performing Clinician Facility 04-09-2024 14:01-0400 Body height 180.[address] [facility] 04-09-2024 14:01-0400 Body mass index (BMI) [Ratio] 26.2 kg/m2 [facility] 04-09-2024 14:01-0400 Body weight 85.[address] [facility] 04-09-2024 14:01-0400 Diastolic blood pressure 64 mm[Hg] [facility] 04-09-2024 14:01-0400 Heart rate 98 /min [facility] 04-09-2024 14:01-0400 Respiratory rate 12 /min [facility] 04-09-2024 14:01-0400 Systolic blood pressure 130 mm[Hg] [facility] 08-11-2023 11:30-0400 Body height 180.34 cm Cortez Ball Other [facility] [employer] Other 08-11-2023 11:30-0400 Body mass index (BMI) [Ratio] 25.46 kg/m2 Cortez Ball Other [facility] [employer] Other 08-11-2023 11:30-0400 Body weight 82.83 kg Cortez Ball Other [facility] [employer] Other 08-11-2023 11:30-0400 Diastolic blood pressure 78 mm[Hg] Cortez Ball Other [facility] [employer] Other 08-11-2023 11:30-0400 Respiratory rate 12 /min Cortez Ball Other [facility] [employer] Other 08-11-2023 11:30-0400 Systolic blood pressure 156 mm[Hg] Cortez Ball Other [facility] [employer] Other 07-11-2023 11:00-0400 Body height 180.34 cm Cortez Ball Other [facility] [employer] Other 07-11-2023 11:00-0400 Body mass index (BMI) [Ratio] 24.66 kg/m2 Cortez Ball Other [employer] Other 07-11-2023 11:00-0400 Body weight 80.2 kg Cortez Ball Other [employer] Other 07-11-2023 11:00-0400 Diastolic blood pressure 72 mm[Hg] Cortez Ball Other [employer] Other 07-11-2023 11:00-0400 Respiratory rate 12 /min Cortez Ball Other [employer] Other 07-11-2023 11:00-0400 Systolic blood pressure 123 mm[Hg] Cortez Ball Other [employer] Other 06-30-2023 14:30-0400 Body height 180.34 cm Cortez Ball Other [employer] Other 06-30-2023 14:30-0400 Body mass index (BMI) [Ratio] 27.7 kg/m2 Cortez Ball Other [employer] Other 06-30-2023 14:30-0400 Body weight 90.08 kg Cortez Ball Other [employer] Other 06-30-2023 14:30-0400 Diastolic blood pressure 69 mm[Hg] Cortez Ball Other [employer] Other 06-30-2023 14:30-0400 Respiratory rate 12 /min Cortez Ball Other [employer] Other 06-30-2023 14:30-0400 Systolic blood pressure 129 mm[Hg] Cortez Ball Other [employer] Other 06-25-2023 14:30-0400 Body height 180.34 cm Supriya Encinasdevorakvngalanis Other [employer] Other 06-25-2023 14:30-0400 Body mass index (BMI) [Ratio] 27.05 kg/m2 Supriya Kendra Other [employer] Other 06-25-2023 14:30-0400 Body weight 88 kg Supriya Encinasdevorakvngalanis Other [employer] Other 06-25-2023 14:30-0400 Diastolic blood pressure 62 mm[Hg] Supriya Kendra Other [employer] Other 06-25-2023 14:30-0400 SaO2% (BldA) [Mass fraction] 97 % Supriya Kendra Other [employer] Other 06-25-2023 14:30-0400 Systolic blood pressure 98 mm[Hg] Supriya Encinasmarianne Other [employer] Other 11-19-2022 10:00-0500 Body height 180.34 cm Cortez Ball Other [employer] Other 11-19-2022 10:00-0500 Body mass index (BMI) [Ratio] 27.89 kg/m2 Cortez Ball Other [employer] Other 11-19-2022 10:00-0500 Body weight 90.72 kg Cortez Ball Other [employer] Other 11-19-2022 10:00-0500 Diastolic blood pressure 70 mm[Hg] Cortez Ball Other [employer] [facility] [employer] Other 11-19-2022 10:00-0500 Respiratory rate 12 /min Cortze Biswas Other [employer] Other 11-19-2022 10:00-0500 Systolic blood pressure 124 mm[Hg] Cortez Biswas Other [employer] Other Encounters Encounter Date Encounter Type Care Provider Facility Start: 05-20-2024 End: 05-20-2024 ambulatory TANI Arrieta [facility] Start: 04-22-2024 End: 04-22-2024 ambulatory YUSUF ENGLE Not Available Start: 04-09-2024 End: 04-09-2024 ambulatory [facility] Work Phone: Start: 04-09-2024 End: 04-09-2024 Patient encounter procedure [facility] Physician [facility] Work Phone: Start: 04-01-2024 End: 04-01-2024 ambulatory PIEDAD Adela LOWE Not Available Start: 03-26-2024 End: 03-26-2024 ambulatory [facility] Start: 03-15-2024 End: 03-15-2024 ambulatory [facility] Start: 03-09-2024 End: 03-09-2024 [address] Dre BISWAS [facility] Start: 02-02-2024 Non-patient / Non-visit [facility] Physician [facility] Work Phone: Start: 12-30-2023 Telephone encounter Ta JUAREZ [facility] Start: 12-30-2023 End: 12-30-2023 ambulatory YUSUF ENGLE Not Available Start: 11-17-2023 End: 11-17-2023 ambulatory Cortez Biswas Other [employer] Other Start: 11-17-2023 Telephone encounter Cortez Ball [facility] Start: 11-10-2023 End: 11-10-2023 ambulatory Cortez Ball Other [employer] Other Start: 11-10-2023 Telephone encounter Cortez Ball [facility] Start: 10-27-2023 End: 10-27-2023 ambulatory Cortez Ball Other [employer] Other Start: 10-27-2023 Telephone encounter Cortez Ball [facility] Start: 09-23-2023 End: 09-23-2023 ambulatory PIEDAD MAZARIEGOSSue Not Available Start: 09-11-2023 End: 09-11-2023 ambulatory YUSUF ENGLE Not Available Start: 08-25-2023 End: 08-25-2023 ambulatory Cortez Ball Other [employer] Other Start: 08-25-2023 Telephone encounter Cortez Ball [facility] Start: 08-11-2023 End: 08-11-2023 ambulatory Cortez Ball Other [employer] Other Start: 08-11-2023 Office outpatient vi sit 25 minutes Cortez Ball [facility] Start: 07-31-2023 End: 07-31-2023 ambulatory Cortez Ball Other [employer] Other Start: 07-31-2023 Telephone encounter Cortez Ball [facility] Start: 07-21-2023 End: 07-21-2023 ambulatory Cortez Ball Other [employer] Other Start: 07-21-2023 Telephone encounter Cortez Ball [facility] Start: 07-11-2023 End: 07-11-2023 ambulatory Cortez Ball Other [employer] Other Start: 07-11-2023 Office outpatient vi sit 25 minutes Cortez Ball [facility] Start: 07-01-2023 End: 07-01-2023 ambulatory Cortez Ball Other [employer] Other Start: 07-01-2023 Telephone encounter Cortez Ball [facility] Start: 06-30-2023 End: 06-30-2023 ambulatory Cortez Ball Other [employer] Other Start: 06-30-2023 Telephone encounter Cortez Ball [facility] Start: 06-30-2023 Transitional care manage srvc 7 day discharge Cortez Ball [facility] Start: 06-25-2023 End: 06-25-2023 ambulatory Cortez Ball Other [employer] Other Start: 06-25-2023 Office outpatient vi sit 15 minutes Supriya Gardner [facility] Start: 06-25-2023 Telephone encounter Cortez Ball [facility] Start: 06-09-2023 End: 06-09-2023 ambulatory Cortez Ball Other [employer] Other Start: 06-09-2023 Telephone encounter Cortez Ball [facility] Start: 05-16-2023 End: 05-16-2023 ambulatory Cortez Ball Other [employer] Other Start: 05-16-2023 Telephone encounter Cortez Ball [facility] Start: 04-21-2023 End: 04-21-2023 ambulatory Cortez Ball Other [employer] Other Start: 04-21-2023 Telephone encounter Cortez Ball [facility] Start: 03-18-2023 End: 03-18-2023 ambulatory Cortez Ball Other [employer] Other Start: 03-18-2023 Telephone encounter Cortez Ball [facility] Start: 02-10-2023 End: 03-12-2023 ambulatory SHAIKH Maury GRAYSON Facility: Start: 02-05-2023 End: 02-05-2023 ambulatory Cortez Ball Other [employer] Other Start: 02-05-2023 Telephone encounter Cortez Biswas [facility] Start: 01-27-2023 End: 01-27-2023 ambulatory Cortez Biswas Other [employer] Other Start: 01-27-2023 Telephone encounter Cortez Biswas [facility] Start: 01-24-2023 End: 01-25-2023 ambulatory SUKHDEEP REYES MD Facility:[facility] Start: 01-13-2023 End: 02-07-2023 ambulatory SHAIKH Maury GRAYSON Facility:[facility] Start: 12-11-2022 End: 01-10-2023 ambulatory SHAIKH Maury GRAYSON Facility:[facility] Start: 12-09-2022 End: 12-09-2022 ambulatory Cortez True Other [employer] Other Start: 12-09-2022 Telephone encounter Cortez Biswas [facility] Start: 11-22-2022 End: 11-22-2022 ambulatory Cortez Biswas Other [employer] Other Start: 11-22-2022 Telephone encounter Cortez Biswas [facility] Start: 11-19-2022 End: 11-19-2022 ambulatory Cortez Biswas Other [employer] Other Start: 11-19-2022 Office outpatient vi sit 25 minutes Cortez True [facility] Start: 11-13-2022 End: 12-11-2022 ambulatory KAISER H FAWLIONELD Facility:[facility] Start: 10-21-2022 End: 10-21-2022 ambulatory Cortez Biswas Other [employer] Other Start: 10-21-2022 Telephone encounter Cortez Biswas [facility] Start: 10-14-2022 End: 11-13-2022 ambulatory H NELSOND Facility:[facility] Start: 09-16-2022 End: 09-16-2022 [...] 05-05-2022 Adult health examination Cortez Biswas Other [email or web address] Other Start: 04-12-2022 End: 05-10-2022 ambulatory SHAIKH Maury GRAYSON Facility:[facility] Procedures Date Procedure Procedure Detail Performing Clinician Start: 05-09-2022 PSA screening SHAIKH LETY WEST Comment on above: Performed By: #### P [facility] #### [facility] [address] [place] [id number] Jessica Delgadillo Start: 05-05-2022 Depression screening Be njjessi Biswas Other Start: 02-20-2017 Screening for malign ant neoplasm of colon Cortez Biswas Other Start: 02-20-2017 Screening for malign ant neoplasm of prostate Cortez Biswas Other Screening for malign ant neoplasm of prostate Cortez Biswas Other Plan of Treatment Date Care Activity Detail Author Start: 07-31-2024 Adult BMI Screening Adult BMI Screening [facility] Start: 06-03-2024 End: 06-03-2024 Patient encounter procedure 06/03/2024 11:10 AM EDT Office Visit [facility] [address] [place] [id number] Sara Renteria MD [address] [place] [address] [facility] Start: 05-20-2024 End: 05-20-2024 Patient encounter procedure [facility] Start: 03-18-2024 End: 03-18-2024 Patient encounter procedure 03/18/2024 10:00 AM EDT Office Visit [facility] [address] [place] [address] Sukhdeep Reyes MD [address] [facility] [address] [place] [id number] [facility] Start: 11-21-2023 Tobacco Screening Tobacco Screening [facility] Start: 06-13-2023 COVID-19 Vaccine ( season) COVID-19 Vaccine ( season) [facility] Start: 06-13-2023 Influenza vaccination Influenza Vaccine [facility] Start: 10-09-2019 DTaP,Tdap and Td Vaccines (2 - Td or Tdap) DTaP,Tdap and Td Vaccines (2 - Td or Tdap) [facility] Start: 2012 Fall Risk Screening Fall Risk Screening [facility] Start: 10-26-2008 Administration of varicella zoster vaccine Zoster (Shingles) Vaccine (2 of 3) [facility] Start: 1965 Adult BMI Follow Up Plan Adult BMI Follow Up Plan [facility] Start: 1959 Depression Screening Depression Screening [facility] Start: 1945 Medicare Annual Wellness Visit Medicare Annual Wellness Visit [facility] Immunizations Immunization Date Immunization Notes Care Provider Fa cility 08-11-2023 influenza virus vaccine, unspecified formulation [facility] 08-11-2023 influenza, high dose seasonal, preservative-free Cortez Biswas Other [email or web address] Other 08-11-2023 Prevnar 20 Cortez Biswas Other [facility] 08-26-2022 COVID-19 Pfizer (Pediatric) Cortez Biswas Other [facility] 08-08-2022 influenza virus vaccine, split virus (incl. purified surface antigen) Cortez Biswas Other [facility] [employer] Other 08-08-2022 influenza virus vaccine, unspecified formulation [facility] 08-27-2021 COVID-19 Vaccine Pfi zer - Documentation Purposes Only Cortez Biswas Other [facility] 08-02-2021 influenza virus vaccine, split virus (incl. purified surface antigen) Cortez Biswas Other [facility] [employer] Other 08-02-2021 influenza virus vaccine, unspecified formulation [facility] 07-09-2021 influenza virus vaccine, unspecified formulation Ta Escalante [facility] 12-14-2020 COVID-19 Vaccine Pfi zer - Documentation Purposes Only Cortez Biswas Other [facility] 11-23-2020 COVID-19 Vaccine Pfi zer - Documentation Purposes Only Cortez Biswas Other [facility] 07-11-2020 influenza virus vaccine, split virus (incl. purified surface antigen) Cortez Biswas Other [facility] [employer] Other 07-11-2020 influenza virus vaccine, unspecified formulation [facility] 07-27-2019 influenza virus vaccine, split virus (incl. purified surface antigen) Cortez True Other [facility] [employer] Other 07-27-2019 influenza virus vaccine, unspecified formulation [facility] 07-24-2018 influenza virus vaccine, split virus (incl. purified surface antigen) Cortez True Other [email or web address] Other 07-24-2018 influenza virus vaccine, unspecified formulation [facility] 07-03-2017 influenza virus vaccine, split virus (incl. purified surface antigen) Cortez Biswas Other [facility] [employer] Other 07-03-2017 influenza virus vaccine, unspecified formulation [facility] 07-09-2016 influenza virus vaccine, split virus (incl. purified surface antigen) Cortez Biswas Other [facility] [employer] Other 07-09-2016 influenza virus vaccine, unspecified formulation [facility] 08-18-2015 pneumococcal conjuga te vaccine, 13 valent Crotez Biswas Other [facility] 06-02-2014 pneumococcal Conjuga te, unspecified formulation; Translations: [Need for prophylactic vaccination against Streptococcus pneumoniae (pneumococcus)] Cortez Biswas Other [facility] [employer] Other 06-02-2014 pneumococcal polysaccharide vaccine, 23 valent Cortez Biswas Other [facility] 07-21-2013 tetanus and diphther ia toxoids, adsorbed, preservative free, for adult use (5 Lf of tetanus toxoid and 2 Lf of diphtheria toxoid) Cortez Biswas Other [facility] 08-31-2008 zoster vaccine, unspecified formulation Ta Escalante [facility] Payers Date Payer Category Payer Medicare [id number] 2016 Unknown [employer] M MO [employer]MED [id number] 2016-Present [phone] [address] [place] [address] [id number] 2012 Medicare MEDICARE MEDICAR E PART A & B [id number] 2012-Present [phone] [address] [place] [address] [id number] 1959 Medicare [id number] 1959 Unknown [id number] [id number] 1947 Unknown [id number] 2.16.840.1.497041.3.579.2.593 1947 Unknown [id number] 2.16.840.1.194692.3.579.2.59 1947 Unknown [id number] 2.16.840.1.300759.3.579.2.593 1947 Unknown [id number] 2.16.840.1.190191.3.579.2.59 1947 Unknown [id number] 2.16.840.1.211827.3.579.2.593 1947 Unknown [id number] 2.16.840.1.329908.3.579.2.59 1947 Unknown [id number] 2.16.840.1.533826.3.579.2.593 1947 Unknown [id number] 2.16.840.1.897897.3.579.2.593 1947 Unknown [id number] 2.16.840.1.127135.3.579.2.593 1947 Unknown [id number] 2.16.840.1.730580.3.579.2.593 1947 Unknown [id number] 2.16.840.1.544677.3.579.2.593 1947 Unknown [id number] 2.16.840.1.988571.3.579.2.59 1947 Unknown [id number] 2.16.840.1.281563.3.579.2.593 1947 Unknown [id number] 2.16.840.1.428745.3.579.2.59 1947 Unknown [id number] 2.16.840.1.568453.3.579.2.593 1947 Unknown [id number] 2.16.840.1.035666.3.579.2.1259 1947 Unknown [id number] 2.16.840.1.853254.3.579.2.1259 1947 Unknown [id number] 2.16.840.1.869440.3.579.2.1259 1947 Unknown [id number] 2.16.840.1.770829.3.579.2.1259 1947 Unknown [id number] 2.16.840.1.824137.3.579.2.1259 1947 Unknown [id number] 2.16.840.1.144151.3.579.2.1286 1947 Unknown [id number] 2.16.840.1.704676.3.579.2.1286 1947 Unknown [id number] 2.16.840.1.817314.3.579.2.1286 1947 Unknown [id number] 2.16.840.1.393947.3.579.2.1286 Social History Date Type Detail Facility Start: 11-23-2020 End: 01-30-2023 Sex Assigned At [facility] [employer] Other Start: 08-28-2022 Tobacco smoking stat [facility] Ex-smoker 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 (finding) [facility] Start: 11-23-2020 End: 01-30-2023 History of Social function [facility] Childcare Unknown [facility] Start: 1945 [facility]: 1945 Sex Assigned At Male F [facility] Clinical Notes 11-19-2022 to 03-15-2024 Telephone Encounter - Ta Escalante, [facility] - 12/30/2023 8:53 AM EDTTelephone Encounter - Ta Escalante, [facility] - 12/30/2023 8:53 AM EDT Note Date & Type Note Facility 03-15-[address] [facility] Cardiology Clinic Note Chief Complaint: Patient here for 1 year follow up CAD, PAF, and hypertension. He was admitted to [facility] in Jun 2023 for KIKE. Sometimes feels palpitations, usually with anxiety. He states it does not last long and doesn't bother him. Denies chest pain, SOB, and LE edema. Denies lightheadedness/syncope and bleeding on warfarin. HPI: Sigifredo Kelly is a 79 y.o. male with [...] the procedure, associat (more content not included)... [facility] 12-30-2023 Miscellaneous Notes Pt called requesting to schedule an established patient appt with our office. Patient stated they prefer to see Dr. Reyes. After reviewing the pt's last progress note with our office, the pt was scheduled for 03/18/24 @ 10:00 with Sukhdeep Reyes MD [facility]23 Telephone encounter Note Pt called requesting to schedule an established patient appt with our office. Patient stated they prefer to see Dr. Reyes. After reviewing the pt's last progress note with our office, the pt was scheduled for 03/18/24 @ 10:00 with [facility] 11-17-2023 Evaluation note Encounter Date Diagnosis Assessment Notes Nov, Primary hypertension (ICD-10 - I10) [email or web address] Other 01-15-2024 Evaluation note* Encounter Date Diagnosis Assessment Notes Treatment Notes Treatment Clinical Notes Oct, MARY (generalized anxiety disorder) (ICD-10 - F41.1) [email or web address] Other 10-30-2023 Evaluation note* Encounter Date Diagnosis [...] are maintaining regular scheduled appts with their house admin. No bleeding complications Jul, Primary hypertension (ICD-10 [...] due to CKD. No further testing necessary [email or web address] Other 10-09-2023 Evaluation note* Encounter Date Diagnosis Assessment Notes Treatment Notes Treatment Clinical Notes Jul, MARY (generalized anxiety disorder) (ICD-10 - F41.1) Jul, ASHD (arteriosclerotic heart disease) (ICD-10 - I25.10) [email or web address] Other 09-29-2023 Evaluation note* Encounter Date Diagnosis [...] are maintaining regular scheduled appts with their house admin. No obvious bleeding complication Jun, Pneumonia of [...] - check Fe, Ferritin, B12, FA, TIBC [email or web address] Other 09-19-2023 Evaluation note* Encounter Date Diagnosis Assessment Notes Treatment Notes Treatment Clinical Notes Jun, Pneumonia of left upper lobe due to infectious organism (ICD-10 - J18.9) [email or web address] Other 09-18-2023 Evaluation note* Encounter Date Diagnosis [...] are maintaining regular scheduled appts with their house admin. No obvious bleeding Jun, Primary hypertension (ICD-10 [...] KIKE and dyspnea resulted in admission to [facility]. IV fluids resulted in improved perfusion and resolution end organ dysfunction. Continue to monitor Jun, Acute kidney failure, unspecified (ICD-10 - N17.9) Acute on Chronic kidney disease. Hydrate, Avoid NSIADs and monitor GFR. Jun, Fatigue, unspecified type (ICD-10 - R53.83) [email or web address] Other 09-13-2023 Evaluation note* Encounter Date Diagnosis [...] Jun, Diarrhea, unspecified type (ICD-10 - R19.7) [email or web address] Other 08-28-2023 Evaluation note* Encounter Date Diagnosis Assessment Notes Treatment Notes Treatment Clinical Notes May, Gastroesophageal ref lux disease with esophagitis without hemorrhage (ICD-10 - K21.00) [email or web address] Other 06-06-2023 Evaluation note* Encounter Date Diagnosis Assessment Notes Treatment Notes Treatment Clinical Notes Mar, Gastroesophageal ref lux disease with esophagitis without hemorrhage (ICD-10 - K21.00) [email or web address] Other 04-17-2023 Evaluation note* Encounter Date Diagnosis Assessment Notes Treatment Notes Treatment Clinical Notes Jan, Hypertension (ICD-10 - I10) Jan, Hyperlipidemia type II (ICD-10 - E78.01) Jan, ASHD (arteriosclerotic heart disease) (ICD-10 - I25.10) [email or web address] Other 04-17-2023 Evaluation note* Encounter Date Diagnosis Assessment Notes Treatment Notes Treatment Clinical Notes Jan, Paroxysmal atrial fibrillation (ICD-10 - I48.0) [email or web address] Other 02-27-2023 Evaluation note* Encounter Date Diagnosis Assessment Notes Treatment Notes Treatment Clinical Notes Nov, Left carotid bruit (ICD-10 - R09.89) Carotid US: < 50% B/L - 11/2022 [email or web address] Other 02-10-2023 Evaluation note* Encounter Date Diagnosis Assessment Notes Treatment Notes Treatment Clinical Notes Nov, Left carotid bruit (ICD-10 - R09.89) Carotid US: < 50% B/L - 11/2022 [email or web address] Other 02-07-2023 Evaluation note* Encounter Date Diagnosis Assessment Notes Treatment Notes Treatment Clinical Notes Nov, Paroxysmal atrial fibrillation (ICD-10 - I48.0) This patient is in NSR or rate controlled. This patient is anticoagulated to prevent thromboembolic events. They are maintaining regular scheduled appts with their house admin. Nov, ASHD (arteriosclerot ic heart disease) (ICD-10 [...] down may require additional labs and endoscopy [email or web address] Other Evaluation noteNo InformationNort [employer] Other Evaluation noteNo assessment information available [facility] Work Phone: History general Narrative [...] AAA 2008 Surgical History RENAL ARTERY STENT 2013 Surgical History LHC 2013 Surgical History RCA 2008 Surgical History [facility] PTCA STNT Hospitalization History SEE SURGICAL HX [email or web address] Other InstructionsNot on filedocumented in this encounter [facility] Summary Purpose Family History No Family History Records Found Relationship Condition Age at Onset Recorded Date/T gely father Diabetes mellitus Unknown mother Family history of mental disorder Unknown Advance Directives No Advanced Directives Records Found Advance Directive Response Recorded Date/ Time Advance Directives No November 01, 2023 5:31pm Chief Complaint and Reason for Visit Chief Complaint Amb Documentation Afib Additional Source Comments REASON FOR VISIT (unrecogniz ed section and content) prescription refill3 month F ollow upNo InformationNo InformationNo InformationrefillsrefillrefillrefillrefillCT resultsrefillCOVID resultsnot feeling wellWants in TodayTBHNo InformationNo InformationLab ResultsVitamin K1 week follow uprefillLab resultsMedication Clarification1 month Follow uprefillrefillrefillrefill (unrecognized sect ion and content) No Status Records FoundNo Status Records FoundNo Status Records FoundNo Status Records Found INFORMATION SOURCE (unrecogn ized section and content) DATE CREATED AUTHOR 03/21/2023 [facility] DATE CREATED AUTHOR AUTHOR'S ORGANIZ ATION 04/28/2024 [facility] DATE CREATED AUTHOR AUTHOR'S ORGANIZ ATION 04/28/2024 [facility] EPIC DATE CREATED AUTHOR AUTHOR'S ORGANIZ ATION 05/22/2024 [facility] Care Teams (unrecognized sec tion and content) Senior User Experience Architect Relationship Specialty Start Date End Date Cortez Biswas DO [address] [place] [address] PCP - General 03/06/17 Team Status: Active [...] BE BASED ON THE PRIMARY CLINICAL RECORDS. [employer] [facility]. provides no warranty or guarantee of the accuracy or completeness of information in this document.
== END 2024-06-03 09:45 | disposition home or self-care (01) ==
LOC: US 09:44
PROVIDERS: PCP Internal Medicine; Visit Provider Student in an Organized Health Care Education/Training Program
DX: I65.23 Occlusion and stenosis of bilateral carotid arteries (principal)
CPT/HCPCS: 93880

== ENCOUNTER 2024-06-14 01:00 | Outpatient (RCR) | payer MEDICARE, SELFPAY | END 2024-07-12 23:37 | disposition home or self-care (01) | LOC: MM 01:00 | PROVIDERS: PCP Internal Medicine; Visit Provider Internal Medicine | DX: Z79.01 Long term (current) use of anticoagulants (principal) | CPT/HCPCS: 85610; G0463 ==

== ENCOUNTER 2024-06-21 06:46 | Outpatient (OUT) | payer MEDICARE, SELFPAY ==
--- OUTSIDE RECORDS SUMMARY | 2024-06-21 06:50 | XMS_ITS | CCD ---
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 Role Phone Cortez Biswas Unavailable FAWWAD, KAISER H Attending Unavailable FAWWAD, KAISER H Admitting Unavailable BALL, DR TORREZ Primary Care Unavailable FAWWAD, KAISER H Attending Unavailable FAWWAD, KAISER H Admitting Unavailable BALL, DR TORREZ Primary Care Unavailable FAWWAD, KAISER H Attending Unavailable FAWWAD, KAISER H Admitting Unavailable BALL, DR TORRZE Primary Care Unavailable FAWWAD, KAISER H Attending [...] DR FREIRE Admitting Unavailable WEST, DR SHANNAN V Consulting Unavailable FAWWAD, KAISER H Attending Unavailable BALL, DR TORREZ Primary Care Unavailable FAWWAD, KAISER H Admitting Unavailable FAWWAD, KAISER H Attending Unavailable FAWWAD, KAISER H Admitting Unavailable BALL, DR TORREZ Primary Care Unavailable FAWWAD, H Attending Unavailable FAWWAD, KAISER H Admitting Unavailable BALL, DR TORREZ Primary Care Unavailable Supriya Gardner Unavailable [phone] True DOCortez Primary Care Provider HERMELINDA CHRISTINE Attending Unavailable RUSHER, YUSUF Chapman Attending Unavailable RUSHER, YUSUF Chapman Attending Unavailable PETITTI, PIEDAD A Attending Unavailable RUSHER, YUSUF A Attending Unavailable PETITTI, PIEDAD A Attending Unavailable BALLCORTEZ Referring Unavailable TRUE, CORTEZ Erickson Primary Care Unavailable LARSTAZAK, EHAB A Referring Unavailable TRUE, CORTEZ Erickson Primary Care Unavailable ABBAS, JIHAD T Referring Unavailable TRUE, CORTEZ Erickson Primary Care Unavailable ABBAS, JIHAD T Referring Unavailable TRUE, CORTEZ Erickson Primary Care Unavailable Allergies Allergy Classification Reported Allergen(s) Allergy Type Date of Onset Reaction(s) Facility (20 sources) cefdinir; Translations: [CEFDINIR] Drug Allergy 01-26-20 22 Unknown, Unknown Reaction [facility] (20 sources) Ciprofloxacin Drug Allergy 04-09-20 24 Unknown, Unknown Reaction [facility] (11 sources) Contrast media Propensity to adverse reactions Unknown [facility] Other (11 sources) Sulfonamides (Antibiotic) Propensity to adverse reactions Unknown [facility] Other (1 source) Iodine (And Iodine Containting Drugs) Drug allergy (disorder) 04-05-20 13 [facility] Repository (20 sources) Substance with sulfonamide structure and antibacterial mechanism of action (substance) Drug allergy 09-30-20 14 Rash [facility] (1 source) patient allergy list reviewed by nurse or physicia Propensity to adverse reactions 01-28-20 18 Comment:Done [facility] Other (19 sources) Dye RETIREMENT Red 40 ([place] Red) *PHARMACEUTICAL ADJUV Propensity to adverse reactions Comment:IVP Dye [facility] Other (3 sources) Iodinated Contrast Media; Translations: [IODINATED CONTRAST MEDIA] Propensity to adverse reactions to drug 09-30-20 14 [facility] (3 sources) Ragweed; Translations: [RAGWEED] Propensity to adverse reactions to drug 03-04-20 22 [facility] (2 sources) Contrast media Allergy to substance 04-09-20 24 Comment:IVP Dye [facility] (4 sources) Sulfonamides (Antibiotic); Translations: [SULFA (SULFONAMIDE ANTIBIOTICS)] Allergy to substance 09-30-20 14 Unknown Reaction [facility] (1 source) Contrast media; Translations: [DYE] Propensity to adverse reactions to drug (disorder) 08-26-20 16 [facility] Repository Medications Current Medications Medication Drug [...] Start: 02-18-2022 take 2 tablets by mo ut in the morning allopurinoL (ZYLOPRIM) 100 mg [...] 09, 2023 1:00am January 05, 2024 1:39pm cholecalciferol 1.25 mg oral tablet (1 source) Vitamin D Start: 06-16-2024 take 1250 ug by mouth every week Cholecalciferol (Vitamin D3) Active 1250 MCG PO every week June 16, 2024 12:00am clonazePAM 0.5 mg oral tablet (20 sources) Benzodiazepine Start: 11-19-2022 End: 05-04-2024 take 0.5 mg by mouth twice daily Clonazepam Active 0.5 MG PO Twice daily 60 30 May 04, 2024 6:16pm clopidogrel 75 mg oral tablet (20 sources) P2Y12 Platelet Inhibitor Start: 12-09-2023 take 75 mg by mouth once daily Clopidogrel Active 75 MG PO Daily December 09, 2023 1:00am docusate sodium 50 mg / sennosides, detention 8.6 mg oral tablet (20 sources) Start: 12-09-2023 take 1 tablet by mouth once daily Sennosides-Docusate Sodium Active 1 TAB-CAP PO Daily December [...] tablet Orally qid for 90 days Active Polyethylene Glycols (1 [...] daily Warfarin Active 6 MG PO Daily February 02, 2024 1:45pm take 4 mg [...] (Original) doxycycline hyclate 100 mg oral capsule (15 sources) Tetracycline-cla ss Drug Start: 12-09-2023 End: 12-15-2023 take 100 mg by mouth twice daily Doxycycline Hyclate Discontinued 100 MG PO Twice daily 10 5 December 09, 2023 1:00am December 15, 2023 3:02pm Start: 07-01-2023 take 1 capsule by mo ut twice daily Doxycycline Hyclate 100 MG 1 capsule Orally twice daily for 5 days Jun, Active metoprolol tartrate 50 mg oral tablet (20 sources) beta-Adrenergic Viktor Start: 03-22-2024 End: 03-22-2024 take 100 mg by mouth once daily Metoprolol Tartrate Discontinued 100 MG PO Daily 90 March 22, 2024 12:00am March 22, 2024 12:24pm Start: 12-09-2023 End: 03-22-2024 take 50 mg by mouth twice daily Metoprolol Tartrate Di scontinued 50 MG PO Twice daily 180 90 March 22, 2024 12:23pm March 22, 2024 2:25pm Start: 02-05-2022 take 1 tablet by fransico th at bedtime metoprolol tartrate (LOPRESSOR) 100 mg tablet Take 1 tablet (100 mg total) by mouth in the morning and at bedtime. 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; 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] Onset: 03-12-2023 Episodic Other aftercare (1 source) Drug therapy finding; Translations: [Other longterm (current) drug therapy] 06-16-2024 Episodic Other circulatory disease (20 sources) Cardiovascular [...] Episodic Other diseases of veins and lymphatics (5 sources) Venous insufficiency (chronic) (peripheral); Translations: [Venous (peripheral) insufficiency, unspecified] Episodic Other diseases of veins and lymphatics (2 sources) Venous insufficiency of leg; Translations: [Venous insufficiency [...] (1 source) Abnormal weight loss Episodic Other screening for suspected conditions (not mental disorders or infectious disease) (3 sources) Encounter for screening for malignant neoplasm of prostate; Translations: [Patient encounter status] Onset: 05-16-2022 06-16-2024 Episodic Other upper respiratory disease (10 sources) [...] Onset: 05-22-2016 Rheumatoid arthritis and related disease (10 sources) Inflammatory polyarthropathy; Translations: [Inflammatory polyarthropathy] 12-09-2023 [...] index 28.0-28.9, adult] Onset: 05-13-2017 Episodic Other skin disorders (1 source) Disorder [...] Francisco Chopra MD on 05/22/2024 7:29 AM [facility] 36on 04-22-2024 36 LM on patient's VM letting him know results of stress test and echo. Normal [facility] 36on 04-21-2024 36 Regarding stress test performed on 04/14/2024: MD Karmen Logan MA Please let the patient know that his stress test shows no ischemia. Dr. Christine, were you able to review his echo that was done at [facility]? Normal [facility] Office Visiton 03-15-2024 Follow-up visit [id number] Nicolas Kelly 1945 M Date Provider Department Center 03/15/2024 [id number], EHAB CARD [facility] No family history on file Level of Service:[address] [place] OFFICE/OUTPATIENT ESTABLISHED MOD MDM 30 MIN Normal [facility] BASIC METABOLIC PANLon 03-09 Anion gap [Moles/Vol] 12 mmol/L Normal 5-15 [facility] Comment on above: Performed By: #### U PCR, BMP, 24565-0, 2777-1, 2731-8, 90816- 6, CBC #### [facility] ([id number]) [address], [address] [place] [address] Calcium [Mass/Vol] 8.6 mg/dL Normal 8.5-10.5 [facility] Comment on above: Performed By: #### U PCR, BMP, 31136-5, 2777-1, 2731-8, 95271- 6, CBC #### [facility] ([id number]) [address], [address] [place] [address] Chloride [Moles/Vol] 108 mmol/L Normal 98-109 [facility] Comment on above: Performed By: #### U PCR, BMP, 12496-5, 2777-1, 2731-8, 11374- 6, CBC #### [facility] ([id number]) [address], [address] [place] [address] CO2 [Moles/Vol] 22 mmol/L Normal 22-32 [facility] Comment on above: Performed By: #### U PCR, BMP, 25796-5, 2777-1, 2731-8, 95028- 6, CBC #### [facility] ([id number]) [address], [address] [place] [address] Creatinine [Mass/Vol] 2.35 mg/dL High 0.60-1.30 [facility] Comment on above: Result Comment: METH OD TRACEABLE TO IDMS STANDARD Performed By: #### U PCR, BMP, 85799-5, 2777-1, 2731-8, 78434-1, CBC #### [facility] ([id number]) [address], [facility] [address] [place] [address] GFR/1.73 sq M.predicted among non-blacks MDRD (S/P/Bld) [Vol rate/Area] 28 mL/min/{1.73_m2} Low >59 [facility] Comment on above: Result Comment: Reported eGFR is based on the CKD-EPI 2020 equation that does not use a race coefficient. Performed By: #### U PCR, BMP, 48372-5, 2777-1, 2731-8, 40261-5, CBC #### [facility] ([id number]) [address], [address] [place] [address] Glucose [Mass/Vol] 110 mg/dL High 65-99 [facility] Comment on above: Performed By: #### U PCR, BMP, 55034-2, 2777-1, 2731-8, 21986- 6, CBC #### [facility] ([id number]) [address], [facility] [address] [place] [address] Potassium [Moles/Vol] 5.0 mmol/L Normal 3.5-5.0 [facility] Comment on above: Result Comment: SPEC IMEN HEMOLYZED, RESULTS INCREASED MODERATELY HEMOLYZED Performed By: #### U PCR, BMP, 71360-6, 2777-1, 2731-8, 13985-6, CBC #### [facility] ([id number]) [address], [address] [place] [address] Sodium [Moles/Vol] 142 mmol/L Normal 134-146 [facility] Comment on above: Performed By: #### U PCR, BMP, 63757-9, 2777-1, 2731-8, 63058- 6, CBC #### [facility] ([id number]) [address], [facility] [address] [place] [address] Urea nitrogen [Mass/Vol] 43 mg/dL High 5-27 [facility] Comment on above: Performed By: #### U PCR, BMP, 12969-1, 2777-1, 2731-8, 76985- 6, CBC #### [facility] ([id number]) [address] [address] [place] [address] COMPLETE BLOOD COUNTon 03-09 Erythrocyte distribution width (RBC) [Ratio] 18.3 % High 11.5-15.0 [facility] Comment on above: Performed By: #### U PCR, BMP, 74536-4, 7-1, 2731-8, 03569- 6, CBC #### [facility] ([id number]) [address] [address] [place] [address] Hematocrit (Bld) [Volume fraction] 35.2 % Low 39-49 [facility] Comment on above: Performed By: #### U PCR, BMP, 89432-2, 2776-1, 2731-8, 69450- 6, CBC #### [facility] ([id number]) [address] [address] [place] [address] Hemoglobin (Bld) [Mass/Vol] 11.7 g/dL Low 13.0-17.0 [facility] Comment on above: Performed By: #### U PCR, BMP, 97082-6, 2776-, 273-8, 67628- 6, CBC #### [facility] ([id number]) [address] [address] [place] [address] MCH (RBC) [Entitic mass] 28.6 pg Normal 27-34 [facility] Comment on above: Performed By: #### U PCR, BMP, 89931-3, 2777-1, 2731-8, 45213- 6, CBC #### [facility] ([id number]) [address] [address] MCHC (RBC) [Mass/Vol] 33.4 g/dL Normal 32-36 [facility] Comment on above: Performed By: #### U PCR, BMP, 32203-5, 2777-1, 2731-8, 33084- 6, CBC #### [facility] ([id number]) [address], [facility] [address] [place] [address] MCV (RBC) [Entitic vol] 86 fL Normal 80-100 [facility] Comment on above: Performed By: #### U PCR, BMP, 40341-9, 2777-1, 2731-8, 60104- 6, CBC #### [facility] ([id number]) [address], [facility] [address] [place] [address] Platelet mean volume (Bld) [Entitic vol] 8.1 fL Normal 7-12 [facility] Comment on above: Performed By: #### U PCR, BMP, 75271-9, 2777-1, 2731-8, 47135- 6, CBC #### [facility] ([id number]) [address] [address] [place] [address] Platelets (Bld) [#/Vol] 122 10*3/uL Low 150-450 [facility] Comment on above: Performed By: #### U PCR, BMP, 98007-1, 7-1, 2731-8, 08207- 6, CBC #### [facility] ([id number]) [address], [facility] [address] [place] [address] RBC COUNT 4.10 X10E12/L Normal 4.10-5.70 [facility] Comment on above: Performed By: #### U PCR, BMP, 08897-2, 2777-1, 2731-8, 90560- 6, CBC #### [facility] ([id number]) [address] [address] [place] [address] WBC (Bld) [#/Vol] 7.1 10*3/uL Normal 4.0-11.0 [facility] Comment on above: Performed By: #### U PCR, BMP, 07993-8, 2777-1, 2731-8, 23219- 6, CBC #### [facility] ([id number]) [address], [address] [place] [address] MAGNESIUMon 03-09-2024 Magnesium [Mass/Vol] 2.3 mg/dL Normal 1.8-2.6 [facility] Comment on above: Performed By: #### U PCR, BMP, 86352-5, 2777-1, 2731-8, 45574- 6, CBC #### [facility] ([id number]) [address], [address] [place] [address] PHOSPHORUSon 03-09-2024 Phosphate [Mass/Vol] 3.4 mg/dL Normal 2.4-4.9 [facility] Comment on above: Result Comment: SPEC IMEN HEMOLYZED, RESULTS INCREASED MODERATELY HEMOLYZED Performed By: #### U PCR, BMP, 30198-9, 2777-1, 2731-8, 25820-7, CBC #### [facility] ([id number]) [address], [address] [place] [address] PROTEIN CREAT RATIOon 2023 RANDOM URINE PROTEIN 270 mg/L High <120 [facility] Comment on above: Performed By: #### U PCR, BMP, 52907-6, 2777-1, 2731-8, 38576- 6, CBC #### [facility] ([id number]) [address], [address] [place] [address] U/PRO/TAKER OFF DRYING KILN RATIO CALC 0.88 High <0.2 [facility] Comment on above: Result Comment: Neph rotic Syndrome is associated with ratios >3.5 Performed By: #### U PCR, BMP, 48026-0, 2777-1, 2731-8, 75088-9, CBC #### [facility] ([id number]) [address] [place] [address] URINE CREATININE,RDM 30.55 mg/dL Normal [facility] Comment on above: Performed By: #### U PCR, BMP, 47093-0, 2777-1, 2731-8, 93897- 6, CBC #### [facility] ([id number]) [address] [facility], [address] [place] [address] Parathyrin.intact [Mass/Vol] on 03-09-2024 PTH INTACT 241 pg/mL High 12-88 [facility] Comment on above: Performed By: #### U PCR, BMP, 68503-8, 2777-1, 2731-8, 08967- 6, CBC #### [facility] ([id number]) [address] [facility], [address] [place] [address] Vitamin D+Metabolites [Mass/ Vol]on 03-09-2024 VITAMIN D 25 HYD TOT 24.5 ng/mL Low 30-100 [facility] Comment on above: Result Comment: Vitamin D status 25 [place] Vitamin D Deficiency <20 ng/mL Insufficiency 20-29 ng/mL Sufficiency 30-100 ng/mL Toxicity >100 ng/mL NOTE: A pediatric reference range has not been established by the wardrobe assistant of this kit. The [place] [employer] recommends a Vitamin D level of = or >20ng/mL in infants and children. Performed By: #### U PCR, BMP, 84661-6, 2777-1, 2731-8, 91542-2, CBC #### [facility] ([id number]) [address], [address] [place] [address] PTH INTACTon 01-25-2023 PTH, Intact 151 pg/mL Critically high 15-65 [facility] Comment on above: Performed By: #### P THINT ####[facility] [address] [address]Dr. Jessica Delgadillo HEMOGRAM AND PLATELon 2022 Hematocrit (Bld) [Volume fraction] 32.2 % Critically low 42.0-54.0 [facility] Comment on above: Performed By: #### H H #### [facility] [address] [address] [address] Jessica Delgadillo Hemoglobin (Bld) [Mass/Vol] 10.2 g/dL Critically low 14.0-18.0 [facility] Comment on above: Performed By: #### H H #### [facility] [address] [address] [address] Jessica Delgadillo MCH (RBC) [Entitic mass] 27.7 pg Normal 25.9-34.0 [facility] Comment on above: Performed By: #### H H #### [facility] [address] [place] [address] Dr. Jessica Delgadillo MCHC (RBC) [Mass/Vol] 31.7 g/dL Normal 29.9-35.2 [facility] Comment on above: Performed By: #### H H #### [facility] [address] [address] [address] Jessica Delgadillo MCV (RBC) [Entitic vol] 87.5 fL Normal 80.0-94.0 [facility] Comment on above: Performed By: #### H H #### [facility] [address] [address] [address] Jessica Delgadillo PLT 121 103/ul Critically low 150-450 [facility] Comment on above: Performed By: #### H H #### [facility] [address] [address] [address] Jessica Delgadillo RBC 3.68 106/ul Critically low 4.70-6.10 [facility] Comment on above: Performed By: #### H H #### [facility] [address] [address] [address] Jessica Delgadillo WBC 5.2 103/ul Normal 4.0-11.0 [facility] Comment on above: Performed By: #### H H #### [facility] [address] [address] [address] Jessica Delgadillo MAGNESIUMon 01-24-2023 Magnesium [Mass/Vol] 2.1 mg/dL Normal 1.8-2.4 [facility] Comment on above: Performed By: #### B MP, PHOS, MG #### [facility] [address] [address] [address] Jessica Delgadillo PHOSPHORUSon 01-24-2023 Phosphate [Mass/Vol] 3.3 mg/dL Normal 2.6-4.7 [facility] Comment on above: Performed By: #### B MP, PHOS, MG #### [facility] [address] [address] [address] Jessica Delgadillo PROF CHEM 8 (BAS METB)on Anion gap [Moles/Vol] 13.1 mmol/L Normal [facility] Comment on above: Performed By: #### B MP, PHOS, MG ####[facility] [address] [address]Dr. Jessica Delgadillo Calcium [Mass/Vol] 8.3 mg/dL Critically low 8.5-10.1 [facility] Comment on above: Performed By: #### B MP, PHOS, MG ####[facility] [address] [address]Dr. Jessica Delgadillo Chloride [Moles/Vol] 106 mmol/L Normal 98-107 [facility] Comment on above: Performed By: #### B MP, PHOS, MG ####[facility] [address] [address]Dr. Jessica Delgadillo CO2 [Moles/Vol] 25.1 mmol/L Normal 21.0-32.0 [facility] Comment on above: Performed By: #### B MP, PHOS, MG ####[facility] [address] [address]Dr. Jessica Delgadillo Creatinine [Mass/Vol] 2.25 mg/dL Critically high 0.70-1.30 [facility] Comment on above: Performed By: #### B MP, PHOS, MG ####[facility] [address] [address]Dr. Jessica Delgadillo EGFR-AF MOLDOVAN 35 mL/min/1.73m2 Critically low >=60 [facility] Comment on above: Performed By: #### B MP, PHOS, MG ####[facility] [address] [address]Dr. Jessica Delgadillo EGFR-NON AF MOLDOVAN 29 mL/min/1.73m2 Critically low >=60 [facility] Comment on above: Performed By: #### B MP, PHOS, MG ####[facility] [address] [address]Dr. Jessica Delgadillo Glucose [Mass/Vol] 111 mg/dL Critically high 74-106 [facility] Comment on above: Performed By: #### B MP, PHOS, MG ####[facility] [address] [address]Dr. Jessica Delgadillo Potassium [Moles/Vol] 4.2 mmol/L Normal 3.5-5.1 [facility] Comment on above: Performed By: #### B MP, PHOS, MG ####[facility] [address] [place], [place] [address]Dr. Jessica Delgadillo Sodium [Moles/Vol] 140 mmol/L Normal 136-145 [facility] Comment on above: Performed By: #### B MP, PHOS, MG ####[facility] [address] [address]Dr. Jessica Delgadillo Urea nitrogen [Mass/Vol] 47.0 mg/dL Critically high 7.0-18.0 [facility] Comment on above: Performed By: #### B MP, PHOS, MG ####[facility] [address] [address]Dr. Jessica Delgadillo Urea nitrogen/Creatini ne [Mass ratio] 20.9 mg/mg Normal [facility] Comment on above: Performed By: #### B MP, PHOS, MG ####[facility] [address] [place] [address]Dr. Jessica Delgadillo URINE T PROTEIN CREAT RATIOo n 01-24-2023 Protein (U) [Mass/Vol] 10.2 mg/dL Normal <=12.0 [facility] Comment on above: Performed By: #### U RTPCR #### [facility] [address] [place] [address] Dr. Jessica Delgadillo UR PROT CREAT RAT 0.49 Normal [facility] Comment on above: Performed By: #### U RTPCR #### [facility] [address] [address] [address] Jessica Delgadillo URINE CREAT 20.93 mg/dL Normal 20.00-300.00 [facility] Comment on above: Performed By: #### U RTPCR #### [facility] [address] [place] [address] Dr. Jessica Delgadillo VITAMIN D 25 OHon 01-24-2023 VIT D 25-OH 34.8 ng/mL Normal [facility] Comment on above: Performed By: #### V ITAD #### [facility] [address] [place] [address] Dr. Jessica Delgadillo VIT D RANGES SEE BELOW Normal [facility] Comment on above: Result Comment: <20 ng/mL Vit D deficient 20 - <30 ng/mL Vit D insufficient 30 - 100 ng/mL Vit D sufficient >100 ng/mL Potential Toxicity Performed By: #### V ITAD #### [facility] [address] [place] [address] Dr. Jessica Delgadillo [facility]on SARS-CoV-2 (COVID-19) RNA VANESSA+probe Ql (Unsp [...] for this test is supported by the Filler Room Attendant of Health and Human Service's declaration that [...] [facility] [address] [address] [address] Jessica Delgadillo CAROTID ART BILon 022 CAROTID ART MOODY EXAMINATION: [place] CAROTID [...] 05-09-2022 CHOL-HDL RATIO NORM SEE BELOW Normal [facility] Comment on above: Result Comment: 3.3 - 4.4 LOW RISK 4.4 - 7.1 AVERAGE RISK 7.1 - 11.0 MODERATE RISK >11.0 HIGH RISK Performed By: #### A LT, LIPID #### [facility] [address] [place] [address] Dr. Jessica Delgadillo Cholesterol [Mass/Vol] 135 mg/dL Normal <=200 [facility] Comment on above: Performed By: #### A LT, LIPID #### [facility] [address] [address] [address] Jessica Delgadillo Cholesterol in HDL [Mass/Vol] 47 mg/dL Normal 40-60 [facility] Comment on above: Performed By: #### A LT, LIPID #### [facility] [address] [address] [address] Jessica Delgadillo Cholesterol in LDL [Mass/Vol] 69.8 mg/dL Normal [facility] Comment on above: Performed By: #### A LT, LIPID #### [facility] [address] [place] [address] Dr. Jessica Delgadillo Cholesterol.total /Cholesterol in HDL [Mass ratio] 2.9 {ratio} Normal [facility] Comment on above: Performed By: #### A LT, LIPID #### [facility] [address] [place] [address] Dr. Jessica Delgadillo HDL NORMAL > or = 60 mg/dl - LOW CARDIOVASCULAR RISK <40 mg/dl - HIGH CARDIOVASCULAR RISK Normal [facility] Comment on above: Performed By: #### A LT, LIPID #### [facility] [address] [place] [address] Dr. Jessica Delgadillo LDL CALC NORMAL SEE BELOW Normal [facility] Comment on above: Result Comment: <100 mg/dl OPTIMAL 100 - 129 mg/dl NEAR OR ABOVE OPTIMAL 130 - 159 mg/dl BORDERLINE HIGH 160 - 189 mg/dl HIGH >190 mg/dl VERY HIGH Performed By: #### A LT, LIPID #### [facility] [address] [address] [address] Jessica Delgadillo Triglyceride [Mass/Vol] 91 mg/dL Normal <=150 [facility] Comment on above: Performed By: #### A LT, LIPID #### [facility] [address] [address] [address] Jessica Delgadillo VLDL CALC 18.2 mg/dL Normal [facility] Comment on above: Performed By: #### A LT, LIPID #### [facility] [address] [address] [address] Jessica Delgadillo [facility] 05-09-2022 ALT [Catalytic activity/Vol] 9 U/L Critically low 16-63 [facility] Comment on above: Performed By: #### A LT, LIPID #### [facility] [address] [address] [address] Jessica Delgadillo Vital Signs Date Time Vital Sign Value Performing Clinician Facility 06-16-2024 10:04-0400 Body height 180.34 cm [facility] 06-16-2024 10:04-0400 Body mass index (BMI) [Ratio] 26.6 kg/m2 [facility] 06-16-2024 10:04-0400 Body weight 86.63 kg [facility] 06-16-2024 10:04-0400 Diastolic blood pressure 89 mm[Hg] [facility] 06-16-2024 10:04-0400 Heart rate 48 /min [facility] 06-16-2024 10:04-0400 Respiratory rate 12 /min [facility] 06-16-2024 10:04-0400 Systolic blood pressure 139 mm[Hg] [facility] 04-09-2024 14:01-0400 Body height 180.34 cm [facility] 04-09-2024 14:01-0400 Body mass index (BMI) [Ratio] 26.2 kg/m2 [facility] 04-09-2024 14:01-0400 Body weight 85.5 kg [facility] 04-09-2024 14:01-0400 Diastolic blood pressure 64 mm[Hg] [facility] 04-09-2024 14:01-0400 Heart rate 98 /min [facility] 04-09-2024 14:01-0400 Respiratory rate 12 /min [facility] 04-09-2024 14:01-0400 Systolic blood pressure 130 mm[Hg] [facility] 08-11-2023 11:30-0400 Body height 180.34 cm Cort[facility] Ball Other [facility] Other 08-11-2023 11:30-0400 Body mass index (BMI) [Ratio] 25.46 kg/m2 [facility] Other [facility] Other 08-11-2023 11:30-0400 Body weight 82.83 kg Cortez Ball Other [facility] Other 08-11-2023 11:30-0400 Diastolic blood pressure 78 mm[Hg] [facility] Other [facility] Other 08-11-2023 11:30-0400 Respiratory rate 12 /min Cortez Ball Other [facility] Other 08-11-2023 11:30-0400 Systolic blood pressure 156 mm[Hg] [facility] Ball Other [facility] Other 07-11-2023 11:00-0400 Body height 180.34 cm Cortez Ball Other [facility] Other 07-11-2023 11:00-0400 Body mass index (BMI) [Ratio] 24.66 kg/m2 [facility] Other [facility] Other 07-11-2023 11:00-0400 Body weight 80.2 kg Cortez Ball Other [facility] Other 07-11-2023 11:00-0400 Diastolic blood pressure 72 mm[Hg] [facility] Ball Other [facility] Other 07-11-2023 11:00-0400 Respiratory rate 12 /min Cortez Ball Other [facility] Other 07-11-2023 11:00-0400 Systolic blood pressure 123 mm[Hg] [facility] Ball Other [facility] Other 06-30-2023 14:30-0400 Body height 180.34 cm Cortez Ball Other [facility] Other 06-30-2023 14:30-0400 Body mass index (BMI) [Ratio] 27.7 kg/m2 Cortez Ball Other [facility] Other 06-30-2023 14:30-0400 Body weight 90.08 kg Cortez Ball Other [facility] Other 06-30-2023 14:30-0400 Diastolic blood pressure 69 mm[Hg] Cort[facility] Ball Other [facility] Other 06-30-2023 14:30-0400 Respiratory rate 12 /min Cortez Ball Other [facility] Other 06-30-2023 14:30-0400 Systolic blood pressure 129 mm[Hg] [facility] Other [facility] Other 06-25-2023 14:30-0400 Body height 180.34 cm Supriya Gardner Other [facility] Other 06-25-2023 14:30-0400 Body mass index (BMI) [Ratio] 27.05 kg/m2 Supriya Gardner Other [facility] Other 06-25-2023 14:30-0400 Body weight 88 kg Supriya Gardner Other [facility] Other 06-25-2023 14:30-0400 Diastolic blood pressure 62 mm[Hg] Supriya Gardner Other [facility] Other 06-25-2023 14:30-0400 SaO2% (BldA) [Mass fraction] 97 % Supriya Gardner Other [facility] Other 06-25-2023 14:30-0400 Systolic blood pressure 98 mm[Hg] Supriya Gardner Other [facility] Other 11-19-2022 10:00-0500 Body height 180.34 cm [facility] Other [facility] Other 11-19-2022 10:00-0500 Body mass index (BMI) [Ratio] 27.89 kg/m2 [email or web address] Other [facility] Other 11-19-2022 10:00-0500 Body weight 90.72 kg [employer] Other [facility] Other 11-19-2022 10:00-0500 Diastolic blood pressure 70 mm[Hg] [employer] Other [facility] Other 11-19-2022 10:00-0500 Respiratory rate 12 /min [employer] Other [facility] Other 11-19-2022 10:00-0500 Systolic blood pressure 124 mm[Hg] [employer] Other [facility] Other Encounters Encounter Date Encounter Type Care Provider Facility Start: 06-16-2024 End: 06-16-[address] [facility] Work Phone: Start: 06-16-2024 End: 06-16-2024 Patient encounter procedure [facility] Work Phone: Start: 06-13-2024 Patient encounter procedure [facility] Start: 05-20-2024 End: 05-20-2024 ambulatory TANI ARGUELLO [facility] Start: 04-22-2024 End: 04-22-2024 ambulatory YUSUF ENGLE Not Available Start: 04-09-2024 End: 04-09-[address] [facility] Work Phone: Start: 04-09-2024 End: 04-09-2024 Patient encounter procedure [facility] Work Phone: Start: 04-01-2024 End: 04-01-2024 ambulatory PIEDAD A PETITTI Not Available Start: 03-26-2024 End: 03-26-2024 ambulatory EHAB A [facility] Start: 03-15-2024 End: 03-15-2024 ambulatory AB [facility] Start: 03-09-2024 End: 03-09-2024 ambulatory CORTEZ BISWAS [facility] Start: 02-02-2024 Non-patient / Non-visit [facility] Work Phone: Start: 12-30-2023 Telephone encounter Ta Escalante [facility] Start: 12-30-2023 End: 12-30-2023 ambulatory YUSUF ENGLE Not Available Start: 11-17-2023 End: 11-17-2023 ambulatory Cortez Biswas Other [facility] Other Start: 11-17-2023 Telephone encounter Cortez Biswas [facility] Start: 11-10-2023 End: 11-10-2023 ambulatory Cortez Biswas Other [facility] Other Start: 11-10-2023 Telephone encounter Cortez Biswas SHARATH G [facility] Start: 10-27-2023 End: 10-27-2023 ambulatory Cortez Biswas Other [facility] Other Start: 10-27-2023 Telephone encounter Cortez Biswas SHARATH G [facility] Start: 09-23-2023 End: 09-23-2023 ambulatory PIEDAD A PETITTI Not Available Start: 09-11-2023 End: 09-11-2023 ambulatory YUSUF A RUSHER Not Available Start: 08-25-2023 End: 08-25-2023 ambulatory Cort[facility] Ball Other [facility] Other Start: 08-25-2023 Telephone encounter Cortez Biswas [facility] Start: 08-11-2023 End: 08-11-2023 ambulatory Cortez Ball Other [facility] Other Start: 08-11-2023 Office outpatient vi sit 25 minutes Cortez Ball [facility] Start: 07-31-2023 End: 07-31-2023 ambulatory Cortez Ball Other [facility] Other Start: 07-31-2023 Telephone encounter Cortez Biswas [facility] Start: 07-21-2023 End: 07-21-2023 ambulatory Cortez Ball Other [facility] Other Start: 07-21-2023 Telephone encounter Cortez Ball [facility] Start: 07-11-2023 End: 07-11-2023 ambulatory Cortez Ball Other [facility] Other Start: 07-11-2023 Office outpatient vi sit 25 minutes Cortez Ball [facility] Start: 07-01-2023 End: 07-01-2023 ambulatory Cortez Ball Other [facility] Other Start: 07-01-2023 Telephone encounter Cortez Ball [facility] Start: 06-30-2023 End: 06-30-2023 ambulatory Cortez Ball Other [facility] Other Start: 06-30-2023 Telephone encounter Cortez Ball [facility] Start: 06-30-2023 Transitional care manage srvc 7 day discharge Cortez Ball [facility] Start: 06-25-2023 End: 06-25-2023 ambulatory Cortez Ball Other [facility] Other Start: 06-25-2023 Office outpatient vi sit 15 minutes Supriya Gardner [facility] Start: 06-25-2023 Telephone encounter Cortez Biswas [facility] Start: 06-09-2023 End: 06-09-2023 ambulatory Cortez Biswas Other [facility] Other Start: 06-09-2023 Telephone encounter Cortez Biswas [facility] Start: 05-16-2023 End: 05-16-2023 ambulatory Cortez Biswas Other [facility] Other Start: 05-16-2023 Telephone encounter Cortez Ball [facility] Start: 04-21-2023 End: 04-21-2023 ambulatory Cortez Biswas Other [facility] Other Start: 04-21-2023 Telephone encounter Cortez Biswas [facility] Start: 03-18-2023 End: 03-18-2023 ambulatory Cortez Biswas Other [facility] Other Start: 03-18-2023 Telephone encounter Cortez Biswas [facility] Start: 02-10-2023 End: 03-12-2023 ambulatory KAISER Maury RENUKA Facility:[facility] Start: 02-05-2023 End: 02-05-2023 ambulatory Cortez Biswas Other [facility] Other Start: 02-05-2023 Telephone encounter Cortez Ball [facility] Start: 01-27-2023 End: 01-27-2023 ambulatory Cortez Biswas Other [facility] Other Start: 01-27-2023 Telephone encounter Cortez Ball [facility] Start: 01-24-2023 End: 01-25-2023 ambulatory SUKHDEEP REYES MD Facility:[facility] Start: 01-13-2023 End: 02-07-2023 ambulatory SHAIKH Maury GRAYSON Facility:[facility] Start: 12-11-2022 End: 01-10-2023 ambulatory SHAIKH Maury GRAYSON Facility:[facility] Start: 12-09-2022 End: 12-09-2022 ambulatory Cortez True Other [facility] Other Start: 12-09-2022 Telephone encounter Cortez Biswas [facility] Start: 11-22-2022 End: 11-22-2022 ambulatory Cortez Biswas Other [facility] Other Start: 11-22-2022 Telephone encounter Cortez Biswas FP [facility] Start: 11-19-2022 End: 11-19-2022 ambulatory Cortez Biswas Other [facility] Other Start: 11-19-2022 Office outpatient vi sit 25 minutes Cortez Biswas [facility] Start: 11-13-2022 End: 12-11-2022 ambulatory H RENUKA Facility:[facility] Start: 10-21-2022 End: 10-21-2022 ambulatory Cortez Biswas Other [facility] Other Start: 10-21-2022 Telephone encounter Cortez Biswas [facility] Start: 10-14-2022 End: 11-13-2022 ambulatory SHAIKH Maury GRAYSON Facility:[facility] Start: 09-16-2022 End: 09-16-[address] CORTEZ BISWAS Facility:[facility] Start: 09-12-2022 End: 10-13-2022 ambulatory SHAIKH Maury GRAYSON Facility:[facility] Start: 08-20-2022 End: 08-21-[address] TANI ARGUELLO Facility:[facility] Start: 08-13-2022 End: 09-11-2022 ambulatory KAISER H RENUKA Facility:[facility] Start: 07-15-2022 End: 08-12-2022 ambulatory SHAIKH Maury GRAYSON Facility:[facility] Start: 06-13-2022 End: 07-13-2022 ambulatory SHAIKH Maury GRAYSON Facility:[facility] Start: 05-13-2022 End: 06-12-2022 ambulatory SHAIKH Maury GRAYSON Facility:[facility] Start: 05-09-2022 End: 05-10-[address] CORTEZ BISWAS Facility:[facility] Start: 05-05-2022 Adult health examination Cortez Biswas Other [facility] Other Start: 04-12-2022 End: 05-10-2022 ambulatory SHAIKH Maury GRAYSON Facility:[facility] Procedures Date Procedure Procedure Detail Performing Clinician Start: 05-09-2022 PSA screening SHAIKH LETY WEST Comment on above: Performed By: #### P [facility] #### [facility] [address] [place] [address] Dr. Jessica Delgadillo Start: 05-05-2022 Depression screening Be njjessi Biswas Other Start: 02-20-2017 Screening for malign ant neoplasm of colon Cortez Biswas Other Start: 02-20-2017 Screening for malign ant neoplasm of prostate Cortez Biswas Other Screening for malign ant neoplasm of prostate Cortez Biswas Other Plan of Treatment Date Care Activity Detail Author Start: 07-31-2024 Adult BMI Screening Adult BMI Screening [facility] Start: 06-03-2024 End: 06-03-2024 Patient encounter procedure 06/03/2024 11:10 AM EDT Office Visit [facility] [address] [place] [id number] Sara Renteria MD [address], [facility] [address] [place] [address] [facility] Start: 05-20-2024 End: 05-20-2024 Patient encounter procedure [facility] Start: 03-18-2024 End: 03-18-2024 Patient encounter procedure 03/18/2024 10:00 AM EDT Office Visit [facility] [address] [facility] [address] [place] [address] Sukhdeep Reyes MD [address] [facility] [address] [place] [phone] [facility] Start: 11-21-2023 Tobacco Screening Tobacco Screening [facility] Start: 06-13-2023 COVID-19 Vaccine ( season) COVID-19 Vaccine ( season) [facility] Start: 06-13-2023 Influenza vaccination Influenza Vaccine [facility] Start: 10-09-2019 DTaP,Tdap and Td Vaccines (2 - Td or Tdap) DTaP,Tdap and Td Vaccines (2 - Td or Tdap) [facility] Start: 2012 Fall Risk Screening Fall Risk Screening [facility] Start: 10-26-2008 Administration of varicella zoster vaccine Zoster (Shingles) Vaccine (2 of 3) [facility] Start: 1965 Adult BMI Follow Up Plan Adult BMI Follow Up Plan [facility] Start: 1959 Depression Screening Depression Screening [facility] Start: 1945 Medicare Annual Wellness Visit Medicare Annual Wellness Visit [facility] Comprehensive metabo lic 2000 panel - Serum or Plasma [facility] Immunizations Immunization Date Immunization Notes Care Provider Fa cility 08-11-2023 influenza virus vaccine, unspecified formulation [facility] 08-11-2023 influenza, high dose seasonal, preservative-free Cortez Biswas Other [facility] Other 08-11-2023 Prevnar 20 Cortez Biswas Other [facility] 08-26-2022 COVID-19 Pfizer (Pediatric) Cortez Biswas Other [facility] 08-08-2022 influenza virus vaccine, split virus (incl. purified surface antigen) Cortez Biswas Other [facility] Other 08-08-2022 influenza virus vaccine, unspecified formulation [facility] 08-27-2021 COVID-19 Vaccine Pfi zer - Documentation Purposes Only Cortez Biswas Other [facility] 08-02-2021 influenza virus vaccine, split virus (incl. purified surface antigen) Cortez Biswas Other [facility] Other 08-02-2021 influenza virus vaccine, unspecified formulation [facility] 07-09-2021 influenza virus vaccine, unspecified formulation Ta Escalante [facility] 12-14-2020 COVID-19 Vaccine Pfi zer - Documentation Purposes Only Cortez Biswas Other [facility] 11-23-2020 COVID-19 Vaccine Pfi zer - Documentation Purposes Only Cortez Biswas Other [facility] 07-11-2020 influenza virus vaccine, split virus (incl. purified surface antigen) Cortez Biswas Other [facility] Other 07-11-2020 influenza virus vaccine, unspecified formulation [facility] 07-27-2019 influenza virus vaccine, split virus (incl. purified surface antigen) Cortez Biswas Other [facility] Other 07-27-2019 influenza virus vaccine, unspecified formulation [facility] 07-24-2018 influenza virus vaccine, split virus (incl. purified surface antigen) Cortez Biswas Other [facility] Other 07-24-2018 influenza virus vaccine, unspecified formulation [facility] 07-03-2017 influenza virus vaccine, split virus (incl. purified surface antigen) Cortez Biswas Other [facility] Other 07-03-2017 influenza virus vaccine, unspecified formulation [facility] 07-09-2016 influenza virus vaccine, split virus (incl. purified surface antigen) Cortez Biswas Other [facility] Other 07-09-2016 influenza virus vaccine, unspecified formulation [facility] 08-18-2015 pneumococcal conjuga te vaccine, 13 valent Cortez Biswas Other [facility] 06-02-2014 pneumococcal Conjuga te, unspecified formulation; Translations: [Need for prophylactic vaccination against Streptococcus pneumoniae (pneumococcus)] Cortez Biswas Other [facility] Other 06-02-2014 pneumococcal polysaccharide vaccine, 23 valent Cortez Biswas Other [facility] 07-21-2013 tetanus and diphther ia toxoids, adsorbed, preservative free, for adult use (5 Lf of tetanus toxoid and 2 Lf of diphtheria toxoid) Cortez Biswas Other [facility] 08-31-2008 zoster vaccine, unspecified formulation Ta Escalante [facility] Payers Date Payer Category Payer Medicare [id number] 2016 Unknown [employer] [id number] 2016-Present [phone] [address] [place] [address] [id number] 2012 Medicare MEDICARE MEDICAR E PART A & B [id number] 2012-Present [phone] [address] [place] [address] [id number] 1959 Medicare [id number] 1959 Unknown [id number] 2.16.84 [id number] 1947 Unknown [id number] 2.16.840.1.301479.3.579.2.593 1947 Unknown [id number] 2.16.840.1.271949.3.579.2.593 1947 Unknown [id number] 2.16.840.1.615393.3.579.2.593 1947 Unknown [id number] 2.16.840.1.982601.3.579.2.593 1947 Unknown [id number] 2.16.840.1.655099.3.579.2.593 1947 Unknown [id number] 2.16.840.1.519193.3.579.2.593 1947 Unknown [id number] 2.16.840.1.739765.3.579.2.593 1947 Unknown [id number] 2.16.840.1.581182.3.579.2.593 1947 Unknown [id number] 2.16.840.1.342791.3.579.2.593 1947 Unknown [id number] 2.16.840.1.283050.3.579.2.593 1947 Unknown [id number] 2.16.840.1.557357.3.579.2.593 1947 Unknown [id number] 2.16.840.1.175858.3.579.2.593 1947 Unknown [id number] 2.16.840.1.849832.3.579.2.593 1947 Unknown [id number] 2.16.840.1.308334.3.579.2.593 1947 Unknown [id number] 2.16.840.1.044189.3.579.2.593 1947 Unknown [id number] 2.16.840.1.282613.3.579.2.1259 1947 Unknown [id number] 2.16.840.1.969368.3.579.2.1259 1947 Unknown [id number] 2.16.840.1.085425.3.579.2.1259 1947 Unknown [id number] 2.16.840.1.656405.3.579.2.1259 1947 Unknown [id number] 2.16.840.1.550325.3.579.2.1259 1947 Unknown [id number] 2.16.840.1.957083.3.579.2.1286 1947 Unknown [id number] 2.16.840.1.735656.3.579.2.1286 1947 Unknown [id number] 2.16.840.1.672382.3.579.2.1286 1947 Unknown [id number] 2.16.840.1.005740.3.579.2.1286 Social History Date Type Detail Facility Start: 11-23-2020 End: 01-30-2023 Sex Assigned At [facility] Other Start: 08-28-2022 Tobacco smoking stat [facility] Ex-smoker [facility] History of tobacco use [facility] Start: 08-28-2022 Tobacco use and exposure Smokeless tobacco non-user [facility] Start: 07-31-2023 Alcohol intake 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 (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) [facility] Start: 11-23-2020 End: 01-30-2023 History of Social function [facility] Childcare Unknown [facility] Start: 1945 Sex Assigned At Not on file P [facility] Start: 1945 Sex Assigned At Male F [facility] Clinical Notes 11-19-2022 to 03-15-2024 Telephone Encounter - Ta Escalante, [facility] - 12/30/2023 8:53 AM EDTTelephone Encounter - Ta Escalante, [facility] - 12/30/2023 8:53 AM EDT Note Date & Type Note Facility 03-15-[address] [facility] Cardiology Clinic Note Chief Complaint: Patient here for 1 year follow up CAD, PAF, and hypertension. He was admitted to [facility] in Jun 2023 for KIKE. Sometimes [...] the procedure, associat (more content not included)... [facility] 12-30-2023 Miscellaneous Notes Pt called requesting to schedule an established patient appt with our office. Patient stated they prefer to see Dr. Reyes. After reviewing the pt's last progress note with our office, the pt was scheduled for 03/18/24 @ 10:00 with Sukhdeep Reyes MD documented in this encounter [facility] 12-30-2023 Telephone encounter Note Pt called requesting to schedule an established patient appt with our office. Patient stated they prefer to see Dr. Reyes. After reviewing the pt's last progress note with our office, the pt was scheduled for 03/18/24 @ 10:00 with Sukhdeep Reyes MD [facility] 11-17-2023 Evaluation note Encounter Date Diagnosis Assessment Notes Nov, Primary hypertension (ICD-10 - I10) [facility] Other 01-15-2024 Evaluation note* Encounter Date Diagnosis Assessment Notes Treatment Notes Treatment Clinical Notes Oct, MARY (generalized anxiety disorder) (ICD-10 - F41.1) [facility] Other 10-30-2023 Evaluation note* Encounter Date Diagnosis [...] are maintaining regular scheduled appts with their pta. No bleeding complications Jul, Primary hypertension (ICD-10 [...] due to CKD. No further testing necessary [facility] Other 10-09-2023 Evaluation note* Encounter Date Diagnosis Assessment Notes Treatment Notes Treatment Clinical Notes Jul, MARY (generalized anxiety disorder) (ICD-10 - F41.1) Jul, ASHD (arteriosclerotic heart disease) (ICD-10 - I25.10) [facility] Other 09-29-2023 Evaluation note* Encounter Date Diagnosis [...] are maintaining regular scheduled appts with their pta. No obvious bleeding complication Jun, Pneumonia of [...] - check Fe, Ferritin, B12, FA, TIBC [facility] Other 09-19-2023 Evaluation note* Encounter Date Diagnosis Assessment Notes Treatment Notes Treatment Clinical Notes Jun, Pneumonia of left upper lobe due to infectious organism (ICD-10 - J18.9) [facility] Other 09-18-2023 Evaluation note* Encounter Date Diagnosis [...] are maintaining regular scheduled appts with their pta. No obvious bleeding Jun, Primary hypertension (ICD-10 [...] KIKE and dyspnea resulted in admission to [facility]. IV fluids resulted in improved perfusion and resolution end organ dysfunction. Continue to monitor Jun, Acute kidney failure, unspecified (ICD-10 - N17.9) Acute on Chronic kidney disease. Hydrate, Avoid NSIADs and monitor GFR. Jun, Fatigue, unspecified type (ICD-10 - R53.83) [facility] Other 09-13-2023 Evaluation note* Encounter Date Diagnosis [...] Jun, Diarrhea, unspecified type (ICD-10 - R19.7) [facility] Other 08-28-2023 Evaluation note* Encounter Date Diagnosis Assessment Notes Treatment Notes Treatment Clinical Notes May, Gastroesophageal ref lux disease with esophagitis without hemorrhage (ICD-10 - K21.00) [facility] Other 06-06-2023 Evaluation note* Encounter Date Diagnosis Assessment Notes Treatment Notes Treatment Clinical Notes Mar, Gastroesophageal ref lux disease with esophagitis without hemorrhage (ICD-10 - K21.00) [facility] Other 04-17-2023 Evaluation note* Encounter Date Diagnosis Assessment Notes Treatment Notes Treatment Clinical Notes Jan, Hypertension (ICD-10 - I10) Jan, Hyperlipidemia type II (ICD-10 - E78.01) Jan, ASHD (arteriosclerotic heart disease) (ICD-10 - I25.10) [facility] Other 04-17-2023 Evaluation note* Encounter Date Diagnosis Assessment Notes Treatment Notes Treatment Clinical Notes Jan, Paroxysmal atrial fibrillation (ICD-10 - I48.0) [facility] Other 02-27-2023 Evaluation note* Encounter Date Diagnosis Assessment Notes Treatment Notes Treatment Clinical Notes Nov, Left carotid bruit (ICD-10 - R09.89) Carotid US: < 50% B/L - 11/2022 [facility] Other 02-10-2023 Evaluation note* Encounter Date Diagnosis Assessment Notes Treatment Notes Treatment Clinical Notes Nov, Left carotid bruit (ICD-10 - R09.89) Carotid US: < 50% B/L - 11/2022 [facility] Other 02-07-2023 Evaluation note* Encounter Date Diagnosis Assessment Notes Treatment Notes Treatment Clinical Notes Nov, Paroxysmal atrial fibrillation (ICD-10 - I48.0) This patient is in NSR or rate controlled. This patient is anticoagulated to prevent thromboembolic events. They are maintaining regular scheduled appts with their pta. Nov, ASHD (arteriosclerot ic heart disease) (ICD-10 [...] down may require additional labs and endoscopy [place] [facility] Other Evaluation noteNo InformationN[facility]Select [facility] Other Evaluation noteNo assessment information available [facility] Work Phone: Evaluation note* Diagnosis Onset Date Resolution Status ASHD (arteriosclerotic heart disease) acute Chronic venous insufficiency acute Paroxysmal atrial fibrillation acute Primary hypertension acute ASHD (arteriosclerotic heart disease) acute Chronic kidney disease acute Chronic venous insufficiency acute Hypercholesterolemia acute Medicare annual wellness visit, subsequent acute Paroxysmal atrial fibrillation acute Primary hypertension acute Screening PSA (prostate specific antigen) acute [facility] Work Phone: History general Narrative - [...] 2013 Surgical History RCA 2008 Surgical History [facility] STNT Hospitalization History SEE SURGICAL HX [facility] Other InstructionsNot on filedocumented in this encounter [employer] Summary Purpose Family History Relationship Condition Age at Onset Recorded Date/T gely father Diabetes mellitus Unknown mother Family history of mental disorder Unknown Advance Directives Advance Directive Response Recorded Date/ Time Advance Directives No November 01, 2023 5:31pm Chief Complaint and Reason for Visit Chief Complaint Amb Documentation Afib Chief Complaint Afib wellness Reason for Visit ASHD (arteriosclerot ic heart disease) Chronic venous insufficiency Paroxysmal atrial fibrillation Primary hypertension ASHD (arteriosclerotic heart disease) Chronic kidney disease Chronic venous insufficiency Hypercholesterolemia Medicare annual wellness visit, subsequent Paroxysmal atrial fibrillation Primary hypertension Screening PSA (prostate specific antigen) Additional Source Comments REASON FOR VISIT (unrecogniz [...] and content) DATE CREATED AUTHOR 03/21/2023 [facility] DATE CREATED AUTHOR AUTHOR'S ORGANIZ ATION 04/28/2024 [facility] DATE CREATED AUTHOR AUTHOR'S ORGANIZ ATION 04/28/2024 [facility] DATE CREATED AUTHOR AUTHOR'S ORGANJOE ATION 05/22/2024 [facility] Care Teams (unrecognized sec tion and content) Team Status: Active Member Role Status Dates Cortez Biswas DO Primary Care Provider Active Team Status: Inactive Member Role Status Dates Cortez Biswas DO Primary Care Provide r, Attending Provider Active Start: April 09, 2024 End: April 09, 2024 Team Status: Inactive Member Role Status Dates Cortez Biswas DO Primary Care Provide r, Attending Provider Active Start: June 16, 2024 End: June 16, 2024 [employer] Relationship Specialty Start Date End Date Cortez Biswas DO [address] [place] [address] PCP - General 03/06/17 Team Status: Active [...] April 09, 2024 End: April 09, 2024 Team Status: Inactive Member Role Status Dates Cortez Biswas DO Primary Care Provide r, Attending Provider Active Start: June 16, 2024 End: June 16, 2024 Goals (unrecognized section and content) Goals [...] BE BASED ON THE PRIMARY CLINICAL RECORDS. [employer] [facility]. provides no warranty or guarantee of the accuracy or completeness of information in this document.
[2024-06-21 07:52] LABS: Alanine Aminotransferase 15 U/L (16-63); Albumin Globulin Ratio 1.1; Albumin Level 3.2 g/dL (3.4-5.0); Alkaline Phosphatase 91 U/L (46-116); Anion Gap 10.5; Aspartate Amino Transferase 13 U/L (15-37); BUN Creatinine Ratio 17.2; Bilirubin Total 0.3 mg/dL (0.2-1.0); Calcium 8.8 mg/dL (8.5-10.1); Carbon Dioxide 29.7 mmol/L (21.0-32.0); Chloride 109 mmol/L (98-107); Chol HDL Ratio 2.9; Cholesterol 150 mg/dL (<=200); Estimated GFR (African America 30 (>=60); Estimated GFR (Non-African Ame 24 (>=60); Globulin 2.9 g/dL; Glucose 108 mg/dL (74-106); HDL Cholesterol 51 mg/dL (40-60); LDL Cholesterol Calculated 85.4 mg/dL; Potassium 4.2 mmol/L (3.5-5.1); Sodium 145 mmol/L (136-145); Thyroid Stimulating Hormone 4.208 uIU/mL (0.358-3.740); Total Protein 6.1 g/dL (6.4-8.2); Triglycerides 68 mg/dL (<=150); VLDL CHOLESTEROL 13.6 mg/dL
[2024-06-21 08:54] LABS: Prostate Specific Antigen Scrn 1.04 ng/mL (<=4.00)
== END 2024-06-21 06:47 | disposition home or self-care (01) ==
LOC: LAB 06:48
PROVIDERS: PCP Internal Medicine; Visit Provider Internal Medicine
DX: E78.00 Pure hypercholesterolemia, unspecified (principal); N18.9 Chronic kidney disease, unspecified; I10 Essential (primary) hypertension; Z12.5 Encounter for screening for malignant neoplasm of prostate; Z79.899 Other long term (current) drug therapy; R00.1 Bradycardia, unspecified
CPT/HCPCS: 36415; 80053; 80061; 84443; G0103

== ENCOUNTER 2024-07-13 01:37 | Outpatient (RCR) | payer MEDICARE, SELFPAY | END 2024-08-12 23:10 | disposition home or self-care (01) | LOC: MM 01:37 | PROVIDERS: PCP Internal Medicine; Visit Provider Internal Medicine | DX: Z51.81 Encounter for therapeutic drug level monitoring (principal); Z79.01 Long term (current) use of anticoagulants | CPT/HCPCS: 85610; G0463 ==

== ENCOUNTER 2024-08-13 11:28 | Outpatient (RCR) | payer MEDICARE, SELFPAY | END 2024-09-11 23:59 | disposition home or self-care (01) | LOC: MM 11:28 | PROVIDERS: PCP Internal Medicine; Visit Provider Internal Medicine | DX: Z51.81 Encounter for therapeutic drug level monitoring (principal); Z79.01 Long term (current) use of anticoagulants; I48.91 Unspecified atrial fibrillation | CPT/HCPCS: 85610; G0463 ==

== ENCOUNTER 2024-09-13 03:42 | Outpatient (RCR) | payer MEDICARE, SELFPAY | END 2024-10-12 09:34 | disposition home or self-care (01) | LOC: MM 03:42 | PROVIDERS: PCP Internal Medicine; Visit Provider Internal Medicine | DX: Z51.81 Encounter for therapeutic drug level monitoring (principal); Z79.01 Long term (current) use of anticoagulants | CPT/HCPCS: 85610; G0463 ==

== ENCOUNTER 2024-09-28 08:50 | Outpatient (OUT) | payer MEDICARE, SELFPAY ==
[2024-09-28 10:02] LABS: Anion Gap 12.7; BUN Creatinine Ratio 18.8; Calcium 8.4 mg/dL (8.5-10.1); Carbon Dioxide 27.7 mmol/L (21.0-32.0); Chloride 110 mmol/L (98-107); Estimated GFR (African America 29 (>=60 mL/min/1.73m^2); Estimated GFR (Non-African Ame 24 (>=60 mL/min/1.73m^2); Glucose 105 mg/dL (74-106); Potassium 4.4 mmol/L (3.5-5.1); Sodium 146 mmol/L (136-145)
[2024-09-28 10:12] LABS: Estimated Average Glucose 123 mg/dL; Glycohemoglobin A1C 5.9 % (4.5-6.2)
== END 2024-09-28 08:51 | disposition home or self-care (01) ==
LOC: LAB 08:51
PROVIDERS: PCP Internal Medicine; Visit Provider Internal Medicine
DX: R73.9 Hyperglycemia, unspecified (principal); N18.4 Chronic kidney disease, stage 4 (severe)
CPT/HCPCS: 36415; 80048; 83036

== ENCOUNTER 2024-10-14 00:37 | Outpatient (RCR) | payer MEDICARE, SELFPAY | END 2024-11-12 14:52 | disposition home or self-care (01) | LOC: MM 00:37 | PROVIDERS: PCP Internal Medicine; Visit Provider Internal Medicine | DX: Z51.81 Encounter for therapeutic drug level monitoring (principal); Z79.01 Long term (current) use of anticoagulants | CPT/HCPCS: 85610; G0463 ==

== ENCOUNTER 2024-11-15 02:27 | Outpatient (RCR) | payer MEDICARE, SELFPAY | END 2024-12-10 12:44 | disposition home or self-care (01) | LOC: MM 02:27 | PROVIDERS: PCP Internal Medicine; Visit Provider Internal Medicine | DX: Z51.81 Encounter for therapeutic drug level monitoring (principal); Z79.01 Long term (current) use of anticoagulants | CPT/HCPCS: 85610; G0463 ==

== ENCOUNTER 2024-12-12 07:52 | Outpatient (RCR) | payer MEDICARE, SELFPAY | END 2025-01-07 13:26 | disposition home or self-care (01) | LOC: MM 07:52 | PROVIDERS: PCP Internal Medicine; Visit Provider Internal Medicine | DX: Z51.81 Encounter for therapeutic drug level monitoring (principal); Z79.01 Long term (current) use of anticoagulants; I48.91 Unspecified atrial fibrillation ==

== ENCOUNTER 2025-01-11 04:03 | Outpatient (RCR) | payer MEDICARE, SELFPAY | END 2025-02-09 15:11 | disposition home or self-care (01) | LOC: MM 04:03 | PROVIDERS: PCP Internal Medicine; Visit Provider Internal Medicine | DX: Z51.81 Encounter for therapeutic drug level monitoring (principal); Z79.01 Long term (current) use of anticoagulants | CPT/HCPCS: 85610; G0463 ==

== ENCOUNTER 2025-02-10 04:49 | Outpatient (RCR) | payer MEDICARE, SELFPAY | END 2025-03-12 07:19 | disposition home or self-care (01) | LOC: MM 04:49 | PROVIDERS: PCP Internal Medicine; Visit Provider Internal Medicine | DX: Z51.81 Encounter for therapeutic drug level monitoring (principal); Z79.01 Long term (current) use of anticoagulants | CPT/HCPCS: 85610; G0463 ==

== ENCOUNTER 2025-03-13 08:24 | Outpatient (RCR) | payer MEDICARE, SELFPAY | END 2025-04-07 15:09 | disposition home or self-care (01) | LOC: MM 08:24 | PROVIDERS: PCP Internal Medicine; Visit Provider Internal Medicine | DX: Z51.81 Encounter for therapeutic drug level monitoring (principal); Z79.01 Long term (current) use of anticoagulants | CPT/HCPCS: 85610; G0463 ==

== ENCOUNTER 2025-04-12 02:41 | Outpatient (RCR) | payer MEDICARE, SELFPAY | END 2025-05-12 17:00 | disposition home or self-care (01) | LOC: MM 02:41 | PROVIDERS: PCP Internal Medicine; Visit Provider Internal Medicine | DX: Z51.81 Encounter for therapeutic drug level monitoring (principal); Z79.01 Long term (current) use of anticoagulants; I48.91 Unspecified atrial fibrillation | CPT/HCPCS: 85610; G0463 ==

== ENCOUNTER 2025-05-13 01:11 | Outpatient (RCR) | payer MEDICARE, SELFPAY | END 2025-06-09 13:16 | disposition home or self-care (01) | LOC: MM 01:11 | PROVIDERS: PCP Internal Medicine; Visit Provider Internal Medicine | DX: Z51.81 Encounter for therapeutic drug level monitoring (principal); Z79.01 Long term (current) use of anticoagulants; I48.91 Unspecified atrial fibrillation | CPT/HCPCS: 85610; G0463 ==

== ENCOUNTER 2025-06-13 00:56 | Outpatient (RCR) | payer MEDICARE, SELFPAY | END 2025-07-12 15:49 | disposition home or self-care (01) | LOC: MM 00:56 | PROVIDERS: PCP Internal Medicine; Visit Provider Internal Medicine | DX: Z51.81 Encounter for therapeutic drug level monitoring (principal); Z79.01 Long term (current) use of anticoagulants; I48.91 Unspecified atrial fibrillation | CPT/HCPCS: 85610; G0463 ==

== ENCOUNTER 2025-06-23 07:06 | Outpatient (OUT) | payer MEDICARE, SELFPAY ==
--- OUTSIDE RECORDS SUMMARY | 2025-06-23 07:11 | XMS_ITS | CCD ---
Author Organization [facility] Care Team Providers Care Administration Vice President Name Role Phone Cortez Lugo Unavailable FAWWAD, K[facility] H Attending Unavailable FAWWAD, [...] Attending Unavailable BALL, DR TORREZ Admitting Unavailable WALLACE REYES MD Consulting Unavailab Yefri MORAN, WALLACE Mendieta Attending Unavailab le BALL, DR TORREZ Primary Care Unavailable WALLACE REYES MD Admitting Unavailab christina ARGUELLO, DR FREIRE Consulting Unavailable SAUNDRA, DR FREIRE Attending Unavailable PARISH, DR TORREZ Primary Care Unavailable ABBAS, DR FREIRE Admitting Unavailable WEST, DR SHANNAN Mckeon Consulting Unavailable FAWWAD, KAISER H Attending Unavailable BALL, DR TORREZ Primary Care Unavailable FAWWAD, K[facility]ER H Admitting Unavailable FAWWAD, H Attending Unavailable FAWWAD, KAISER H Admitting Unavailable BALL, DR TORREZ Primary Care Unavailable FAWWAD, H Attending Unavailable FAWWAD, H Admitting Unavailable BALL, DR TORREZ Primary Care Unavailable Kendra Supriya Unavailable Cortez Lugo MD Primary Care Provider Ball , Cortez Erickson Primary Care Provider Murmichelle YUAN, Cortez Attending Provider Cathleen MORAN, Piedad Chapman Unavailable Cortez Gaspar DO Unavailable Cortez Gaspar Attending Unavailable Cortez Gaspar Admitting Unavailable Cortez Lugo DO Primary Care Provider CORTEZ GASPAR Attending Unavailable MURCEK, CORTEZ Trejo Attending Unavailable PETITTI, PIEDAD Chapman Referring Unavailable PETITTI, PIEDAD Chapman Attending Unavailable RUSHER, YUSUF Chapman Attending Unavailable MURCEK, CORTEZ Trejo Attending Unavailable PETITTI, PIEDAD A Referring Unavailable RUSHER, YUSUF Chapman Attending Unavailable RUSHER, YUSUF Chapman Attending Unavailable RUSHER, YUSUF Chapman Attending Unavailable PETITTI, PIEDAD Chapman Attending Unavailable MURCEK, CORTEZ Trejo Attending Unavailable PETITTI, PIEDAD A Referring Unavailable ELTAHAWY, EHAB Attending Unavailable TANI ARGUELLO T Referring Unavailable BALLCORTEZ Primary Care Unavailable TANI ARGUELLO T Referring Unavailable BALLCORTEZ Primary Care Unavailable AMYWALLACE L Referring Unavailable BALL, CORTEZ Erickson Primary Care Unavailable AMYWALLACE DRUMMOND Referring Unavailable BALL, CORTEZ Erickson Primary Care Unavailable FADIA, SARA F Attending Unavailable FADIA, SARA F Referring Unavailable BALL, CORTEZ Erickson Primary Care Unavailable YULIANA ADLER Attending Unavailable BALL, CORTEZ Erickson Referring Unavailable BALL, CORTEZ Erickson Primary Care Unavailable Parish YUAN, Cortez Primary Care Provider Parish YUAN, Cortez Attending Provider Allergies Allergy Classification Reported Allergen(s) Allergy Type Date of Onset Reaction(s) Facility (20 sources) cefdinir; Translations: [CEFDINIR] Drug Allergy 01-26-20 22 Unknown, Unknown Reaction [facility] (20 sources) Ciprofloxacin Drug Allergy 04-09-20 24 Unknown, Unknown Reaction [facility] (11 sources) Contrast media Propensity to adverse reactions Unknown Saber Hacer Other (11 sources) Sulfonamides (Antibiotic) Propensity to adverse reactions Unknown Saber Hacer Other (1 source) Iodine (And Iodine Containting Drugs) Drug allergy (disorder) 04-05-20 13 [facility] Repository (20 sources) Substance with sulfonamide structure and antibacterial mechanism of action (substance) Drug allergy 09-30-20 14 Rash Saber Hacer Other (1 source) patient allergy list reviewed by nurse or physicia Propensity to adverse reactions 01-28-20 18 Comment:Done Saber Hacer Other (19 sources) Dye [facility] Red 40 ([place] [facility]) *PHARMACEUTICAL ADJUV Propensity to adverse reactions Comment:IVP Dye Saber Hacer Other (9 sources) Contrast media; Translations: [red dye] Allergy to substance 04-09-20 24 Comment:IVP Dye [facility] (12 sources) Sulfonamides (Antibiotic); Translations: [Sulfa (Sulfonamide Antibiotics)] Allergy to substance 09-30-20 14 Unknown Reaction [facility] (20 sources) Iodinated Contrast Media; Translations: [IODINATED CONTRAST MEDIA] Propensity to adverse reactions 09-30-20 14 [facility] (18 sources) Mixed Ragweed Propensity to adverse reactions 03-24-20 23 [facility] (13 sources) cefdinir Drug Allergy 01-26-20 22 [facility] (14 sources) Ragweed pollen; Translations: [RAGWEED] Propensity to adverse reactions to drug 03-04-20 22 [facility] (1 source) cefdinir Drug Allergy 09-13-20 [facility] Repository (1 source) Ciprofloxacin Drug Allergy 09-13-20 [facility] Repository (1 source) Contrast media; Translations: [DYE] Propensity to adverse reactions to drug (disorder) 08-26-20 16 [facility] Repository Medications Current Medications Medication Drug Class(es) Dates Sig (Normalized) Sig (Original) acetaminophen 325 mg oral tablet (11 sources) take 2 tablets by mouth every six hours as needed for pain acetaminophen (TYLENOL) 325 mg tablet Take 2 tablets (650 mg total) by mouth every 6 (six) hours as needed for pain. Active allopurinol 100 mg oral tablet (20 sources) Xanthine Oxidase Inhibitor Start: 06-20-2024 End: 05-10-2025 take 2 tablets by mouth once daily Allopurinol 100 mg tablet Active 0 .ROUTE .COMPLEX 180 May 10, 2025 7:40am TAKE 2 TABLETS BY MOUTH EVERY DAY Complies with drug therapy Start: 12-09-2023 End: 06-20-2024 take 200 mg by mouth once daily Allopurinol Discontinu ed 200 MG PO Daily December 09, 2023 12:00am June 20, 2024 7:37am Start: 02-18-2022 End: 06-20-2024 take 2 tablets by mouth once daily Allopurinol 100 mg tablet Discontinued 200 MG PO Daily December 09, 2023 1:00am June 20, 2024 8:37am take 1 tablet by fransico th every twenty-four hours Allopurinol 100 MG 1 tablet Orally Once a day Active amLODIPine 5 mg oral tablet (20 sources) Dihydropyridine Calcium Channel Viktor Start: 02-11-2025 take 1 tablet by mouth once daily Amlodipine 5 mg tablet Active 5 MG PO Daily 90 February 11, 2025 12:01pm Complies with drug therapy Start: 01-05-2024 End: 02-11-2025 Amlodipine 5 mg tablet Disco ntinued 0 .ROUTE .COMPLEX 90 January 05, 2024 1:38pm February 11, 2025 12:01pm TAKE 1 TABLET DAILY Start: 11-07-2017 End: 01-05-2024 take 1 tablet by mouth once daily Amlodipine 5 mg tablet Discontinued 5 MG PO Daily December 09, 2023 1:00am January 05, 2024 1:39pm amLODIPine (Norv asc) 2.5 MG tablet amLODIPine Besylate Active cholecalciferol 1.25 mg oral tablet (20 sources) Vitamin D Start: 05-12-2025 take 1 capsule by mouth once cholecalciferol (VITAMIN D3) 50,000 units capsule Take 1 capsule (50,000 Units total) by mouth every 14 (fourteen) days. 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 Active take 1 tablet by fransico th every twenty-four hours Senna Plus 8.6-50 MG 1 tablet as needed Orally Once a day for 90 days Active take 1 tablet by fransico th every twelve hours Senna Plus 8.6-50 MG 1 tablet as needed Orally Twice a day Active ergocalciferol 1.25 mg oral capsule (18 sources) Provitamin D2 Compound take 1 capsule by mouth every week ergocalciferol (Vitamin D-2) 1.25 MG (68564 UT) capsule Take 1.25 mg by mouth 1 (one) time per week Active famotidine 20 mg oral tablet (20 sources) Histamine-2 Receptor Antagonist Start: 05-15-20 Famotidine 20 mg tablet Active 0 .ROUTE .COMPLEX May 15, 2025 3:40pm TAKE 1 TABLET DAILY Complies with drug therapy Start: 08-17-2024 End: 05-15-2025 take 1 tablet by mouth twice daily Famotidine 20 mg tablet Discontinued 20 MG PO Twice daily 180 August 17, 2024 1:23pm May 15, 2025 3:40pm Start: 06-18-2024 End: 08-17-2024 take 1 tablet by mouth once daily Famotidine 20 mg tablet Discontinued 20 MG PO Daily 90 June 18, 2024 10:41am August 17, 2024 1:24pm Start: 12-09-2023 End: 06-18-2024 take 1 tablet by mouth twice daily Famotidine 20 mg tablet Discontinued 20 MG PO Twice daily December 09, 2023 1:00am June 18, 2024 10:12am famotidine (Pepc id) 20 MG tablet 2 tablets Active furosemide 40 mg oral tablet (20 sources) Loop Diuretic Start: 04-07-2025 take 1 tablet by mouth once daily Furosemide 40 mg tablet Active 0 .ROUTE .COMPLEX April 07, 2025 9:33am TAKE 1 TABLET BY MOUTH EVERY DAY Complies with drug therapy Start: 04-07-2025 End: 04-07-2025 take 1 tablet by mouth once daily in the morning Furosemide 40 mg tablet Discontinued 40 MG PO Every morning 90 April 07, 2025 9:11am April 07, 2025 9:33am Start: 03-25-2025 End: 04-07-2025 take 1 tablet by mouth once daily in the morning Furosemide 20 mg tablet Discontinued 20 MG PO Every morning 90 March 25, 2025 9:42am April 07, 2025 9:11am Start: 12-14-2024 End: 03-25-2025 take 1 tablet by mouth twice daily Furosemide 20 mg tablet Discontinued 20 MG PO Twice daily 180 December 14, 2024 10:20am March 25, 2025 9:42am Start: 03-01-2024 End: 12-14-2024 take 1 tablet by mouth once daily Furosemide 40 mg tablet Discontinued 0 .ROUTE .COMPLEX 90 March 01, 2024 1:03pm December 14, 2024 10:22am TAKE 1 TABLET BY MOUTH EVERY DAY Start: 12-21-2021 End: 03-01-2024 take 1 tablet by mouth once daily Furosemide 40 mg tablet Discontinued 40 MG PO Daily December 09, 2023 1:00am March 01, 2024 1:03pm hydrALAZINE hydrochloride 100 mg oral tablet (20 sources) Arteriolar Vasodilator Start: 11-11-2024 take 1 tablet by mouth four times daily Hydralazine 100 mg tablet Active 0 .ROUTE .COMPLEX 360 November 11, 2024 8:07am TAKE 1 TABLET BY MOUTH FOUR TIMES A DAY Complies with drug therapy Start: 12-09-2023 End: 11-11-2024 take 1 tablet by mouth four times daily Hydralazine 100 mg tablet Discontinued 100 MG PO Four times daily December 09, 2023 1:00am November 11, 2024 8:07am hydrALAZINE (APR ESOLINE) 50 mg tablet Take 2 tablets (100 mg total) by mouth in the morning and 2 tablets (100 mg total) at noon and 2 tablets (100 mg total) in the evening and 2 tablets (100 mg total) before bedtime. Active hydrALAZINE (APR ESOLINE) 50 mg tablet Take 1 tablet (50 mg total) by mouth in the morning and 1 tablet (50 mg total) at noon and 1 tablet (50 mg total) in the evening and 1 tablet (50 mg total) before bedtime. 0 Active metoprolol tartrate 50 mg oral tablet (20 sources) beta-Adrenergic Viktor Start: 12-09-2023 End: 03-25-2025 take 1 tablet by mouth twice daily Metoprolol Tartrate 50 mg tablet Active 50 MG PO Twice daily 180 March 25, 2025 9:36am Complies with drug therapy Start: 02-05-2022 End: 03-22-2024 take 1 tablet by mouth once daily Metoprolol Tartrate 100 mg tablet Discontinued 100 MG PO Daily 90 March 22, 2024 12:00am March 22, 2024 12:24pm take 1 tablet by fransico th every twelve hours Metoprolol Tartrate 50 MG 1 tablet with food Orally Twice a day for 90 days Active take 1 tablet by fransico th every twelve hours Metoprolol Tartrate 100 MG 1 tablet with food Orally Twice a day Active Polyethylene Glycols (11 sources) take 17 g by mouth o nce daily as needed polyethylene glycol 3350 (MIRALAX ORAL) Take 17 g by mouth daily as needed. Active take 17 g by mouth once daily as needed polyethylene glycol 3350 (MIRALAX ORAL) Take 17 g by mouth daily as needed. 0 Active polysaccharide iron complex 150 mg oral capsule (20 sources) Start: 12-09-2023 End: 03-28-2025 take 1 capsule by mouth once daily Polysaccharide Iron Complex 150 mg iron capsule Active 150 MG PO Daily March 28, 2025 12:49pm Complies with drug therapy pravastatin sodium 80 mg oral tablet (20 sources) HMG-CoA Reductase Inhibitor Start: 01-31-2025 take 1 tablet by mouth once daily at bedtime Pravastatin 80 mg tablet Active 80 MG PO Daily at bedtime January 31, 2025 5:39pm Complies with drug therapy Start: 01-05-2024 End: 01-31-2025 Pravastatin 80 mg tablet Discontinued 0 .ROUTE .COMPLEX January 05, 2024 1:38pm January 31, 2025 5:39pm TAKE 1 TABLET DAILY Start: 01-05-2024 Pravastatin 80 mg tablet Active 0 .ROUTE .COMPLEX January 05, 2024 12:38pm TAKE 1 TABLET DAILY Start: 01-05-2024 Pravastatin Ac tive 0 .ROUTE .COMPLEX January 05, 2024 12:38pm TAKE 1 TABLET DAILY Start: 01-05-2024 Pravastatin Ac tive 0 .ROUTE .COMPLEX January 05, 2024 1:38pm TAKE 1 TABLET DAILY Start: 12-09-2023 End: 01-05-2024 take 1 tablet by mouth once daily Pravastatin 80 mg tablet Discontinued 80 MG PO Daily December 09, 2023 1:00am January 05, 2024 1:39pm sennosides (SENNA ORAL) (11 sources) take 1 tablet by fransico th once daily sennosides (SENNA ORAL) Take 1 tablet by mouth nightly. Active take 1 tablet by mouth once mikel y sennosides (SENNA ORAL) Take 1 tablet by mouth nightly. 0 Active tamsulosin hydrochloride 0.4 mg oral capsule (20 sources) alpha-Adrenergic Viktor Start: 03-25-2025 take 1 capsule by mouth once daily at bedtime Tamsulosin 0.4 mg capsule Active 0.4 MG PO Daily at bedtime March 25, 2025 9:37am Complies with drug therapy Start: 03-31-2024 End: 03-25-2025 Tamsulosin 0.4 mg capsule Discontinued 0 .ROUTE .COMPLEX 90 March 24, 2025 1:18pm March 25, 2025 9:38am TAKE 1 CAPSULE DAILY Start: 12-09-2023 End: 03-31-2024 take 1 capsule by mouth once daily Tamsulosin 0.4 mg capsule Discontinued 0.4 MG PO Daily December 09, 2023 1:00am March 31, 2024 6:06pm tamsulosin (Flom ax) 0.4 MG 24 hr capsule tamsulosin 0.4 mg capsule Active warfarin sodium 4 mg oral tablet (20 sources) Vitamin K Antagonist Start: 02-09-2025 Warfarin 4 mg tablet Active 0 .ROUTE .COMPLEX 135 February 09, 2025 7:38am TAKE 1 AND 1/2 TABLETS BY MOUTH ONCE A DAY Complies with drug therapy Start: 12-09-2023 End: 02-09-2025 take 6 mg by mouth once daily Warfarin 4 mg tablet Dis continued 6 MG PO Daily 135 90 February 02, 2024 1:45pm September 23, 2024 12:30pm Start: 12-09-2023 End: 02-02-2024 take 6 mg by mouth once daily Warfarin Active 6 MG PO Daily 135 90 February 02, 2024 12:45pm take 4 mg by mouth i n the evening warfarin (COUMADIN) 5 mg tablet Take 4 mg by mouth in the evening. Dose is adjusted due to PT/INR . Active warfarin (Coumad in) 4 MG tablet warfarin 4 mg tablet Active Completed/Discontinued Medications Medication Drug Class(es) Dates Sig (Normalized) Sig (Original) clonazePAM 0.5 mg oral tablet (20 sources) Benzodiazepine Start: 11-19-2022 End: 05-08-2025 take 1 tablet by mouth twice daily Clonazepam 0.5 mg tablet Discontinued 0.5 MG PO Twice daily September 13, 2024 11:00am November 02, 2024 6:51pm clopidogrel 75 mg oral tablet (20 sources) [id number] Platelet Inhibitor Start: 12-09-2023 End: 01-19-2025 take 1 tablet by mouth once daily Clopidogrel 75 mg tablet Discontinued 75 MG PO Daily 90 August 06, 2024 4:35pm January 19, 2025 4:41pm doxycycline hyclate 100 mg oral capsule (20 sources) Tetracycline-class Drug Start: 07-26-2024 End: 12-14-2024 take 1 capsule by mouth twice daily Doxycycline Hyclate 100 mg capsule Discontinued 100 MG PO Twice daily 14 7 July 27, 2024 10:35am December 14, 2024 9:55am Start: 12-09-2023 End: 12-15-2023 take 1 capsule by mouth twice daily Doxycycline Hyclate 100 mg capsule Discontinued 100 MG PO Twice daily 10 5 December 09, 2023 1:00am December 15, 2023 3:02pm Start: 07-01-2023 take 1 capsule by mo ut twice daily Doxycycline Hyclate 100 MG 1 capsule Orally twice daily for 5 days Jun, Active empagliflozin 10 mg oral tablet (7 sources) Sodium-Glucose Cotransporter 2 Inhibitor Start: 01-11-2025 End: 03-28-2025 take 1 tablet by mouth once daily Empagliflozin (Jardiance) 10 mg tablet Discontinued 0 .ROUTE .COMPLEX January 11, 2025 7:42am March 28, 2025 12:51pm TAKE 1 TABLET BY MOUTH EVERY DAY Start: 12-14-2024 End: 03-28-2025 take 1 tablet by mouth once daily Empagliflozin (Jardiance) 10 mg tablet Discontinued 10 MG PO Daily 90 90 March 28, 2025 12:50pm March 28, 2025 5:04pm microencapsulated potassium chloride 10 meq extended release oral tablet (20 sources) Start: 12-09-2023 End: 04-09-2024 take 1 tablet by mouth once daily Potassium Chloride 10 mEq tablet,ER particles/crystals Discontinued 10 MEQ PO Daily December 09, [...] due to other specified organisms] Onset: 10-12-2014 07-26-2024 Episodic Anxiety disorders (20 sources) Generalized anxiety disorder; Translations: [Generalized anxiety disorder] Chronic Aortic; peripheral; and visceral artery aneurysms (20 sources) Aneurysm of infrarenal abdominal aorta ; Translations: [Infrarenal abdominal aortic aneurysm (AAA) without rupture] Onset: 12-09-2012 Resolved: 10-27-2024 10-27-2024 Chronic Cancer of head and neck (2 sources) Malignant neoplasm of lip, oral cavity and pharynx; Translations: [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, oral cavity and pharynx] 12-15-2024 Chronic Cardiac dysrhythmias (20 sources) Paroxysmal atrial fibrillation; Translations: [Paroxysmal atrial fibrillation] Onset: 12-09-2012 Resolved: 10-27-2024 Chronic Comment on above: Echo: LVEF 55%, RV d ilated, RVSP 33, mild - 03/2024 Cardiac dysrhythmias (20 sources) Palpitations; Translations: [Palpitations] [...] Coronary arteriosclerosis; Translations: [Atherosclerotic heart disease of cahto coronary artery without angina pectoris] Onset: 12-11-2012 Resolved: 10-27-2024 Chronic Comment on above: Stress Test: LVEF 63 %, fixed inferoapical defect - 04/2024,Echo: LVEF 55%, RV dilated, RVSP 33, mild - 03/2024,Carotid US: < 50% B/L - 05/2024 LHC: three vessel CA D, medically managed - 2012,Stress Test: LVEF 63%, fixed inferoapical defect - 04/2024,Echo: LVEF 55%, RV dilated, RVSP 33, mild - 03/2024,Carotid US: < 50% B/L - 05/2024 Deficiency and other anemia (10 sources) Chronic [...] Disorders of lipid metabolism (20 sources) Pure hypercholesterolemia ; Translations: [Familial hypercholesterolemia ] Onset: 12-09-2012 Resolved: 10-27-2024 Chronic Diverticulosis and diverticulitis (11 sources) Diverticulosis of sigmoid colon; Translations: [Sigmoid diverticulosis] Chronic Esophageal disorders (20 sources) Gastro-esophageal reflux disease with esophagitis; Translations: [Gastroesophageal reflux disease with esophagitis without hemorrhage] Onset: 12-09-2012 Resolved: 10-27-2024 12-09-2023 Chronic Esophageal disorders (20 sources) Esophageal disorders; Translations: [Gastroesophageal reflux disease with esophagitis without hemorrhage] Essential hypertension (20 sources) Hypertensive disorder; Translations: [Essential (primary) hypertension] Onset: 04-07-2023 Resolved: 10-27-2024 Chronic Fluid and electrolyte disorders (1 source) [...] and fatigue (1 source) Other fatigue Episodic Mycoses (3 sources) Onychomycosis due to dermatophyte ; Translations: [Tinea unguium] 08-16-2024 Episodic Neoplasms of unspecified nature or uncertain behavior (2 sources) Neoplastic disease; Translations: [Neoplasm of unspecified behavior of bone, soft tissue, and skin] 09-30-2024 Episodic Nonspecific chest pain (20 sources) Chest pain; Translations: [Chest pain, unspecified] Onset: 06-02-2014 08-05-2024 Episodic Occlusion or stenosis of precerebral arteries (20 sources) Left carotid artery stenosis; Translations: [Occlusion and stenosis of left carotid artery] Onset: 08-25-2022 Resolved: 10-27-2024 Chronic Other aftercare (5 sources) Encounter for therapeutic drug level monitoring; Translations: [ENC THERAPEUTC DRUG LEVL MONITORING] Onset: 02-08-2023 Episodic Other aftercare (3 sources) terminologist (current) use of anticoagulants; Translations: [Long-term (current) use of anticoagulants] Onset: 03-12-2023 07-26-2024 Episodic Other aftercare (11 sources) Drug therapy finding; Translations: [Other 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 intermodal truck driver (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) drug therapy] 06-16-2024 Episodic Other aftercare (1 source) Taking high risk medication; Translations: [Other dedicated intermodal truck driver (current) drug therapy] 06-16-2024 Episodic Other circulatory disease (20 sources) Cardiovascular symptoms; Translations: [Other specified symptoms and signs involving the circulatory and respiratory systems] Onset: 03-24-2019 Episodic Other connective tissue disease (6 sources) Pain in toe; Translations: [Pain in right toe(s)] 08-16-2024 Episodic Other diseases of veins and lymphatics (20 sources) Peripheral venous insufficiency; Translations: [Venous insufficiency (chronic) (peripheral)] Onset: 05-22-2016 12-09-2023 Episodic Other diseases of veins and lymphatics (10 sources) Venous insufficiency (chronic) (peripheral); Translations: [Venous (peripheral) insufficiency, unspecified] Episodic Other diseases of veins and lymphatics (8 sources) Venous insufficiency of leg; Translations: [Venous [...] abnormalities of gait and mobility Episodic Other non-epithelial cancer of skin (5 sources) 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; Translations: [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] Onset: 11-09-2024 10-27-2024 Episodic Other nutritional; endocrine; and metabolic disorders (1 source) Abnormal weight loss Episodic Other screening for suspected conditions (not mental disorders or infectious disease) (13 sources) Encounter for screening for malignant neoplasm of prostate; Translations: [Patient encounter status] Onset: 05-16-2022 06-16-2024 Episodic Other skin disorders (3 sources) Actinic keratosis; Translations: [Actinic keratosis] Onset: 02-06-2016 09-30-2024 Episodic Other skin disorders (3 sources) Dystrophia unguium; Translations: [Nail dystrophy] 08-16-2024 Episodic Other skin disorders (2 sources) Seborrheic keratosis; Translations: [Other seborrheic keratosis] 09-30-2024 Episodic Other skin disorders (2 sources) Lentiginosis; Translations: [Other melanin hyperpigmentation] 09-30-2024 Episodic Other upper respiratory disease (10 sources) Allergic rhinitis; Translations: [Allergic rhinitis, unspecified] Chronic Other upper respiratory infections (20 sources) Acute maxillary sinusitis; Translations: [Acute maxillary sinusitis, unspecified] Episodic Pneumonia (except that caused by tuberculosis or sexually transmitted disease) (3 sources) Pneumonia, unspecified organism Episodic Residual codes; unclassified (10 sources) Postprocedural state finding; Translations: [Other specified postprocedural states] Episodic Residual codes; unclassified (1 source) Disorientation, unspecified Episodic Respiratory failure; insufficiency; arrest (adult) (1 source) Respiratory failure; insufficiency; arrest (adult); Translations: [Chronic ulcer of other specified site] Onset: 05-22-2016 Rheumatoid arthritis and related disease (16 sources) Inflammatory polyarthropathy; Translations: [Inflammatory polyarthropathy] 12-09-2023 [...] ankle, infected] Onset: 03-15-2016 Unclassified (1 source) Pararenal abdominal aortic aneurysm, without rupture; Translations: [Pararenal abdominal aortic aneurysm, without rupture] Onset: 04-07-2023 Unclassified (2 sources) Infrarenal abdominal aortic aneurysm, without rupture; Translations: [Infrarenal abdominal aortic aneurysm, without rupture] Onset: 05-27-2024 Unclassified (1 source) Abdominal aortic aneurysm, without rupture, unspecified; Translations: [Abdominal aortic aneurysm, without rupture, unspecified] Onset: 05-20-2024 Unclassified (1 source) 1 year f u Onset: 06-02-2025 Viral infection (1 source) COVID-19; Translations: [COVID-19] Onset: 09-21-2022 Past or Other Problems Problem Classification Problem Date Documented Da te Episodic/Chronic Abdominal pain (20 sources) Epigastric pain; Translations: [Epigastric pain] Onset: 10-19-2014 Episodic Acute myocardial infarction (13 sources) Acute myocardial infarction; Translations: [Acute myocardial infarction, unspecified] Onset: 12-11-2012 Resolved: 10-27-2024 10-27-2024 Chronic Bacterial infection; unspecified site (1 source) Bacterial [...] sources) Nausea; Translations: [Nausea] Onset: 06-21-2014 Episodic Other circulatory disease (8 sources) Other [...] Onset: 12-25-2015 Episodic Other nervous system disorders (13 sources) Difficulty walking; Translations: [Difficulty in walking, not elsewhere classified] Onset: 10-27-2024 Resolved: 10-27-2024 10-27-2024 Chronic Other nervous system disorders (10 sources) Paresthesia; [...] 04-18-2015 Episodic Other skin disorders (1 source) Blister; [...] Eustachian salpingitis, unspecified ear] Onset: 09-06-2014 Episodic Peripheral and visceral atherosclerosis (20 sources) Atherosclerosis of renal artery; Translations: [Atherosclerosis of renal artery] Onset: 12-11-2012 Resolved: 10-27-2024 10-27-2024 Chronic Residual codes; unclassified (1 source) Edema; Translations: [...] Translations: [Post COVID-19 condition, unspecified] Resolved: 05-07-2022 Unclassified (1 source) Pararenal abdominal aortic aneurysm, without rupture; Translations: [Pararenal abdominal aortic aneurysm, without rupture] Onset: 03-16-2025 Varicose veins of lower extremity (13 sources) Ankle ulcer; Translations: [Varicose veins of left lower extremity with ulcer of ankle] Onset: 10-27-2024 Resolved: 10-27-2024 10-27-2024 Episodic Results Test Name Value Interpretation Reference Range Facility BASIC METABOLIC PANELon 04-13 Anion gap [Moles/Vol] 8 mmol/L Normal - [facility] Comment on above: Performed By: #### 1 9123-9, 2777-1, 42141-4, 2731-8, CBC, UPCR, BMP #### [facility] ([id number]) [address] [address], [address] [place] [address] Calcium [Mass/Vol] 8.6 mg/dL Normal 8.5-10.5 [facility] Comment on above: Performed By: #### 1 9123-9, 2777-1, 20733-6, 273-8, CBC, UPCR, BMP #### [facility] ([id number]) [address], [address] [place] [address] Chloride [Moles/Vol] 106 mmol/L Normal 98-109 [facility] Comment on above: Performed By: #### 1 9123-9, 2777-1, 45047-4, 2731-8, CBC, UPCR, BMP #### [facility] ([id number]) [address], [address] [place] [address] CO2 [Moles/Vol] 27 mmol/L Normal 22-32 [facility] Comment on above: Performed By: #### 1 9123-9, 2777-1, 53519-8, 273-8, CBC, UPCR, BMP #### [facility] ([id number]) [address], [address] [place] [address] Creatinine [Mass/Vol] 2.89 mg/dL High 0.60-1.30 [facility] Comment on above: Result Comment: METH OD TRACEABLE TO IDMS STANDARD Performed By: #### 1 9123-9, 2777-1, 38853-1, 273-8, CBC, UPCR, BMP #### [facility] ([id number]) [address], [address] [place] [address] GFR/1.73 sq M.predicted among non-blacks MDRD (S/P/Bld) [Vol rate/Area] 22 mL/min/{1.73_m2} Low >=60 [facility] Comment on above: Result Comment: Repo rted eGFR is based on the CKD-EPI 2020 equation that does not use a race coefficient. Performed By: #### 1 9123-9, 2777-1, 80561-4, 273-8, CBC, UPCR, BMP #### [facility] ([id number]) [address], [address] [place] [address] Glucose [Mass/Vol] 116 mg/dL High 65-99 [facility] Comment on above: Performed By: #### 1 9123-9, 2777-1, 45866-5, 2731-8, CBC, UPCR, BMP #### [facility] ([id number]) [address], [address] [place] [address] Potassium [Moles/Vol] 4.2 mmol/L Normal 3.5-5.0 [facility] Comment on above: Performed By: #### 1 9123-9, 2777-1, 73413-2, 273-8, CBC, UPCR, BMP #### [facility] ([id number]) [address], [address] [place] [address] Sodium [Moles/Vol] 141 mmol/L Normal 134-146 [facility] Comment on above: Performed By: #### 1 9123-9, 2777-1, 01033-3, 273-8, CBC, UPCR, BMP #### [facility] ([id number]) [address], [address] [place] [address] Urea nitrogen [Mass/Vol] 51 mg/dL High 5-27 [facility] Comment on above: Performed By: #### 1 9123-9, 2777-1, 12261-5, 273-8, CBC, UPCR, BMP #### [facility] ([id number]) [address], [address] [place] [address] CBC (NO DIFF)on 05-05-2025 Erythrocyte distribution width (RBC) [Ratio] 17.7 % High 11.5-15 [facility] Comment on above: Performed By: #### C BC #### [facility] ([facility]) [address] [place] [address] VIR Hematocrit (Bld) [Volume fraction] 33.1 % Low 39-50 [facility] Comment on above: Performed By: #### C BC #### [facility] ([facility]) [address] [place] [address] VIR Hemoglobin (Bld) [Mass/Vol] 10.5 g/dL Low 13-17 [facility] Comment on above: Performed By: #### C BC #### [facility] ([facility]) [address] [place] [address] VIR MCH (RBC) [Entitic mass] 27.0 pg Normal 27-34 [facility] Comment on above: Performed By: #### C BC #### [facility] ([facility]) [address] [place] [address] VIR MCHC (RBC) [Mass/Vol] 31.6 g/dL Low 32-36 [facility] Comment on above: Performed By: #### C BC #### [facility] ([facility]) [address] [place] [address] VIR MCV (RBC) [Entitic vol] 85 fL Normal 80-100 [facility] Comment on above: Performed By: #### C BC #### [facility] ([facility]) [address] [place] [address] VIR Platelet mean volume (Bld) [Entitic vol] 8.3 fL Normal 7-12 [facility] Comment on above: Performed By: #### C BC #### [facility] ([facility]) [address] [place] [address] VIR Platelets (Bld) [#/Vol] 155 10*3/uL Normal 150-450 [facility] Comment on above: Performed By: #### C BC #### [facility] ([facility]) [address] [place] [address] VIR RBC COUNT 3.88 X10E12/L Low 4.1-5.7 [facility] Comment on above: Performed By: #### C BC #### [facility] ([facility]) [address] [place] [address] VIR WBC (Bld) [#/Vol] 5.4 10*3/uL Normal 4-11 [facility] Comment on above: Performed By: #### C BC #### [facility] ([facility]) [address] [place] [address] VIR MAGNESIUMon 05-05-2025 Magnesium [Mass/Vol] 2.5 mg/dL Normal 1.8-2.6 [facility] Comment on above: Performed By: #### 1 9123-9, 2777-1, 39057-9, 273-8, CBC, UPCR, BMP #### [facility] ([id number]) [address], [address] [place] [address] PARATHYROID HORMOME, INTACTo n 05-05-2025 PTH INTACT 120 pg/mL High 12-88 [facility] Comment on above: Performed By: #### 1 9123-9, 2777-1, 44601-5, 273-8, CBC, UPCR, BMP #### [facility] ([id number]) [address], [address] [place] [address] PHOSPHORUSon 05-05-2025 Phosphate [Mass/Vol] 4.0 mg/dL Normal 2.4-4.9 [facility] Comment on above: Performed By: #### 1 9123-9, 2777-1, 78566-8, 273-8, CBC, UPCR, BMP #### [facility] ([id number]) [address], [address] [place] [address] PROTEIN CREAT RATIOon 2024 U/PRO/PERFECT BINDER OPERATOR RATIO CALC 0.61 High <=0.20 [facility] Comment on above: Order Comment: Nephr otic Syndrome is associated with ratios >3.5 Performed By: #### 1 9123-9, 2777-1, 50880-3, 2731-8, CBC, UPCR, BMP #### [facility] ([id number]) [address], [address] [place] [address] URINE CREATININE,RDM 34.47 mg/dL Normal [facility] Comment on above: Order Comment: Nephr otic Syndrome is associated with ratios >3.5 Performed By: #### 1 9123-9, 2777-1, 29984-1, 2731-8, CBC, UPCR, BMP #### [facility] ([id number]) [address], [address] [place] [address] URINE PROTEIN, RANDOM (MG/L) 210 mg/L High <120 [facility] Comment on above: Order Comment: Nephr otic Syndrome is associated with ratios >3.5 Performed By: #### 1 9123-9, 2777-1, 23324-6, 2731-8, CBC, UPCR, BMP #### [facility] ([id number]) [address], [address] [place] [address] URINALYSISon 05-05-2025 Bilirubin Ql (U) Negative Normal Negative [facility] Comment on above: Performed By: #### 1 9123-9, 2777-1, 91753-5, 2731-8, CBC, UPCR, BMP #### [facility] ([id number]) [address], [address] [place] [address] BLOOD/HGB Negative Normal Negative [facility] Comment on above: Performed By: #### 1 9123-9, 2777-1, 58771-0, 2731-8, CBC, UPCR, BMP #### [facility] ([id number]) [address], [address] [place] [address] Color (U) Colorless Normal Yellow, Colorless [facility] Comment on above: Performed By: #### 1 9123-9, 2777-1, 68691-0, 2731-8, CBC, UPCR, BMP #### [facility] ([id number]) [address], [address] [place] [address] Glucose Ql (U) 50 mg/dL Abnormal Negative [facility] Comment on above: Performed By: #### 1 9123-9, 2777-1, 87927-7, 273-8, CBC, UPCR, BMP #### [facility] ([id number]) [address], [address] [place] [address] Ketones Ql (U) Negative Normal Negative [facility] Comment on above: Performed By: #### 1 9123-9, 2777-1, 01884-5, 2730-8, CBC, UPCR, BMP #### [facility] ([id number]) [address], [facility] [address] [place] [address] Leukocyte esterase Test strip Ql (U) Negative Normal Negative [facility] Comment on above: Performed By: #### 1 9123-9, 2777-1, 39199-4, 2730-8, CBC, UPCR, BMP #### [facility] ([id number]) [address], [address] [place] [address] MUCOUS Present Abnormal None [facility] Comment on above: Performed By: #### 1 9123-9, 2777-1, 89591-1, 2730-8, CBC, UPCR, BMP #### [facility] ([id number]) [address], [address] [place] [address] Nitrite Ql (U) Negative Normal Negative [facility] Comment on above: Performed By: #### 1 9123-9, 2777-1, 35780-4, 2730-8, CBC, UPCR, BMP #### [facility] ([id number]) [address], [address] [place] [address] PH,URINE 6.5 Normal 5.0-8.5 [facility] Comment on above: Performed By: #### 1 9123-9, 2777-1, 16304-6, 2731-8, CBC, UPCR, BMP #### [facility] ([id number]) [address] [address] Protein Ql (U) Trace Abnormal Negative [facility] Comment on above: Performed By: #### 1 9123-9, 2777-1, 88875-6, 273-8, CBC, UPCR, BMP #### [facility] ([id number]) [address] [address] R.B.CELLS 1 Normal 0-5 [facility] Comment on above: Performed By: #### 1 9123-9, 2777-1, 02517-8, 273-8, CBC, UPCR, BMP #### [facility] ([id number]) [address], [address] [address] Specific gravity (U) [Rel density] 1.008 Normal 1.003-1.035 [facility] Comment on above: Performed By: #### 1 9123-9, 2777-1, 72477-3, 273-8, CBC, UPCR, BMP #### [facility] ([id number]) [address] [address] SQUAMOUS EPITHELIUM <^1 Normal 0-5 [facility] Comment on above: Performed By: #### 1 9123-9, 2777-1, 88058-3, 2731-8, CBC, UPCR, BMP #### [facility] ([id number]) [address] [address] TURBIDITY Clear Normal Clear [facility] Comment on above: Performed By: #### 1 9123-9, 2777-1, 73724-6, 2731-8, CBC, UPCR, BMP #### [facility] ([id number]) [address], [address] [place] [address] UROBILINOGEN <1.1 eu/dL Normal <1.1 eu/dL [facility] Comment on above: Performed By: #### 1 9123-9, 2777-1, 64319-5, 2731-8, CBC, UPCR, BMP #### [facility] ([id number]) [address] [address], [address] [place] [address] W.B.CELLS 3 Normal 0-5 [facility] Comment on above: Performed By: #### 1 9123-9, 2777-1, 14973-5, 2731-8, CBC, UPCR, BMP #### [facility] ([id number]) [address] [facility], [address] [place] [address] VITAMIN D 25 HYDROXYon 05-05 VITAMIN D 25 HYD TOT >^120.0 High 30.0-100.0 [facility] Comment on above: Order Comment: Vitam in D status 25 [place] Vitamin D Deficiency <20 ng/mLInsufficiency 20-29 ng/mLSufficiency 30-100 ng/mLToxicity >100 ng/mLNOTE: A pediatric reference range has not been established by the financial services professional of this kit. The [place] [employer] recommends a Vitamin D level of = or >20ng/mL in infants and children. Performed By: #### 1 9123-9, 2777-1, 71723-8, 2731-8, CBC, UPCR, BMP #### [facility] ([id number]) [address] [facility], [facility] [address] [place] [address] Office Visiton 03-16-2025 Follow-up visit [id number] Nicolas Kelly 1945 Date Provider Department [place] 03/16/2025 Ramírez-HERMELINDA CHRISTINE [facility] Family History Family Status - Relation Status Age at Mother Father Level of Service:52668 [place] OFFICE/OUTPATIENT ESTABLISHED MOD MDM 30 MIN Normal [facility] Yimi 11-09-2024 L -- ---- Specimen: [id number] Received: 11/10/24 Status: DAYNA Bindu Num: [id number] Spec Type: Surgical Subm Dr: Cortez Gaspar DO Tissues: A Skin-Other than Cyst, tag, debridement or plastic repair (LEFT LOWER LIP) Procedures: Paola AYALA/Marin Conley ---- Age/ Patient Sex Location Account Attending Physician ---- Nicolas Kelly/Yun ATKINSON [id number] Cortez Gaspar DO ---- SPEC NUM: [id number] RECD: 11/10/24 STATUS: DAYNA HENNINGDhaval NUM: [id number] ZAC: 11/09/24- [facility] DR: Cortez Gaspar DO ENTERED: 11/10/24 [facility] DR: Jarocho [facility] SPEC TYPE: Surgical DEPT: S ENTERED BY: [id number] RECV BY: [id number] ORDERED: HE/4, Gross/Micro L4 ORDERED: HE/4, Gross/Micro L4 Pathological Diagnosis Lesion, lower lip, excision: Changes consistent with previous biopsy site. No evidence of residual malignancy. 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 The specimen is 2 cm superior to inferior, 1.6 cm medial to lateral, and excised to a depth of 0.7 cm. Eccentrically located on the skin is a pale negrete nodular lesion, 0.8 x 0.4 x 0.1 cm. The lesion is situated 0.8 cm from the superior margin, 0.6 cm from the lateral margin, 0.9 cm from the inferior margin, and 0.2 cm from the medial margin. The specimen is inked as follows: Superolateral-Yellow Inferolateral-Green Inferomedial-[address] Supra medial-Blue Deep-Black Serial sections reveal yellow-seay, glistening and uniform cut surfaces with a deep margin situated 0.6 cm from the lesion. The specimen is entirely submitted progressing from superior to inferior. ---- Specimen: [id number] Received: 11/10/24 Status: RYANMeenakshi Ruano Num: [id number] Spec Type: Surgical Subm Dr: Cortez Gaspar DO Tissues: A Skin-Other than Cyst, tag, debridement or plastic repair (LEFT LOWER LIP) Procedures: Paola AYALA/Marin L4 ---- Patient: Nicolas Kelly [id number] (Continued) ---- Specimen: [id number] Received: 11/10/24 (Continued) Gross Description (Continued) Signed (signature on file) Sara Ayers MD 11/11/24 1425 ---- Specimen: [id number] Received: 11/10/24 Status: DAYNA Ruano Num: [id number] Spec Type: Surgical Subm Dr: Cortez Gaspar DO Tissues: A Skin-Other than Cyst, tag, debridement or plastic repair (LEFT LOWER LIP) Procedures: Paola AYALA/Marin L4 ---- Patient: Nicolas Kelly [id number] (Continued) ---- Specimen: [id number] Received: 11/10/24 (Continued) Gross Description (Continued) Please see attached diagram Cassettes: A1 Serially sectioned superior polar end A2 2 full-thickness cross-sections from superior half of specimen A3 2 full-thickness cross-sections from inferior half of specimen A4 Serially sectioned inferior polar end (4, ns, [id number] A)J CPT Codes 62886 ---- ---- Specimen: [id number] Received: 11/10/24 Status: DAYNA Ruano Num: [id number] Spec Type: Surgical Subm Dr: Cortez Gaspar DO Tissues: A Skin-Other than Cyst, tag, debridement or plastic repair (LEFT LOWER LIP) Procedures: HE/4, Paola/Marin L4 ---- Patient: RobinNicolas Maya [id number] (Continued) ---- Signed (signature on file) Sara Ayers MD 11/11/24 1425 Normal [facility] BASIC METABOLIC PANLon 10-19 Anion gap [Moles/Vol] 10 mmol/L Normal 5-15 [facility] Comment on above: Performed By: #### 1 9123-9, 2777-1, 78836-3, 2731-8, CBC, UPCR, BMP #### [facility] ([id number]) [address] [place] [address] Calcium [Mass/Vol] 8.9 mg/dL Normal 8.5-10.5 [facility] Comment on above: Performed By: #### 1 9123-9, 2777-1, 79401-3, 2731-8, CBC, UPCR, BMP #### [facility] ([id number]) [address] [place] [address] Chloride [Moles/Vol] 107 mmol/L Normal 98-109 [facility] Comment on above: Performed By: #### 1 9123-9, 2777-1, 80944-0, 273-8, CBC, UPCR, BMP #### [facility] ([id number]) [address] [address] [place] [address] CO2 [Moles/Vol] 27 mmol/L Normal 22-32 [facility] Comment on above: Performed By: #### 1 9123-9, 2777-1, 80707-0, 273-8, CBC, UPCR, BMP #### [facility] ([id number]) [address], [facility] [address] [place] [address] Creatinine [Mass/Vol] 2.52 mg/dL High 0.60-1.30 [facility] Comment on above: Result Comment: METH OD TRACEABLE TO IDMS STANDARD Performed By: #### 1 9123-9, 2777-1, 02747-0, 273-8, CBC, UPCR, BMP #### [facility] ([id number]) [address] [address] [place] [address] GFR/1.73 sq M.predicted among non-blacks MDRD (S/P/Bld) [Vol rate/Area] 26 mL/min/{1.73_m2} Low >59 [facility] Comment on above: Result Comment: Reported eGFR is based on the CKD-EPI 2020 equation that does not use a race coefficient. Performed By: #### 1 9123-9, 2777-1, 16581-1, 273-8, CBC, UPCR, BMP #### [facility] ([id number]) [address] [address] [place] [address] Glucose [Mass/Vol] 95 mg/dL Normal 65-99 [facility] Comment on above: Performed By: #### 1 9123-9, 2777-1, 38470-3, 2731-8, CBC, UPCR, BMP #### [facility] ([id number]) [address] [address] [place] [address] Potassium [Moles/Vol] 4.4 mmol/L Normal 3.5-5.0 [facility] Comment on above: Performed By: #### 1 9123-9, 2777-1, 45613-1, 273-8, CBC, UPCR, BMP #### [facility] ([id number]) [address] [address] [place] [address] Sodium [Moles/Vol] 144 mmol/L Normal 134-146 [facility] Comment on above: Performed By: #### 1 9123-9, 2777-1, 43018-8, 273-8, CBC, UPCR, BMP #### [facility] ([id number]) [address] [address] [place] [address] Urea nitrogen [Mass/Vol] 52 mg/dL High 5-27 [facility] Comment on above: Performed By: #### 1 9123-9, 277-1, 92469-2, 273-8, CBC, UPCR, BMP #### [facility] ([id number]) [address] [address] [place] [address] COMPLETE BLOOD COUNTon 10-19 Erythrocyte distribution width (RBC) [Ratio] 17.8 % High 11.5-15.0 [facility] Comment on above: Performed By: #### 1 9123-9, 2777-1, 50257-5, 273-8, CBC, UPCR, BMP #### [facility] ([id number]) [address] [address] [place] [address] Hematocrit (Bld) [Volume fraction] 31.6 % Low 39-49 [facility] Comment on above: Performed By: #### 1 9123-9, 2777-1, 04175-2, 273-8, CBC, UPCR, BMP #### [facility] ([id number]) [address] [address] [place] [address] Hemoglobin (Bld) [Mass/Vol] 10.2 g/dL Low 13.0-17.0 [facility] Comment on above: Performed By: #### 1 9123-9, 2777-1, 13037-7, 8, CBC, UPCR, BMP #### [facility] ([id number]) [address], [facility] [address] [place] [address] MCH (RBC) [Entitic mass] 28.7 pg Normal 27-34 [facility] Comment on above: Performed By: #### 1 9123-9, 2776-1, 49458-8, 8, CBC, UPCR, BMP #### [facility] ([id number]) [address], [facility] [address] [place] [address] MCHC (RBC) [Mass/Vol] 32.3 g/dL Normal 32-36 [facility] Comment on above: Performed By: #### 1 9123-9, 277-1, 64380-8, 2731-05, CBC, UPCR, BMP #### [facility] ([id number]) [address], [facility] [address] [place] [address] MCV (RBC) [Entitic vol] 89 fL Normal 80-100 [facility] Comment on above: Performed By: #### 1 9123-9, 277-1, 77955-1, 2731-05, CBC, UPCR, BMP #### [facility] ([id number]) [address], [facility] [address] [place] [address] Platelet mean volume (Bld) [Entitic vol] 8.3 fL Normal 7-12 [facility] Comment on above: Performed By: #### 1 9123-9, 2777-1, 18604-7, 8, CBC, UPCR, BMP #### [facility] ([id number]) [address] [address] [place] [address] Platelets (Bld) [#/Vol] 120 10*3/uL Low 150-450 [facility] Comment on above: Performed By: #### 1 9123-9, 2777-1, 96465-2, 2730-8, CBC, UPCR, BMP #### [facility] ([id number]) [address] [place] [address] RBC COUNT 3.55 X10E12/L Low 4.10-5.70 [facility] Comment on above: Performed By: #### 1 9123-9, 2777-1, 41544-3, 2730-8, CBC, UPCR, BMP #### [facility] ([id number]) [address] [place] [address] WBC (Bld) [#/Vol] 5.8 10*3/uL Normal 4.0-11.0 [facility] Comment on above: Performed By: #### 1 9123-9, 2777-1, 88869-8, 8, CBC, UPCR, BMP #### [facility] ([id number]) [address], [address] [place] [address] MAGNESIUMon 10-19-2024 Magnesium [Mass/Vol] 2.3 mg/dL Normal 1.8-2.6 [facility] Comment on above: Performed By: #### 1 9123-9, 2777-1, 51769-1, 8, CBC, UPCR, BMP #### [facility] ([id number]) [address], [address] [place] [address] PHOSPHORUSon 10-19-2024 Phosphate [Mass/Vol] 3.9 mg/dL Normal 2.4-4.9 [facility] Comment on above: Performed By: #### 1 9123-9, 2777-1, 87936-5, 2730-8, CBC, UPCR, BMP #### [facility] ([id number]) [address], [address] [place] [address] PROTEIN CREAT RATIOon 2024 RANDOM URINE PROTEIN 130 mg/L High <120 [facility] Comment on above: Performed By: #### 1 9123-9, 2777-1, 35190-6, 2731-8, CBC, UPCR, BMP #### [facility] ([id number]) [address], [address] [place] [address] U/PRO/PERFECT BINDER OPERATOR RATIO CALC 0.56 High <0.2 [facility] Comment on above: Result Comment: Neph rotic Syndrome is associated with ratios >3.5 Performed By: #### 1 9123-9, 2777-1, 47400-6, 2731-8, CBC, UPCR, BMP #### [facility] ([id number]) [address], [address] [place] [address] URINE CREATININE,RDM 23.42 mg/dL Normal [facility] Comment on above: Performed By: #### 1 9123-9, 2777-1, 88244-4, 2731-8, CBC, UPCR, BMP #### [facility] ([id number]) [address], [address] [place] [address] Parathyrin.intact [Mass/Vol] on 10-19-2024 PTH INTACT 116 pg/mL High 12-88 [facility] Comment on above: Performed By: #### 1 9123-9, 2777-1, 62740-8, 2731-8, CBC, UPCR, BMP #### [facility] ([id number]) [address] [place] [address] URINALYSISon 10-19-2024 Bilirubin Ql (U) Negative Normal NEG [facility] Comment on above: Performed By: #### U A #### [facility] ([id number]) [address] [place] [address] BLOOD/HGB Negative Normal NEG [facility] Comment on above: Performed By: #### U A #### [facility] ([id number]) [address] [place] [address] Color (U) YELLOW Normal YELLOW [facility] Comment on above: Performed By: #### U A #### [facility] ([id number]) [address] [place] [address] Glucose Ql (U) Negative Normal NEG [facility] Comment on above: Performed By: #### U A #### [facility] ([id number]) [address] [place] [address] Ketones Ql (U) Negative Normal NEG [facility] Comment on above: Performed By: #### U A #### [facility] ([id number]) [address] [place] [address] Leukocyte esterase Test strip Ql (U) Negative Normal NEG [facility] Comment on above: Performed By: #### U A #### [facility] ([id number]) [address] [place] [address] Nitrite Ql (U) Negative Normal NEG [facility] Comment on above: Performed By: #### U A #### [facility] ([id number]) [address] [place] [address] pH (U) 6.5 [pH] Normal 5.0-8.5 [facility] Comment on above: Performed By: #### U A #### [facility] ([id number]) [address] [place] [address] Protein Ql (U) Negative Normal NEG [facility] Comment on above: Performed By: #### U A #### [facility] ([id number]) [address] [place] [address] Specific gravity (U) [Rel density] 1.009 Normal 1.003-1.035 [facility] Comment on above: Performed By: #### U A #### [facility] ([id number]) [address] [place] [address] TURBIDITY CLEAR Normal CLEAR [facility] Comment on above: Performed By: #### U A #### [facility] ([id number]) [address] [address] [place] [address] Urobilinogen (U) [Mass/Vol] mg/dL Normal <1.1 [facility] Comment on above: Performed By: #### U A #### [facility] ([id number]) [address] [address] Vitamin D+Metabolites [Mass/ Vol]on 10-19-2024 VITAMIN D 25 HYD TOT 109.0 ng/mL High 30-100 [facility] Comment on above: Result Comment: Vitamin D status 25 [place] Vitamin D Deficiency <20 ng/mL Insufficiency 20-29 ng/mL Sufficiency 30-100 ng/mL Toxicity >100 ng/mL NOTE: A pediatric reference range has not been established by the financial services professional of this kit. The [place] [employer] recommends a Vitamin D level of = or >20ng/mL in infants and children. Performed By: #### 1 9123-9, 2777-1, 31929-3, 2731-8, CBC, UPCR, BMP #### [facility] ([id number]) [address] [address] [place] [address] No Panel Informationon 09-30 Type of biopsy: tangential Informed consent: discussed and consent obtained Informed consent comment: The risks and benefits of the biopsy were discussed. Risks include but are not limited to bleeding, infection, scarring, pain, and nerve damage. An opportunity to ask questions prior to the procedure was permitted and all questions were answered. Patient was prepped and draped in usual sterile fashion: area cleansed with alcohol. Anesthesia: the lesion was anesthetized in a standard fashion Anesthetic: 1% lidocaine w/ epinephrine 1-100,000 buffered w/ 8.4% NaHCO3 Instrument used: DermaBlade Hemostasis achieved with: electrodesiccation Outcome: patient tolerated procedure well Outcome comment: The specimen was placed in a prelabeled formalin container to be sent for pathology Post-procedure details: sterile dressing applied and wound care instructions given Post-procedure details comment: Emphasized need to contact clinic for any signs of infection, uncontrollable bleeding, or complications. Dressing type: bandage Additional details: Photo taken yes Amount of lidocaine used: 0.3 cc [facility] Estimated glomerular filtrat ion rate (GFR) non- Americanon 09-28-2024 GFR/1.73 sq M.predicted among non-blacks MDRD (S/P/Bld) [Vol rate/Area] Estimated glomerular filtration rate (GFR) non- Low >=60 mL/min/1.73m 2 [facility] Glucose mean value [Mass/vol ume] in Blood Estimated from glycated hemoglobinon 09-28-2024 Average glucose Estimated from glycated hemoglobin (Bld) [Mass/Vol] Glucose mean value [Mass/volume] in Blood Estimated from glycated hemoglobin [facility] Laboratory - Chemistry and C hemistry - challengeon 09-28-2024 Calcium [Mass/Vol] 8.4 mg/dL Low 8.5-10.1 [facility] Chloride [Moles/Vol] 110 mmol/L High 98-107 [facility] CO2 [Moles/Vol] 27.7 mmol/L 21.0-32.0 [facility] Creatinine [Mass/Vol] 2.60 mg/dL High 0.70-1.30 [facility] GFR/1.73 sq M.predicted MDRD (S/P/Bld) [Vol rate/Area] 29 mL/min/{1.73_m2} Low >=60 mL/min/1.73m 2 [facility] Glucose [Mass/Vol] 105 mg/dL 74-106 [facility] Potassium [Moles/Vol] 4.4 mmol/L 3.5-5.1 [facility] Sodium [Moles/Vol] 146 mmol/L High 136-145 [facility] Urea nitrogen [Mass/Vol] 49.0 mg/dL High 7.0-18.0 [facility] Urea nitrogen/Creatinine [Mass ratio] 18.8 mg/mg [facility] Laboratory - Hematology and Cell countson 09-28-2024 HbA1c (Bld) [Mass fraction] 5.9 % 4.5-6.2 [facility] Comment on above: ADA RECOMMENDED LIMI T 4.0 - 6.0ADA THERAPEUTIC TARGET < 7.0ACTION SUGGESTED> 7.0 Serum or plasma anion gap de terminationon 09-28-2024 Anion gap [Moles/Vol] Serum or plasma anion gap determination [facility] Cholesterol in LDL Calc [Mas s/Vol]on 06-21-2024 Cholesterol in LDL [Mass/Vol] 85.4 mg/dL [facility] Comment on above: <100 mg/dl [id number] 0-129 mg/dl NEAR OR ABOVE [id number] mg/dl BORDERLINE [id number] mg/dl HIGH>190 mg/dl VERY HIGH Cholesterol in VLDL Calc [Ma ss/Vol]on 06-21-2024 Cholesterol in VLDL [Mass/Vol] 13.6 mg/dL [facility] Estimated glomerular filtrat ion rate (GFR) non- Americanon 06-21-2024 GFR/1.73 sq M.predicted among non-blacks MDRD (S/P/Bld) [Vol rate/Area] 24 mL/min/{1.73_m2} Low >=60 [facility] Globulin Calc (S) [Mass/Vol] on 06-21-2024 Globulin (S) [Mass/Vol] 2.9 g/dL [facility] Laboratory - Chemistry and C hemistry - challengeon 06-21-2024 Albumin [Mass/Vol] 3.2 g/dL Low 3.4-5.0 [facility] ALP [Catalytic activity/Vol] 91 U/L 46-116 [facility] ALT [Catalytic activity/Vol] 15 U/L Low 16-63 [facility] AST [Catalytic activity/Vol] 13 U/L Low 15-37 [facility] Bilirubin [Mass/Vol] 0.3 mg/dL 0.2-1.0 [facility] Calcium [Mass/Vol] 8.8 mg/dL 8.5-10.1 [facility] Chloride [Moles/Vol] 109 mmol/L High 98-107 [facility] Cholesterol [Mass/Vol] 150 mg/dL <=200 [facility] Cholesterol in HDL [Mass/Vol] 51 mg/dL 40-60 [facility] Comment on above: > or =60 mg/dl - LOW CARDIOVASCULAR RISK<40 mg/dl - HIGH CARDIOVASCULAR RISK CO2 [Moles/Vol] 29.7 mmol/L 21.0-32.0 [facility] Creatinine [Mass/Vol] 2.56 mg/dL High 0.70-1.30 [facility] GFR/1.73 sq M.predicted MDRD (S/P/Bld) [Vol rate/Area] 30 mL/min/{1.73_m2} Low >=60 [facility] Glucose [Mass/Vol] 108 mg/dL High 74-106 [facility] Potassium [Moles/Vol] 4.2 mmol/L 3.5-5.1 [facility] Protein [Mass/Vol] 6.1 g/dL Low 6.4-8.2 [facility] Sodium [Moles/Vol] 145 mmol/L 136-145 [facility] Triglyceride [Mass/Vol] 68 mg/dL <=150 [facility] TSH Qn 4.208 m[IU]/L High 0.358-3.740 [facility] Urea nitrogen [Mass/Vol] 44.0 mg/dL High 7.0-18.0 [facility] Urea nitrogen/Creatinine [Mass ratio] 17.2 mg/mg [facility] No Panel Informationon 06-21 Prostate Specific Antigen Screen 1.04 ng/mL <=4.00 [facility] Serum or plasma albumin/glob ulin mass ratioon 06-21-2024 Albumin/Globulin [Mass ratio] 1.1 {ratio} [facility] Serum or plasma anion gap de terminationon 06-21-2024 Anion gap [Moles/Vol] 10.5 mmol/L [facility] Serum or plasma total choles terol/high density lipoprotein (HDL) cholesterol mass cesar 06-21-2024 Cholesterol.total/C holesterol in HDL [Mass ratio] 2.9 {ratio} [facility] Comment on above: 3.3 - 4.4 LOW RISK4. 4 - 7.1 AVERAGE RISK7.1 - 11.0 MODERATE RISK>11.[address] ABDOMEN AND PELVIS WO CON Ton [...] Francisco Chopra MD on 05/22/2024 7:29 AM Normal [facility] 04-22-2024 36 LM on patient's VM letting him know results of stress test and echo. Normal [facility] 04-21-2024 36 Regarding stress yaneth t performed on 04/14/2024: MD Karmen Logan MA Please let the patient know that his stress test shows no ischemia. Dr. Christine, were you able to review his echo that was done at [facility]? Normal [facility] PTH INTACTon 01-25-2023 PTH, Intact 151 pg/mL Critically high 15-65 [facility] Comment on above: Performed By: #### P THINT ####[facility] [address] [place], [place] [address]RdDr. Jessica Delgadillo HEMOGRAM AND PLATELon 2022 Hematocrit (Bld) [Volume fraction] 32.2 % Critically low 42.0-54.0 [facility] Comment on above: Performed By: #### H H #### [facility] [address] [address] [address] Jessica Delgadillo Hemoglobin (Bld) [Mass/Vol] 10.2 g/dL Critically low 14.0-18.0 [facility] Comment on above: Performed By: #### H H #### [facility] [address] [address] [address] Jesisca Delgadillo MCH (RBC) [Entitic mass] 27.7 pg Normal 25.9-34.0 [facility] Comment on above: Performed By: #### H H #### [facility] [address] [address] [address] Jessica Delgadillo MCHC (RBC) [Mass/Vol] 31.7 g/dL Normal 29.9-35.2 [facility] Comment on above: Performed By: #### H H #### [facility] [address] [address] [address] Jessica Delgadillo MCV (RBC) [Entitic vol] 87.5 fL Normal 80.0-94.0 [facility] Comment on above: Performed By: #### H H #### [facility] [address] [address] [address] Jessica Delgadillo PLT 121 103/ul Critically low 150-450 [facility] Comment on above: Performed By: #### H H #### [facility] [address] [address] [address] Jessica Delgadillo RBC 3.68 106/ul Critically low 4.70-6.10 [facility] Comment on above: Performed By: #### H H #### [facility] [address] [address] [address] Jessica Delgadillo WBC 5.2 103/ul Normal 4.0-11.0 [facility] Comment on above: Performed By: #### H H #### [facility] [address] [address] [address] Jessica Delgadillo MAGNESIUMon 01-24-2023 Magnesium [Mass/Vol] 2.1 mg/dL Normal 1.8-2.4 [facility] Comment on above: Performed By: #### B MP, PHOS, MG #### [facility] [address] [address] [address] Jessica Delgadillo PHOSPHORUSon 01-24-2023 Phosphate [Mass/Vol] 3.3 mg/dL Normal 2.6-4.7 [facility] Comment on above: Performed By: #### B MP, PHOS, MG #### [facility] [address] [address] [address] Jessica Delgadillo PROF CHEM 8 (BAS METB)on Anion gap [Moles/Vol] 13.1 mmol/L Normal [facility] Comment on above: Performed By: #### B MP, PHOS, MG ####[facility] [address] [address]DrJens Delgadillo Calcium [Mass/Vol] 8.3 mg/dL Critically low 8.5-10.1 [facility] Comment on above: Performed By: #### B MP, PHOS, MG ####[facility] [address] [address]DrJens Delgadillo Chloride [Moles/Vol] 106 mmol/L Normal 98-107 [facility] Comment on above: Performed By: #### B MP, PHOS, MG ####[facility] [address] [address]DrJens Delgadillo CO2 [Moles/Vol] 25.1 mmol/L Normal 21.0-32.0 [facility] Comment on above: Performed By: #### B MP, PHOS, MG ####[facility] [address] [address]Dr[address] Jessica Delgadillo Creatinine [Mass/Vol] 2.25 mg/dL Critically high 0.70-1.30 [facility] Comment on above: Performed By: #### B MP, PHOS, MG ####[facility] [address] [address] Jessica Delgadillo EGFR-AF SERBIAN 35 mL/min/1.73m2 Critically low >=60 [facility] Comment on above: Performed By: #### B MP, PHOS, MG ####[facility] [address] [address]Dr. Jessica Delgadillo EGFR-NON AF SERBIAN 29 mL/min/1.73m2 Critically low >=60 [facility] Comment on above: Performed By: #### B MP, PHOS, MG ####[facility] [address] [place], [place] [address]Dr. Jessica Delgadillo Glucose [Mass/Vol] 111 mg/dL Critically high 74-106 [facility] Comment on above: Performed By: #### B MP, PHOS, MG ####[facility] [address] [place], [place] [address]Dr. Jessica Delgadillo Potassium [Moles/Vol] 4.2 mmol/L Normal 3.5-5.1 [facility] Comment on above: Performed By: #### B MP, PHOS, MG ####[facility] [address] [address]Dr[address] Jessica Delgadillo Sodium [Moles/Vol] 140 mmol/L Normal 136-145 [facility] Comment on above: Performed By: #### B MP, PHOS, MG ####[facility] [address] [place], [place] [address]Dr. Jessica Delgadillo Urea nitrogen [Mass/Vol] 47.0 mg/dL Critically high 7.0-18.0 [facility] Comment on above: Performed By: #### B MP, PHOS, MG ####[facility] [address] [address]Dr[address] Jessica Delgadillo Urea nitrogen/Creatinine [Mass ratio] 20.9 mg/mg Normal [facility] Comment on above: Performed By: #### B MP, PHOS, MG ####[facility] [address] [address]Dr[address] Jessica Delgadillo URINE T PROTEIN CREAT RATIOo n 01-24-2023 Protein (U) [Mass/Vol] 10.2 mg/dL Normal <=12.0 [facility] Comment on above: Performed By: #### U RTPCR #### [facility] [address] [address] [address] Jessica Delgadillo UR PROT CREAT RAT 0.49 Normal [facility] Comment on above: Performed By: #### U RTPCR #### [facility] [address] [place] [address] Dr. Jessica Delgadillo URINE CREAT 20.93 mg/dL Normal 20.00-300.00 [facility] Comment on above: Performed By: #### U RTPCR #### [facility] [address] [address] [address] Jessica Delgadillo VITAMIN D 25 OHon 01-24-2023 VIT D 25-OH 34.8 ng/mL Normal [facility] Comment on above: Performed By: #### V ITAD #### [facility] [address] [place] [address] Dr. Jessica Delgadillo VIT D RANGES SEE BELOW Normal [facility] Comment on above: Result Comment: <20 ng/mL Vit D deficient 20 - <30 ng/mL Vit D insufficient 30 - 100 ng/mL Vit D sufficient >100 ng/mL Potential Toxicity Performed By: #### V ITAD #### [facility] [address] [place] [address] Dr. Jessica Delgadillo Covid-19 PCR (CVDTBH)on SARS-CoV-2 (COVID-19) RNA VANESSA+probe Ql (Unsp spec) Detected Critically abnormal NOT DETECTED [facility] Comment on above: Result Comment: This test is not yet approved or cleared by the [place] FDA. When there are no FDA-approved or cleared tests available, and other criteria are met, FDA can make tests available under an emergency access mechanism called an Emergency Use Authorization (EUA). The EUA for this test is supported by the [place] of Health and Human Service's declaration that [...] longer be used). Performed By: #### C [facility] #### [facility] [address] [place] [address] Dr. Jessica Delgadillo CAROTID ART BILon 022 [...] by: SHANNAN SUAREZ Date: 2022-08-20 19:17 Normal [facility] LIPID PROFILEon 05-09-2022 CHOL-HDL RATIO NORM SEE BELOW Normal [facility] Comment on above: Result Comment: 3.3 - 4.4 LOW RISK 4.4 - 7.1 AVERAGE RISK 7.1 - 11.0 MODERATE RISK >11.0 HIGH RISK Performed By: #### A LT, LIPID #### [facility] [address] [address] [address] Jessica Delgadillo Cholesterol [Mass/Vol] 135 mg/dL Normal <=200 [facility] Comment on above: Performed By: #### A LT, LIPID #### [facility] [address] [address] [address] Jessica Delgadillo Cholesterol in HDL [Mass/Vol] 47 mg/dL Normal 40-60 [facility] Comment on above: Performed By: #### A LT, LIPID #### [facility] [address] [address] [address] Jessica Delgadillo Cholesterol in LDL [Mass/Vol] 69.8 mg/dL Normal [facility] Comment on above: Performed By: #### A LT, LIPID #### [facility] [address] [place] [address] Dr. Jessica Delgadillo Cholesterol.total/C holesterol in HDL [Mass ratio] 2.9 {ratio} Normal [facility] Comment on above: Performed By: #### A LT, LIPID #### [facility] [address] [address] [address] Jessica Delgadillo HDL NORMAL > or = 60 mg/dl - LO W CARDIOVASCULAR RISK <40 mg/dl - HIGH CARDIOVASCULAR RISK Normal [facility] Comment on above: Performed By: #### A LT, LIPID #### [facility] [address] [address] [address] Jessica Delgadillo LDL CALC NORMAL SEE BELOW Normal [facility] Comment on above: Result Comment: <100 mg/dl OPTIMAL 100 - 129 mg/dl NEAR OR ABOVE OPTIMAL 130 - 159 mg/dl BORDERLINE HIGH 160 - 189 mg/dl HIGH >190 mg/dl VERY HIGH Performed By: #### A LT, LIPID #### [facility] [address] [address] [address] Jessica Delgadillo Triglyceride [Mass/Vol] 91 mg/dL Normal <=150 [facility] Comment on above: Performed By: #### A LT, LIPID #### [facility] [address] [address] [address] Jessica Delgadillo VLDL CALC 18.2 mg/dL Normal [facility] Comment on above: Performed By: #### A LT, LIPID #### [facility] [address] [place], [place] [address] Dr. Jessica Delgadillo [facility] 05-09-2022 ALT [Catalytic activity/Vol] 9 U/L Critically low 16-63 [facility] Comment on above: Performed By: #### A LT, LIPID #### [facility] [address] [place], [place] [address] Dr. Jessica Delgadillo Vital Signs Date Time Vital Sign Value Performing Clinician Facility 06-20-2025 [id number] Body height 180.34 cm Cortez Ball DO Work Phone: [facility] 06-20-2025 09:10-0400 Body mass index (BMI) [Ratio] 26.9 kg/m2 Cortez Ball DO Work Phone: [facility] 06-20-2025 09:10-0400 Body weight 87.65 kg Cortez Ball DO Work Phone: [facility] 06-20-2025 09:10-0400 Diastolic blood pressure 68 mm[Hg] Cortez Ball DO Work Phone: [facility] 06-20-2025 09:10-0400 Heart rate 48 /min Cortez Ball DO Work Phone: [facility] 06-20-2025 09:10-0400 Respiratory rate 12 /min Cortez Ball DO Work Phone: [facility] 06-20-2025 09:10-0400 Systolic blood pressure 118 mm[Hg] Cortez Ball DO Work Phone: [facility] 06-02-2025 08:24-0400 Body height 177.8 cm Yuliana Peresther GREEN HIDE INSPECTOR-MARKER MAKER Work Phone: [facility] 06-02-2025 08:24-0400 Body mass index (BMI) [Ratio] 27.69 kg/m2 Yuliana Perne GREEN HIDE INSPECTOR-MARKER MAKER Work Phone: [facility] 06-02-2025 08:24-0400 Body weight 87.54 kg Yuliana Perne GREEN HIDE INSPECTOR-MARKER MAKER [email or web address] 06-02-2025 08:24-0400 Diastolic blood pressure 68 mm[Hg] Yuliana Perne GREEN HIDE INSPECTOR-MARKER MAKER [email or web address] 06-02-2025 08:24-0400 Heart rate 51 /min Yuliana Perne GREEN HIDE INSPECTOR-MARKER MAKER [facility] 06-02-2025 08:24-0400 SaO2% (BldA) [Mass fraction] 98 % Yuliana Perne GREEN HIDE INSPECTOR-MARKER MAKER [email or web address] 06-02-2025 08:24-0400 Systolic blood pressure 192 mm[Hg] Yuliana Perne GREEN HIDE INSPECTOR-MARKER MAKER [email or web address] 05-12-2025 15:09-0400 Diastolic blood pressure 50 mm[Hg] Wallace Reyes MD [email or web address] 05-12-2025 15:09-0400 Heart rate 50 /min Wallace Reyes MD [email or web address] 05-12-2025 15:09-0400 Systolic blood pressure 116 mm[Hg] Wallace Reyes MD [email or web address] 05-12-2025 15:06-0400 Body height 177.8 cm Wallace Reyes MD [email or web address] 05-12-2025 15:06-0400 Body mass index (BMI) [Ratio] 27.86 kg/m2 Wallace Reyes MD Work [facility] 05-12-2025 15:06-0400 Body weight 88.09 kg Wallace Reyes MD [facility] 03-25-2025 09:01-0400 Body height 180.34 cm Cortez Lugo DO Work Phone: [facility] 03-25-2025 09:01-0400 Body mass index (BMI) [Ratio] 27.3 kg/m2 Cortez Ball DO Work Phone: [facility] 03-25-2025 09:01-0400 Body weight 89.13 kg Cortez Ball DO Work Phone: [facility] 03-25-2025 09:01-0400 Diastolic blood pressure 86 mm[Hg] Cortez Ball DO Work Phone: [facility] 03-25-2025 09:01-0400 Heart rate 56 /min Cortez Ball DO Work Phone: [facility] 03-25-2025 09:01-0400 Respiratory rate 12 /min Cortez Ball DO Work Phone: [facility] 03-25-2025 09:01-0400 Systolic blood pressure 135 mm[Hg] Cortez Ball DO Work Phone: [facility] 03-14-2025 10:09-0400 Body height 177.8 cm Yusuf Perez DPM Work Phone: [facility] 03-14-2025 10:09-0400 Body mass index (BMI) [Ratio] 26.54 kg/m2 Yusuf Perez DPM Work Phone: [facility] 03-14-2025 10:09-0400 Body weight 83.92 kg Yusuf Perez DPM Work Phone: [facility] 12-15-2024 14:13-0500 Body height 177.8 cm Cortez Murcek DO Work Phone: [facility] 12-15-2024 14:13-0500 Body mass index (BMI) [Ratio] 26.54 kg/m2 Cortez Murcek DO Work Phone: [facility] 12-15-2024 14:13-0500 Body weight 83.92 kg Cortez Murcek DO Work Phone: [facility] 12-14-2024 08:52-0500 Body height 180.34 cm Coretz Murcek DO Work Phone: [facility] 12-14-2024 08:52-0500 Body mass index (BMI) [Ratio] 25.9 kg/m2 Cortez Murcek DO Work Phone: [facility] 12-14-2024 08:52-0500 Body weight 84.36 kg Cortez Murcek DO Work Phone: [facility] 12-14-2024 08:52-0500 Diastolic blood pressure 74 mm[Hg] Cortez Murcek DO Work Phone: [facility] 12-14-2024 08:52-0500 Heart rate 45 /min Cortez Murcek DO Work Phone: [facility] 12-14-2024 08:52-0500 Systolic blood pressure 184 mm[Hg] Cortez Murcek DO Work Phone: [facility] 12-06-2024 15:17-0500 Body height 177.8 cm Yusuf Perez DPM Work Phone: [facility] 12-06-2024 15:17-0500 Body mass index (BMI) [Ratio] 26.54 kg/m2 Yusuf Perez DPM Work Phone: [facility] 12-06-2024 15:17-0500 Body weight 83.92 kg Yusuf Perez DPM Work Phone: [facility] 11-17-2024 14:04-0500 Body height 177.8 cm Cortez Murcek DO Work Phone: [facility] 11-17-2024 14:04-0500 Body mass index (BMI) [Ratio] 26.54 kg/m2 Cortez Murcek DO Work Phone: [facility] 11-17-2024 14:04-0500 Body weight 83.92 kg Cortez Murcek DO Work Phone: [facility] 11-04-2024 09:32-0500 Diastolic blood pressure 54 mm[Hg] Wallace Reyes MD Work Phone: [facility] 11-04-2024 09:32-0500 Heart rate 46 /min Wallace Reyes MD Work Phone: [facility] 11-04-2024 09:32-0500 Systolic blood pressure 138 mm[Hg] Wallace Reyes MD Work Phone: [facility] 11-04-2024 09:29-0500 Body height 177.8 cm Wallace Reyes MD Work Phone: [facility] 11-04-2024 09:29-0500 Body mass index (BMI) [Ratio] 27.65 kg/m2 Wallace Reyes MD Work Phone: [facility] 11-04-2024 09:29-0500 Body weight 87.41 kg Wallace Reyes MD Work Phone: [facility] 10-27-2024 13:22-0500 Body height 177.8 cm Cortez Cranek DO Work Phone: [facility] 10-27-2024 13:22-0500 Body mass index (BMI) [Ratio] 26.54 kg/m2 Cortez Murcek DO Work Phone: [facility] 10-27-2024 13:22-0500 Body weight 83.92 kg Cortez Murcek DO Work Phone: [facility] 09-13-2024 09:24-0500 Body height 180.34 cm Cortez Murcek DO Work Phone: [facility] 09-13-2024 09:24-0500 Body mass index (BMI) [Ratio] 26.6 kg/m2 Cortez Murcek DO Work Phone: [facility] 09-13-2024 09:24-0500 Body weight 86.74 kg Cortez Backcek DO Work Phone: [facility] 09-13-2024 09:24-0500 Diastolic blood pressure 65 mm[Hg] Cortez Gaspar DO Work Phone: [facility] 09-13-2024 09:24-0500 Heart rate 45 /min Cortez Murcek DO Work Phone: [facility] 09-13-2024 09:24-0500 Respiratory rate 12 /min Cortez Murcek DO Work Phone: [facility] 09-13-2024 09:24-0500 Systolic blood pressure 142 mm[Hg] Cortez Murcek DO Work Phone: [facility] 08-17-2024 11:45-0500 Body height 180.34 cm [facility] 08-17-2024 11:45-0500 Body mass index (BMI) [Ratio] 26.1 kg/m2 [facility] 08-17-2024 11:45-0500 Body weight 84.87 kg [facility] 08-17-2024 11:45-0500 Diastolic blood pressure 73 mm[Hg] [facility] 08-17-2024 11:45-0500 Heart rate 57 /min [facility] 08-17-2024 11:45-0500 Respiratory rate 12 /min [facility] 08-17-2024 11:45-0500 Systolic blood pressure 136 mm[Hg] [facility] 08-16-2024 14:20-0500 Body height 177.8 cm Yusuf Perez DPM Work Phone: [facility] 08-16-2024 14:20-0500 Body mass index (BMI) [Ratio] 26.54 kg/m2 Yusuf Perez DPM Work Phone: [facility] 08-16-2024 14:20-0500 Body weight 83.92 kg Yusuf Perez DPM Work Phone: [facility] 08-05-2024 10:26-0400 Body mass index (BMI) [Ratio] 26.5 kg/m2 [facility] 08-05-2024 10:26-0400 Diastolic blood pressure 89 mm[Hg] [facility] 08-05-2024 10:26-0400 Systolic blood pressure 139 mm[Hg] [facility] 08-05-2024 10:11-0400 Body height 180.34 cm [facility] 08-05-2024 10:11-0400 Body weight 86.23 kg [facility] 08-05-2024 10:11-0400 Heart rate 55 /min [facility] 08-05-2024 10:11-0400 Respiratory rate 12 /min [facility] 07-26-2024 15:10-0400 Body height 180.34 cm [facility] 07-26-2024 15:10-0400 Body mass index (BMI) [Ratio] 26.9 kg/m2 [facility] 07-26-2024 15:10-0400 Body weight 87.54 kg [facility] 07-26-2024 15:10-0400 Diastolic blood pressure 68 mm[Hg] [facility] 07-26-2024 15:10-0400 Heart rate 52 /min [facility] 07-26-2024 15:10-0400 Respiratory rate 12 /min [facility] 07-26-2024 15:10-0400 Systolic blood pressure 134 mm[Hg] [facility] 06-16-2024 10:04-0400 Body height 180.34 cm [facility] 06-16-2024 10:04-0400 Body mass index (BMI) [Ratio] 26.6 kg/m2 [facility] 06-16-2024 10:04-0400 Body weight 86.63 kg [facility] 06-16-2024 10:04-0400 Diastolic blood pressure 89 mm[Hg] [facility] 06-16-2024 10:04-0400 Heart rate 48 /min [facility] 06-16-2024 10:04-0400 Respiratory rate 12 /min [facility] 06-16-2024 10:04-0400 Systolic blood pressure 139 mm[Hg] [facility] 05-27-2024 10:11-0400 Diastolic blood pressure 69 mm[Hg] Sara Renteria MD Work Phone: [facility] 05-27-2024 10:11-0400 Systolic blood pressure 168 mm[Hg] Sara Renteria MD Work Phone: [facility] 05-27-2024 10:09-0400 Body height 177.8 cm Sara Renteria MD Work Phone: [facility] 05-27-2024 10:09-0400 Body mass index (BMI) [Ratio] 26.83 kg/m2 Sara Renteria MD Work Phone: [facility] 05-27-2024 10:09-0400 Body weight 84.82 kg Sara Renteria MD Work Phone: [facility] 05-27-2024 10:09-0400 Heart rate 51 /min Sara Renteria MD Work Phone: [facility] 05-27-2024 10:09-0400 SaO2% (BldA) [Mass fraction] 100 % Sara Renteria MD Work Phone: [facility] 04-09-2024 14:01-0400 Body height 180.34 cm [facility] 04-09-2024 14:01-0400 Body mass index (BMI) [Ratio] 26.2 kg/m2 [facility] 04-09-2024 14:01-0400 Body weight 85.5 kg [facility] 04-09-2024 14:01-0400 Diastolic blood pressure 64 mm[Hg] [facility] 04-09-2024 14:01-0400 Heart rate 98 /min [facility] 04-09-2024 14:01-0400 Respiratory rate 12 /min [facility] 04-09-2024 14:01-0400 Systolic blood pressure 130 mm[Hg] [facility] 03-18-2024 10:11-0400 Diastolic blood pressure 67 mm[Hg] Wallace Reyes MD Work Phone: [facility] 03-18-2024 10:11-0400 Heart rate 45 /min Wallace Reyes MD Work Phone: [facility] 03-18-2024 10:11-0400 Systolic blood pressure 132 mm[Hg] Wallace Reyes MD Work Phone: [employer] 03-18-2024 10:07-0400 SaO2% (BldA) [Mass fraction] 98 % Wallace Reyes MD Work Phone: [employer] 08-11-2023 11:30-0400 Body height 180.34 cm Cortez Ball Other [employer] Other 08-11-2023 11:30-0400 Body mass index (BMI) [Ratio] 25.46 kg/m2 Cortez Ball Other [employer] Other 08-11-2023 11:30-0400 Body weight 82.83 kg Cortez Ball Other [employer] Other 08-11-2023 11:30-0400 Diastolic blood pressure 78 mm[Hg] Cortez Ball Other [employer] Other 08-11-2023 11:30-0400 Respiratory rate 12 /min Cortez Ball Other [employer] Other 08-11-2023 11:30-0400 Systolic blood pressure 156 mm[Hg] Cortez Ball Other [employer] Other 07-11-2023 11:00-0400 Body height 180.34 cm Cortez Ball Other [employer] Other 07-11-2023 11:00-0400 Body mass index (BMI) [Ratio] 24.66 kg/m2 Cortez Ball Other [employer] Other 07-11-2023 11:00-0400 Body weight 80.2 kg Cortez Ball Other [employer] Other 07-11-2023 11:00-0400 Diastolic blood pressure 72 mm[Hg] Cortez Ball Other [employer] Other 07-11-2023 11:00-0400 Respiratory rate 12 /min Cortez Ball Other [employer] Other 07-11-2023 11:00-0400 Systolic blood pressure 123 mm[Hg] Cortez Ball Other [employer] Other 06-30-2023 14:30-0400 Body height 180.34 cm Cortez Ball Other [employer] Other 06-30-2023 14:30-0400 Body mass index (BMI) [Ratio] 27.7 kg/m2 Cortez Ball Other [employer] Other 06-30-2023 14:30-0400 Body weight 90.08 kg Cortez Ball Other [employer] Other 06-30-2023 14:30-0400 Diastolic blood pressure 69 mm[Hg] Cortez Ball Other [employer] Other 06-30-2023 14:30-0400 Respiratory rate 12 /min Cortez Ball Other [employer] Other 06-30-2023 14:30-0400 Systolic blood pressure 129 mm[Hg] Cortez Ball Other [employer] Other 06-25-2023 14:30-0400 Body height 180.34 cm Supriya Gardner Other [employer] Other 06-25-2023 14:30-0400 Body mass index (BMI) [Ratio] 27.05 kg/m2 Supriya Gardner Other [employer] Other 06-25-2023 14:30-0400 Body weight 88 kg Supriya Villajosue Other [employer] Other 06-25-2023 14:30-0400 Diastolic blood pressure 62 mm[Hg] Supriya Kendra Other [employer] Other 06-25-2023 14:30-0400 SaO2% (BldA) [Mass fraction] 97 % Supriya Villajosue Other [employer] Other 06-25-2023 14:30-0400 Systolic blood pressure 98 mm[Hg] Supriya Villajosue Other [employer] Other 11-19-2022 10:00-0500 Body height 180.34 cm Cortez Ball Other [employer] Other 11-19-2022 10:00-0500 Body mass index (BMI) [Ratio] 27.89 kg/m2 Cortez Ball Other [employer] Other 11-19-2022 10:00-0500 Body weight 90.72 kg Cortez Ball Other [employer] Other 11-19-2022 10:00-0500 Diastolic blood pressure 70 mm[Hg] Cortez Ball Other [employer] Other 11-19-2022 10:00-0500 Respiratory rate 12 /min Cortez Ball Other [employer] Other 11-19-2022 10:00-0500 Systolic blood pressure 124 mm[Hg] Cortez Ball Other [facility] [employer] Other Encounters Encounter Date Encounter Type Care Provider Facility Start: 06-20-2025 End: 06-20-2025 ambulatory Cortez Lugo DO Work Phone: [facility] Work Phone: Start: 06-20-2025 End: 06-20-2025 Patient encounter procedure Cortez Lugo DO -[facility] Work Phone: Start: 06-02-2025 End: 06-02-2025 Office outpatient visit 15 minutes Yuliana Adler [employer] Work Phone: 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 Comment on above: Stage 4 chronic kidn ey disease (CMS-HCC) (Primary Dx) Start: 05-05-2025 ambulatory WALLACE REYES [facility] Start: 03-25-2025 End: 03-25-2025 Patient encounter procedure Cortez Lugo DO -[facility] Work Phone: Start: 03-16-2025 End: 03-16-2025 ambulatory E[facility] Start: 03-14-2025 End: 03-14-2025 Bamboo flowsheet Yusuf Perez DPM Work Phone: [facility] Start: 03-14-2025 End: 03-14-2025 Bamboo flowsheet Yusuf Perez DPM Work Phone: [facility] Start: 03-14-2025 End: 03-14-2025 Patient encounter procedure Yusuf Perez DPM Work Phone: [facility] Comment on above: Dermatophytosis of n ail (Primary Dx); Dystrophic nail; Pain around toenail, right foot; Pain around toenail, left foot Start: 03-14-2025 End: 03-14-2025 ambulatory YUSUF PEREZ Not Available Start: 01-21-2025 End: 01-24-2025 Lidya Reyes MD Work Phone: [facility] Start: 01-18-2025 End: 01-18-2025 Telephone encounter Sara Renteria MD Work Phone: [facility] Start: 12-15-2024 End: 12-15-2024 Postop follow up visit related to original px Cortez Trejo Rosa Mariabobbi DO [facility] Comment on above: Cancer of the lip, o ral cavity, and pharynx (CMS/HCC) (Primary Dx) Start: 12-15-2024 End: 12-15-2024 ambulatory CORTEZ GASPAR Not Available Start: 12-15-2024 End: 12-15-2024 Bamboo flowsheet Cortez Gaspar DO Work Phone: [facility] Start: 12-15-2024 End: 12-15-2024 Bamboo flowsheet Cortez Gaspar DO Work Phone: [facility] Start: 12-14-2024 End: 12-14-2024 ambulatory Cortez Gaspar DO Work Phone: [facility] Work Phone: Start: 12-14-2024 End: 12-14-2024 Patient encounter procedure Cortez Chasity DO Work Phone: [facility] Phys[facility] Work Phone: Start: 12-06-2024 End: 12-06-2024 Patient encounter procedure Yusuf Perez DPM Work Phone: [facility] Comment on above: Dermatophytosis of n ail (Primary Dx); Dystrophic nail; Pain around toenail, right foot; Pain around toenail, left foot Start: 12-06-2024 End: 12-06-2024 ambulatory YUSUF PEREZ Not Available Start: 12-06-2024 End: 12-06-2024 Bamboo flowsheet Yusuf Perez DPM Work Phone: [facility] Start: 12-06-2024 End: 12-06-2024 Bamboo flowsheet Yusuf Perez DPM Work Phone: [facility] Start: 11-17-2024 End: 11-17-2024 ambulatory CORTEZ GASPAR Not Available Start: 11-17-2024 End: 11-17-2024 Bamboo flowsheet Cortez Cranebobbi DO Work Phone: [facility] Start: 11-17-2024 End: 11-17-2024 Bamboo flowsheet Cortez Trejo Rosa Mariabobbi DO Work Phone: [facility] Start: 11-17-2024 End: 11-17-2024 Postop follow up visit related to original px Cortez Trejo Rosa Mariabobbi DO Work Phone: [facility] Comment on above: 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 Start: 09-30-2024 End: 09-30-2024 Office outpatient visit 15 minutes Piedad Connolly MD Work Phone: [facility] Comment on above: Seborrheic keratosis (Primary Dx); Actinic keratosis; Neoplasm of unspecified behavior of bone, soft tissue, and skin; Lentigines Start: 09-30-2024 End: 09-30-2024 ambulatory PIEDAD CONNOLLY Not Available Start: 09-30-2024 End: 09-30-2024 Bamboo flowsheet Piedad Connolly MD Work Phone: [facility] Start: 09-30-2024 End: 09-30-2024 Bamboo flowsheet Piedad Connolly MD Work Phone: [facility] Start: 09-28-2024 Non-patient / Non-visit Jeimy Gaspar DO Work Phone: [facility] Phys[facility] Work Phone: Start: 09-13-2024 End: 09-13-2024 Patient encounter procedure Cortez Gaspar DO Work Phone: [facility] Work Phone: Start: 08-17-2024 End: 08-17-2024 ambulatory [facility] Work Phone: Start: 08-17-2024 End: 08-17-2024 Patient encounter procedure [facility] Work Phone: Start: 08-16-2024 End: 08-16-2024 ambulatory YUSUF PEREZ Not Available Start: 08-16-2024 End: 08-16-2024 Patient encounter procedure Yusuf Perez DPM Work Phone: [facility] Comment on above: Dermatophytosis of n ail (Primary Dx); Dystrophic nail; Pain around toenail, right foot; Pain around toenail, left foot Start: 08-16-2024 End: 08-16-2024 Bamboo flowsheet Yusuf Perez DPM Work Phone: [facility] Start: 08-16-2024 End: 08-16-2024 Bamboo flowsheet Yusuf Perez DPM Work Phone: [facility] Start: 08-05-2024 Non-patient / Non-visit [facility] Work Phone: Start: 08-05-2024 End: 08-05-2024 ambulatory [facility] Work Phone: Start: 08-05-2024 End: 08-05-2024 Patient encounter procedure [facility] Work Phone: Start: 07-26-2024 End: 07-26-2024 ambulatory [facility] Work Phone: Start: 07-26-2024 End: 07-26-2024 Patient encounter procedure [facility] Work Phone: Start: 07-16-2024 End: 07-20-2024 Telephone encounter Wallace Reyes MD Work Phone: [facility] Comment on above: Other Start: 06-21-2024 Non-patient / Non-visit [facility] Work Phone: Start: 06-16-2024 End: 06-16-2024 ambulatory [facility] Work Phone: Start: 06-16-2024 End: 06-16-2024 Patient encounter procedure [facility] Work Phone: Start: 06-13-2024 Patient encounter procedure [facility] Start: 05-28-2024 End: 05-28-2024 Orders Only Barbiedre Chapman [facility] Comment on above: Bilateral carotid ar jong stenosis (Primary Dx) Infrarenal abdominal aortic aneurysm (AAA) without rupture ([facility]-HCC) (Primary Dx) Start: 05-27-2024 End: 05-27-2024 Office outpatient visit 25 minutes Sara Renteria MD Work Phone: [facility] Comment on above: Bilateral carotid ar jong stenosis (Primary Dx); Infrarenal abdominal aortic aneurysm (AAA) without rupture (CMS-HCC) Start: 05-20-2024 End: 05-20-2024 ambulatory [facility] Start: 04-22-2024 End: 04-22-2024 ambulatory YUSUF PEREZ Not Available Start: 04-09-2024 End: 04-09-2024 ambulatory [facility] Work Phone: Start: 04-09-2024 End: 04-09-2024 Patient encounter procedure [facility] Work Phone: Start: 04-01-2024 End: 04-01-2024 ambulatory PIEDAD CONNOLLY Not Available Start: 03-18-2024 End: 03-18-2024 Office outpatient visit 25 minutes Wallace Reyes MD Work Phone: 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-HCC) (Primary Dx) Start: 02-02-2024 Non-patient / Non-visit [facility] [employer] Work Phone: Start: 12-30-2023 Telephone encounter Ta Escalante CMA [facility] Start: 11-17-2023 End: 11-17-2023 ambulatory Cortez Ball Other [employer] Other Start: 11-17-2023 Telephone encounter Cortez Ball [facility] Start: 11-10-2023 End: 11-10-2023 ambulatory Cortez Ball Other [employer] Other Start: 11-10-2023 Telephone encounter Cortez Ball [facility] Start: 10-27-2023 End: 10-27-2023 ambulatory Cortez Ball Other [employer] Other Start: 10-27-2023 Telephone encounter Cortez Ball [facility] Start: 08-25-2023 End: 08-25-2023 ambulatory Cortez Ball Other [employer] Other Start: 08-25-2023 Telephone encounter Cortez Ball [facility] Start: 08-11-2023 End: 08-11-2023 ambulatory Cortez Ball Other [employer] Other Start: 08-11-2023 Office outpatient vi sit 25 minutes Cortez Ball [facility] Start: 07-31-2023 End: 07-31-2023 ambulatory Cortez Ball Other [employer] Other Start: 07-31-2023 Telephone encounter Cortez Ball [facility] Start: 07-21-2023 End: 07-21-2023 ambulatory Cortez Ball Other [employer] Other Start: 07-21-2023 Telephone encounter Cortez Ball [facility] Start: 07-11-2023 End: 07-11-2023 ambulatory Cortez Ball Other [employer] Other Start: 07-11-2023 Office outpatient vi sit 25 minutes Cortez Ball [facility] Start: 07-01-2023 End: 07-01-2023 ambulatory Cortez Ball Other [employer] Other Start: 07-01-2023 Telephone encounter Cortez Ball [facility] Start: 06-30-2023 End: 06-30-2023 ambulatory Cortez Ball Other [employer] Other Start: 06-30-2023 Telephone encounter Cortez Ball [facility] Start: 06-30-2023 Transitional care mildred trivedi srvc 7 day discharge Cortez Ball [facility] Start: 06-25-2023 End: 06-25-2023 ambulatory Cortez Ball Other [employer] Other Start: 06-25-2023 Office outpatient vi sit 15 minutes Supriya Gardner [facility] Start: 06-25-2023 Telephone encounter Cortez Ball [facility] Start: 06-09-2023 End: 06-09-2023 ambulatory Cortez Ball Other [employer] Other Start: 06-09-2023 Telephone encounter Cortez Ball [facility] Start: 05-16-2023 End: 05-16-2023 ambulatory Cortez Ball Other [employer] Other Start: 05-16-2023 Telephone encounter Cortez Ball [facility] Start: 04-21-2023 End: 04-21-2023 ambulatory Cortez Ball Other [employer] Other Start: 04-21-2023 Telephone encounter Cortez Ball [facility] Start: 03-18-2023 End: 03-18-2023 ambulatory Cortez Ball Other [employer] Other Start: 03-18-2023 Telephone encounter Cortez Ball [facility] Start: 02-10-2023 End: 03-12-2023 ambulatory [facility] Start: 02-05-2023 End: 02-05-2023 ambulatory Cortez Ball Other [employer] Other Start: 02-05-2023 Telephone encounter Cortez Ball [facility] Start: 01-27-2023 End: 01-27-2023 ambulatory Cortez Ball Other [employer] Other Start: 01-27-2023 Telephone encounter Cortez [facility] Start: 01-24-2023 End: 01-25-2023 ambulatory WALLACE REYES MD Facility:H1 Start: 01-13-2023 End: 02-07-2023 [facility]ulatory [facility] Start: 12-11-2022 End: 01-10-2023 ambulatory [facility] Start: 12-09-2022 End: 12-09-2022 ambulatory Cortez Ball Other [employer] Other Start: 12-09-2022 Telephone encounter Cort[facility] Start: 11-22-2022 End: 11-22-2022 ambulatory Cortez Ball Other [employer] Other Start: 11-22-2022 Telephone encounter Cortez Ball [facility] Start: 11-19-2022 End: 11-19-2022 ambulatory Cortez Ball Other [employer] Other Start: 11-19-2022 Office outpatient vi sit 25 minutes [facility] Start: 11-13-2022 End: 12-11-2022 ambulatory [facility] Start: 10-21-2022 End: 10-21-2022 ambulatory Cortez Lugo Other [employer] Other Start: 10-21-2022 Telephone encounter [facility] Start: 10-14-2022 End: 11-13-2022 ambulatory [facility] Start: 09-16-2022 End: 09-16-[address] CORTEZ LUGO Facility:[facility]1 Start: 09-12-2022 End: 10-13-2022 ambulatory [facility] Start: 08-20-2022 End: 08-21-[address] TANI ARGUELLO Facility:[facility]1 Start: 08-13-2022 End: 09-11-2022 ambulatory [facility] Start: 07-15-2022 End: 08-12-2022 ambulatory [facility] Start: 06-13-2022 End: 07-13-2022 ambulatory [facility] Start: 05-13-2022 End: 06-12-2022 ambulatory [facility] Start: 05-09-2022 End: 05-10-[address] CORTEZ LUGO Facility:[facility]1 Start: 05-05-2022 Adult health examination Ariel Lugo Other [employer] Other Start: 04-12-2022 End: 05-10-2022 ambulatory [facility] Facility[facility] Procedures Date Procedure Procedure Detail Performing Clinician Start: 09-30-2024 SKIN / NAIL BIOPSY Mannie Connolly MD Work Phone: Start: 09-30-2024 CRYOTHERAPY SKIN LESION Piedad Connolly MD Work Phone: Start: 05-09-2022 PSA screening [facility] Comment on above: Performed By: #### P [facility] #### [facility] [address] [place] [address] Dr. Jessica Delgadillo Start: 05-05-2022 Depression screening Be gay Lugo Other Start: 02-20-2017 Screening for malign ant neoplasm of colon Cortez Lugo Other Start: 02-20-2017 Screening for malign ant neoplasm of prostate Cortez Lguo Other Screening for malign ant neoplasm of prostate Cortez Lugo Other Plan of Treatment Date Care Activity Detail Author Start: 06-08-2026 End: 06-08-2026 Patient encounter procedure 06/08/2026 8:50 AM EDT Office Visit [facility] [address] [place] [address] Sara Renteria MD [address], [address] [address] [facility] Start: 06-02-2026 End: 06-02-2026 US Carotid arteries - bilateral Vas carotid duplex bilateral Vascular Ultrasound Routine Bilateral carotid artery stenosis Infrarenal abdominal aortic aneurysm (AAA) without rupture Expected: 06/02/2026 (Approximate), Expires: 06/02/2026 [employer] Work Phone: Comment on above: Expected: 06/02/2026 (Approximate), Expi res: 06/02/2026 Start: 06-02-2026 End: 12-03-2026 US.doppler Aorta and Iliac artery - bilateral Vas aorta/iliac duplex complete Vascular Ultrasound Routine Bilateral carotid artery stenosis Infrarenal abdominal aortic aneurysm (AAA) without rupture Expected: 06/02/2026 (Approximate), Expires: 12/03/2026 [facility] Comment on above: Expected: 06/02/2026 (Approximate), Expi res: 12/03/2026 Start: 06-02-2026 End: 06-02-2026 Patient encounter procedure [facility] Start: 05-12-2026 Tobacco Screening Tobacco Screening [facility] Start: 11-04-2025 Tobacco Screening Tobacco Screening [facility] Start: 10-04-2025 End: 10-04-2025 Patient encounter procedure 10/04/2025 2:30 PM EST Office Visit [facility] [address] [place] [phone] Piedad Connolly MD [address] [place] [address] [facility] GAFFNEY Start: 09-08-2025 End: 05-08-2026 Basic metabolic 2000 panel - Serum or Plasma Basic Metabolic Panel Lab Routine Stage 4 chronic kidney disease ([facility]) Expected: 09/08/2025, Expires: 05/08/2026 [facility] Work Phone: Comment on above: Expected: 09/08/2025, Expires: Start: 09-08-2025 End: 05-08-2026 CBC panel - Blood by Automated count CBC without diff Lab Routine Stage 4 chronic kidney disease ([facility]) Expected: 09/08/2025, Expires: 05/08/2026 [employer] Comment on above: Expected: 09/08/2025, Expires: Start: 09-08-2025 End: 05-08-2026 Magnesium [Mass/volume] in Serum or Plasma Magnesium Lab Routine Stage 4 chronic kidney disease ([facility]) Expected: 09/08/2025, Expires: 05/08/2026 [employer] Comment on above: Expected: 09/08/2025, Expires: Start: 09-08-2025 End: 05-08-2026 Parathyroid Hormone, intact Parathyroid Hormone, intact Lab Routine Stage 4 chronic kidney disease ([facility]) Expected: 09/08/2025, Expires: 05/08/2026 [employer] Comment on above: Expected: 09/08/2025, Expires: Start: 09-08-2025 End: 05-08-2026 Phosphate [Mass/volume] in Serum or Plasma Phosphorus Lab Routine Stage 4 chronic kidney disease ([facility]) Expected: 09/08/2025, Expires: 05/08/2026 [employer] Comment on above: Expected: 09/08/2025, Expires: Start: 09-08-2025 End: 05-08-2026 Protein creat ratio Protein creat ratio Lab Routine Stage 4 chronic kidney disease ([facility]) Expected: 09/08/2025, Expires: 05/08/2026 [facility] Comment on above: Expected: 09/08/2025, Expires: Start: 09-08-2025 End: 05-08-2026 Vitamin D 25 hydroxy Vitamin D 25 hydroxy Lab Routine Stage 4 chronic kidney disease ([facility]) Expected: 09/08/2025, Expires: 05/08/2026 [facility] Comment on above: Expected: 09/08/2025, Expires: Start: 07-14-2025 End: 07-14-2025 Patient encounter procedure 07/14/2025 10:15 AM EDT Procedure Visit [facility] [address] [place] [phone] Yusuf Perez, DPM [address] [place] [address] [facility] Start: 06-13-2025 Influenza vaccination Influenza Vaccine [facility] Start: 06-02-2025 End: 06-02-2025 Patient encounter procedure 06/02/2025 8:30 AM EDT Office Visit [facility] [place] [address] Sara Renteria MD [address], [address] [address] [facility] [place] Start: 05-27-2025 Adult BMI Screening Adult BMI Screening [facility] Start: 05-27-2025 Tobacco Screening Tobacco Screening [facility] Start: 05-27-2025 End: 05-27-2025 US Carotid arteries - bilateral Vas carotid duplex bilateral Vascular Ultrasound Routine Bilateral carotid artery stenosis Expected: 05/27/2025 (Approximate), Expires: 05/27/2025 [facility] Comment on above: Expected: 05/27/2025 (Approximate), Expi res: 05/27/2025 Start: 05-27-2025 End: 05-27-2025 US.doppler Aorta and Iliac artery - bilateral Vas aorta/iliac duplex complete Vascular Ultrasound Routine Infrarenal abdominal aortic aneurysm (AAA) without rupture ([facility]) Expected: 05/27/2025 (Approximate), Expires: 05/27/2025 [facility] Work Phone: Comment on above: Expected: 05/27/2025 (Approximate), Expi res: 05/27/2025 Start: 05-26-2025 End: 05-26-2025 Patient encounter procedure 05/26/2025 8:40 AM EDT Office Visit [facility] [address] [place] [phone] Sara Renteria MD [address], [address] [address] [facility] Start: 05-16-2025 End: 05-16-2025 Patient encounter procedure [facility] Start: 05-04-2025 End: 11-04-2025 Basic metabolic 2000 panel - Serum or Plasma Basic Metabolic Panel Lab Routine Stage 3b chronic kidney disease (CKD) ([facility]) Expected: 05/04/2025 (Approximate), Expires: 11/04/2025 [facility] Work Phone: Comment on above: Expected: 05/04/2025 (Approximate), Expi res: 11/04/2025 Start: 05-04-2025 End: 11-04-2025 CBC panel - Blood by Automated count CBC without diff Lab Routine Stage 3b chronic kidney disease (CKD) ([facility]) Expected: 05/04/2025 (Approximate), Expires: 11/04/2025 [facility] Comment on above: Expected: 05/04/2025 (Approximate), Expi res: 11/04/2025 Start: 05-04-2025 End: 11-04-2025 Magnesium [Mass/volume] in Serum or Plasma Magnesium Lab Routine Stage 3b chronic kidney disease (CKD) ([facility]) Expected: 05/04/2025 (Approximate), Expires: 11/04/2025 [email or web address] Comment on above: Expected: 05/04/2025 (Approximate), Expi res: 11/04/2025 Start: 05-04-2025 End: 11-04-2025 Parathyroid Hormone, intact Parathyroid Hormone, intact Lab Routine Stage 3b chronic kidney disease (CKD) ([facility]) Expected: 05/04/2025 (Approximate), Expires: 11/04/2025 [facility] Comment on above: Expected: 05/04/2025 (Approximate), Expi res: 11/04/2025 Start: 05-04-2025 End: 11-04-2025 Phosphate [Mass/volume] in Serum or Plasma Phosphorus Lab Routine Stage 3b chronic kidney disease (CKD) ([facility]) Expected: 05/04/2025 (Approximate), Expires: 11/04/2025 [email or web address] Comment on above: Expected: 05/04/2025 (Approximate), Expi res: 11/04/2025 Start: 05-04-2025 End: 11-04-2025 Protein creat ratio Protein creat ratio Lab Routine Stage 3b chronic kidney disease (CKD) ([facility]) Expected: 05/04/2025 (Approximate), Expires: 11/04/2025 [facility] Comment on above: Expected: 05/04/2025 (Approximate), Expi res: 11/04/2025 Start: 05-04-2025 End: 11-04-2025 Vitamin D 25 hydroxy Vitamin D 25 hydroxy Lab Routine Stage 3b chronic kidney disease (CKD) ([facility]) Expected: 05/04/2025 (Approximate), Expires: 11/04/2025 [email or web address] Comment on above: Expected: 05/04/2025 (Approximate), Expi res: 11/04/2025 Start: 03-25-2025 COVID-19 Vaccine () COVID-19 Vaccine () [email or web address] Start: 03-14-2025 End: 03-14-2025 Patient encounter procedure [facility] Comment on above: Arrived Start: 12-15-2024 End: 12-15-2024 Patient encounter procedure [facility] Comment on above: Arrived Start: 12-06-2024 End: 12-06-2024 Patient encounter procedure [facility] Comment on above: Arrived Start: 12-02-2024 End: 12-02-2024 Patient encounter procedure 12/02/2024 2:15 PM EST Procedure Visit [facility] [address] [place] [phone] Yusuf Perez, MICHI [address] [place], [place] [id number] [facility] Start: 11-04-2024 End: 11-04-2024 Patient encounter procedure 11/04/2024 9:30 AM EST Office Visit [facility] [address] [place] [phone] Wallace Reyes MD [address] [place] [address] 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 Start: 09-30-2024 End: 09-30-2024 Patient encounter procedure [facility] Comment on above: Arrived Start: 07-31-2024 Adult BMI Screening Adult BMI Screening [facility] Start: 07-12-2024 End: 03-12-2025 Basic metabolic 2000 panel - Serum or Plasma Basic Metabolic Panel Lab Routine Stage 3b chronic kidney disease (CKD) ([facility]) Expected: 07/12/2024, Expires: 03/12/2025 [facility] Work Phone: Comment on above: Expected: 07/12/2024, Expires: Start: 07-12-2024 End: 03-12-2025 CBC panel - Blood by Automated count CBC without diff Lab Routine Stage 3b chronic kidney disease (CKD) ([facility]) Expected: 07/12/2024, Expires: 03/12/2025 [employer] Comment on above: Expected: 07/12/2024, Expires: Start: 07-12-2024 End: 03-12-2025 Magnesium [Mass/volume] in Serum or Plasma Magnesium Lab Routine Stage 3b chronic kidney disease (CKD) ([facility]) Expected: 07/12/2024, Expires: 03/12/2025 [email or web address] Comment on above: Expected: 07/12/2024, Expires: Start: 07-12-2024 End: 03-12-2025 Parathyroid Hormone, intact Parathyroid Hormone, intact Lab Routine Stage 3b chronic kidney disease (CKD) ([facility]) Expected: 07/12/2024, Expires: 03/12/2025 [email or web address] Comment on above: Expected: 07/12/2024, Expires: Start: 07-12-2024 End: 03-12-2025 Phosphate [Mass/volume] in Serum or Plasma Phosphorus Lab Routine Stage 3b chronic kidney disease (CKD) ([facility]) Expected: 07/12/2024, Expires: 03/12/2025 [employer] Comment on above: Expected: 07/12/2024, Expires: Start: 07-12-2024 End: 03-12-2025 Protein creat ratio Protein creat ratio Lab Routine Stage 3b chronic kidney disease (CKD) ([facility]) Expected: 07/12/2024, Expires: 03/12/2025 [employer] Comment on above: Expected: 07/12/2024, Expires: Start: 07-12-2024 End: 03-12-2025 Vitamin D 25 hydroxy Vitamin D 25 hydroxy Lab Routine Stage 3b chronic kidney disease (CKD) ([facility]) Expected: 07/12/2024, Expires: 03/12/2025 [facility] Comment on above: Expected: 07/12/2024, Expires: Start: 06-13-2024 COVID-19 Vaccine ( season) COVID-19 Vaccine () [facility] Start: 06-13-2024 Influenza vaccination Influenza Vaccine [facility] Start: 06-03-2024 End: 06-03-2024 Patient encounter procedure 06/03/2024 11:10 AM EDT Office Visit [facility] [address] [place] [address] Sara Renteria MD [address], [place] [phone] [facility] Start: 05-28-2024 End: 05-28-2025 US Carotid arteries - bilateral Vas carotid duplex bilateral Vascular Ultrasound Routine Bilateral carotid artery stenosis Expected: 05/28/2024, Expires: 05/28/2025 [employer] Work Phone: Comment on above: Expected: 05/28/2024, Expires: Start: 05-28-2024 End: 05-28-2025 US.doppler Aorta and Iliac artery - bilateral Vas aorta/iliac duplex complete Vascular Ultrasound Routine Infrarenal abdominal aortic aneurysm (AAA) without rupture ([facility]) Expected: 05/28/2024, Expires: 05/28/2025 [employer] Work Phone: Comment on above: Expected: 05/28/2024, Expires: Start: 05-20-2024 End: 05-20-2024 Patient encounter procedure [facility] Start: 03-26-2024 End: 04-11-2024 Basic metabolic 2000 panel - Serum or Plasma Basic Metabolic Panel Lab Routine Stage 3b chronic kidney disease (CKD) ([facility]) Expected: 03/26/2024 (Approximate), Expires: 04/11/2024 [facility] Comment on above: Expected: 03/26/2024 (Approximate), Expi res: 04/11/2024 Start: 03-26-2024 End: 03-26-2024 Patient encounter procedure 03/26/2024 9:30 AM EDT Appointment [facility] [address] [place] [phone] [facility] Start: 03-18-2024 End: 03-18-2024 Patient encounter procedure 03/18/2024 10:00 AM EDT Office Visit [facility] [address] [place] [address] Wallace Reyes MD [address] [facility] [address] [place] [phone] [facility] Start: 11-21-2023 Tobacco Screening Tobacco Screening [facility] Start: 07-21-2023 DTaP,Tdap and Td Vaccines (3 - Td or Tdap) DTaP,Tdap and Td Vaccines (3 - Td or Tdap) [facility] Start: 06-13-2023 COVID-19 Vaccine ( season) COVID-19 Vaccine ( season) [facility] Start: 06-13-2023 Influenza vaccination Influenza Vaccine [facility] Start: 10-09-2019 DTaP,Tdap and Td Vaccines (2 - Td or Tdap) DTaP,Tdap and Td Vaccines (2 - Td or Tdap) [facility] Start: 2012 Fall Risk Screening Fall Risk Screening [facility] Start: 10-26-2008 Administration of varicella zoster vaccine Zoster (Shingles) Vaccine (2 of 3) [facility] Start: 1965 Adult BMI Follow Up Plan Adult BMI Follow Up Plan [facility] Start: 1959 [facility] Start: 1945 Medicare Annual Wellness Visit Medicare Annual Wellness Visit [facility] Comprehensive metabo lic 1999 panel - Serum or Plasma [facility] Comprehensive metabo lic 1999 panel - Serum or Plasma [facility] Dermatopathology exam Dermatopat hology exam Pathology and Cytology Timed Neoplasm of unspecified behavior of bone, soft tissue, and skin Release Upon Ordering for 1 Occurrences starting 09/30/2024 [facility] Work Phone: Comment on above: Release Upon Ordering for 1 Occurrences starting 09/30/2024 End: 11-04-2025 Urinalysis Urinalysis Lab Routine Stage 3b chronic kidney disease (CKD) ([facility]) 1 Occurrences starting 11/04/2024 until 11/04/2025 [facility] Comment on above: 1 Occurrences starting 11/04/2024 until 11/04/2025 End: 03-12-2025 Urinalysis Urinalysis Lab Routine Stage 3b chronic kidney disease (CKD) ([facility]) 1 Occurrences starting 03/18/2024 until 03/12/2025 [facility] Comment on above: 1 Occurrences starting 03/18/2024 until 03/12/2025 End: 05-08-2026 Urinalysis Urinalysis Lab Routine Stage 4 chronic kidney disease ([facility]) 1 Occurrences starting 05/12/2025 until 05/08/2026 [facility] Comment on above: 1 Occurrences starting 05/12/2025 until 05/08/2026 [facility] Immunizations Immunization Date Immunization Notes Care Provider Fa cindi 06-20-2025 influenza, high dose seasonal, preservative-free Cortez Ball DO Work Phone: [facility] 09-13-2024 influenza, high dose seasonal, preservative-free Cortez Cranek DO Work Phone: [facility] 09-13-2024 influenza virus vaccine, unspecified formulation Sara Renteria MD Work Phone: [facility] 06-08-2024 influenza, high dose seasonal, preservative-free Cortez Gaspar DO Work Phone: [facility] 08-11-2023 influenza virus vaccine, unspecified formulation [facility] 08-11-2023 influenza, high dose seasonal, preservative-free Cortez Lugo Other [employer] Other 08-11-2023 Prevnar 20 Cortez Lugo Other [facility] 07-02-2023 Influenza, High-dose Seasonal, Quadrivalent, Preservative Free Cortez Gaspar DO Work Phone: [facility] 08-26-2022 COVID-19 Pfizer (Pediatric) Cortez Lugo Other [facility] 08-08-2022 influenza virus vaccine, split virus (incl. purified surface antigen) Cortez Lugo Other [facility] [employer] Other 08-08-2022 influenza virus vaccine, unspecified formulation [facility] 07-15-2022 Influenza, High-dose Seasonal, Quadrivalent, Preservative Free Cortez Gaspar DO Work Phone: [facility] 08-27-2021 COVID-19 Vaccine Pfi zer - Documentation Purposes Only Cortez Lugo Other [facility] 08-02-2021 influenza virus vaccine, split virus (incl. purified surface antigen) Cortez Lugo Other [facility] [employer] Other 08-02-2021 influenza virus vaccine, unspecified formulation [facility] 07-09-2021 Influenza, High-dose Seasonal, Quadrivalent, Preservative Free Cortez Gaspar DO Work Phone: [facility] 07-09-2021 influenza virus vaccine, unspecified formulation [facility] 12-14-2020 COVID-19 Vaccine Pfi zer - Documentation Purposes Only Cortez Lugo Other [facility] 11-23-2020 COVID-19 Vaccine Pfi zer - Documentation Purposes Only Cortez Lugo Other [facility] 11-18-2020 Moderna SARS-CoV-2 Vaccination Cortez Gaspar DO Work Phone: [facility] 07-11-2020 influenza virus vaccine, split virus (incl. purified surface antigen) Cortez Lugo Other [employer] Other 07-11-2020 influenza virus vaccine, unspecified formulation [facility] 06-22-2020 influenza, injectabl e, quadrivalent, preservative free Cortez Gaspar DO Work Phone: [facility] 07-27-2019 influenza virus vaccine, split virus (incl. purified surface antigen) Cortez Lugo Other [facility] [employer] Other 07-27-2019 influenza virus vaccine, unspecified formulation [facility] 07-24-2018 influenza virus vaccine, split virus (incl. purified surface antigen) Cortez Lugo Other [employer] Other 07-24-2018 influenza virus vaccine, unspecified formulation [facility] 07-24-2018 Seasonal trivalent influenza vaccine, adjuvanted, preservative free Cortez Gaspar DO Work Phone: [facility] 07-30-2017 influenza virus vaccine, unspecified formulation Cortez Gaspar DO Work Phone: [facility] 07-03-2017 influenza virus vaccine, split virus (incl. purified surface antigen) Cortez Lugo Other [employer] [facility] [employer] Other 07-03-2017 influenza virus vaccine, unspecified formulation [facility] 07-03-2017 influenza, high dose seasonal, preservative-free Cortez Backcek DO Work Phone: [facility] 07-26-2016 influenza, high dose seasonal, preservative-free Cortez Backcek DO Work Phone: [facility] 07-09-2016 influenza virus vaccine, split virus (incl. purified surface antigen) Cortez Lugo Other [facility] [employer] Other 07-09-2016 influenza virus vaccine, unspecified formulation [facility] 07-09-2016 influenza, high dose seasonal, preservative-free Cortez Backcek DO Work Phone: [facility] 09-05-2015 influenza, injectabl e, quadrivalent, preservative free Cortez oWngcek DO Work Phone: [facility] 08-18-2015 pneumococcal conjuga te vaccine, 13 valent Cortez Lugo Other [facility] 06-14-2015 influenza, high dose seasonal, preservative-free Cortez Backcek DO Work Phone: [facility] 05-02-2015 pneumococcal conjuga te vaccine, 13 valent Cortez Backcek DO Work Phone: [facility] 08-16-2014 influenza, seasonal, injectable Cortez Murcek DO Work Phone: [facility] 06-02-2014 pneumococcal Conjuga te, unspecified formulation; Translations: [Need for prophylactic vaccination against Streptococcus pneumoniae (pneumococcus)] Cortez Lugo Other [facility] [employer] Other 06-02-2014 pneumococcal polysaccharide vaccine, 23 valent Cortez Lugo Other [facility] 01-31-2014 pneumococcal polysaccharide vaccine, 23 valent Cortez Gapsar DO Work Phone: [facility] 07-21-2013 tetanus and diphther ia toxoids, adsorbed, preservative free, for adult use (5 Lf of tetanus toxoid and 2 Lf of diphtheria toxoid) Cortez Lugo Other [facility] 07-16-2013 influenza, seasonal, injectable Cortez Murcek DO Work Phone: [facility] 08-21-2012 influenza, seasonal, injectable, preservative free Cortez Murcek DO Work Phone: [facility] 06-24-2011 influenza, seasonal, injectable Cortez Murcek DO Work Phone: [facility] 10-09-2009 tetanus toxoid, redu israel diphtheria toxoid, and acellular pertussis vaccine, adsorbed Cortez Gaspar DO Work Phone: [facility] 07-17-2009 influenza, seasonal, injectable Cortez Gaspar DO Work Phone: [facility] 08-31-2008 zoster vaccine, live Benjami talia Gaspar DO Work Phone: [facility] 08-31-2008 zoster vaccine, unspecified formulation [facility] Payers Date Payer Category Payer Self-pay 2023 Medicaid AET MEDICARE A DVANTAGE [id number] 2023 Medicare HMO AETNA MEDICARE [id number] 2023 Medicare [id number] [id number] 2016 Unknown [employer] M MO SUPERMED [id number] 2016-Present [phone] [address] [place] [address] [id number]. [id number] 2012 Medicare [id number]. [id number] 1959 Medicare [id number] 2.16.840.1.960911.19 1959 Unknown [id number] 2.16.84 [id number] 1947 Unknown [id number] 2.16.840.1.879616.3.579.2.593 1947 Unknown [id number] 2.16.840.1.178653.3.579.2.593 1947 Unknown [id number] 2.16.840.1.001729.3.579.2.593 1947 Unknown [id number] 2.16.840.1.537630.3.579.2.593 1947 Unknown [id number] 2.16.840.1.051989.3.579.2.593 1947 Unknown [id number] 2.16.840.1.592460.3.579.2.593 1947 Unknown [id number] 2.16.840.1.994263.3.579.2.593 1947 Unknown [id number] 2.16.840.1.329989.3.579.2.593 1947 Unknown [id number] 2.16.840.1.630142.3.579.2.593 1947 Unknown [id number] 2.16.840.1.480527.3.579.2.593 1947 Unknown [id number] 2.16.840.1.372570.3.579.2.593 1947 Unknown [id number] 2.16.840.1.043403.3.579.2.593 1947 Unknown [id number] 2.16.840.1.131023.3.579.2.593 1947 Unknown [id number] 2.16.840.1.967444.3.579.2.593 1947 Unknown [id number] 2.16840.1.595133.3.579.2.59 1947 Unknown [id number] 2.16.840.1.978409.3.579.2.125 1947 Unknown [id number] 2.840.1.422377.3.579.2.125 1947 Unknown [id number] 2.840.1.666778.3.579.2.1258 1947 Unknown [id number] 2.840.1.873473.3.579.2.125 1947 Unknown [id number] 2.840.1.442813.3.579.2.125 1947 Unknown [id number] 2.840.1.110019.3.579.2.125 1947 Unknown [id number] 2.840.1.048865.3.579.2.125 1947 Unknown [id number] .840.1.302013.3.579.2.125 1947 Unknown [id number] 2.16.840.1.154105.3.579.2.125 1947 Unknown [id number] 2.16840.1.783239.3.579.2.1259 1947 Unknown [id number] 2.16840.1.879595.3.579.2.1286 1947 Unknown [id number] 2.16.840.1.868040.3.579.2.1286 1947 Unknown [id number] 2.16.840.1.232139.3.579.2.128 1947 Unknown [id number] 2.16.840.1.650236.3.579.2.128 1947 Unknown [id number] 2.16.840.1.536176.3.579.2.128 1947 Unknown [id number] 2.16.840.1.568145.3.579.2.128 1947 Unknown [id number] 2.16.840.1.119841.3.579.2.1286 Unknown [id number] 2.16.840.1.822332.3.579.2.531 Social History Date Type Detail Facility Start: 11-23-2020 End: 04-22-2024 Sex Assigned At [facility] Start: 1945 Sex Assigned At Male F [facility] Start: 03-24-2023 End: 06-20-2025 Tobacco smoking status ILIS Never smoked tobacco [facility] Start: 08-28-2022 End: 03-24-2023 Tobacco use and exposure Smokeless tobacco non-user [facility] Start: 04-22-2024 End: 03-14-2025 Alcoholic beverage intake Current drinker of alcohol (finding) [facility] Start: 11-23-2020 End: 04-22-2024 History of Social function [facility] Start: 03-25-2023 Alcohol Comment caffeine: 1-2 cups per day [facility] Start: 1945 Sex assigned at Not on file P [facility] Start: 08-28-2022 Tobacco smoking stat us [facility] Ex-smoker [facility] History of tobacco use Current smoker [facility] Start: 11-04-2024 End: 05-12-2025 Alcoholic beverage intake Current non-drinker of alcohol (finding) [facility] Childcare Unknown [facility] Start: 12-13-2015 End: 12-14-2024 Sex Male (finding) [employer] Tobacco smoking stat [facility] Unknown if ever smoked [facility] Work Phone: Clinical Notes 11-19-2022 to 06-02-2025 MARTHA Donaldson - 06/02/2025 8:30 AM Twyla Reyes MD - 05/12/2025 3:30 PM EDT Note Date & Type Note Facility 06-02-2025 History of Present illness Narrative Images from the original note were not included. CC: Chief Complaint Patient presents with 1 year f u 1 YEAR F/U WITH DUPLEX SCAN testing 05/28 Bilateral carotid artery stenosis Infrarenal abdominal aortic aneurysm (AAA) without rupture (CMS-HCC) 80 y.o. male w/ h/o carotid stenosis and history of EVAR. Aorta iliac duplex demonstrated aortoiliac endograft with no evidence of endoleak. Carotid US demonstrates <50% stenosis bilaterally. >50% stenosis of ECA. He states that his plavix and aspirin was stopped by his PCP within the past year. He remains on coumadin. He did not have any bleeding issues at the time the dual antiplatelet was stopped. Last hgb 10.5. Two year ago hgb was 12.6. Denies amaurosis fugax, unilateral weakness and aphasia. Patient Active Problem List Diagnosis Bilateral carotid artery stenosis Infrarenal abdominal aortic aneurysm (AAA) without rupture BP 192/68 (BP Site: Left Arm, BP Postition: Sitting, BP CUFF SIZE: M (9-13 inches)) Pulse 51 Ht 177.8 cm (5' 10 ) Wt 87.5 kg (193 lb) SpO2 98% BMI 27.69 kg/m Past Medical History: Diagnosis Date AAA (abdominal aortic aneurysm) AAA (abdominal aortic aneurysm) Anemia Anxiety BPH (benign prostatic hyperplasia) Childhood asthma Chronic kidney disease Chronic venous insufficiency Coronary artery disease with hx of myocardial infarct w/o hx of CABG 09/12/2007 GERD (gastroesophageal reflux disease) Hyperlipidemia Hypertension Hypertensive renovascular disease Osteoarthritis Paroxysmal A-fib (CMS-HCC) Sciatica SOB (shortness of breath) Past Surgical History: Procedure Laterality Date ABDOMINAL AORTIC ANEURYSM REPAIR W/ ENDOLUMINAL GRAFT 2011 CORONARY ANGIOPLASTY WITH STENT PLACEMENT left circumflex and right coronary artery RENAL ARTERY STENT ROS: Review of Systems Constitutional: Negative. HENT: Negative. Respiratory: Negative. Negative for shortness of breath. Cardiovascular: Negative. Gastrointestinal: Negative. Genitourinary: Negative. Neurological: Negative for dizziness and light-headedness. Psychiatric/Behavioral: Negative. Physical Exam: Physical Exam Vitals reviewed. Constitutional: Appearance: Normal appearance. HENT: Head: Normocephalic and atraumatic. Eyes: Extraocular Movements: Extraocular movements intact. Cardiovascular: Rate and Rhythm: Normal rate. Pulmonary: Effort: Pulmonary effort is normal. Musculoskeletal: General: Normal range of motion. Cervical back: Normal range of motion. Skin: General: Skin is warm and dry. Neurological: Mental Status: He is oriented to person, place, and time. Psychiatric: Mood and Affect: Mood normal. Behavior: Behavior normal. Testing Reviewed: Vas aorta/iliac duplex complete Result Date: 05/16/2025 Right: Plaque and spectral waveforms with diastolic flow reversal common iliac without significant color flow disturbance. Left: Plaque and spectral waveforms with diastolic flow reversal common iliac without significant color flow disturbance. General: The aorta at the level of renal arteries measures 3.4 cm. Aorta: Aortoiliac endograft with no evidence of endoleak; maximum aortic aneurysm sac diameter is 3.5 cm. Conclusions: Patent endograft with no evidence of endoleak. Residual aortic aneurysm sac diameter is 3.5 cm. Previous: Previous carotid duplex exam performed 05/20/2024; (State Stenosis Category) Right: <50 ICA and >50% ECA; Left: <50% ICA. Right: Plaque with no significant ICA spectral Doppler or color flow disturbances; ICA 126/20 cm/sec. Antegrade vertebral artery flow. ECA with significant spectral Doppler/color flow disturbances--velocity 268/23 cm/sec. Left: Plaque with no significant ICA spectral Doppler or color flow disturbances; ICA 108/27 cm/sec. Antegrade vertebral artery flow. Conclusions: RIGHT: Plaque without significant stenosis (<50%) of the internal carotid artery. Image and spectral Doppler data consistent with hemodynamically significant (>50%) external carotid artery stenosis.Antegrade vertebral artery flow.LEFT: Plaque without significant stenosis (<50%) of the internal carotid artery. Antegrade vertebral artery flow.When compared to previous report no significant changes were noted. Recommendations: Any questions prior to finalization, please call the reading physician during normal business hours at the phone number beside their name. Plan of care: Please note that total time spent was 24 minutes: Including but not limited to: Preparing to see the patient (e.g., review of tests) Obtaining and/or reviewing separately obtained history Performing a medically appropriate examination and evaluation Counseling and educating the patient/family/caregiver Ordering medications, tests, or procedures Documenting visit details There are no diagnoses linked to this encounter. Nicolas Kelly is a 80 y.o. White or male #Carotid stenosis #Hx EVAR for AAA Medical mgmt: Anti-platelet: this was stopped by pcp. He takes coumadin Statin: prevastatin Return to clinic 12 months after carotid US and aorta bilateral iliac US completed to review results and discuss further plan of care. SIGNATURE: MARTHA DONALDSON CC: DO Parish DE OLIVEIRA Benjamin E, DO Heather L Perne, APRN-CNP 06/08/25 1044 documented in this encounter [facility] 05-12-2025 History of Present illness Narrative Images from the original note were not included. Date of Service: 05/12/25 PCP: CORTEZ LUGO DO History of Present Illness Nicolas Kelly is a 80 y.o. male, stage IIIB chronic kidney disease returning in nephrologic follow-up. When seen in October of 2024 the BUN is 52 creatinine 2.52 urine protein creatinine ratio was 0.56 gram/gram. At the time of his last visit he was offered and SGLT2 inhibitor for renal protection and protein sparing but he declined at that time. After further discussions with Dr. Lugo, he started Jardiance 10 mg po QD. He has noticed some increase in his urine volumes since he started Jardiance. Laboratories of May 05, 2025 included urinalysis showing trace protein on dipstick exam with 1 red blood cell and 3 white blood cells per high-power field. Phosphorus was 4 mg per dose. The urine protein creatinine ratio was 0.61 gram/gram. Twenty-five hydroxy vitamin-D was greater than 120 ng/mL intact PTH was 120 pg per mL magnesium was 2.5 hemoglobin is 10.5 hematocrit 33.1 platelet count 155 the sodium was 141 potassium 4.2 chloride 106 total CO2 27 BUN 51 creatinine 2.89 glucose 116 calcium was 8.6 mg/dL the EGFR was 22 mL/min. There is no report of nausea, vomiting, shortness of breath, increasing lower extremity edema. He is going to be traveling to [place] soon to visit family. Problem List 1. Stage 3 B chronic kidney disease. Previous nephrologic investigations include a renal ultrasound in June 2012 demonstrating the right kidney measured 11.4 and the left kidney 9.1 cm and bipolar dimension. There was some cortical thinning bilaterally left greater than right. A serum protein electrophoresis with immunofixation revealed no evidence of monoclonal protein disorder. Complement C3 and C4 were normal. Anti neutrophilic cytoplasmic antibody titers were negative. A 24 hr urine collection contained only 111 mg of protein. 2. Paroxysmal atrial fib 3. Anemia of chronic kidney disease with decreased iron stores 4. Benign prostatic hypertrophy 5. History of adverse reaction to Cefdinir with bolus skin eruption 6. Chronic constipation 7. Secondary hyperparathyroidism 8. Preserved left ventricular function with ejection fraction 55%. 9. Hyperlipidemia 10. Anxiety 11. History of abdominal aortic aneurysm status post Endographic repair by Dr. Terrell Agruello 12. Atherosclerotic coronary artery disease with acute myocardial infarction in September 2007 status post angioplasty and stenting of the left circumflex and the right coronary artery by Dr. Mac Landers at the [facility]. 13. History of right-sided sciatica. 14. Allergies to IV dye. 15. Acute gouty arthritis February 2020 16.Pneumonia 06/2023, [facility]. 17. 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 Followed by Dr. Yusuf Perez. Surgical, Family & Social History Surgical History: Past Surgical History: Procedure Laterality Date ABDOMINAL AORTIC ANEURYSM REPAIR W/ ENDOLUMINAL GRAFT 2010 CORONARY ANGIOPLASTY WITH STENT PLACEMENT left circumflex and right coronary artery RENAL ARTERY STENT Social History: Social History Socioeconomic History Marital status: Spouse name: Not on file Number of children: Not on file Years of education: Not on file Highest education level: Not on file Occupational History Not on file Tobacco Use Smoking status: Former Smokeless tobacco: Never Vaping Use Vaping status: Never Used Substance and Sexual Activity Alcohol use: No Drug use: No Sexual activity: Defer Partners: Female Other Topics Concern Not on file Social History Narrative Not on file Social Drivers of Health Financial Resource Strain: Not on file Food Insecurity: No Food Insecurity (05/27/2024) Hunger Screening Food Insecurity - Worry: Never True Food Insecurity - Inability: Never True Transportation Needs: Not on file Physical Activity: Not on file Stress: Not on file Social Connections: Not on file Interpersonal Safety: Unknown (12/04/2023) Received from [facility] Safety & Environment Fear of Current or Ex-Partner: Not on file Emotionally Abused: Not on file Physically Abused: Not on file Sexually Abused: Not on file Physically or Sexually Abused: Not on file Housing Instability: Not on file Family History: Family History Problem Relation Age of Onset Arthritis Mother Diabetes Father Allergies & Medications Allergies: Allergies Allergen Reactions Cefdinir Iodinated Contrast Media Other reaction(s): Unknown Ragweed Other reaction(s): Unknown Sulfa (Sulfonamide Antibiotics) Rash Current Meds: Current Outpatient Medications Medication Sig Dispense Refill allopurinoL (ZYLOPRIM) 100 mg tablet Take 2 tablets (200 mg total) by mouth in the morning and 2 tablets (200 mg total) before bedtime. amLODIPine (NORVASC) 5 mg tablet Take 1 tablet (5 mg total) by mouth in the morning. 3 cholecalciferol (VITAMIN D3) 50,000 units capsule TAKE 1 CAPSULE BY MOUTH ONE TIME PER WEEK 12 capsule 2 clonazePAM (KlonoPIN) 0.5 mg tablet Take 1 tablet (0.5 mg total) by mouth as needed in the morning and 1 tablet (0.5 mg total) as needed in the evening for seizures. famotidine (PEPCID) 20 mg tablet Take 1 tablet (20 mg total) by mouth in the morning and 1 tablet (20 mg total) before bedtime. furosemide (LASIX) 40 mg tablet Take 1 tablet (40 mg total) by mouth daily. hydrALAZINE (APRESOLINE) 50 mg tablet Take 2 tablets (100 mg total) by mouth in the morning and 2 tablets (100 mg total) at noon and 2 tablets (100 mg total) in the evening and 2 tablets (100 mg total) before bedtime. JARDIANCE 10 mg tablet tablet Take 1 tablet (10 mg total) by mouth in the morning. metoprolol tartrate (LOPRESSOR) 100 mg tablet Take 1 tablet (100 mg total) by mouth in the morning and at bedtime. polyethylene glycol 3350 (MIRALAX ORAL) Take 17 g by mouth daily as needed. polysaccharide iron complex (NIFEREX) 150 mg iron capsule Take 1 capsule (150 mg total) by mouth in the morning. pravastatin (PRAVACHOL) 80 mg tablet Take 1 tablet (80 mg total) by mouth in the morning. sennosides (SENNA ORAL) Take 1 tablet by mouth nightly. tamsulosin (FLOMAX) 0.4 mg capsule,extended release 24hr Take 1 capsule (0.4 mg total) by mouth nightly. warfarin (COUMADIN) 5 mg tablet Take 4 mg by mouth in the evening. Dose is adjusted due to PT/INR . acetaminophen (TYLENOL) 325 mg tablet Take 2 tablets (650 mg total) by mouth every 6 (six) hours as needed for pain. (Patient not taking: Reported on 05/12/2025) clopidogrel (PLAVIX) 75 mg tablet Take 1 tablet (75 mg total) by mouth in the morning. (Patient not taking: Reported on 05/12/2025) No current facility-administered medications for this visit. Review of Systems Review of Systems Constitutional: Negative for chills, diaphoresis, fatigue and fever. HENT: Negative for congestion, ear discharge, ear pain, facial swelling and hearing loss. Eyes: Negative for pain, discharge, redness and itching. Respiratory: Negative for cough, shortness of breath and wheezing. Cardiovascular: Negative for chest pain, palpitations and leg swelling. Gastrointestinal: Negative for abdominal pain, constipation, diarrhea, nausea and vomiting. Endocrine: Negative for polydipsia, polyphagia and polyuria. Genitourinary: Negative for decreased urine volume, difficulty urinating, dysuria, enuresis, flank pain, frequency, hematuria and urgency. Musculoskeletal: Negative for arthralgias, joint swelling and myalgias. Skin: Negative for rash and wound. Neurological: Negative for dizziness, tremors, weakness, light-headedness and numbness. Hematological: Negative for adenopathy. Bruises/bleeds easily. Physical Exam Vital Signs: Vitals: 05/12/25 1506 05/12/25 1509 BP: 156/60 116/50 BP Site: Left Arm Left Arm BP Postition: Sitting Standing BP CUFF SIZE: M (9-13 inches) M (9-13 inches) Pulse: 50 50 Weight: 88.1 kg (194 lb 3.2 oz) Height: 177.8 cm (5' 10 ) BMI: Body mass index is 27.86 kg/m . General appearance: alert in no apparent distress. Psychiatric: Oriented to place, time and person HEENT: atraumatic, supple, moist oral mucosa, no JVD Cardiovascular: normal S1-S2 Respiratory: No respiratory distress with no use of accessory muscles. Clear to auscultation bilaterally with no wheezes or crackles Abdomen: soft, no tenderness, no guarding, positive bowel sounds and no hepato or splenomegaly Vascular: adequate pulses and no carotid bruits. Musculoskeletal: no joint swelling or tenderness. Neurologic: No focal deficit in upper or lower extremities Lymphatic: no cervical or axillary lymphadenopathy. Edema: He has no lower extremity edema Laboratory Studies Chemistry: Lab Results Component Value Date SODIUM 141 05/05/2025 SODIUM 144 10/19/2024 SODIUM 142 03/09/2024 SODIUM 142 08/07/2023 SODIUM 141 07/21/2023 K 4.2 05/05/2025 K 4.4 10/19/2024 K 5.0 03/09/2024 K 4.2 08/07/2023 K 3.4 (L) 07/21/2023 CL 106 05/05/2025 CL 107 10/19/2024 CL 108 03/09/2024 CL 108 08/07/2023 CL 103 07/21/2023 CO2 27 05/05/2025 CO2 27 10/19/2024 CO2 22 03/09/2024 CO2 25 08/07/2023 CO2 23 07/21/2023 ANIONGAP 8 05/05/2025 ANIONGAP 10 10/19/2024 ANIONGAP 12 03/09/2024 ANIONGAP 9 08/07/2023 ANIONGAP 15 07/21/2023 BUN 51 (H) 05/05/2025 BUN 52 (H) 10/19/2024 BUN 43 (H) 03/09/2024 BUN 37 (H) 08/07/2023 BUN 34 (H) 07/21/2023 CREATININE 2.89 (H) 05/05/2025 CREATININE 2.52 (H) 10/19/2024 CREATININE 2.35 (H) 03/09/2024 CREATININE 1.95 (H) 08/07/2023 CREATININE 2.05 (H) 07/21/2023 EGFR 22 (L) 05/05/2025 EGFR 26 (L) 10/19/2024 EGFR 28 (L) 03/09/2024 EGFR 35 (L) 08/07/2023 EGFR 33 (L) 07/21/2023 CALCIUM 8.6 05/05/2025 CALCIUM 8.9 10/19/2024 CALCIUM 8.6 03/09/2024 CALCIUM 8.5 08/07/2023 CALCIUM 9.2 07/21/2023 MG 2.5 05/05/2025 MG 2.3 10/19/2024 MG 2.3 03/09/2024 MG 2.2 07/21/2023 PHOSPHORUS 4.0 05/05/2025 PHOSPHORUS 3.9 10/19/2024 PHOSPHORUS 3.4 03/09/2024 PHOSPHORUS 2.7 07/21/2023 Lab Results Component Value Date ALT 15 07/21/2023 BILIRUBIN Negative 05/05/2025 BILIRUBIN Negative 10/19/2024 Hematology: Lab Results Component Value Date WBC 5.4 05/05/2025 WBC 5.8 10/19/2024 HGB 10.5 (L) 05/05/2025 HGB 10.2 (L) 10/19/2024 HCT 33.1 (L) 05/05/2025 HCT 31.6 (L) 10/19/2024 PLT 155 05/05/2025 PLT 120 (L) 10/19/2024 Anemia Studies: No results found for: IRONSAT , FERRITIN , [id number] , FOLATE Mineral and Bone Labs: Lab Results Component Value Date CALCIUM 8.6 05/05/2025 CALCIUM 8.9 10/19/2024 PHOSPHORUS 4.0 05/05/2025 PHOSPHORUS 3.9 10/19/2024 VITD25 >120.0 (H) 05/05/2025 VITD25 109.0 (H) 10/19/2024 PTH 120 (H) 05/05/2025 PTH 116 (H) 10/19/2024 Urine Studies: Lab Results Component Value Date COLOR Colorless 05/05/2025 COLOR YELLOW 10/19/2024 TURBIDITY Clear 05/05/2025 TURBIDITY CLEAR 10/19/2024 SPECIFICGRA 1.008 05/05/2025 SPECIFICGRA 1.009 10/19/2024 NITRITE Negative 05/05/2025 NITRITE Negative 10/19/2024 PHURINE 6.5 05/05/2025 PHURINE 6.5 10/19/2024 LEUKOCYTE Negative 05/05/2025 LEUKOCYTE Negative 10/19/2024 PROTEIN Trace (A) 05/05/2025 PROTEIN Negative 10/19/2024 KETONES Negative 05/05/2025 KETONES Negative 10/19/2024 UROBILINOGEN <1.1 eu/dL 05/05/2025 UROBILINOGEN <1.1 10/19/2024 BLOODHGB Negative 05/05/2025 BLOODHGB Negative 10/19/2024 Lab Results Component Value Date UPROCRTRAT 0.61 (H) 05/05/2025 UPROCRTRAT 0.56 (H) 10/19/2024 UPROCRTRAT 0.88 (H) 03/09/2024 UPROCRTRAT 0.36 (H) 07/21/2023 Immunology Profile No results found for: PROTELECTR , SEDRATE , CRP , RF , ANASCREEN , ANTIDSDNA , C3 , C4 , ANCA , MYELOP , PROTEINASE3 , ANTIGLOMERU No results found for: HAV , HEPAIGM , HEPBIGM , HEPBCAB , HBEAG , HEPCAB Imaging Echocardiogram: Echo complete W/O contrast Result Date: 03/26/2024 Left Ventricle: Left ventricle appears normal in size. There is moderate focal basal increased wall thickness/hypertrophy no LVOT obstruction noted. Remaining wall segments are mildly increased. Systolic function is low normal to mildly decreased with an ejection fraction of 50-55%. Right Ventricle: Right ventricular size is mildly dilated. The right ventricular basal diameter is 47.0 mm. Aortic Valve: There is trace regurgitation with centrally directed jet. There is mild stenosis. The calculated aortic valve area is 2.62 cm2. The calculated aortic valve peak gradient is 13.00 mmHg. The calculated aortic valve mean gradient is 7.00 mmHg. Tricuspid Valve: There is mild to moderate regurgitation. The tricuspid valve regurgitation jet is central. There is no evidence of tricuspid valve stenosis. IMPRESSION 1. Stage 4 chronic kidney disease: This has been attributed to nephrosclerosis or renovascular disease. His creatinine has increased from 2.05 July 21, 2023 to 2.89 mg/dL May 05, 2025. Continue Jardiance 10 mg a day. 2. Hypertension: Blood pressure is satisfactorily controlled. 3. Hypovitaminosis D: His 25 hydroxy vitamin-D level is too high. Total calcium [place] [address] units every 2 weeks. PLAN 1. Continue Jardiance 25 mg po for renal protection and protein sparring. 2. Target systolic blood pressure to 130 mmHg or less. 3. Avoid prolonged use of nonsteroidal anti-inflammatory drugs or proton pump inhibitors. 4. Decreased Drisdol 61532 units p.o. every 2 weeks. 4. He will return to this office in 4 months time for repeat evaluation. A CKD panel will be obtained at that time. Thank you CORTEZ LUGO DO for the opportunity to participate in the care of your patients! Please contact me at [phone] (Office) or [phone] (Answering service) with any questions. WALLACE REYES MD [facility] This note was created with the assistance of a speech-recognition program. Although the intention is to generate a document that actually reflects the content of the visit, no guarantees can be provided that every mistake has been identified and corrected by editing. WALLACE REYES MD,PhD FACP [facility] ANY QUESTIONS FEEL FREE TO CALL: 1. OFFICE [phone] 2. ANSWERING SERVICE: [phone] documented in this encounter [facility] 03-25-2025 Evaluation note Diagnosis Onset Date Resolution ASHD (arteriosclerotic heart disease) acute March 25, 2025 8:55am Chronic kidney disease acute Ju 2024 8:55am Chronic venous insufficiency acute March 25, 2025 8:55am MARY (generalized anxiety disorder) acute March 25, 2025 8:55am Hypercholesterolemia acute March 25, 2025 8:55am Paroxysmal atrial fibrillation acute Maryjane 13th, 2025 8:55am Primary hypertension acute March 25, 2025 8:55am ASHD (arteriosclerotic heart disease) acute June 20, 2025 8:43am Chronic kidney disease acute pt2024 8:43am Chronic venous insufficiency acute June 20, 2025 8:43am MARY (generalized anxiety disorder) acute June 20, 2025 8:43am Hypercholesterolemia acute Jun 8:43am Medicare annual wellness visit, subsequent acute June 20, 2025 8:43am Paroxysmal atrial fibrillation acute June 20, 2025 8:43am Primary hypertension acute Jun 8:43am Screening PSA (prostate specific antigen) acute June 20, 2025 8:43am [facility] Work Phone: [phone] 246-767306-04-2025 [facility] Chief Complaint: Patient here for 1 year follow up. Patient states he feel good, patient states he feel his A-Fib about once a month, patient feels it could possible gets flared up by his anxiety. Patient states he had had a couple dizzy spells when he bent down quick and popped up quick. HPI: Nicolas Kelly is a 80 y.o. male with history of coronary artery [...] denies chest pain No new cardiovascular symptoms Update 03/2025: Occasional palpitations, a few dizzy spells with postural changes. No chest pain, no significant shortness of breath, no orthopnea or paroxysmal external dyspnea. No significant lower extremity edema. His main symptom appears to be anxiety; he has episodes that he cannot control. This typically causes him to have tachycardia and irregular heartbeats. They resolve spontaneously. Review of Systems Cardiovascular: Positive for palpitations. Neurological: Positive for dizziness. Psychiatric/Behavioral: The patient is nervous/anxious. Past Medical History He has no past medical history on file. Surgical History He has no past surgical history on file. Social History He reports that he quit smoking about 32 years ago. His smoking use included cigarettes. He has never used smokeless tobacco. He reports that he does not drink alcohol. No history on file for drug use. Family History No family history on file. Allergies Cefdinir, Dye, Iodinated contrast media, Ragweed, and Sulfa (sulfonamide antibiotics) Medications Current Outpatient Medications: cholecalciferol (Vitamin D-3) 1,250 mcg (50,000 unit) capsule, Take 50,000 Units by mouth every 7 (seven) days., Disp: , Rfl: Jardiance 10 mg, Take 1 tablet by mouth in the morning., Disp: , Rfl: allopurinol (Zyloprim) 100 mg tablet, allopurinol 100 [...] , Rfl: hydrALAZINE (Apresoline) 100 mg tablet, Take 100 mg by mouth in the morning, at noon, in the evening, and at bedtime., Disp: , Rfl: iron polysaccharides (Nu-Iron,Niferex) 150 [...] Disp: , Rfl: Last Recorded Vitals BP 166/59 (BP Location: Right arm, Patient Position: Sitting) Pulse (!) 49 Ht 1.778 m (5' 10 ) Wt 89.4 kg (197 lb) SpO2 97% BMI 28.27 kg/m??? Physical Examination: GENERAL: alert and oriented x3, well developed, in no acute distress. HEAD: atraumatic, normocephalic. EYES: PRACHI, EOMI. NECK: trachea midline, no JVD present, + left carotid bruit present CARDIAC: S1, S2 present. RRR. No murmur, [...] stenosis, a 99% second diagonal stenosis and 5 (more content not included)...[facility] 03-14-2025 History of Present illness Narrative* Yusuf Perez DPM - 03/14/2025 10:15 AM EDT Images from the original note were not included. Subjective Patient ID: Nicolas Kelly is a 80 y.o. male who presents for Nail care (Nicolas Kelly is a 79 y.o. male who presents for Toenail Care. SS: 10.5.). HPI HPI Onychomycosis/Toenail Fungus: Symptomatic toenail deformity. Location: identifies multiple digits with thickened, deformed and discolored toenails; problematic/symptomatic. Duration: chronic toenail deformity; multiple years duration. Severity of symptoms: mild-moderate; impacting his ability to wear shoes comfortably. Onset:gradual; without known injury or trauma. Status: gradual progressive deformity over multiple years; problematic/symptomatic over the past several weeks or so again impacting ADLs and his ability to wear footwear comfortably. Context: hard to trim, hard to reach; self-care is difficult, ineffective and not practical; increasing risk exposure. Family members unable to provide effective care. Characteristics: discolored, thickened, pain , pressure , elongated , /lifting , ingrowing, crusty; without bleeding or drainage. Relieved by: palliative care measures have provided favorable transient symptom relief. Previous Treatment: palliative care as noted. Admits to poor compliance with topical care measures; however, he does note overall improvement from baseline appearance. Risk factors: medical comorbidities. Polypharmacy. Warfarin therapy. Plavix therapy. Toenail deformity. Digital and/or shoe trauma and related complications. Aggravated by: shoe gear , pressure , walking; catching and snagging on clothing etc.. Medications Current Outpatient Medications: allopurinol (Zyloprim) 100 MG tablet, allopurinol 100 mg tablet TAKE 2 TABLETS BY MOUTH EVERY DAY, Disp: , Rfl: amLODIPine (Norvasc) 2.5 MG tablet, amLODIPine Besylate, Disp: , Rfl: cholecalciferol (Vitamin D-3) 1.25 MG (23329 UT) capsule, TAKE 1 CAPSULE BY MOUTH ONE TIME PER WEEK, Disp: , Rfl: clonazePAM (KlonoPIN) 0.5 MG tablet, clonazepam 0.5 mg tablet, Disp: , Rfl: clopidogrel (Plavix) 75 MG tablet, clopidogrel 75 mg tablet, Disp: , Rfl: ergocalciferol (Vitamin D-2) 1.25 MG (30820 UT) capsule, Take 1.25 mg by mouth 1 (one) time per week, Disp: , Rfl: famotidine (Pepcid) 20 MG tablet, 2 tablets, Disp: , Rfl: furosemide (Lasix) 40 MG tablet, furosemide 40 mg tablet TAKE 1 TABLET BY MOUTH EVERY DAY, Disp: , Rfl: hydrALAZINE (Apresoline) 100 MG tablet, hydralazine 100 mg tablet, Disp: , Rfl: iron polysaccharides (Nu-Iron,Niferex) 150 MG capsule, Take 150 mg by mouth in the morning., Disp: , Rfl: metoprolol tartrate (Lopressor) 100 MG tablet, metoprolol tartrate 100 mg tablet, Disp: , Rfl: potassium chloride CR (Klor-Con M10) 10 MEQ ER tablet, potassium chloride ER 10 mEq tablet,extendedrelease(part/cryst), Disp: , Rfl: pravastatin (Pravachol) 80 MG tablet, Take 80 mg by mouth in the morning., Disp: , Rfl: senna-docusate (Jesica-Colace) 8.6-50 MG tablet, Take 1 tablet by mouth in the morning., Disp: , Rfl: tamsulosin (Flomax) 0.4 MG 24 hr capsule, tamsulosin 0.4 mg capsule, Disp: , Rfl: warfarin (Coumadin) 4 MG tablet, warfarin 4 mg tablet, Disp: , Rfl: Allergies Cefdinir, Iodinated contrast media, Mixed ragweed, and Sulfa antibiotics Past Surgical History Past Surgical History: Procedure Laterality Date BIOPSY left shoulder, face, lip (melanoma) CORONARY ANGIOPLASTY 2007 LEFT HEART CATH 2012 OTHER SURGICAL HISTORY 1999 endovascular repair RENAL ARTERY STENT 2012 SQUAMOUS CELL CARCINOMA EXCISION 11/10/2024 Excision SCC lower lip with repair Family History Family History Problem Relation Name Age of Onset Diabetes Father Parkinsonism Father Melanoma Neg Hx Objective General Examination: GENERAL EXAMINATION: Alert and oriented. Pleasant disposition. Vascular: DORSALIS PEDIS PULSE: 2/4, bilaterally. POSTERIOR TIBIAL PULSE: 2/4, bilaterally. TEMPERATURE GRADIENT: warm to warm. EDEMA: unremarkable for ankle edema. CAPILLARY FILLING TIME(sec): capillary fill intact bilateral digits less than 3 secs. Neurologic: SHARP SENSATION: tactile and light touch sensation intact. Dermatologic: SKIN FINDINGS: skin turgor is good. HYPERKERATOSIS: no forefoot or digital discrete keratotic lesions are noted. NAIL PATHOLOGY: Digits 1, 2, 3, bilateral: Toenail dystrophy, thickening, elongation, discoloration, clubbing, crumbly texture, subtotal attachment, periungual hyperkeratotic debris; without drainage. MYCOSIS SCALE: Total with debris: Bilateral great toes and 2nd digits. INTERDIGITAL MACERATION: clean, dry, non-inflamed. ULCER: no sign of ulceration or open wound. Orthopedic: JOINT RANGE OF MOTION: functional ankle,subtalar and MTP joint range of motion. MUSCLE STRENGTH: no focal deficits. Radiology: Assessment/Plan Symptomatic onychodystrophy/mycosis multiple digits Plan: Patient remains content and well satisfied with a conservative and palliative care approach; expresses no interest in oral therapy (polypharmacy and potential adverse effects). Continue topical care measures: Use of vinegar and/or Listerine as directed; advised as to limited efficacy. Compliance is encouraged. Hygiene and skin care measures discussed. Procedure: Toenail Debridement: Aseptic technique: power/manual instrumentation: onychodebridement length and thickness, curretage of offending crypotic margins, jesica-ungual debris, providing effective pressure and symptom relief, reducing shoe and digital trauma. This note was created with the assistance of a speech recognition program. While intending to generate a timely document that accurately reflects the content of the visit, no guarantee can be provided that every grammatical or spelling mistake has been or will be identified or corrected. Thank you for your understanding. Yusuf Perez DPM documented in this [facility]06-02-2025 Instructions* Patient Instructions* Yusuf Perez DPM - 03/14/2025 10:15 AM EDT Topical care measures as noted documented in this [facility]04-08-2025 Miscellaneous Notes* Telephone Encounter - Larisa Lopez - 01/18/2025 9:[address] Cortez Lugo patient PCP office is calling about patient having reoccurring retinal bleeding and wants to know if the Plavix and Warfarin medication can be stopped to better control bleeding; please advise [phone] [facility]; please advise * Telephone Encounter - Kathy Roman - 01/18/2025 9:10 AM EDT Larisa can you please forward this to Ashley the nurse? She would handle these types of calls! Thanks so much. documented in this [facility]04-08-2025 Telephone encounter Note* Telephone Encounter - Larisa Lopez - 01/18/2025 9:[address] Cortez Lugo patient PCP office is calling about patient having reoccurring retinal bleeding and wants to know if the Plavix and Warfarin medication can be stopped to better control bleeding; please advise [phone] [facility]; please advise [facility]04-08-2025 Telephone encounter Note* Telephone Encounter - Kathy Roman - 01/18/2025 9:10 AM EDT Larisa can you please forward this to Ashley the nurse? She would handle these types of calls! Thanks so much. [facility]03-05-2025 History of Present illness Narrative* Cortez Gaspar DO - 12/15/2024 2:30 PM EST HPI Patient presents today 1 month postop excision and repair of a left lateral lower lip skin cancer. He is doing fine. Relevant postoperative physical examination Examination shows everything is well healed. No evidence recurrence. Assessment/plan Nicolas was seen today for post-op. Diagnoses and all orders for this visit: Cancer of the lip, oral cavity, and pharynx (CMS/HCC) (Primary) Comments: I will see the patient back as needed documented in this encounterUniversity [facility] [id number] History of Present illness Narrative* Yusuf Perez DPM - 12/06/2024 3:15 PM EST Images from the original note were not included. Subjective Patient ID: Nicolas Kelly is a 79 y.o. male who presents for Toenail Care (Established pt presents today for nail care. SS: 10.5). HPI HPI Onychomycosis/Toenail Fungus: Symptomatic toenail deformity. Location: identifies multiple digits with thickened, deformed and discolored toenails; problematic/symptomatic. Duration: chronic toenail deformity; multiple years duration. Severity of symptoms: mild-moderate; impacting his ability to wear shoes comfortably. Onset:gradual; without known injury or trauma. Status: gradual progressive deformity over multiple years; problematic/symptomatic over the past several weeks or so again impacting ADLs and his ability to wear footwear comfortably. Context: hard to trim, hard to reach; self-care is difficult, ineffective and not practical; increasing risk exposure. Family members unable to provide effective care. Characteristics: discolored, thickened, pain , pressure , elongated , /lifting , ingrowing, crusty; without bleeding or drainage. Relieved by: palliative care measures have provided favorable transient symptom relief. Previous Treatment: palliative care as noted. Reports fair compliance with topical care measures; noting some degree of improvement from baseline. Risk factors: medical comorbidities. Polypharmacy. Warfarin therapy. Plavix therapy. Toenail deformity. Digital and/or shoe trauma and related complications. Aggravated by: shoe gear , pressure , walking; catching and snagging on clothing etc.. Medications Current Outpatient Medications: allopurinol (Zyloprim) 100 MG tablet, allopurinol 100 mg tablet TAKE 2 TABLETS BY MOUTH EVERY DAY, Disp: , Rfl: amLODIPine (Norvasc) 2.5 MG tablet, amLODIPine Besylate, Disp: , Rfl: cholecalciferol (Vitamin D-3) 1.25 MG (59285 UT) capsule, TAKE 1 CAPSULE BY MOUTH ONE TIME PER WEEK, Disp: , Rfl: clonazePAM (KlonoPIN) 0.5 MG tablet, clonazepam 0.5 mg tablet, Disp: , Rfl: clopidogrel (Plavix) 75 MG tablet, clopidogrel 75 mg tablet, Disp: , Rfl: ergocalciferol (Vitamin D-2) 1.25 MG (06313 UT) capsule, Take 1.25 mg by mouth 1 (one) time per week, Disp: , Rfl: famotidine (Pepcid) 20 MG tablet, 2 tablets, Disp: , Rfl: furosemide (Lasix) 40 MG tablet, furosemide 40 mg tablet TAKE 1 TABLET BY MOUTH EVERY DAY, Disp: , Rfl: hydrALAZINE (Apresoline) 100 MG tablet, hydralazine 100 mg tablet, Disp: , Rfl: iron polysaccharides (Nu-Iron,Niferex) 150 MG capsule, Take 150 mg by mouth in the morning., Disp: , Rfl: metoprolol tartrate (Lopressor) 100 MG tablet, metoprolol tartrate 100 mg tablet, Disp: , Rfl: potassium chloride CR (Klor-Con M10) 10 MEQ ER tablet, potassium chloride ER 10 mEq tablet,extendedrelease(part/cryst), Disp: , Rfl: pravastatin (Pravachol) 80 MG tablet, Take 80 mg by mouth in the morning., Disp: , Rfl: senna-docusate (Jesica-Colace) 8.6-50 MG tablet, Take 1 tablet by mouth in the morning., Disp: , Rfl: tamsulosin (Flomax) 0.4 MG 24 hr capsule, tamsulosin 0.4 mg capsule, Disp: , Rfl: warfarin (Coumadin) 4 MG tablet, warfarin 4 mg tablet, Disp: , Rfl: Allergies Cefdinir, Iodinated contrast media, Mixed ragweed, and Sulfa antibiotics Past Surgical History Past Surgical History: Procedure Laterality Date BIOPSY left shoulder, face, lip (melanoma) CORONARY ANGIOPLASTY 2007 LEFT HEART CATH 2012 OTHER SURGICAL HISTORY 1999 endovascular repair RENAL ARTERY STENT 2012 SQUAMOUS CELL CARCINOMA EXCISION 11/10/2024 Excision SCC lower lip with repair Family History Family History Problem Relation Name Age of Onset Diabetes Father Parkinsonism Father Melanoma Neg Hx Objective General Examination: GENERAL EXAMINATION: alert and oriented. Pleasant disposition. Vascular: DORSALIS PEDIS PULSE: 2/4, bilaterally. POSTERIOR TIBIAL PULSE: 2/4, bilaterally. TEMPERATURE GRADIENT: warm to warm. EDEMA: unremarkable for ankle edema. CAPILLARY FILLING TIME(sec): capillary fill intact bilateral digits less than 3 secs. Neurologic: SHARP SENSATION: tactile and light touch sensation intact. Dermatologic: SKIN FINDINGS: skin turgor is good. HYPERKERATOSIS: no forefoot or digital discrete keratotic lesions are noted. NAIL PATHOLOGY: Digits 1, 2, 3 right foot; 1, 2, 3, 4 left foot: Toenail dystrophy, thickening, elongation, discoloration, clubbing, crumbly texture, subtotal attachment, periungual hyperkeratotic debris; without drainage. MYCOSIS SCALE:total with debris: Bilateral great toes and 2nd digits. INTERDIGITAL MACERATION: clean, dry, non-inflamed. ULCER: no sign of ulceration or open wound. Orthopedic: JOINT RANGE OF MOTION: functional ankle,subtalar and MTP joint range of motion. MUSCLE STRENGTH: no focal deficits. Radiology: Assessment/Plan Symptomatic onychodystrophy/mycosis multiple digits Plan: Patient remains content and well satisfied with a conservative and palliative care approach; expresses no interest in oral therapy (polypharmacy and potential adverse effects). Continue topical care measures: Use of vinegar and/or Listerine as directed; advised as to limited efficacy. Hygiene and skin care measures discussed. Procedure: Toenail Debridement: Aseptic technique: power/manual instrumentation: onychodebridement length and thickness, curretage of offending crypotic margins, jesica-ungual debris, providing effective pressure and symptom relief, reducing shoe and digital trauma. This note was created with the assistance of a speech recognition program. While intending to generate a timely document that accurately reflects the content of the visit, no guarantee can be provided that every grammatical or spelling mistake has been or will be identified or corrected. Thank you for your understanding. 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 Final pathology shows complete removal. Relevant postoperative physical examination Sutures removed, everything healing very nicely. 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 Diagnoses and all orders for this visit: Malignant neoplasm of skin of lip (Primary) Comments: Patient given wound instructions, I will see him back in a month documented in this encounterUniversity Health Lakewood Medical [id number] History of Present illness Narrative* Wallace Reyes MD - 11/04/2024 9:30 AM EST Images from the original note were not included. Date of Service: 11/04/24 PCP: CORTEZ LUGO DO History of Present Illness Nicolas Kelly is a 79 y.o. male, who is following with us for Stage IIIB chronic kidney disease returning in nephrologic follow-up. Labs of 03/09/2024 showed a BUN of 43 creatinine 2.35 EGFR 28. The urine protein creatinine ratio was 0.88 gram/gram on March 09, 2024. Labs of 10/19/2024 included urinalysis which was entirely unremarkable on dipstick and microscopic exam. Phosphorus was 3.9 mg/dL. Urine protein creatinine ratio was 0.56 gram/gram. Twenty-five hydroxy vitamin-D was elevated at 109 ng/mL. Intact PTH was 116 pg/mL. Magnesium was 2.3 mg/dL. Hemoglobin was 10.2 hematocrit 31.6 platelet count 120. Sodium was 144 potassium 4.4 chloride 107 total CO2 27 BUN 52 creatinine 2.52 mg/dL. In general, Nicolas is feeling well. He is going to have he is going to have a surgical a surgical procedure to performed procedure to performed on his on his lip lip for a cancerous lesion soon. For a cancerous lesion he will be on soon. He will be on clindamycin 3 times a day for 10 days. Problem List 1. Stage 3 B chronic kidney disease. Previous nephrologic investigations include a renal ultrasoundin June 2012 demonstrating the right kidney measured 11.4 and the left kidney 9.1 cm and bipolar dimension. There was some cortical thinning bilaterally left greater than right. A serum protein electrophoresis with immunofixation revealed no evidence of monoclonal protein disorder. Complement C3 and C4 were normal. Anti neutrophilic cytoplasmic antibody titers were negative. A 24 hr urine collection contained only 111 mg of protein. 2. Paroxysmal atrial fib 3. Anemia of chronic kidney disease with decreased iron stores 4. Benign prostatic hypertrophy 5. History of adverse reaction to Cefdinir with bolus skin eruption 6. Chronic constipation 7. Secondary hyperparathyroidism 8. Preserved left ventricular function with ejection fraction 55%. 9. Hyperlipidemia 10. Anxiety 11. History of abdominal aortic aneurysm status post Endographic repair by Dr. Terrell Arguello 12. Atherosclerotic coronary artery disease with acute myocardial infarction in September 2007 status post angioplasty and stenting of the left circumflex and the right coronary artery by Dr. Mac Landers at the [facility]. 13. History of right-sided sciatica. 14. Allergies to IV dye. 15. Acute gouty arthritis February 2020 16.Pneumonia 06/2023, [facility]. 17. 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 Followed by Dr. Yusuf Perez. Surgical, Family & Social History Surgical History: Past Surgical History: Procedure Laterality Date ABDOMINAL AORTIC ANEURYSM REPAIR W/ ENDOLUMINAL GRAFT 2010 CORONARY ANGIOPLASTY WITH STENT PLACEMENT left circumflex and right coronary artery RENAL ARTERY STENT Social History: Social History Socioeconomic History Marital status: Spouse name: Not on file Number of children: Not on file Years of education: Not on file Highest education level: Not on file Occupational History Not on file Tobacco Use Smoking status: Former Smokeless tobacco: Never Vaping Use Vaping status: Never Used Substance and Sexual Activity Alcohol use: No Drug use: No Sexual activity: Defer Partners: Female Other Topics Concern Not on file Social History Narrative Not on file Social Drivers of Health Financial Resource Strain: Not on file Food Insecurity: No Food Insecurity (05/27/2024) Hunger Screening Food Insecurity - Worry: Never True Food Insecurity - Inability: Never True Transportation Needs: Not on file Physical Activity: Not on file Stress: Not on file Social Connections: Not on file Interpersonal Safety: Unknown (12/04/2023) Received from [facility] Safety & Environment Fear of Current or Ex-Partner: Not on file Emotionally Abused: Not on file Physically Abused: Not on file Sexually Abused: Not on file Physically or Sexually Abused: Not on file Housing Instability: Not on file Family History: Family History Problem Relation Age of Onset Arthritis Mother Diabetes Father Allergies & Medications Allergies: Allergies Allergen Reactions Cefdinir Iodinated Contrast Media Other reaction(s): Unknown Ragweed Other reaction(s): Unknown Sulfa (Sulfonamide Antibiotics) Rash Current Meds: Current Outpatient Medications Medication Sig Dispense Refill acetaminophen (TYLENOL) 325 mg tablet Take 2 tablets (650 mg total) by mouth every 6 (six) hours asneeded for pain. allopurinoL (ZYLOPRIM) 100 mg tablet Take 2 tablets (200 mg total) by mouth in the morning and 2 tablets (200 mg total) before bedtime. amLODIPine (NORVASC) 5 mg tablet Take 1 tablet (5 mg total) by mouth once daily. 3 cholecalciferol (VITAMIN D3) 50,000 units capsule Take 1 capsule (50,000 Units total) by mouth oncea week. (Patient taking differently: Take 1 capsule (50,000 Units total) by mouth once a week. Patient stating taking 1250) 12 capsule 3 clonazePAM (KlonoPIN) 0.5 mg tablet Take 1 tablet (0.5 mg total) by mouth 2 (two) times a day as needed for seizures. clopidogrel (PLAVIX) 75 mg tablet Take 1 tablet (75 mg total) by mouth in the morning. famotidine (PEPCID) 20 mg tablet Take 1 tablet (20 mg total) by mouth in the morning and 1 tablet (20 mg total) before bedtime. furosemide (LASIX) 40 mg tablet Take 1 tablet (40 mg total) by mouth daily. hydrALAZINE (APRESOLINE) 50 mg tablet Take 2 tablets (100 mg total) by mouth in the morning and 2 tablets (100 mg total) at noon and 2 tablets (100 mg total) in the evening and 2 tablets (100 mg total) before bedtime. metoprolol tartrate (LOPRESSOR) 100 mg tablet Take 1 tablet (100 mg total) by mouth in the morning and at bedtime. polyethylene glycol 3350 (MIRALAX ORAL) Take 17 g by mouth daily as needed. polysaccharide iron complex (NIFEREX) 150 mg iron capsule Take 1 capsule (150 mg total) by mouth inthe morning. pravastatin (PRAVACHOL) 80 mg tablet Take 1 tablet (80 mg total) by mouth in the morning. sennosides (SENNA ORAL) Take 1 tablet by mouth nightly. tamsulosin (FLOMAX) 0.4 mg capsule,extended release 24hr Take 1 capsule (0.4 mg total) by mouth nightly. warfarin (COUMADIN) 5 mg tablet Take 4 mg by mouth in the evening. Dose is adjusted due to PT/INR . No current facility-administered medications for this visit. Review of Systems Review of Systems Constitutional: Negative for chills, diaphoresis, fatigue and fever. HENT: Negative for congestion, ear discharge, ear pain, facial swelling and hearing loss. Eyes: Negative for pain, discharge, redness and itching. Respiratory: Negative for cough, shortness of breath and wheezing. Cardiovascular: Negative for chest pain, palpitations and leg swelling. Gastrointestinal: Negative for abdominal pain, constipation, diarrhea, nausea and vomiting. Endocrine: Negative for polydipsia, polyphagia and polyuria. Genitourinary: Negative for decreased urine volume, difficulty urinating, dysuria, enuresis, flank pain, frequency, hematuria and urgency. Musculoskeletal: Negative for arthralgias, joint swelling and myalgias. Skin: Negative for rash and wound. Neurological: Negative for dizziness, tremors, weakness, light-headedness and numbness. Hematological: Negative for adenopathy. Bruises/bleeds easily. Physical Exam Vital Signs: Vitals: 11/04/24 0929 11/04/24 0932 BP: 140/53 138/54 BP Site: Left Arm Left Arm BP Postition: Sitting Standing BP CUFF SIZE: M (9-13 inches) M (9-13 inches) Pulse: (!) 45 (!) 46 Weight: 87.4 kg (192 lb 11.2 oz) Height: 177.8 cm (5' 10 ) BMI: Body mass index is 27.65 kg/m . General appearance: alert in no apparent distress. Psychiatric: Oriented to place, time and person HEENT: atraumatic, supple, moist oral mucosa, no JVD Cardiovascular: normal S1-S2 Respiratory: No respiratory distress with no use of accessory muscles. Clear to auscultation bilaterally with no wheezes or crackles Abdomen: soft, no tenderness, no guarding, positive bowel sounds and no hepato or splenomegaly Vascular: adequate pulses and no carotid bruits. Musculoskeletal: no joint swelling or tenderness. Neurologic: No focal deficit in upper or lower extremities Lymphatic: no cervical or axillary lymphadenopathy. Edema:trace pretibial edema. Laboratory Studies Chemistry: Lab Results Component Value Date SODIUM 144 10/19/2024 SODIUM 142 03/09/2024 SODIUM 142 08/07/2023 SODIUM 141 07/21/2023 K 4.4 10/19/2024 K 5.0 03/09/2024 K 4.2 08/07/2023 K 3.4 (L) 07/21/2023 CL 107 10/19/2024 CL 108 03/09/2024 CL 108 08/07/2023 CL 103 07/21/2023 CO2 27 10/19/2024 CO2 22 03/09/2024 CO2 25 08/07/2023 CO2 23 07/21/2023 ANIONGAP 10 10/19/2024 ANIONGAP 12 03/09/2024 ANIONGAP 9 08/07/2023 ANIONGAP 15 07/21/2023 BUN 52 (H) 10/19/2024 BUN 43 (H) 03/09/2024 BUN 37 (H) 08/07/2023 BUN 34 (H) 07/21/2023 CREATININE 2.52 (H) 10/19/2024 CREATININE 2.35 (H) 03/09/2024 CREATININE 1.95 (H) 08/07/2023 CREATININE 2.05 (H) 07/21/2023 EGFR 26 (L) 10/19/2024 EGFR 28 (L) 03/09/2024 EGFR 35 (L) 08/07/2023 EGFR 33 (L) 07/21/2023 CALCIUM 8.9 10/19/2024 CALCIUM 8.6 03/09/2024 CALCIUM 8.5 08/07/2023 CALCIUM 9.2 07/21/2023 MG 2.3 10/19/2024 MG 2.3 03/09/2024 MG 2.2 07/21/2023 PHOSPHORUS 3.9 10/19/2024 PHOSPHORUS 3.4 03/09/2024 PHOSPHORUS 2.7 07/21/2023 Lab Results Component Value Date ALT 15 07/21/2023 BILIRUBIN Negative 10/19/2024 BILIRUBIN Negative 07/21/2023 Hematology: Lab Results Component Value Date WBC 5.8 10/19/2024 WBC 7.1 03/09/2024 HGB 10.2 (L) 10/19/2024 HGB 11.7 (L) 03/09/2024 HCT 31.6 (L) 10/19/2024 HCT 35.2 (L) 03/09/2024 PLT 120 (L) 10/19/2024 PLT 122 (L) 03/09/2024 Anemia Studies: No results found for: IRONSAT , FERRITIN , [id number] , FOLATE Mineral and Bone Labs: Lab Results Component Value Date CALCIUM 8.9 10/19/2024 CALCIUM 8.6 03/09/2024 PHOSPHORUS 3.9 10/19/2024 PHOSPHORUS 3.4 03/09/2024 VITD25 109.0 (H) 10/19/2024 VITD25 24.5 (L) 03/09/2024 PTH 116 (H) 10/19/2024 PTH 241 (H) 03/09/2024 Urine Studies: Lab Results Component Value Date COLOR YELLOW 10/19/2024 TURBIDITY CLEAR 10/19/2024 SPECIFICGRA 1.009 10/19/2024 NITRITE Negative 10/19/2024 PHURINE 6.5 10/19/2024 LEUKOCYTE Negative 10/19/2024 PROTEIN Negative 10/19/2024 KETONES Negative 10/19/2024 UROBILINOGEN <1.1 10/19/2024 BLOODHGB Negative 10/19/2024 Lab Results Component Value Date UPROCRTRAT 0.56 (H) 10/19/2024 UPROCRTRAT 0.88 (H) 03/09/2024 UPROCRTRAT 0.36 (H) 07/21/2023 Immunology Profile No results found for: PROTELECTR , SEDRATE , CRP , RF , ANASCREEN , ANTIDSDNA , C3 , C4 , ANCA , MYELOP , PROTEINASE3 , ANTIGLOMERU No results found for: HAV , HEPAIGM , HEPBIGM , HEPBCAB , HBEAG , HEPCAB Imaging Echocardiogram: Echo complete W/O contrast Result Date: 03/26/2024 Left Ventricle: Left ventricle appears normal in size. There is moderate focal basal increased wallthickness/hypertrophy no LVOT obstruction noted. Remaining wall segments are mildly increased. Systolic function is low normal to mildly decreased with an ejection fraction of 50-55%. Right Ventricle: Right ventricular size is mildly dilated. The right ventricular basal diameter is 47.0 mm. Aortic Valve: There is trace regurgitation with centrally directed jet. There is mild stenosis. The calculated aortic valve area is 2.62 cm2. The calculated aortic valve peak gradient is 13.00 mmHg. The calculated aortic valve mean gradient is 7.00 mmHg. Tricuspid Valve: There is mild to moderate regurgitation. The tricuspid valve regurgitation jet is central. There is no evidence of tricuspid valve stenosis. IMPRESSION 1. Stage IIIB chronic kidney disease: Secondary to hypertensive nephrosclerosis or renovascular disease. His creatinine has increased to 2.52 mg/dL. This may be the result of prerenal factors with the progression of his underlying chronic kidney disease. I would like to afford him the potential benefit of SGLT2 inhibitor Farxiga or Jardiance for renal protection and protein sparing. 2. Hypertension: BP is well controlled at home and at Rehab. 3. Secondary hyperparathyroidism: His intact PTH is satisfactory. 4. Hypovitaminosis D: His 25 hydroxy vitamin-D is high normal. His total calcium is normal at 8.9 mg/dL. There is no need to adjust Drisdol dose. 5. Hyperkalemia: Resolved with the discontinuation of potassium chloride. PLAN Target systolic blood pressure to 130 mmHg or less. Avoid prolonged use of nonsteroidal anti-inflammatory drug or proton pump inhibitors. Initiate Farxiga for renal protection and protein sparing. The patient wants to consider this and discuss the option of using Farxiga or Jardiance with you which I think is tejada. Return to this office in 6 months time for repeat evaluation. A CKD panel will be obtained then. Thank you CORTEZ LUGO DO for the opportunity to participate in the care of your patients! Please contact me at [phone] (Office) or [phone] (Answering service) with any questions. WALLACE REYES MD [facility] This note was created with the assistance of a speech-recognition program. Although the intention is to generate a document that actually reflects the content of the visit, no guarantees can be provided that every mistake has been identified and corrected by editing. WALLACE REYES MD,PhD FACP [facility] ANY QUESTIONS FEEL FREE TO CALL: 1. OFFICE [phone] 2. ANSWERING SERVICE: [phone] documented in this encounterUniversity Hospitals St. John Medical CenterBonegrafix [id number] History of Present illness Narrative* Cortez Gaspar DO - 10/27/2024 1:30 PM EST Allergies as of 10/27/2024 - Reviewed 09/30/2024 Allergen Reaction Noted Iodinated contrast media 03/24/2023 Mixed ragweed 03/24/2023 Past Medical History: Diagnosis Date Actinic keratosis Basal cell carcinoma COVID-19 vaccine administered 12/2020 x2 pfizer Gout right hand Hx of blood clots Hypertension (CMS/HCC) Squamous cell skin cancer Current Outpatient Medications: allopurinol (Zyloprim) 100 MG tablet, allopurinol 100 mg tablet TAKE 2 TABLETS BY MOUTH EVERY DAY, Disp: , Rfl: amLODIPine (Norvasc) 2.5 MG tablet, amLODIPine Besylate, Disp: , Rfl: clonazePAM (KlonoPIN) 0.5 MG tablet, clonazepam 0.5 mg tablet, Disp: , Rfl: clopidogrel (Plavix) 75 MG tablet, clopidogrel 75 mg tablet, Disp: , Rfl: ergocalciferol (Vitamin D-2) 1.25 MG (36020 UT) capsule, Take 1.25 mg by mouth 1 (one) time per week, Disp: , Rfl: famotidine (Pepcid) 20 MG tablet, 2 tablets, Disp: , Rfl: furosemide (Lasix) 40 MG tablet, furosemide 40 mg tablet TAKE 1 TABLET BY MOUTH EVERY DAY, Disp: , Rfl: hydrALAZINE (Apresoline) 100 MG tablet, hydralazine 100 mg tablet, Disp: , Rfl: iron polysaccharides (Nu-Iron,Niferex) 150 MG capsule, Take 150 mg by mouth in the morning., Disp: , Rfl: metoprolol tartrate (Lopressor) 100 MG tablet, metoprolol tartrate 100 mg tablet, Disp: , Rfl: potassium chloride CR (Klor-Con M10) 10 MEQ ER tablet, potassium chloride ER 10 mEq tablet,extendedrelease(part/cryst), Disp: , Rfl: pravastatin (Pravachol) 80 MG tablet, Take 80 mg by mouth in the morning., Disp: , Rfl: senna-docusate (Jesica-Colace) 8.6-50 MG tablet, Take 1 tablet by mouth in the morning., Disp: , Rfl: tamsulosin (Flomax) 0.4 MG 24 hr capsule, tamsulosin 0.4 mg capsule, Disp: , Rfl: warfarin (Coumadin) 4 MG tablet, warfarin 4 mg tablet, Disp: , Rfl: Past Surgical History: Procedure Laterality Date BIOPSY left shoulder, face, lip (melanoma) CORONARY ANGIOPLASTY 2007 LEFT HEART CATH 2012 OTHER SURGICAL HISTORY 1999 endovascular repair RENAL ARTERY STENT 2012 Social History Socioeconomic History Marital status: Spouse name: Not on file Number of children: Not on file Years of education: Not on file Highest education level: Not on file Occupational History Not on file Tobacco Use Smoking status: Never Smokeless tobacco: Never Substance and Sexual Activity Alcohol use: Yes Comment: caffeine: 1-2 cups per day Drug use: Not on file Sexual activity: Not on file Other Topics Concern Not on file Social History Narrative Not on file Social Drivers of Health Financial Resource Strain: Not on file Food Insecurity: No Food Insecurity (05/27/2024) Received from [facility] Hunger Screening Within the past 12 months we worried whether our food would run out before we got money to buy more.: Never True Within the past 12 months the food we bought just didn't last and we didn't have money to get more.: Never True Transportation Needs: Not on file Physical Activity: Not on file Stress: Not on file Social Connections: Not on file Intimate Partner Violence: Unknown (12/04/2023) Received from [facility] Safety & Environment Fear of Current or Ex-Partner: Not on file Emotionally Abused: Not on file Physically Abused: Not on file Sexually Abused: Not on file Physically or Sexually Abused: Not on file Housing Stability: Not on file Subjective Patient ID: HPI Patient is a 79-year-old male referred from Dermatology with a 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 The overall size of the tumors about a cm in both both the vermilion and white portion of the lip. It has some superficial ulceration present. Review of Systems ROS The specialty specific review of systems is noncontributory except for that recorded in the intake questionnaire and /or described in the history of present illness. Objective ENT Physical Exam Physical Exam Constitutional: Appearance: Normal appearance. HENT: Head: Atraumatic. Ears: External ear shows no abnormality Bilateral ear canals are clear Tympanic membranes intact, no evidence of middle ear fluid or other pathology. Nose: External nose appears to be normal Nares patent. Septal deviation to the left No evidence of polyp, mass or pus bilaterally. Oral Cavity: No evidence of trismus Lips appear normal Dental Tongue of normal size and configuration, floor of mouth mucosa clear. Buccal mucosa shows no evidence of ulceration, mass or other abnormality Hard palate soft palate mucosa intact with no evidence of mass, ulceration or other abnormality Uvula of normal size and configuration See description of left lower lip tumor Oropharynx: Tonsils atrophic Posterior pharyngeal wall normal Neck: No evidence of palpable abnormality Thyroid without evidence of thyromegaly or mass. No cervical lymphadenopathy present. Cardiovascular: Rate and Rhythm: Normal rate and regular rhythm. . Skin: General: Skin is warm and dry. Neurological: General: No focal deficit present. Mental Status: alert and oriented to person, place, and time. Assessment/Plan Nicolas was seen today for suspicious skin lesion. 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 Orders: - Ambulatory referral to ENT The r/b of excision of skin cancer with recontruction(primary closure, skin graft or flap) were discussed with the patient. These include but are not limited to disfigurment, scarring, poor cosemeticresults, difficuty with function of the organ/site involved with the resection a/o flap, bleeding, i nfection, of the flap, numbness, neuro/vascular injury, need for additional surgery a/o treatment, etc. The pateint has consented to proceed. documented in this encounterUniversity Health Lakewood Medical [id number] History of Present illness Narrative* Piedad Connolly MD - 09/30/2024 3:20 PM EST Images from the original note were not included. Skin Check Location: Patient requests a skin examination of the face and arms Dermatologic history: history of Actinic Keratosis, history of Basal Cell Carcinoma Last visit: 1 year ago Established patient All pertinent medical history, medications, and allergies were reviewed. General Exam: alert, oriented to person, place, and time, normal affect, well appearing Unaccompanied A complete skin exam was offered, pt declined. Areas not examined despite medical recommendation: From the waist down, under shirt Scalp, Examined Head, Face Examined Neck Examined Chest not Examined Back not Examined Abdomen not Examined Right arm Examined Left arm Examined Hands Examined Digits,nails: Examined Lymphatics: Not examined 1. Actinic keratosis (3) Left Anterior Mandible, Left Buccal Cheek, Mid Frontal Scalp Erythematous scaly papules Patient was counseled regarding these sun-induced growths that can develop into squamous cell carcinoma if left untreated. Discussed treatment with cryotherapy. It was emphasized that any treated lesions that fail to resolve should be re- evaluated. Cryotherapy performed today; see procedure note Diagnosis: Actinic keratosis Indication: Precancerous Location: see skin exam Consent: Verbal consent was obtained and risks were discussed, including, but not limited to risks of scarring, darker or terrazzo tile maker pigmentary changes, recurrence, incomplete removal and infection. Method: Liquid nitrogen was used to treat the lesion(s) with two 5-10 second freeze-thaw cycles. Number of lesions treated: 3 Post-procedure instructions: Instructions were given orally and in writing. The office will be contacted if the lesion fails to resolve despite treatment, or if a side effect develops such as abnormal crusting, scabbing, redness or tenderness Cryotherapy, skin lesion - Left Anterior Mandible, Left Buccal Cheek, Mid Frontal Scalp 2. Neoplasm of unspecified behavior of bone, soft tissue, and skin Left Lower Vermilion Lip Hyperkeratotic papule Lesion biopsy Type of biopsy: tangential Informed consent: discussed and consent obtained Informed consent comment: The risks and benefits of the biopsy were discussed. Risks include but are not limited to bleeding, infection, scarring, pain, and nerve damage. An opportunity to ask questions prior to the procedure was permitted and all questions were answered. Patient was prepped and draped in usual sterile fashion: area cleansed with alcohol. Anesthesia: the lesion was anesthetized in a standard fashion Anesthetic: 1% lidocaine w/ epinephrine 1-100,000 buffered w/ 8.4% NaHCO3 Instrument used: DermaBlade Hemostasis achieved with: electrodesiccation Outcome: patient tolerated procedure well Outcome comment: The specimen was placed in a prelabeled formalin container to be sent for pathology Post-procedure details: sterile dressing applied and wound care instructions given Post-procedure details comment: Emphasized need to contact clinic for any signs of infection, uncontrollable bleeding, or complications. Dressing type: bandage Additional details: Photo taken yes Amount of lidocaine used: 0.3 cc Specimen A - Dermatopathology exam Differential Diagnosis: AK vs SCC Check Margins: No Size of lesion: 0.8 x 0.4 cm 3. Seborrheic keratosis (2) Generalized, Left Lower Leg - Anterior Stuck on verrucous, seay-brown papules and plaques. Patient was counseled regarding these benign growths. Removal is normally not necessary, but they may be removed if they are symptomatic or for cosmetic reasons. 4. Lentigines Scattered seay macules in sun-exposed areas. The patient was informed that lentigines are benign pigmented lesions that occur on sun-exposed andsun-damaged skin. No treatment is necessary. Recommended regular use of broad spectrum sunscreen SPF 30 or higher Next Visit: pending biopsy results documented in this encounterUniversity Health Lakewood Medical [id number] Evaluation note* Diagnosis Onset Date Resolution Status Admit Date Acute chest wall pain acute Nov 2023 11:34am Gastroesophageal reflux dise ase with esophagitis without hemorrhage acute August 17 11:34am Paroxysmal atrial fibrillation acute August 17, 2024 11:34am ASHD (arteriosclerotic heart disease) acute September 13 8:48am Chronic kidney disease acute De cem2023 8:48am Chronic venous insufficiency acute September 13, 2024 8:48am MARY (generalized anxiety disorder) a cute September 13, 2024 8:48am Hypercholesterolemia acute Dece 2023 8:48am Paroxysmal atrial fibrillation acute September 13, 2024 8:48am Primary hypertension acute Dece 2023 8:48am [facility] Work Phone: 1(773) 899-903811-04-2024 History of Present illness Narrative* Yusuf Perez DPM - 08/16/2024 2:15 PM EST Images from the original note were not included. Subjective Patient ID: Nicolas Kelly is a 79 y.o. male who presents for Toenail Care (SS: 10.5). HPI HPI Onychomycosis/Toenail Fungus: Symptomatic toenail deformity. Location: identifies multiple digits with thickened, deformed and discolored toenails; problematic/symptomatic. Duration: chronic toenail deformity; multiple years duration. Severity of symptoms: mild-moderate; impacting his ability to wear shoes comfortably. Onset:gradual; without known injury or trauma. Status:: gradual progressive deformity over the years; problematic/symptomatic over the past several weeks or so. Context: hard to trim, hard to reach; self-care is difficult, ineffective and not practical; increasing risk exposure. Family members unable to provide effective care. Characteristics: discolored, thickened, pain , pressure , elongated , /lifting , ingrowing, crusty; without bleeding or drainage. Relieved by: palliative care measures have provided favorable transient symptom relief. Previous Treatment: palliative care as noted. Reports good compliance with topical care measures; noting some degree of improvement. Risk factors: medical comorbidities. Polypharmacy. Warfarin therapy. Plavix therapy. Toenail deformity. Digital and/or shoe trauma and related complications. Aggravated by: shoe gear , pressure , walking; catching and snagging on clothing etc.. Medications Current Outpatient Medications: allopurinol (Zyloprim) 100 MG tablet, allopurinol 100 mg tablet TAKE 2 TABLETS BY MOUTH EVERY DAY, Disp: , Rfl: amLODIPine (Norvasc) 2.5 MG tablet, amLODIPine Besylate, Disp: , Rfl: clonazePAM (KlonoPIN) 0.5 MG tablet, clonazepam 0.5 mg tablet, Disp: , Rfl: clopidogrel (Plavix) 75 MG tablet, clopidogrel 75 mg tablet, Disp: , Rfl: ergocalciferol (Vitamin D-2) 1.25 MG (87561 UT) capsule, Take 1.25 mg by mouth 1 (one) time per week, Disp: , Rfl: famotidine (Pepcid) 20 MG tablet, 2 tablets, Disp: , Rfl: furosemide (Lasix) 40 MG tablet, furosemide 40 mg tablet TAKE 1 TABLET BY MOUTH EVERY DAY, Disp: , Rfl: hydrALAZINE (Apresoline) 100 MG tablet, hydralazine 100 mg tablet, Disp: , Rfl: iron polysaccharides (Nu-Iron,Niferex) 150 MG capsule, Take 150 mg by mouth in the morning., Disp: , Rfl: metoprolol tartrate (Lopressor) 100 MG tablet, metoprolol tartrate 100 mg tablet, Disp: , Rfl: potassium chloride CR (Klor-Con M10) 10 MEQ ER tablet, potassium chloride ER 10 mEq tablet,extendedrelease(part/cryst), Disp: , Rfl: pravastatin (Pravachol) 80 MG tablet, Take 80 mg by mouth in the morning., Disp: , Rfl: senna-docusate (Jesica-Colace) 8.6-50 MG tablet, Take 1 tablet by mouth in the morning., Disp: , Rfl: tamsulosin (Flomax) 0.4 MG 24 hr capsule, tamsulosin 0.4 mg capsule, Disp: , Rfl: warfarin (Coumadin) 4 MG tablet, warfarin 4 mg tablet, Disp: , Rfl: Allergies Iodinated contrast media and Mixed ragweed Past Surgical History Past Surgical History: Procedure Laterality Date BIOPSY left shoulder, face, lip (melanoma) CORONARY ANGIOPLASTY 2007 LEFT HEART CATH 2012 OTHER SURGICAL HISTORY 1999 endovascular repair RENAL ARTERY STENT 2012 Family History Family History Problem Relation Name Age of Onset Diabetes Father Parkinsonism Father Melanoma Neg Hx Objective General Examination: GENERAL EXAMINATION: alert and oriented. Pleasant disposition. Vascular: DORSALIS PEDIS PULSE: 2/4, bilaterally. POSTERIOR TIBIAL PULSE: 2/4, bilaterally. TEMPERATURE GRADIENT: warm to warm. EDEMA: unremarkable for ankle edema. CAPILLARY FILLING TIME(sec): capillary fill intact bilateral digits less than 3 secs. Neurologic: SHARP SENSATION: tactile and light touch sensation intact. Dermatologic: SKIN FINDINGS: skin turgor is good. HYPERKERATOSIS: no forefoot or digital discrete keratotic lesions are noted. NAIL PATHOLOGY: Digits 1, 2, 3 right foot; 1, 2, 3, 4 left foot: Toenail dystrophy, thickening, elongation, discoloration, clubbing, crumbly texture, subtotal attachment, periungual hyperkeratotic debris; without drainage. MYCOSIS SCALE:total with debris: Bilateral great toes and 2nd digits. INTERDIGITAL MACERATION: clean, dry, non-inflamed. ULCER: no sign of ulceration or open wound. Orthopedic: JOINT RANGE OF MOTION: functional ankle,subtalar and MTP joint range of motion. MUSCLE STRENGTH: no focal deficits. Radiology: Assessment/Plan Symptomatic onychodystrophy/mycosis multiple digits Plan: Patient remains content and well satisfied with a conservative and palliative care approach; expresses no interest in oral therapy (polypharmacy and potential adverse effects). Continue topical care measures: Use of vinegar and/or Listerine as directed; advised as to limited efficacy. Hygiene and skin care measures discussed. Procedure: Toenail Debridement: Aseptic technique: power/manual instrumentation: onychodebridement length and thickness, curretage of offending crypotic margins, jesica-ungual debris, providing effective pressure and symptom relief, reducing shoe and digital trauma. This note was created with the assistance of a speech recognition program. While intending to generate a timely document that accurately reflects the content of the visit, no guarantee can be provided that every grammatical or spelling mistake has been or will be identified or corrected. Thank you for your understanding. Yusuf Perez DPM documented in this [facility]11-04-2024 Instructions* Patient Instructions* Yusuf Perez DPM - 08/16/2024 2:15 PM EST Topical care measures as noted documented in this [facility]10-04-2024 Miscellaneous Notes* Telephone Encounter - Melody Acuna - 07/16/2024 8:42 AM EDT A user error has taken place: orders placed in error, not carried out on this patient, charting done on wrong patient and has been corrected. documented in this [facility]10-04-2024 Telephone encounter Note* Telephone Encounter - Melodyroni Acuna - 07/16/2024 8:42 AM EDT A user error has taken place: orders placed in error, not carried out on this patient, charting done on wrong patient and has been corrected. [facility]08-15-2024 Evaluation + Plan note* Assessment & Plan Note - Sara Renteria MD - 05/27/2024 10:49 AM EDTAssociated Problem(s): Infrarenal abdominal aortic aneurysm (AAA) without rupture ([facility]) Surveillance imaging with a duplex ultrasound In 1 year [facility]08-15-2024 Evaluation + Plan note* Assessment & Plan Note - Sara Renteria MD - 05/27/2024 10:49 AM EDTAssociated Problem(s): Bilateral carotid artery stenosis Continue best medical therapy with statin and Coumadin.Risk factors modifications. With control of blood pressure and diabetes. [facility]08-15-2024 Miscellaneous Notes* Assessment & Plan Note - Sara Renteria MD - 05/27/2024 10:49 AM EDTAssociated Problem(s): Infrarenal abdominal aortic aneurysm (AAA) without rupture ([facility]) Surveillance imaging with a duplex ultrasound In 1 year * Assessment & Plan Note - Sara Renteria MD - 05/27/2024 10:49 AM EDT Associated Problem(s): Bilateral carotid artery stenosis Continue best medical therapy with statin and Coumadin.Risk factors modifications. With control of blood pressure and diabetes. [facility] in this [facility] History of Present illness Narrative* Sara Renteria MD - 05/27/2024 10:10 AM EDT Images from the original note were not included. To: CORTEZ LUGO, DO HPI: Nicolas Kelly is a 79 y.o. male with Endovascular abdominal arctic aneurysm repaired and carotid stenosis. He has CKD. He comes in with a CT scan without contrast that shows a small aneurysmal sac. Obviously we cannot tell if there is an endoleak however I do not suspect to be this shrinking sac. His carotid duplex ultrasound shows mild stenosis bilaterally.He is on pravastatin and Coumadin. Recommended best medical therapy. Will get surveillance imaging in a year.. Review of Systems: Review of Systems Constitutional: Negative. HENT: Negative. Respiratory: Negative. Cardiovascular: Negative. Gastrointestinal: Negative. Endocrine: Negative. Genitourinary: Negative. Musculoskeletal: Negative. Skin: Negative. Neurological: Negative. Hematological: Negative. Medications: Current Outpatient Medications on File Prior to Visit Medication Sig Dispense Refill acetaminophen (TYLENOL) 325 mg tablet Take 2 tablets (650 mg total) by mouth every 6 (six) hours asneeded for pain. allopurinoL (ZYLOPRIM) 100 mg tablet Take 2 tablets (200 mg total) by mouth in the morning and 2 tablets (200 mg total) before bedtime. amLODIPine (NORVASC) 5 mg tablet Take 1 tablet (5 mg total) by mouth once daily. 3 cholecalciferol (VITAMIN D3) 50,000 units capsule Take 1 capsule (50,000 Units total) by mouth oncea week. (Patient taking differently: Take 1 capsule (50,000 Units total) by mouth once a week. Patient stating taking 1250) 12 capsule 3 clonazePAM (KlonoPIN) 0.5 mg tablet Take 1 tablet (0.5 mg total) by mouth 2 (two) times a day as needed for seizures. clopidogrel (PLAVIX) 75 mg tablet Take 1 tablet (75 mg total) by mouth in the morning. famotidine (PEPCID) 20 mg tablet Take 1 tablet (20 mg total) by mouth in the morning and 1 tablet (20 mg total) before bedtime. furosemide (LASIX) 40 mg tablet Take 1 tablet (40 mg total) by mouth daily. hydrALAZINE (APRESOLINE) 50 mg tablet Take 2 tablets (100 mg total) by mouth in the morning and 2 tablets (100 mg total) at noon and 2 tablets (100 mg total) in the evening and 2 tablets (100 mg total) before bedtime. metoprolol tartrate (LOPRESSOR) 100 mg tablet Take 1 tablet (100 mg total) by mouth in the morning and at bedtime. polyethylene glycol 3350 (MIRALAX ORAL) Take 17 g by mouth daily as needed. polysaccharide iron complex (NIFEREX) 150 mg iron capsule Take 1 capsule (150 mg total) by mouth inthe morning. pravastatin (PRAVACHOL) 80 mg tablet Take 1 tablet (80 mg total) by mouth in the morning. sennosides (SENNA ORAL) Take 1 tablet by mouth nightly. tamsulosin (FLOMAX) 0.4 mg capsule,extended release 24hr Take 1 capsule (0.4 mg total) by mouth nightly. warfarin (COUMADIN) 5 mg tablet Take 4 mg by mouth in the evening. Dose is adjusted due to PT/INR . No current facility-administered medications on file prior to visit. Past Medical History: Past Medical History: Diagnosis Date AAA (abdominal aortic aneurysm) ([facility]) AAA (abdominal aortic aneurysm) ([facility]) Anemia Anxiety BPH (benign prostatic hyperplasia) Childhood asthma Chronic kidney disease Chronic venous insufficiency Coronary artery disease with hx of myocardial infarct w/o hx of CABG 09/12/2007 GERD (gastroesophageal reflux disease) Hyperlipidemia Hypertension Hypertensive renovascular disease Osteoarthritis Paroxysmal A-fib ([facility]) Sciatica SOB (shortness of breath) Past Surgical History: Past Surgical History: Procedure Laterality Date ABDOMINAL AORTIC ANEURYSM REPAIR W/ ENDOLUMINAL GRAFT 2010 CORONARY ANGIOPLASTY WITH STENT PLACEMENT left circumflex and right coronary artery RENAL ARTERY STENT Social and Family History: Social History Socioeconomic History Marital status: Spouse name: Not on file Number of children: Not on file Years of education: Not on file Highest education level: Not on file Occupational History Not on file Tobacco Use Smoking status: Former Smokeless tobacco: Never Vaping Use Vaping status: Never Used Substance and Sexual Activity Alcohol use: No Drug use: No Sexual activity: Defer Partners: Female Other Topics Concern Not on file Social History Narrative Not on file Social Determinants of Health Financial Resource Strain: Not on file Food Insecurity: No Food Insecurity (05/27/2024) Hunger Screening Food Insecurity - Worry: Never True Food Insecurity - Inability: Never True Transportation Needs: Not on file Physical Activity: Not on file Stress: Not on file Social Connections: Not on file Interpersonal Safety: Unknown (12/04/2023) Received from [facility] [place] Safety & Environment Fear of Current or Ex-Partner: Not on file Emotionally Abused: Not on file Physically Abused: Not on file Sexually Abused: Not on file Physically or Sexually Abused: Not on file Housing Instability: Not on file Family History Problem Relation Age of Onset Arthritis Mother Diabetes Father Recent Labs: Recent and relative labs were reviewed and interpreted and contributed to the assessment and plan below. Vitals: BP 168/69 (BP Site: Left Arm, BP Postition: Sitting, BP CUFF SIZE: M (9-13 inches)) Pulse 51 Ht177.8 cm (5' 10 ) Wt 84.8 kg (187 lb) SpO2 100% BMI 26.83 kg/m Body mass index is 26.83 kg/m . Physical Exam: Physical Exam Constitutional: Appearance: Normal appearance. HENT: Head: Normocephalic and atraumatic. Mouth/Throat: Mouth: Mucous membranes are moist. Eyes: Extraocular Movements: Extraocular movements intact. Pupils: Pupils are equal, round, and reactive to light. Cardiovascular: Rate and Rhythm: Normal rate and regular rhythm. Pulmonary: Effort: Pulmonary effort is normal. Breath sounds: Normal breath sounds. Abdominal: General: Abdomen is flat. Bowel sounds are normal. Palpations: Abdomen is soft. Musculoskeletal: General: Normal range of motion. Cervical back: Normal range of motion. Skin: General: Skin is warm and dry. Neurological: General: No focal deficit present. Mental Status: He is alert and oriented to person, place, and time. Mental status is at baseline. Psychiatric: Mood and Affect: Mood normal. Behavior: Behavior normal. Thought Content: Thought content normal. Judgment: Judgment normal. Recent testing: Carotid duplex ultrasound and a CT scan of the abdomen pelvis Assessment and Plan: Problem List Bilateral carotid artery stenosis - Primary Current Assessment & Plan Continue best medical therapy with statin and Coumadin.Risk factors modifications. With control of blood pressure and diabetes. Relevant Orders Vas carotid duplex bilateral Infrarenal abdominal aortic aneurysm (AAA) without rupture (CMS-HCC) Current Assessment & Plan Surveillance imaging with a duplex ultrasound In 1 year Relevant Orders Vas aorta/iliac duplex complete Nicolas was seen today for nfrarenal abdominal aortic aneurysm (aaa) without rupture and 1 year followup testing prior. Diagnoses and all orders for this visit: Bilateral carotid artery stenosis - Vas carotid duplex bilateral; Future Infrarenal abdominal aortic aneurysm (AAA) without rupture (CMS-HCC) - Vas aorta/iliac duplex complete; Future Sara Renteria MD, EMERITA, RPVI, FSVS, FACS [facility] This note was created with the assistance of a speech recognition program. While intending to generate a timely document that accurately reflects the content of the visit, no guarantee can be provided that every grammatical or spelling mistake has been or will be identified or corrected. Thank you for your understanding. [facility] History of Present illness Narrative* Wallace Reyes MD - 03/18/2024 10:00 AM EDT Images from the original note were not included. Date of Service: 03/18/24 PCP: CORTEZ LUGO DO History of Present Illness Nicolas Kelly is a 79 y.o. male, with a history of stage IIIB chronic kidney disease returning for nephrologic follow-up. In July 2023 the BUN was 34 creatinine 2.05 an EGFR was 33 mL/min. Urine protein creatinine ratio was 0.36 gram/gram. Intact in PTH was 171 pg/mL. Laboratories of 03/09/2024 show sodium 142 potassium 5 chloride 108 total CO2 22 BUN 43 creatinine 2.35 EGFR 28. The urine protein creatinine ratio. Twenty-five hydroxy vitamin-D was 24.5 ng/mL.. Intact PTH was 241 pg/mL. Total calcium was 8.6 mg/dL. He returns for follow-up feeling well and voicing no complaints. There was no report of nausea, vomiting, shortness of breath, increasing lower extremity edema. He did recently have oral surgery. Problem List 1. Stage 3 B chronic kidney disease Previous nephrologic investigations include a renal ultrasound in June 2012 demonstrating the right kidney measured 11.4 and the left kidney 9.1 cm and bipolar dimension. There was some cortical thinning bilaterally left greater than right. A serum protein electrophoresis with immunofixation revealed no evidence of monoclonal protein disorder. Complement C3 and C4 were normal. Anti neutrophilic cytoplasmic antibody titers were negative. A 24 hr urine collection contained only 111 mg of protein. 2. Paroxysmal atrial fib 3. Anemia of chronic kidney disease with decreased iron stores 4. Benign prostatic hypertrophy 5. History of adverse reaction to Cefdinir with bolus skin eruption 6. Chronic constipation 7. Secondary hyperparathyroidism 8. Preserved left ventricular function with ejection fraction 55%. 9. Hyperlipidemia 10. Anxiety 11. History of abdominal aortic aneurysm status post Endographic repair by Dr. Terrell Arguello 12. Atherosclerotic coronary artery disease with acute myocardial infarction in September 2007 status post angioplasty and stenting of the left circumflex and the right coronary artery by Dr. Mac Landers at the [facility]. 13. History of right-sided sciatica. 14. Allergies to IV dye. 15. Acute gouty arthritis February 2020 16.Pneumonia 06/2023, [facility]. 17. 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 Followed by Dr. Yusuf Perez. Surgical, Family & Social History Surgical History: Past Surgical History: Procedure Laterality Date ABDOMINAL AORTIC ANEURYSM REPAIR W/ ENDOLUMINAL GRAFT 2010 CORONARY ANGIOPLASTY WITH STENT PLACEMENT left circumflex and right coronary artery RENAL ARTERY STENT Social History: Social History Socioeconomic History Marital status: Spouse name: Not on file Number of children: Not on file Years of education: Not on file Highest education level: Not on file Occupational History Not on file Tobacco Use Smoking status: Former Smokeless tobacco: Never Vaping Use Vaping status: Never Used Substance and Sexual Activity Alcohol use: No Drug use: No Sexual activity: Defer Partners: Female Other Topics Concern Not on file Social History Narrative Not on file Social Determinants of Health Financial Resource Strain: Not on file Food Insecurity: Not on file Transportation Needs: Not on file Physical Activity: Not on file Stress: Not on file Social Connections: Not on file Interpersonal Safety: Unknown (12/04/2023) Received from [facility] Safety & Environment Fear of Current or Ex-Partner: Not on file Emotionally Abused: Not on file Physically Abused: Not on file Sexually Abused: Not on file Physically or Sexually Abused: Not on file Housing Instability: Not on file Family History: Family History Problem Relation Age of Onset Arthritis Mother Diabetes Father Allergies & Medications Allergies: Allergies Allergen Reactions Cefdinir Iodinated Contrast Media Other reaction(s): Unknown Ragweed Other reaction(s): Unknown Sulfa (Sulfonamide Antibiotics) Rash Current Meds: Current Outpatient Medications Medication Sig Dispense Refill acetaminophen (TYLENOL) 325 mg tablet Take 2 tablets (650 mg total) by mouth every 6 (six) hours asneeded for pain. allopurinoL (ZYLOPRIM) 100 mg tablet Take 2 tablets (200 mg total) by mouth in the morning and 2 tablets (200 mg total) before bedtime. amLODIPine (NORVASC) 5 mg tablet Take 1 tablet (5 mg total) by mouth once daily. 3 clonazePAM (KlonoPIN) 0.5 mg tablet Take 1 tablet (0.5 mg total) by mouth 2 (two) times a day as needed for seizures. clopidogrel (PLAVIX) 75 mg tablet Take 1 tablet (75 mg total) by mouth in the morning. famotidine (PEPCID) 20 mg tablet Take 1 tablet (20 mg total) by mouth in the morning and 1 tablet (20 mg total) before bedtime. furosemide (LASIX) 40 mg tablet Take 1 tablet (40 mg total) by mouth daily. hydrALAZINE (APRESOLINE) 50 mg tablet Take 2 tablets (100 mg total) by mouth in the morning and 2 tablets (100 mg total) at noon and 2 tablets (100 mg total) in the evening and 2 tablets (100 mg total) before bedtime. metoprolol tartrate (LOPRESSOR) 100 mg tablet Take 1 tablet (100 mg total) by mouth in the morning and at bedtime. polyethylene glycol 3350 (MIRALAX ORAL) Take 17 g by mouth daily as needed. polysaccharide iron complex (NIFEREX) 150 mg iron capsule Take 1 capsule (150 mg total) by mouth inthe morning. potassium chloride (K-DUR,KLOR-CON) 10 MEQ CR tablet Take 1 tablet (10 mEq total) by mouth in the morning. pravastatin (PRAVACHOL) 80 mg tablet Take 1 tablet (80 mg total) by mouth in the morning. sennosides (SENNA ORAL) Take 1 tablet by mouth nightly. tamsulosin (FLOMAX) 0.4 mg capsule,extended release 24hr Take 1 capsule (0.4 mg total) by mouth nightly. warfarin (COUMADIN) 5 mg tablet Take 4 mg by mouth in the evening. Dose is adjusted due to PT/INR . No current facility-administered medications for this visit. Review of Systems Review of Systems Constitutional: Negative for chills, diaphoresis, fatigue and fever. HENT: Negative for congestion, ear discharge, ear pain, facial swelling and hearing loss. Eyes: Negative for pain, discharge, redness and itching. Respiratory: Negative for cough, shortness of breath and wheezing. Cardiovascular: Negative for chest pain, palpitations and leg swelling. Gastrointestinal: Negative for abdominal pain, constipation, diarrhea, nausea and vomiting. Endocrine: Negative for polydipsia, polyphagia and polyuria. Genitourinary: Negative for decreased urine volume, difficulty urinating, dysuria, enuresis, flank pain, frequency, hematuria and urgency. Musculoskeletal: Negative for arthralgias, joint swelling and myalgias. Skin: Negative for rash and wound. Neurological: Negative for dizziness, tremors, weakness, light-headedness and numbness. Hematological: Negative for adenopathy. Does not bruise/bleed easily. Physical Exam Vital Signs: Vitals: 03/18/24 1007 03/18/24 1011 BP: 132/82 132/67 BP Site: Left Arm Left Arm BP Postition: Sitting Standing BP CUFF SIZE: M (9-13 inches) M (9-13 inches) Pulse: (!) 47 (!) 45 SpO2: 98% BMI: There is no height or weight on file to calculate BMI. General appearance: alert in no apparent distress. Psychiatric: Oriented to place, time and person HEENT: atraumatic, supple, moist oral mucosa, no JVD Cardiovascular: normal S1-S2 Respiratory: No respiratory distress with no use of accessory muscles. Clear to auscultation bilaterally with no wheezes or crackles Abdomen: soft, no tenderness, no guarding, positive bowel sounds and no hepato or splenomegaly Vascular: adequate pulses and no carotid bruits. Musculoskeletal: no joint swelling or tenderness. Neurologic: No focal deficit in upper or lower extremities Lymphatic: no cervical or axillary lymphadenopathy. Edema: Laboratory Studies Chemistry: Lab Results Component Value Date SODIUM 142 03/09/2024 SODIUM 142 08/07/2023 SODIUM 141 07/21/2023 K 5.0 03/09/2024 K 4.2 08/07/2023 K 3.4 (L) 07/21/2023 CL 108 03/09/2024 CL 108 08/07/2023 CL 103 07/21/2023 CO2 22 03/09/2024 CO2 25 08/07/2023 CO2 23 07/21/2023 ANIONGAP 12 03/09/2024 ANIONGAP 9 08/07/2023 ANIONGAP 15 07/21/2023 BUN 43 (H) 03/09/2024 BUN 37 (H) 08/07/2023 BUN 34 (H) 07/21/2023 CREATININE 2.35 (H) 03/09/2024 CREATININE 1.95 (H) 08/07/2023 CREATININE 2.05 (H) 07/21/2023 EGFR 28 (L) 03/09/2024 EGFR 35 (L) 08/07/2023 EGFR 33 (L) 07/21/2023 CALCIUM 8.6 03/09/2024 CALCIUM 8.5 08/07/2023 CALCIUM 9.2 07/21/2023 MG 2.3 03/09/2024 MG 2.2 07/21/2023 PHOSPHORUS 3.4 03/09/2024 PHOSPHORUS 2.7 07/21/2023 Lab Results Component Value Date ALT 15 07/21/2023 BILIRUBIN Negative 07/21/2023 Hematology: Lab Results Component Value Date WBC 7.1 03/09/2024 WBC 5.7 07/21/2023 HGB 11.7 (L) 03/09/2024 HGB 12.6 (L) 07/21/2023 HCT 35.2 (L) 03/09/2024 HCT 38.7 (L) 07/21/2023 PLT 122 (L) 03/09/2024 PLT 119 (L) 07/21/2023 Anemia Studies: No results found for: IRONSAT , FERRITIN , [id number] , FOLATE Mineral and Bone Labs: Lab Results Component Value Date CALCIUM 8.6 03/09/2024 CALCIUM 8.5 08/07/2023 PHOSPHORUS 3.4 03/09/2024 PHOSPHORUS 2.7 07/21/2023 VITD25 24.5 (L) 03/09/2024 VITD25 38.9 07/21/2023 PTH 241 (H) 03/09/2024 PTH 171 (H) 07/21/2023 Urine Studies: Lab Results Component Value Date COLOR YELLOW 07/21/2023 TURBIDITY CLEAR 07/21/2023 SPECIFICGRA 1.017 07/21/2023 NITRITE Negative 07/21/2023 PHURINE 6.0 07/21/2023 LEUKOCYTE Negative 07/21/2023 PROTEIN 30 (A) 07/21/2023 KETONES Negative 07/21/2023 UROBILINOGEN <1.1 07/21/2023 BLOODHGB Negative 07/21/2023 Lab Results Component Value Date UPROCRTRAT 0.88 (H) 03/09/2024 UPROCRTRAT 0.36 (H) 07/21/2023 Immunology Profile No results found for: PROTELECTR , SEDRATE , CRP , RF , ANASCREEN , ANTIDSDNA , C3 , C4 , ANCA , MYELOP , PROTEINASE3 , ANTIGLOMERU No results found for: HAV , HEPAIGM , HEPBIGM , HEPBCAB , HBEAG , HEPCAB Imaging Echocardiogram: No results found. IMPRESSION 1. Stage IIIB chronic kidney disease: Secondary to hypertensive nephrosclerosis or renovascular disease. Fatima renal chemistries are stable. He appears euvolemic. I would like to see if we can affordhim the benefit of a low-dose Amrik inhibitor for renal protection and protein sparing. 2. Hypertension: His blood pressures at cardiac rehab 4 times a week are satisfactory and consistently low systolic blood pressures less than 130 mmHg 3. Secondary hyperparathyroidism: His intact PTH is rising. Ordinarily we would start calcitriol. However, his 25 hydroxyvitamin-D level is low and his calcium low normal. We will start with vitamin-D 3 before proceeding with calcitriol therapy. 4. Hyperkalemia: I note that his potassium is high at 5 mEq per L. I will discontinue potassium chloride which he has been taking at 10 mEq p.o. q.h.s.. PLAN 1. Start Drisdol 50,000 Units once a week. 2. Discontinue KCL 2. Target systolic blood pressure to less than 130 mmHg. 4. Avoid prolonged use of nonsteroidal anti-inflammatory drugs or proton pump inhibitors. 5. He will return to this office in 6 months time for repeat evaluation. Will check a CKD panel at that time. Thank you CORTEZ LUGO DO for the opportunity to participate in the care of your patients! Please contact me at [phone] (Office) or [phone] (Answering service) with any questions. WALLACE REYES MD [facility] This note was created with the assistance of a speech-recognition program. Although the intention is to generate a document that actually reflects the content of the visit, no guarantees can be provided that every mistake has been identified and corrected by editing. [facility] this [facility] Miscellaneous Notes* Telephone Encounter - Ta RAVIN Escalante - 12/30/2023 8:53 AM EDT Pt called requesting to schedule an established patient appt with our office. Patient stated they prefer to see Dr. Reyes. After reviewing the pt's last progress note with our office, the pt wasscheduled for 03/18/24 @ 10:00 with Wallace Reyes MD documented [facility] this [facility] [id number] Telephone encounter Note* Telephone Encounter - Ta Escalante CMA - 12/30/2023 8:53 AM EDT Pt called requesting to schedule an established patient appt with our office. Patient stated they prefer to see Dr. Reyes. After reviewing the pt's last progress note with our office, the pt wasscheduled for 03/18/24 @ 10:00 with Wallace Reyes MD [facility] [id number] Evaluation note* Encounter Date Diagnosis Assessment Notes Treatment Notes Treatment Clinical Notes Nov, Primary hypertension (ICD-10 - I10) [facility] Other 01-15-2024 Evaluation note* Encounter Date Diagnosis Assessment Notes Treatment Notes Treatment Clinical Notes Oct, MARY (generalized anxiety disorder) (ICD-10 - F41.1) [facility] Other 10-30-2023 Evaluation note* Encounter Date Diagnosis [...] are maintaining regular scheduled 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 No bleeding complications Jul, Primary hypertension (ICD-10 [...] due to CKD. No further testing necessary [facility] Other 10-09-2023 Evaluation note* Encounter Date Diagnosis Assessment Notes Treatment Notes Treatment Clinical Notes Jul, MARY (generalized anxiety disorder) (ICD-10 - F41.1) Jul, ASHD (arteriosclerotic heart disease) (ICD-10 - I25.10) [facility] Other 09-29-2023 Evaluation note* Encounter Date Diagnosis [...] are maintaining regular scheduled 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 No obvious bleeding complication Jun, Pneumonia of [...] - check Fe, Ferritin, B12, FA, TIBC [facility] Other 09-19-2023 Evaluation note* Encounter Date Diagnosis Assessment Notes Treatment Notes Treatment Clinical Notes Jun, Pneumonia of left upper lobe due to infectious organism (ICD-10 - J18.9) [facility] Other 09-18-2023 Evaluation note* Encounter Date Diagnosis [...] are maintaining regular scheduled 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 No obvious bleeding Jun, Primary hypertension (ICD-10 [...] KIKE and dyspnea resulted in admission to [facility]. IV fluids resulted in improved perfusion and resolution end organ dysfunction. Continue to monitor Jun, Acute kidney failure, unspecified (ICD-10 - N17.9) Acute on Chronic kidney disease. Hydrate, Avoid NSIADs and monitor GFR. Jun, Fatigue, unspecified type (ICD-10 - R53.83) [facility] Other 09-13-2023 Evaluation note* Encounter Date Diagnosis [...] Jun, Diarrhea, unspecified type (ICD-10 - R19.7) [facility] Other 08-28-2023 Evaluation note* Encounter Date Diagnosis Assessment Notes Treatment Notes Treatment Clinical Notes May, Gastroesophageal ref lux disease with esophagitis without hemorrhage (ICD-10 - K21.00) [facility] Other 06-06-2023 Evaluation note* Encounter Date Diagnosis Assessment Notes Treatment Notes Treatment Clinical Notes Mar, Gastroesophageal ref lux disease with esophagitis without hemorrhage (ICD-10 - K21.00) Saber Hacer Other 04-17-2023 Evaluation note* Encounter Date Diagnosis Assessment Notes Treatment Notes Treatment Clinical Notes Jan, Hypertension (ICD-10 - I10) Jan, Hyperlipidemia type II (ICD-10 - E78.01) Jan, ASHD (arteriosclerotic heart disease) (ICD-10 - I25.10) Saber Hacer Other 04-17-2023 Evaluation note* Encounter Date Diagnosis Assessment Notes Treatment Notes Treatment Clinical Notes Jan, Paroxysmal atrial fibrillation (ICD-10 - I48.0) Saber Hacer Other 02-27-2023 Evaluation note* Encounter Date Diagnosis Assessment Notes Treatment Notes Treatment Clinical Notes Nov, Left carotid bruit (ICD-10 - R09.89) Carotid US: < 50% B/L - 11/2022 Saber Hacer Other 02-10-2023 Evaluation note* Encounter Date Diagnosis Assessment Notes Treatment Notes Treatment Clinical Notes Nov, Left carotid bruit (ICD-10 - R09.89) Carotid US: < 50% B/L - 11/2022 Saber Hacer Other 02-07-2023 Evaluation note* Encounter Date Diagnosis Assessment Notes Treatment Notes Treatment Clinical Notes Nov, Paroxysmal atrial fibrillation (ICD-10 - I48.0) This patient is in NSR or rate controlled. This patient is anticoagulated to prevent thromboembolic events. They are maintaining regular scheduled 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 Nov, ASHD (arteriosclerot ic heart disease) (ICD-10 [...] down may require additional labs and endoscopy [facility] [employer] Other Evaluation noteNo InformationN[facility] [employer] Other Evaluation noteNo assessment information available [facility] Work Phone: Evaluation note* Diagnosis Onset Date Resolution Status ASHD (arteriosclerotic heart disease) acute Chronic venous insufficiency acute Paroxysmal atrial fibrillation acute Primary hypertension acute ASHD (arteriosclerotic heart disease) acute Chronic kidney disease acute Chronic venous insufficiency acute Hypercholesterolemia acute Medicare annual wellness visit, subsequent acute Paroxysmal atrial fibrillation acute Primary hypertension acute Screening PSA (prostate specific antigen) acute [facility] Work Phone: Evaluation note* Diagnosis Onset Date Resolution Status ASHD (arteriosclerotic heart disease) acute Chronic kidney disease acute Chronic venous insufficiency acute Hypercholesterolemia acute Medicare annual wellness visit, subsequent acute Paroxysmal atrial fibrillation acute Primary hypertension acute Screening PSA (prostate specific antigen) acute [facility] Work Phone: Evaluation note* Diagnosis Onset Date Resolution Status ASHD (arteriosclerotic heart disease) acute Chronic kidney disease acute Chronic venous insufficiency acute Hypercholesterolemia acute Medicare annual wellness visit, subsequent acute Paroxysmal atrial fibrillation acute Primary hypertension acute Screening PSA (prostate specific antigen) acute Acute bronchitis due to other specified organisms acute Anticoagulated acute Paroxysmal atrial fibrillation acute Acute bronchitis due to other specified organisms acute Acute chest wall pain acute Paroxysmal atrial fibrillation acute [facility] Work Phone: Evaluation note* Diagnosis Dermatophytosis of nail- Primary Dystrophic nail Other specified disease of nail Pain around toenail, right foot Pain around toenail, left foot documented in this encounter [facility] HealthcareEvaluation note* Diagnosis Onset Date Resolution Status ASHD (arteriosclerotic heart disease) acute Chronic kidney disease acute Chronic venous insufficiency acute Hypercholesterolemia acute Medicare annual wellness visit, subsequent acute Paroxysmal atrial fibrillation acute Primary hypertension acute Screening PSA (prostate specific antigen) acute Acute bronchitis due to other specified organisms acute Anticoagulated acute Paroxysmal atrial fibrillation acute Acute bronchitis due to other specified organisms acute Acute chest wall pain acute Paroxysmal atrial fibrillation acute Acute chest wall pain acute Paroxysmal atrial fibrillation acute [facility] Work Phone: Evaluation note* Diagnosis Seborrheic keratosis- Primary Actinic keratosis Neoplasm of unspecified behavior of bone, soft tissue, and skin Lentigines documented in this encounter [facility] HealthcareEvaluation note* Diagnosis 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) Stage 3b chronic kidney disease (CKD) ([facility])- Primary [facility] Malignant neoplasm of skin of lip- Primary Other malignant neoplasm of skin of lip documented in this encounter [facility] HealthcareEvaluation note* Diagnosis Stage 3b chronic kidney disease (CKD) (CMS-HCC)- Primary [facility] Diagnosis Bilateral carotid artery stenosis- Primary Occlusion and stenosis of carotid artery without mention of cerebral infarction Infrarenal abdominal aortic aneurysm (AAA) without rupture ([facility]) [facility] Diagnosis Bilateral carotid artery stenosis- Primary Occlusion and stenosis of carotid artery without mention of cerebral infarction [facility] Diagnosis Infrarenal abdominal aortic aneurysm (AAA) without rupture ([facility])- Primary [facility] Diagnosis Dermatophytosis of nail- Primary Dystrophic nail Other specified disease of nail Pain around toenail, right foot Pain around toenail, left foot documented in this encounter [facility] HealthcareEvaluation note* Diagnosis Onset Date Resolution Status Admit Date ASHD (arteriosclerotic heart disease) acute December 14, 2024 8:44am Chronic kidney disease acute Ma rc 2024 8:44am Chronic venous insufficiency acute December 14, 2024 8:44am MARY (generalized anxiety disorder) a cute December 14, 2024 8:44am Hypercholesterolemia acute Antoine h 2024 8:44am Paroxysmal atrial fibrillation acute December 14, 2024 8:44am Primary hypertension acute Antoine h 2024 8:44am [facility] Work Phone: Evaluation note* Diagnosis Cancer of the lip, oral cavity, and pharynx (CMS/HCC)- Primary Malignant neoplasm of ill-defined sites within the lip, oral cavity, and pharynx documented in this encounter [facility] HealthcareEvaluation note* Diagnosis Dermatophytosis of nail- Primary Dystrophic nail Other specified disease of nail Pain around toenail, right foot Pain around toenail, left foot documented in this encounter [facility] HealthcareEvaluation note* Diagnosis Bilateral carotid artery stenosis- Primary Occlusion and stenosis of carotid artery without mention of cerebral infarction Infrarenal abdominal aortic aneurysm (AAA) without rupture Stage 4 chronic kidney disease ([facility])- Primary [facility] Diagnosis Bilateral carotid artery stenosis- Primary Occlusion and stenosis of carotid artery without mention of cerebral infarction Infrarenal abdominal aortic aneurysm (AAA) without rupture Infrarenal abdominal aortic aneurysm (AAA) without rupture- Primary Bilateral carotid artery stenosis Occlusion and stenosis of carotid artery without mention of cerebral infarction [facility] - Reported* Type Description Date [...] Surgical History LHC 2013 Surgical History RCA 2007 Surgical History [facility]CA STNT Hospitalization History SEE SURGICAL HX [employer]er [employer] Other InstructionsNot on filedocumented in this encounter [facility] filedocumented in this encounter [facility] on filedocumented in this encounter [facility] on filedocumented in this encounter [facility] on filedocumented in this [facility] on filedocumented in this encounter [facility] on filedocumented in this encounter [facility]ructionsNot on filedocumented in this encounter [facility] System[facility] for referral (narrative)No reason for referral [facility] Work [facility]: Summary Purpose Family History Relationship Condition Age at Onset Recorded Date/T gely father Diabetes mellitus Unknown mother Family history of mental disorder Unknown Advance Directives Advance Directive Response Recorded Date/ Time Advance Directives No November 01, 2023 5:31pm Advance Directive Response Recorded Date/ Time Advance Directives No November 01, 2023 4:31pm Chief Complaint and Reason for Visit Chief Complaint Amb Documentation Afib Chief Complaint Afib wellness Reason for Visit ASHD (arteriosclerot ic heart disease) Chronic venous insufficiency Paroxysmal atrial fibrillation Primary hypertension ASHD (arteriosclerotic heart disease) Chronic kidney disease Chronic venous insufficiency Hypercholesterolemia Medicare annual wellness visit, subsequent Paroxysmal atrial fibrillation Primary hypertension Screening PSA (prostate specific antigen) Chief Complaint wellness itchy eyes, red, feels grainy, cough, covid neg Reason for Visit ASHD (arteriosclerot ic heart disease) Chronic kidney disease Chronic venous insufficiency Hypercholesterolemia Medicare annual wellness visit, subsequent Paroxysmal atrial fibrillation Primary hypertension Screening PSA (prostate specific antigen) Chief Complaint wellness itchy eyes, red, feels grainy, cough, covid neg stomach pain Reason for Visit ASHD (arteriosclerot ic heart disease) Chronic kidney disease Chronic venous insufficiency Hypercholesterolemia Medicare annual wellness visit, subsequent Paroxysmal atrial fibrillation Primary hypertension Screening PSA (prostate specific antigen) Acute bronchitis due to other specified organisms Anticoagulated Paroxysmal atrial fibrillation Acute bronchitis due to other specified organisms Acute chest wall pain Paroxysmal atrial fibrillation Chief Complaint wellness itchy eyes, red, feels grainy, cough, covid neg stomach pain CC Adult Risk Stratification 2 week follow up Reason for Visit ASHD (arteriosclerot ic heart disease) Chronic kidney disease Chronic venous insufficiency Hypercholesterolemia Medicare annual wellness visit, subsequent Paroxysmal atrial fibrillation Primary hypertension Screening PSA (prostate specific antigen) Acute bronchitis due to other specified organisms Anticoagulated Paroxysmal atrial fibrillation Acute bronchitis due to other specified organisms Acute chest wall pain Paroxysmal atrial fibrillation Acute chest wall pain Paroxysmal atrial fibrillation Chief Complaint Admit Date 2 week follow up August 17, 2024 1 1:34am 3 month f/u September 13, 2024 8 :48am Reason for Visit Admit Date Acute chest wall pain August 17, 2024 11:34am Gastroesophageal reflux dise ase with esophagitis without hemorrhage August 17, 2024 11:34am Paroxysmal atrial fibrillation August 17, 2024 11:34am ASHD (arteriosclerotic heart disease) [facility] 2023 8:48am Chronic kidney disease September 13 8:48am Chronic venous insufficiency September 8:48am MARY (generalized anxiety disorder) Dece 2023 8:48am Hypercholesterolemia September 13, 2024 8:48am Paroxysmal atrial fibrillation September 13, 2024 8:48am Primary hypertension September 13, 2024 8:48am Chief Complaint Admit Date EXCISION LOWER LIP LESION W/FROZEN SECTI ON /REPAIR November 09, 2024 9:00am 3 month f/u December 14, 2024 8:44 am Reason for Visit Admit Date ASHD (arteriosclerotic heart disease) [facility] 2024 8:44am Chronic kidney disease December 14, 2024 8 :44am Chronic venous insufficiency December 14, 2024 8:44am MARY (generalized anxiety disorder) December 14, 2024 8:44am Hypercholesterolemia December 14, 2024 8:4 4am Paroxysmal atrial fibrillation December 8:44am Primary hypertension December 14, 2024 8:4 4am Chief Complaint Admit Date 3 month f/u March 25, 2025 8:55 am Wellness June 20, 2025 8:43am Reason for Visit Admit Date ASHD (arteriosclerotic heart disease) Ju 2024 8:55am Chronic kidney disease March 25, 2025 8 :55am Chronic venous insufficiency March 25, 2025 8:55am MARY (generalized anxiety disorder) March 25, 2025 8:55am Hypercholesterolemia March 25, 2025 8:5 5am Paroxysmal atrial fibrillation March 8:55am Primary hypertension March 25, 2025 8:5 5am ASHD (arteriosclerotic heart disease) Se pt2024 8:43am Chronic kidney disease June 20 8:43am Chronic venous insufficiency June 202024 8:43am MARY (generalized anxiety disorder) Septe mb 2024 8:43am Hypercholesterolemia June 20, 2025 8:43am Medicare annual wellness visit, subseque nt June 20, 2025 8:43am Paroxysmal atrial fibrillation June 20, 2025 8:43am Primary hypertension June 20, 2025 8:43am Screening PSA (prostate specific antigen ) June 20, 2025 8:43am Reason for Referral Specialty Diagnoses / Procedures Referred By Mary ac Referred To Contact Diagnoses Bilateral carotid artery stenosis Procedures Vas carotid duplex bilateral Sara Renteria MD [address] [address] Phone: Referral ID Status Reason Start Date Expiration Date V isits Requested Visits Authorized [id number] Pending Review 05/27/2024 05/27/2025 1 1 Specialty Diagnoses / Procedures Referred By Contac t Referred To Contact Diagnoses Infrarenal abdominal aortic aneurysm (AAA) without rupture (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 Procedures [place] OFFICE/OUTPATIENT NEW HIGH MDM Piedad Connolly MD [address] [place] [address] Phone: tel: fax: Cortez Gaspar W, DO [address] [place] [address] Phone: tel: fax: Referral ID Status Reason Start Date Expiration Date V isits Requested Visits Authorized [id number] Closed Specialty Services Required 10/08/2024 04/06/2025 1 1 Reason Comments 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 SS: 10.5 Reason Comments Post-op 1 month judy Reason Comments Med Refill Reason Comments Nail care Nicolas Kelly is a [age] y.o. male who presents for Toenail Care. SS: 10.5. Reason Comments 1 year f u 1 YEAR F/U WITH DUPL EX SCAN testing 05/28 Bilateral carotid artery stenosisInfrarenal abdominal aortic aneurysm (AAA) without rupture (CMS-HCC) (unrecognized sect ion and content) No Status Records FoundNo Status Records FoundNo Status Records FoundNo Status Records FoundNo Status Records FoundNo Status Records Found INFORMATION SOURCE (unrecogn ized section and content) DATE CREATED AUTHOR 03/21/2023 [facility] DATE CREATED AUTHOR AUTHOR'S ORGANIZ ATION 11/19/2024 [facility] DATE CREATED AUTHOR AUTHOR'S ORGANIZ ATION 03/14/2025 [facility] DATE CREATED AUTHOR AUTHOR'S ORGANIZ ATION 03/17/2025 [facility] DATE CREATED AUTHOR AUTHOR'S ORGANIZ ATION 05/18/2025 [facility] DATE CREATED AUTHOR AUTHOR'S ORGANIZ ATION 06/04/2025 [facility] Care Teams (unrecognized sec tion and content) Team Status: Active Member Role Status Dates Cortez Lugo DO Primary Care Provider Active Team Status: Inactive Member Role Status Dates Cortez Lugo DO Primary Care Provider Active Start: March 25, 2025 End: March 25, 2025 Cortez Lugo DO Attending Provider Active Sta rt: March 25, 2025 End: March 25, 2025 Team Status: Inactive Member Role Status Burak Lugo DO Primary Care Provider Active Start: June 20, 2025 End: June 20, 2025 Cortez Lugo DO Attending Provider Active Sta rt: June 20, 2025 End: June 20, 2025 Team Status: Active Member Role Status Burak Lugo DO Primary Care Provider Active Team Status: Active Member Role Status Burak Lugo DO Primary Care Provide r, Attending Provider Active Start: September 28, 2024 Team Status: Inactive Member Role Status Burak Gaspar DO Attending Provider Active S tart: November 09, 2024 End: November 09, 2024 Team Status: Inactive Member Role Status Burak Lugo DO Primary Care Provide r, Attending Provider Active Start: December 14, 2024 End: December 14, 2024 Team Status: Inactive Member Role Status Burak Lugo DO Primary Care Provide r, Attending Provider Active Start: April 09, 2024 End: April 09, 2024 Team Status: Inactive Member Role Status Burak Lugo DO Primary Care Provide r, Attending Provider Active Start: June 16, 2024 End: June 16, 2024 Team Status: Active Member Role Status Burak Lugo DO Primary Care Provider Active Start: February 02, 2024 JESS Corbin Attending Provider Active Start : February 02, 2024 Team Status: Active Member Role Status Burak Lugo DO Primary Care Provide r, Attending Provider Active Start: June 21, 2024 Team Status: Inactive Member Role Status Burak Lugo DO Primary Care Provide r, Attending Provider Active Start: July 26, 2024 End: July 26, 2024 Team Status: Inactive Member Role Status Dates Cortez Lugo DO Primary Care Provide r, Attending Provider Active Start: August 05, 2024 End: August 05, 2024 Administration Vice President Relationship Specialty Start Date End Date Cortez Lugo MD [address] [phone] PCP - General Internal Medicine 09/11/23 Administration Vice President Relationship Specialty Start Date End Date Cortez Lugo MD [address] [phone] PCP - General Internal Medicine 09/11/23 Team Status: Active Member Role Status Dates Cortez Lugo DO Primary Care Provide r, Attending Provider Active Start: August 05, 2024 Team Status: Inactive Member Role Status Dates Cortez Lugo DO Primary Care Provide r, Attending Provider Active Start: August 17, 2024 End: August 17, 2024 Administration Vice President Relationship Specialty Start Date End Date Cortez Lugo MD [address] [phone] PCP - General Internal Medicine 09/11/23 Administration Vice President Relationship Specialty Start Date End Date Cortez Lugo MD [address] [phone] PCP - General Internal Medicine 09/11/23 Administration Vice President Relationship Specialty Start Date End Date Cortez Lugo MD [address] [phone] PCP - General Internal Medicine 09/11/23 Administration Vice President Relationship Specialty Start Date End Date Cortez Lugo MD [address] [phone] PCP - General Internal Medicine 09/11/23 Administration Vice President Relationship Specialty Start Date End Date Cortez Lugo DO [address] [place], [place] [id number] PCP - General 03/06/17 Team Status: Inactive Member Role Status Dates Cortez Lugo DO Primary Care Provide r, Attending Provider Active Start: September 13, 2024 End: September 13, 2024 Administration Vice President Relationship Specialty Start Date End Date Cortez Lugo MD [address] [place] [phone] PCP - General Internal Medicine 09/11/23 Piedad Connolly MD [address] [place] [address] Dermatology 11/17/24 Cortez Gaspar DO [address] [place] [address] Otolaryngology 11/17/24 Administration Vice President Relationship Specialty Start Date End Date Cortez Lugo MD [address] [place] [phone] PCP - General Internal Medicine 09/11/23 Piedad Connolly MD [address] [place] [address] Dermatology 11/17/24 Cortez Gaspar DO [address] [place] [address] Otolaryngology 11/17/24 Administration Vice President Relationship Specialty [place] [address] [place] [id number] PCP - General 03/06/17 Administration Vice President Relationship Specialty Start Date End Date Cortez Lugo DO [address] [place] [address] PCP - General 03/06/17 Administration Vice President Relationship Specialty Start Date End Date Cortez Lugo DO [address] [place] [address] PCP - General 03/06/17 Administration Vice President Relationship Specialty Start Date End Date Cortez Lugo DO [address] [place] [address] PCP - General 03/06/17 Administration Vice President Relationship Specialty Start Date End Date Cortez Lugo MD [address] [place] [phone] PCP - General Internal Medicine 09/11/23 Piedad Connolly MD [address] [place] [address] Dermatology 11/17/24 Cortez Gaspar DO [address] [place] [address] Otolaryngology 11/17/24 Administration Vice President Relationship Specialty Start Date End Date Cortez Lugo MD [address] [place] [phone] PCP - General Internal Medicine 09/11/23 Piedad Connolly MD [address] [place] [address] Dermatology 11/17/24 Cortez Gaspar DO [address] [place] [address] Otolaryngology 11/17/24 Administration Vice President Relationship Specialty Start Date End Date Cortez Lugo MD [address] [place] [address] PCP - General Internal Medicine 09/11/23 Piedad Connolly MD [address] [place] [address] Dermatology 11/17/24 Cortez Gaspar DO [address] [place] [address] Otolaryngology 11/17/24 Administration Vice President Relationship Specialty Start Date End Date Cortez Lugo DO [address] [place] [address] PCP - General 03/06/17 Administration Vice President Relationship Specialty Start Date End Date Cortez Lugo DO [address] [place] [address] PCP - General Internal Medicine 09/11/23 Piedad Connolly MD [address] [place] [address] Dermatology 11/17/24 Cortez Gaspar DO [address] [place] [address] Otolaryngology 11/17/24 Administration Vice President Relationship Specialty Start Date End Date Cortez Lugo DO [address] [place] [address] PCP - General Internal Medicine 09/11/23 Piedad Connolly MD [address] [facility] [address] [place] [address] Dermatology 11/17/24 Cortez Gaspar DO [address] [facility] [place] [address] Otolaryngology 11/17/24 Administration Vice President Relationship Specialty Start Date End Date Cortez Lugo DO [address] [place] [id number] PCP - General 03/06/17 Administration Vice President Relationship Specialty Start Date End Date Cortez Lugo DO [address] [place] [address] PCP - General 03/06/17 Team Status: Inactive Member Role Status Dates Cortez Lugo DO Primary Care Provider Active Start: March 25, 2025 End: March 25, 2025 Cortez Lugo DO Attending Provider Active Sta rt: March 25, 2025 End: March 25, 2025 Team Status: Inactive Member Role Status Dates Cortez Lugo DO Primary Care Provider Active Start: June 20, 2025 End: June 20, 2025 Cortez Lugo DO Attending Provider Active Sta rt: June 20, 2025 End: June 20, 2025 Goals (unrecognized section and content) Goals may [...] BE BASED ON THE PRIMARY CLINICAL RECORDS. [employer] [facility]. provides no warranty or guarantee of the accuracy or completeness of information in this document.
[2025-06-23 07:40] LABS: Hematocrit 32.2 % (42.0-54.0); Hemoglobin 10.0 g/dL (14.0-18.0); Immature Granulocytes Abs Auto 0.02 10^3/uL (0.00-0.03); Immature Granulocytes Pct Auto 0.4 % (0.0-0.5); Lymphocytes Absolute Auto 1.0 10^3/uL (1.2-3.8); Mean Corpuscular HGB Conc 31.1 g/dL (29.9-35.2); Mean Corpuscular Hemoglobin 27.2 pg (25.9-34.0); Mean Corpuscular Volume 87.7 fL (80.0-94.0); Platelet Count 116 10^3/uL (150-450); Red Blood Count 3.67 10^6/uL (4.70-6.10); White Blood Count 5.4 10^3/uL (4.0-11.0)
[2025-06-23 07:53] LABS: Alanine Aminotransferase 13 U/L (16-63); Albumin Globulin Ratio 0.9; Albumin Level 3.0 g/dL (3.4-5.0); Alkaline Phosphatase 83 U/L (46-116); Anion Gap 12.3; Aspartate Amino Transferase 14 U/L (15-37); Blood Urea Nitrogen 58.0 mg/dL (7.0-18.0); Calcium 8.3 mg/dL (8.5-10.1); Carbon Dioxide 25.6 mmol/L (21.0-32.0); Chloride 110 mmol/L (98-107); Cholesterol 138 mg/dL (<=200); Estimated GFR (African America 26 (>=60 mL/min/1.73m^2); Estimated GFR (Non-African Ame 21 (>=60 mL/min/1.73m^2); Globulin 3.4 g/dL; Glucose 108 mg/dL (74-106); HDL Cholesterol 46 mg/dL (40-60); Potassium 3.9 mmol/L (3.5-5.1); Sodium 144 mmol/L (136-145); Total Protein 6.4 g/dL (6.4-8.2); Triglycerides 75 mg/dL (<=150); Uric Acid 3.4 mg/dL (3.5-7.2); VLDL CHOLESTEROL 15.0 mg/dL
== END 2025-06-23 07:07 | disposition home or self-care (01) ==
LOC: LAB 07:09
PROVIDERS: PCP Internal Medicine; Visit Provider Internal Medicine
DX: I12.9 Hypertensive chronic kidney disease with stage 1 through stage 4 chronic kidney disease, or unspecified chronic kidney disease (principal); N18.4 Chronic kidney disease, stage 4 (severe); I48.0 Paroxysmal atrial fibrillation; I25.10 Atherosclerotic heart disease of native coronary artery without angina pectoris; E78.00 Pure hypercholesterolemia, unspecified; Z12.5 Encounter for screening for malignant neoplasm of prostate; E79.0 Hyperuricemia without signs of inflammatory arthritis and tophaceous disease
CPT/HCPCS: 36415; 80053; 80061; 84550; 85025; G0103

== ENCOUNTER 2025-07-13 04:21 | Outpatient (RCR) | payer MEDICARE, SELFPAY | END 2025-08-12 23:59 | disposition home or self-care (01) | LOC: MM 04:21 | PROVIDERS: PCP Internal Medicine; Visit Provider Internal Medicine | DX: Z51.81 Encounter for therapeutic drug level monitoring (principal); Z79.01 Long term (current) use of anticoagulants; I48.91 Unspecified atrial fibrillation | CPT/HCPCS: 85610; G0463 ==

== ENCOUNTER 2025-08-13 | Outpatient (RCR) | payer MEDICARE, SELFPAY | END 2025-09-11 23:59 | disposition home or self-care (01) | LOC: MM | PROVIDERS: PCP Internal Medicine; Visit Provider Internal Medicine | DX: Z51.81 Encounter for therapeutic drug level monitoring (principal); Z79.01 Long term (current) use of anticoagulants; I48.91 Unspecified atrial fibrillation | CPT/HCPCS: 85610; G0463 ==

== ENCOUNTER 2025-09-12 10:35 | Outpatient (RCR) | payer MEDICARE, SELFPAY | END 2025-10-12 13:12 | disposition home or self-care (01) | LOC: MM 10:35 | PROVIDERS: PCP Internal Medicine; Visit Provider Internal Medicine | DX: Z51.81 Encounter for therapeutic drug level monitoring (principal); Z79.01 Long term (current) use of anticoagulants; I48.91 Unspecified atrial fibrillation | CPT/HCPCS: 85610; G0463 ==